=== PATIENT | male | born 1960 | race Caucasian/White ===

== ENCOUNTER 2017-12-06 05:22 | Day surgery (SDC) | payer BC, OTHER, SELFPAY ==
[2017-11-25 09:58] VITALS: BP 144/70; PULSE 82; RESP 16; TEMP 36.8; O2SAT 98; BMI 31.9
--- NOTE | 2017-11-25 10:08 | EKG12_ITS ---
Test Reason : Blood Pressure : / mmHG Vent. Rate : 080 BPM Atrial Rate : 080 BPM P-R Int : 154 ms QRS Dur : 084 ms QT Int : 370 ms P-R-T Axes : 009 000 -03 degrees QTc Int : 426 ms Poor data quality, interpretation may be adversely affected Sinus rhythm with Fusion complexes Septal infarct , age undetermined Abnormal ECG Confirmed by HAY BURTON, FRANCIS ([id number]), index editor THEA ROGERS ([id number]) on 11/28/2017 1:44:13 PM Referred By: Tigre Nelson Confirmed By:FRANCIS GUIDO MD
[2017-11-25 10:46] LABS: Absolute Lymphocyte Count 2.15 X10^3/ul (0.83-4.51); Absolute Neutrophil Count 1.9 X10^3/uL (2.0-7.7); Basophil# 0.02 X10^3/uL; Basophil% 0.4 % (0-1); Eosinophil# 0.14 X10^3/uL; Eosinophils% 3.1 % (0-5); Hematocrit 41.6 % (40-54); Hemoglobin 14.3 g/dl (13.0-16.5); Lymphocyte # 2.15 X10^3/ul (4.0); Lymphocyte % 47.6 % (19-41); Mean Corp Hgb Conc 34.4 g/gl (32-36); Mean Corpuscular Hgb 30.3 pg (27.0-32.0); Mean Corpuscular Volume 88.1 fL (80-94); Mean Platelet Vol. 9.9 fl (6.2-12.0); Monocyte# 0.35 X10^3/uL; Monocyte% 7.7 % (0-10); Neutrophil # 1.86 X10^3/uL (2.7-7.7); Neutrophil % 41.2 % (47-70); Platelet Count 208 K/mm3 (150-450); RBC Distribution Width CV 13.6 % (11.6-14.6); RBC Distribution Width SD 43.7 fl (35.1-43.9); Red Blood Count 4.72 M/mm3 (4.6-6.2); White Blood Count 4.5 K/mm3 (4.4-11.0)
[2017-11-25 10:48] LABS: POSITIVE COUNT NO; POSITIVE DIFFERENTIAL NO; POSITIVE MORPHOLOGY NO
[2017-11-25 11:16] LABS: Anion Gap 5 (5-15); BUN 15 mg/dL (7-18); BUN/Creat Ratio 16.9 RATIO (10-20); Calcium,Total 8.9 mg/dL (8.5-10.1); Chloride 106 mmol/L (98-107); Creatinine, Serum 0.89 mg/dL (0.70-1.30); EST Glomerular Filtration Rate 93 mL/min (>60); Est Glom Filt Rate - Afr Amer 113 mL/min (>60); Estimated Creatinine Clearance 84.58 ml/min; Glucose 91 mg/dL (74-106); Potassium 4.7 mmol/L (3.5-5.1); Sodium Level 141 mmol/L (136-145)
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
--- NOTE | 2017-12-05 15:36 | CASEMGMT ---
[facility] Pre-op Call. DC PLAN: Home with outpt therapy Intro role of CM to patient and his on phone and questions asked re: discharge planning. Equipment @ home: cane, walker, tub bench, grab bars, crutches. Physical Therapy: [facility], [place], [place] Prescription Coverage: Yes Transportation: is able to assist. No further concerns identified. Glenda CONROY RN ACM
[2017-12-06] VITALS (8 sets, daily range): BP systolic 122–155; BP diastolic 74–91; PULSE 75–84; RESP 16–18; TEMP 35.8–37.1; O2SAT 92–97; BMI 31.9
[2017-12-06] MEDS: Acetaminophen 500 MG Tablet 1000 MG PO ×2 (05:45→13:49)
[2017-12-06] MEDS: oxyCODONE HCl Cr 10 MG Tablet PO (05:45)
[2017-12-06] MEDS: Celecoxib 200 MG Capsule 400 MG PO (05:45)
--- NOTE | 2017-12-06 07:15 | KNEE_PTH ---
PATIENT: ASHLEY [place] [facility] [id number] AGE/SX: 57/M ROOM: RE12/06/[address]: Tigre Nelson MD : [id number] BED: DIS: 12/06/2017 SPEC #: [id number] RECD: 12/06/17 10:20 STATUS: WALDEMAR JESSICA #: [id number] COCO: 12/06/17 07:[address]: Tigre Nelson DEPT: SURGICAL PATHOLOGY RECD BY: Milton Cedillo ENTERED: 12/06/17 13:30 SP TYPE: TOTAL KNEE OTHR DR: Dr. Yang Serrano, DO Tissues: Knee, NOS Procedures: Decalcification bone/plaque Surgery Specimen Level IV HEADER OPERATION: Total knee replacement PRE-OP DIAGNOSIS: Osteoarthritis with varus deformity TISSUE SUBMITTED: Bone and soft tissue, rule out avascular necrosis MICROSCOPIC DIAGNOSIS Bone and soft tissue, right knee, total knee replacement: Pieces of bone with degenerative osteoarthritis and focal changes consistent with avascular necrosis. Fragments of fibroadipose tissue, fibroconnective tissue and reactive synovial tissue with focal granulation tissue reaction and calcification. TASHA:sergio 12/09/17 MICROSCOPIC DESCRIPTION Slides are reviewed. GROSS DESCRIPTION Received is one container designated bone and soft tissue right knee. The specimen consists of multiple fragments of rowley-yellow bone measuring in aggregate 11 x 10 x 4 cm. Also in the specimen container are multiple fragments of yellow-white soft tissue measuring in aggregate 10 x 9 x 4 cm. A number of bony fragments contain articular surfaces consistent with tibial plateau and femoral condyle and displaying prominent osteophyte formation, eburnation, and bone erosion. Manager Intelligence sections are submitted in four cassettes as follows: 1 - soft tissue, 2-4 - bone after decalcification. / TASHA:sergio 12/06/17 :5 [facility]: [id number]
[2017-12-06] MEDS: Cefazolin 2 GM in 0.9% Normal Saline 100 ML IV (07:22)
--- NOTE | 2017-12-06 10:28 | RAD_ITS ---
STUDY: X-RAY - RIGHT KNEE REASON FOR EXAM: Male, 57 years old. Total knee replacement. TECHNIQUE: AP and lateral view(s) of the knee. COMPARISON: None. FINDINGS: Normal visualized distal femur. Normal visualized proximal tibia and fibula. Normal proximal tibiofibular articulation. The patient is status post total knee replacement. There is good alignment. Postoperative soft tissue changes. RAD/Knee 1 or 2 Views IMPRESSION: Status post total knee replacement. There is good alignment. Postoperative soft tissue changes. Electronically Signed: Yony Telles MD at 12:40 EDT Tel [phone], Service support ,
[2017-12-06] MEDS: Cefazolin 1 GM/50 ML BAG IV (14:06)
== END 2017-12-06 15:11 | disposition home or self-care (01) ==
LOC: SDC 05:24 → AC 05:24 → MS3 07:34 → SDC 08:17 → AC 08:54
PROVIDERS: Family Provider Family Medicine; PCP Family Medicine; Visit Provider Orthopaedic Surgery
PROC: (CPT 27447; principal; 2017-12-06 06:50)
DX: M17.11 Unilateral primary osteoarthritis, right knee (principal); M21.161 Varus deformity, not elsewhere classified, right knee; F41.9 Anxiety disorder, unspecified; K21.9 Gastro-esophageal reflux disease without esophagitis; G89.29 Other chronic pain; F11.90 Opioid use, unspecified, uncomplicated; Z96.652 Presence of left artificial knee joint; F32.9 Major depressive disorder, single episode, unspecified; G47.30 Sleep apnea, unspecified
CPT/HCPCS: 27447; 73560; 80048; 85025; 87081; 88305; 88311; 97162; C1776; J7120

== ENCOUNTER → 2019-04-05 13:36 | Outpatient (CLI) | payer OTHER, SELFPAY ==
[2019-03-22 14:30] VITALS: BMI 31.9
--- NOTE | 2019-04-05 13:41 | ART_ITS ---
Reason For Study: Bilateral lower extremity pain Procedure A bilateral lower extremity continuous wave Doppler with analog waveform analysis and ankle brachial indexes. Left Segmental Pressures Left brachial= 173mmHg. Left posterior tibial artery = 184mmHg. Left dorsalis pedis artery = 182mmHg. The left dorsalis pedis waveforms are triphasic. The left posterior tibial artery waveforms are triphasic. Right Segmental Pressures Right brachial= 173mmHg. Right posterior tibial artery = 193mmHg. Right dorsalis pedis artery = 210mmHg. The right dorsalis pedis waveforms are triphasic. The right posterior tibial artery waveforms are triphasic. Indices The right ankle brachial index by the dorsalis pedis is 1.21. The right ankle brachial index by the posterior tibial artery is 1.12. The left ankle brachial index by the dorsalis pedis is 1.05. The left ankle brachial index by the posterior tibial artery is 1.06. Interpretation Summary Triphasic Doppler waveforms are noted at ankle level bilaterally. Resting ankle-brachial indices are normal bilaterally. There is no evidence of significant arterial occlusive disease in the lower extremities bilaterally. Ordering Physician: Gerri Leary Referring Physician: Gerri Leary Performed By: Saida Encarnacion RVT
== END ==
PROVIDERS: Family Provider Internal Medicine; PCP Internal Medicine; Referring Provider Internal Medicine; Visit Provider Internal Medicine
DX: M79.604 Pain in right leg (principal); M79.605 Pain in left leg; I73.9 Peripheral vascular disease, unspecified
CPT/HCPCS: 93922

== ENCOUNTER → 2019-06-08 15:29 | Outpatient (CLI) | payer OTHER, SELFPAY ==
[2019-03-22 14:30] VITALS: BMI 31.9
[2019-06-08 15:54] LABS: Absolute Lymphocyte Count 1.97 X10^3/uL (0.83-4.51); Absolute Neutrophil Count 3.9 X10^3/uL (2.0-7.7); Basophil# 0.03 X10^3/uL; Basophil% 0.4 % (0-1); Eosinophil# 0.17 X10^3/uL; Eosinophils% 2.5 % (0-5); Hematocrit 42.3 % (40-54); Hemoglobin 13.9 g/dL (13.0-16.5); Lymphocyte # 1.97 X10^3/ul (4.0); Lymphocyte % 29.4 % (19-41); Mean Corp Hgb Conc 32.9 g/dL (32-36); Mean Corpuscular Hgb 28.3 pg (27.0-32.0); Mean Platelet Vol. 10.2 fl (6.2-12.0); Monocyte# 0.63 X10^3/uL; Monocyte% 9.4 % (0-10); NRBC Flagged by Analyzer 0 % (0-5); Neutrophil # 3.89 X10^3/uL (2.7-7.7); Neutrophil % 58.2 % (47-70); Platelet Count 234 K/mm3 (150-450); RBC Distribution Width CV 13.5 % (11.6-14.6); RBC Distribution Width SD 42.8 fl (35.1-43.9); Red Blood Count 4.92 M/mm3 (4.6-6.2); White Blood Count 6.7 K/mm3 (4.4-11.0)
[2019-06-08 16:17] LABS: Erythrocyte Sedimentation Rate 22 mm/hr (0-20)
== END ==
LOC: LAB 15:33
PROVIDERS: Family Provider Internal Medicine; PCP Internal Medicine; Referring Provider Specialist; Visit Provider Specialist
DX: T84.032A Mechanical loosening of internal right knee prosthetic joint, initial encounter (principal)
CPT/HCPCS: 36415; 85025; 85652; 86140

== ENCOUNTER → 2019-06-15 12:53 | Outpatient (CLI) | payer OTHER, SELFPAY ==
[2019-03-22 14:30] VITALS: BMI 31.9
[2019-06-15 14:12] LABS: Synovial Fld Mononuclear WBC % 72.8 %; Synovial Fld Polynuclear WBC # 0.648 10^3/uL; Synovial Fld Polynuclear WBC % 27.2 %
[2019-06-15 14:13] LABS: RBC /Synovial Fluid 0.012 10^6/uL (0)
[2019-06-15 14:14] LABS: AUTO B FLUID DILUENT BKGD CT WBC <0.1 RBC <0.01 (W<.1,R<.01)
[2019-06-15 14:15] LABS: Appearance /Synovial Fluid Sl Cl (CLEAR); Color / Synovial Fluid Pink (Pale Yellow); Source / Synovial Fluid RIGHT KNEE
[2019-06-15 15:08] LABS: Body Fluid QC Type(s) BF1Q; Lymph 73 %; Neutrophil 27 % (0-25)
[2019-06-18 14:06] LABS: Pathologist Comment Reviewed
== END ==
LOC: LABSPEC 13:13
PROVIDERS: Family Provider Internal Medicine; PCP Internal Medicine; Referring Provider Specialist; Visit Provider Specialist
DX: T84.032A Mechanical loosening of internal right knee prosthetic joint, initial encounter (principal)
CPT/HCPCS: 87015; 87070; 87075; 87101; 87116; 87205; 87206; 89050; 89051

== ENCOUNTER → 2019-07-02 12:41 | Outpatient (CLI) | payer OTHER, SELFPAY ==
[2019-07-02 12:32] VITALS: BMI 31.9
--- NOTE | 2019-07-02 12:42 | RAD_ITS ---
STUDY: X-RAY CHEST REASON FOR EXAM: Male, 58 years old. Cough. TECHNIQUE: PA and lateral views of the chest. COMPARISON: None. FINDINGS: The lungs are clear and expanded. There is no demonstrated pleural abnormality. Normal size heart. Normal mediastinum and radha. Normal visualized pulmonary arteries. Normal visualized aortic arch and descending thoracic aorta. There are diffuse degenerative changes of the visualized thoracic spine. There is degenerative osteoarthritis of the bilateral shoulders. There is no demonstrated abnormality of the visualized soft tissue structures of the upper abdomen. RAD/Chest PA and Lateral IMPRESSION: Degenerative changes, as described above. No demonstrated acute cardiopulmonary process. Electronically Signed: Pineda Ford DO at 18:37 EST Tel [phone], Service support ,
== END ==
PROVIDERS: Family Provider Internal Medicine; PCP Internal Medicine; Referring Provider Physician Assistant Surgical; Visit Provider Physician Assistant Surgical
DX: J20.9 Acute bronchitis, unspecified (principal)
CPT/HCPCS: 71046

== ENCOUNTER → 2019-07-04 09:23 | Outpatient (CLI) | payer OTHER, SELFPAY ==
[2019-07-02 12:32] VITALS: BMI 31.9
--- NOTE | 2019-07-04 09:24 | RAD_ITS ---
STUDY: X-RAY - RIGHT KNEE REASON FOR EXAM: Male, 58 years old. Pain. History of TKA, 2018. TECHNIQUE: 4 view(s) of the knee. COMPARISON: Right knee, December 06, 2017 FINDINGS: There is a total knee replacement. The prosthetic components are intact and articulate normally with each other. There is no evidence of loosening from the underlying bone. There is no evidence of osseous fracture or destructive osseous pathology. Question of a small suprapatellar joint effusion with edema of the soft tissues of the anterior knee. RAD/Knee 4 or More Views IMPRESSION: 1. Right knee replacement unchanged from previous study. There is no evidence for acute fracture or dislocation.. 2. Question suprapatellar joint effusion. 3. Anterior soft tissue swelling. Electronically Signed: Pineda Ford DO at 18:31 EST Tel [phone], Service support ,
[2019-07-04 12:20] LABS: Pathologist Comment May follow
[2019-07-04 13:12] LABS: RBC /Synovial Fluid 0.021 10^6/uL (0); Synovial Fld Mononuclear WBC % 66.3 %; Synovial Fld Polynuclear WBC # 1.255 10^3/uL; Synovial Fld Polynuclear WBC % 33.7 %
[2019-07-04 14:55] LABS: AUTO B FLUID DILUENT BKGD CT WBC <0.1 RBC <0.01 (W<.1,R<.01); CRYSTALS, BODY FLUID See PATH REV; Source- Body Fluid SYNOVIAL
[2019-07-04 14:56] LABS: Appearance /Synovial Fluid Turbid (CLEAR); Color / Synovial Fluid Pink (Pale Yellow)
[2019-07-04 14:57] LABS: Lymph 16 %; Monocyte /Synovial Fluid 21 %; Neutrophil 61 % (0-25); Other Cell /Synovial Fluid 2 %
[2019-07-05 12:32] LABS: Pathologist Review Reviewed
== END ==
PROVIDERS: Family Provider Internal Medicine; PCP Internal Medicine; Referring Provider Orthopaedic Surgery; Visit Provider Orthopaedic Surgery
DX: M25.561 Pain in right knee (principal); T84.012A Broken internal right knee prosthesis, initial encounter
CPT/HCPCS: 73564; 87070; 87075; 87205; 89050; 89051; 89060

== ENCOUNTER → 2019-07-10 09:31 | Outpatient (CLI) | payer OTHER, SELFPAY ==
[2019-07-10 08:42] VITALS: BMI 31.9
--- NOTE | 2019-07-10 09:46 | EKG12_ITS ---
Test Reason : PREOP Blood Pressure : / mmHG Vent. Rate : 083 BPM Atrial Rate : 083 BPM P-R Int : 160 ms QRS Dur : 086 ms QT Int : 362 ms P-R-T Axes : 035 -01 027 degrees QTc Int : 425 ms Normal sinus rhythm Normal ECG Confirmed by BJ BURTON, VESNA ([id number]), online content editor SABRINA GUEVARA ([id number]) on 07/11/2019 12:57:02 PM Referred By: Kofi Alcantara Confirmed By:VESNA LORENZO MD
[2019-07-10 10:42] LABS: Absolute Neutrophil Count 4.7 X10^3/uL (2.0-7.7); Basophil# 0.03 X10^3/uL; Basophil% 0.4 % (0-1); Eosinophil# 0.19 X10^3/uL; Eosinophils% 2.6 % (0-5); Hematocrit 46.8 % (40-54); Lymphocyte % 24.4 % (19-41); Mean Corp Hgb Conc 32.1 g/dL (32-36); Mean Corpuscular Hgb 28.1 pg (27.0-32.0); Mean Corpuscular Volume 87.6 fL (80-94); Mean Platelet Vol. 10.2 fl (6.2-12.0); Monocyte# 0.66 X10^3/uL; Monocyte% 8.9 % (0-10); NRBC Flagged by Analyzer 0 % (0-5); Neutrophil # 4.67 X10^3/uL (2.7-7.7); Neutrophil % 63.3 % (47-70); Platelet Count 272 K/mm3 (150-450); RBC Distribution Width CV 13.8 % (11.6-14.6); RBC Distribution Width SD 44.3 fl (35.1-43.9); Red Blood Count 5.34 M/mm3 (4.6-6.2); White Blood Count 7.4 K/mm3 (4.4-11.0)
[2019-07-10 11:25] LABS: ALB/GLOB Ratio 1.1 RATIO (0.9-2.4); AST(SGOT) 17 U/L (15-37); Alanine Aminotransfer ALT/SGPT 22 U/L (16-61); Albumin, Serum 3.9 g/dL (3.2-5.0); Alkaline Phosphatase 140 U/L (45-117); Anion Gap 4 (5-15); BUN 19 mg/dL (7-18); BUN/Creat Ratio 20.8 RATIO (10-20); Calcium,Total 8.9 mg/dL (8.5-10.1); Chloride 106 mmol/L (98-107); Creatinine, Serum 0.92 mg/dL (0.70-1.30); EST Glomerular Filtration Rate 90 mL/min (>60); Est Glom Filt Rate - Afr Amer 109 mL/min (>60); Globulin 3.5 g/dL (2.2-4.2); Glucose 79 mg/dL (74-106); Potassium 3.9 mmol/L (3.5-5.1); Protein, Total 7.4 g/dL (6.4-8.2); Sodium Level 139 mmol/L (136-145); Thyroid Stim Hormone (TSH) 0.87 uIU/mL (0.358-3.74)
== END ==
PROVIDERS: Family Provider Internal Medicine; PCP Internal Medicine; Referring Provider Nurse Practitioner Family; Visit Provider Nurse Practitioner Family
DX: Z01.818 Encounter for other preprocedural examination (principal); M25.561 Pain in right knee
CPT/HCPCS: 36415; 80053; 84443; 85025; 93005

== ENCOUNTER → 2019-07-13 07:38 | Outpatient (CLI) | payer OTHER, SELFPAY ==
[2019-07-04 09:39] VITALS: BMI 31.9
[2019-07-10 08:42] VITALS: BMI 31.9
--- NOTE | 2019-07-13 07:45 | CT_ITS ---
STUDY: CT RIGHT KNEE WITHOUT CONTRAST REASON FOR EXAM: Male, 58 years old. PAIN, RIGHT TOTAL KNEE REPLACEMENT FAILED HARDWARE, POSS PATELLAR FX. RADIATION DOSAGE (If Supplied By Facility): CTDIvol = ( 15.35 ) mGy, DLP = ( 489.31 ) mGycm TECHNIQUE: Transaxial CT imaging of the knee was performed. Coronal and sagittal images were reformatted. Individualized dose optimization techniques were used for this CT. COMPARISON: Right knee series 07/04/2019 FINDINGS: Total knee arthroplasty appears in anatomic alignment. Arthropathy of the proximal tibiofibular articulation with subchondral cyst formation. Inferior medial tibial plateau contains segments off cortical loss and thinning. This is a best seen image 68 series 3 measuring 0.8 x 1.5 cm. Widening of the interosseous space along the tibial prosthesis. Broad lucent vertical defect of the left para midline patella of 0.4 cm. Contour is indistinct. Subchondral cyst formation along the posterior patella prosthesis interface. There is a large joint effusion with mild dependent hyperattenuation, questionable septation and layering debris, minimal scattered calcification. Great patella skin thickening and some subcutaneous fat stranding. CT/Extremity Lower without Contra IMPRESSION: Patellar deformity with nonunion appears nonacute possible subacute in age and may represent pathologic fracture. Large complex effusion suprapatellar effusion. Widened intraosseous interface along the tibial prostheses. Other nonacute findings as outlined above. Electronically Signed: Bianca Boyer MD at 6:06 EST , Service support ,
== END ==
PROVIDERS: Family Provider Internal Medicine; PCP Internal Medicine; Referring Provider Orthopaedic Surgery; Visit Provider Orthopaedic Surgery
DX: T84.012A Broken internal right knee prosthesis, initial encounter (principal)
CPT/HCPCS: 73700

== ENCOUNTER 2019-07-24 05:22 | Inpatient (IN) | payer OTHER, SELFPAY ==
[2019-07-04 09:39] VITALS: BMI 31.9
[2019-07-13 08:42] VITALS: BP 138/84; PULSE 84; RESP 16; TEMP 36.3; O2SAT 98; BMI 28.8
[2019-07-19 08:16] VITALS: BMI 28.8
--- NOTE | 2019-07-23 16:37 | PCM.HP.BLA ---
History and Physical Date of Admission: 07/24/19 Intake Intake Visit Reasons: KNEE Chief Complaint: surgical clearance Allergies adhesive tape Allergy (Verified 07/13/19 08:34) Rash gabapentin [From Neurontin] Allergy (Verified 07/13/19 08:34) Hives surgical glue Allergy (Uncoded 07/13/19 08:35) Rash [facility] Social History (Updated 07/19/19 @ 09:21 by Kevin Wright DO) Smoking Status: Former smoker alcohol intake: former substance use type: marijuana what type of physical activity do you participate in: none HPI KNEE: Details: Parts of this documentation were recorded by a scribe, this documentation accurately reflects the service provided and the decisions made by me, Kevin Wright DO 07/19/19 0750. ASHLEY HILL is a 58 year old M here today for a followup on his right knee. Patient states that he has increased knee pain. He ambulates with a very slow and antalgic gait. He wears a knee brace. He states his swelling isnt as bas as normal. Patient denies any fevers or chills malaise. ROS Musc Reports joint pain, Reports muscle weakness, Reports stiffness Skin/Breast Reports system reviewed and no additional complaints, except as docu Neuro Yes system reviewed and no additional complaints, except as docu Ortho Exam Right Knee Knee ROM: No ROM-Extension -20 to 0, No ROM-Flexion 0-140 KNEE: stiff knee joint effusion 30 cc ant very slightly cloudy fluid Office Procedures Ortho Aspiration Procedure Detail Procedure performed by: Kevin Wright Ortho Injections/Aspirations Yes Knee Right Supplemental Info CT does reveal verticle fracture of patella Assessment & Plan Problems 1. 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 Cain and I have spoken over the phone and we did review his CT scan again today that demonstrates there is a vertical fracture that is chronic we discussed how this affects our decision making during his total knee revision and again reviewed that if patellar component is well fixed will leave in place if not will remove component without replacing and possibly removing part of the patella versus just debriding some of its edges but leaving it without resurfacing as too little and fragmented bone. Again reviewed his prior aspirations which were negative for culture x2 however due to an elevated synovial white blood cell count and elevated CRP on blood work I would like to obtain an alpha defensen synovial fluid analysis to be more certain there is no underlying infection here. Knee was aspirated and sent off for analysis. Spoke with the patient about the surgery procedure and recovery. Recommended the patient never kneel on his knee after this surgery. Spoke with him about the possible procedure based off the results of his knee aspiration. Patient agreed to Follow up for his 2 week post op or sooner if pain, swelling, numbness or associated symptoms, or concerns develop. 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 There are no clinical changes since date of exam
[2019-07-24] VITALS (11 sets, daily range): BP systolic 95–141; BP diastolic 62–98; PULSE 82–100; RESP 16–18; TEMP 36.3–37; O2SAT 93–100; BMI 28.8
[2019-07-24] MEDS: Scopolamine 1mg/72hr Patch 1 PATCH TRANSDERM. (06:00)
[2019-07-24] MEDS: Celecoxib 200 MG Capsule 400 MG PO (06:00)
[2019-07-24] MEDS: Acetaminophen 500 MG Tablet 1000 MG PO ×3 (06:00→21:09)
[2019-07-24] MEDS: Lactated Ringers 1,000 ML 100 ML IV ×3 (06:01→13:31)
[2019-07-24] MEDS: Magnesium Sulfate 4gm/100mL 4 GM/100 ML IV.SOLN. IV (06:01)
[2019-07-24 07:01] LABS: Bedside Glucose 128 mg/dL (70-110)
[2019-07-24] MEDS: Cefazolin 2 GM in 0.9% Normal Saline 100 ML IV ×3 (07:37→23:07)
[2019-07-24] MEDS: dexAMETHasone 10 MG/ML Vial IV (07:51)
[2019-07-24] MEDS: Epinephrine (1 mg/ml) 1 MG/ML VIAL (08:36)
[2019-07-24] MEDS: Bupivacaine Mpf 0.5% 30 ML VIAL (08:37)
[2019-07-24] MEDS: Lactated Ringers 1,000 ML 125 ML IV ×2 (09:30→14:12)
--- NOTE | 2019-07-24 12:13 | PCM.OPRPT ---
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 Postoperative diagnosis: Same Procedure: Revision right total knee arthroplasty Implants: [place] revision TS size 4 femur with out offset 18 mm x 100 stem press-fit, size 13 TS poly-size 5 tibial plate baseplate with offset and 16mm press-fit stem, 5 mm augment distal femur medial and lateral, 10 mm posterior augment medial femur 5 mm posterior augment lateral femur, 10 mm medial tibial augment 5 mm lateral tibial augment Anesthesia: Spinal with postoperative adductor canal block EBL: 250 Tourniquet: None used Complications: None Condition: Stable to PACU Indication for procedure: This is a 58-year-old male gentleman who had a CR retaining Juan total knee by another physician 2 years prior did well postoperatively until last few months with onset of increased pain there was no constitutional symptoms for infections no fever chills malaise or other bodily infections he did have his knee cultured 3 times negative for infection also a synovial sure test was performed with negative alpha defense and and negative neutrophil elastase. He did have CT scan and x-ray which demonstrated loosening of the tibial component as well as a chronic nondisplaced vertical fracture of the patellar .we had thorough discussion about revision of the knee and thorough discussion about the treatment of his patella we discussed that if the patellar implant was loose that it would be removed and partial patellectomy me versus patelloplasty would be performed but if the implant was well fixed would leave. Risk benefits and alternatives were reviewed including risk of bleeding infection nerve, artery, bone, tissue damage, blood clot need for further surgery and continued pain. Procedure: Patient was met in the preoperative holding area once again operative extremity was identified by both patient and physician and was marked. Patient was brought back to the operating room on a wheeled cart and transfer the operative table supine position anesthesia was started a spinal was placed a well-padded tourniquet was placed on the operative extremity and a bump under the right hip patient was prepped and draped in the usual sterile fashion and a timeout was called to ensure the proper patient procedure and extremity were being contemplated. The tourniquet was not inflated the previous incision was marked and was only extended slightly proximal and distal. Full-thickness flaps were elevated to the joint capsule and a medial parapatellar arthrotomy with quadriceps snip was performed. The thickened capsular tissue and synovium was debrided both tibial and femoral components were indeed loose however the patellar component remained well fixed to the medial fragment and was left. With flexible osteotomes the implants were removed previous cement was removed. We then began with tibial all and reamed until good cortical chatter was reached final reamer 16 mm was left in place and the tibial plateau was sized as a 5 it was determined at this point that an offset would be needed in the appropriate depth of the IM reamer was placed , offset was determined to be 6 mm in the 2 o'clock position we determined also at this point that we would need to cut and augment medially and a 5 mm augment was cut using dorsal baseplate and link arm to tibial cutting block the lateral plateau was freshened up with a 2 mm cut and the medial side was cut for the augment with sagittal saw and regular saw. The [employer] reamer was used and fin punch was performed we then turned our attention to the distal femur and sequentially reamed until a size 18. We then placed the distal femoral cutting block and aligned the medial epicondyle with the ME addition of the block we then determined 5 mm augments would be needed medial and lateral distally and the appropriate cuts were made. We then proceeded with sizing the femur. We then placed the appropriate augments on her spacer block and determined at this point to add 5 additional millimeter augments on the tibia leaving a 5 augment lateral and a 10 augment medial on tibia this provided good balancing in extension with a 13 mm poly thickness we then inserted the spacer block and flexion against the all-in-one cutting block and determined appropriate rotation and no offset would be needed for the femur. However a 5 mm augment posterior lateral and an 10 mm augment posterior medial would be appropriate we then made the appropriate cuts and attached the box cutting jig attachment this was pinned in place. A reciprocating saw was used to score the quintana of the box then the cutting blocks were removed and the box was completed with an osteotome. We then trialed and there was excellent balancing in both flexion and extension. Once again the patella was checked and was stable. The aqua Brent was used posterior capsular injection was performed. Cementing of the tibial baseplate with press fitting of the stem is performed we staged the cement process for the tibia and the femur prior to cementing thorough irrigation and Betadine rinse were performed procedure was performed repeated for the femur and trial poly-was inserted allowed cement to harden and inserted TS poly-excellent tracking balancing and range of motion were achieved a second rinse and Aricept rinse were allowed to sit quadriceps snip and arthrotomy were repaired with #2 FiberWire and #1 Ethibond distally subcutaneous closure with 2-0 Vicryl and celeste in the skin dressing form of Mepilex roll and Esequiel wrap.
--- NOTE | 2019-07-24 12:45 | RAD_ITS ---
STUDY: X-RAY - RIGHT KNEE REASON FOR EXAM: Male, 58 years old. POST OP FOR KNEE. TECHNIQUE: 2 view(s) of the knee. COMPARISON: 07/04/2019. FINDINGS: Status post total revision semiconstrained knee arthroplasty. Surgical hardware intact/well aligned. No acute complications. Postoperative soft tissues with staple line. RAD/Knee 1 or 2 Views IMPRESSION: Uncomplicated revision semiconstrained right knee arthroplasty Electronically Signed: Matheus Parkinson DO at 13:47 EST Tel , Service support ,
[2019-07-24] MEDS: Ketorolac 30 MG/ML Syringe IV (17:13)
[2019-07-24] MEDS: 0.9% Saline Lock 10 ML Syringe IV ×2 (17:14→19:15)
--- NOTE | 2019-07-24 17:28 | CHAPLAIN ---
Type of Pastoral Visit _x__ Initial Visit ___ Follow-up Visit ___ On-call Visit ___ General Patient Visit ___ Spiritual Assessment ___ Family Conference ___ Bereavement ___ Rapid Response ___ Code Blue ___ Other (describe below) Pastoral Care Referral From _x__ Patient ___ Family _x__ Nurse ___ Physician ___ Liquor Blender ___ Chairlift Operator ___ Other (describe below) Sacrament/Intervention _x__ Active listening ___ Anointing ___ Synagogue ___ Bereavement ___ Communion _x__ Anni exploration ___ _x__ Life review _x__ Prayer ___ Reconciliation ___ Sacrament of Sick _x__ Supportive presence ___ Wedding ___ Other (describe below) Pastoral Comments
[2019-07-24] MEDS: oxyCODONE 5 MG Tablet PO (17:49)
[2019-07-24] MEDS: cycloBENZAPRine HCl 10 MG Tablet PO (18:21)
[2019-07-24] MEDS: oxyCODONE HCl Cr 10 MG Tablet PO (18:46)
[2019-07-24] MEDS: HYDROmorphone 1 MG/ML Syringe 0.5 MG IV (19:15)
[2019-07-24] MEDS: Senna/Docusate Sodium 1 Tablet 2 TABLET PO (21:10)
--- NOTE | 2019-07-24 22:21 | NURSING ---
Noted pt has sleep apnea. confirmed with pt. pt states he does not use CPAP at home. states hasn't for many years as he would pull his mask off in his sleep constantly. went into pt's room with continuous pulse ox as per policy. pt refused to wear. explained to pt why we monitor for 24hrs post op and pt still refused.
[2019-07-25 03:10] VITALS: BP 115/63; PULSE 78; RESP 16; TEMP 36.9; O2SAT 92
[2019-07-25] MEDS: Acetaminophen 500 MG Tablet 1000 MG PO ×3 (05:29→22:16)
[2019-07-25 06:03] LABS: Hematocrit 30.5 % (40-54); Hemoglobin 10.1 g/dL (13.0-16.5); Mean Corp Hgb Conc 33.1 g/dL (32-36); Mean Corpuscular Hgb 28.1 pg (27.0-32.0); Mean Corpuscular Volume 84.7 fL (80-94); Mean Platelet Vol. 10.3 fl (6.2-12.0); Platelet Count 217 K/mm3 (150-450); RBC Distribution Width CV 13.5 % (11.6-14.6); RBC Distribution Width SD 42.2 fl (35.1-43.9)
[2019-07-25 06:21] LABS: Anion Gap 7 (5-15); BUN 20 mg/dL (7-18); BUN/Creat Ratio 18.3 RATIO (10-20); Chloride 105 mmol/L (98-107); Creatinine, Serum 1.09 mg/dL (0.70-1.30); EST Glomerular Filtration Rate 73 mL/min (>60); Est Glom Filt Rate - Afr Amer 89 mL/min (>60); Estimated Creatinine Clearance 65.85 ml/min; Glucose 142 mg/dL (74-106); Potassium 4.2 mmol/L (3.5-5.1); Sodium Level 139 mmol/L (136-145)
[2019-07-25] MEDS: APIXABAN 2.5 MG TABLET PO ×2 (06:30→22:16)
[2019-07-25 08:46] VITALS: BP 110/60; PULSE 84; RESP 14; TEMP 36.6; O2SAT 94
[2019-07-25] MEDS: oxyCODONE HCl Cr 10 MG Tablet PO (09:52)
[2019-07-25] MEDS: Senna/Docusate Sodium 1 Tablet 2 TABLET PO ×2 (09:52→22:16)
--- NOTE | 2019-07-25 09:59 | PN.ORTHO_ITS ---
Subjective: Patient doing okay his pain is better controlled today has been up with physical therapy. Although he does not feel ready for discharge today and is requesting further physical therapy before being discharged tomorrow. - Physical Exam Vitals/I&O's: Vital Signs Temp Pulse Resp BP Pulse Ox 97.9 F 84 14 110/60 94 07/25/19 08:46 07/25/19 08:46 07/25/19 08:46 07/25/19 08:46 07/25/19 08:46 Oxygen Flow Rate (L/min) 6 Oxygen Delivery Method Room Air Weight: 183 lb 10.321 oz Body Mass Index (BMI) 28.8 Intake and Output for Last 24 Hours 07/23/19 07/24/19 07/25/19 23:59 23:59 23:59 Intake Total 5438.25 / 5438.25 387.5 / 387.5 Output Total 275 / 275 350 / 350 Balance 5163.25 / 5163.25 37.5 / 37.5 General: Alert, Oriented x3, Cooperative, No apparent distress Extremities: - - Dressing clean dry and intact neurovascular intact compartments soft Laboratory Results 07/25/19 05:30: WBC 11.0, RBC 3.60 L, Hgb 10.1 L, Hct 30.5 L, MCV 84.7, MCH 28.1, MCHC 33.1, RDW Std Deviation 42.2, RDW Coeff of Clemente 13.5, Plt Count 217, MPV 10.3 07/25/19 05:30: Sodium 139, Potassium 4.2, Chloride 105, Carbon Dioxide 27.0, Anion Gap 7, BUN 20 H, Creatinine 1.09, Estim Creat Clear Calc 65.85, Est GFR (MDRD) Af Amer 89, Est GFR (MDRD) Non-Af 73, BUN/Creatinine Ratio 18.3, Glucose 142 H, Calcium 8.0 L Current Medications Acetaminophen (Tylenol) 1,000 mg PO Q8 [facility] Last Admin: 07/25/19 05:29 Dose: 1,000 mg Documented by: Apixaban (Eliquis) 2.5 mg PO BID [facility] Last Admin: 07/25/19 06:30 Dose: 2.5 mg Documented by: Cyclobenzaprine HCl (Flexeril) 10 mg PO TID PRN PRN PRN Reason: SPASMS Last Admin: 07/24/19 18:21 Dose: 10 mg Documented by: Hydromorphone HCl (Dilaudid Inj) 0.5 mg IV Q2H PRN PRN PRN Reason: BREAKTHROUGH PAIN (>4/10) Last Admin: 07/24/19 19:15 Dose: 0.5 mg Documented by: Sodium Chloride () 250 mls @ 15 mls/hr IV .[id number] PRN PRN Reason: Saline Flush Sodium Chloride () 250 mls @ 15 mls/hr IV .[id number] PRN PRN Reason: Additional IVPB Infusion Insulin Human Lispro (Humalog Kwikpen (Bkc)) 1 - 6 unit SC Q4H PRN PRN; Protocol PRN Reason: BG>/= 180, SEE PROTOCOL Ketorolac Tromethamine (Toradol) 30 mg IV Q6H PRN PRN PRN Reason: Pain Score 1-10/10 Stop: 07/26/19 12:09 Last Admin: 07/24/19 17:13 Dose: 30 mg Documented by: Ondansetron HCl (Zofran) 4 mg IV Q6H PRN PRN PRN Reason: NAUSEA Oxycodone HCl (Oxyir) 5 - 10 mg PO Q4H PRN PRN PRN Reason: Pain Score 1-10/10 Last Admin: 07/24/19 17:49 Dose: 10 mg Documented by: Oxycodone HCl (Oxycontin) 10 mg PO 1000,1800 [facility] Stop: 07/25/19 10:01 Last Admin: 07/25/19 09:52 Dose: 10 mg Documented by: Senna/Docusate Sodium (Senokot-S, Veena-Colace) 2 tablet PO BID [facility] Last Admin: 07/25/19 09:52 Dose: 2 tablet Documented by: Sodium Chloride () 10 - 40 ml IV UD PRN PRN Reason: SALINE FLUSH Last Admin: 07/24/19 19:15 Dose: 10 ml Documented by: Medical Necessity - Tobacco Use Smoking Status: Former smoker Tobacco Use: Non-smoker Assessment/Plan All Active Problems (Last Reviewed 07/10/19 @ 08:41 by Mandy Moody) Right knee pain (Acute) Acute bronchitis (Acute) Stop day #1 revision right total knee arthroplasty Doing okay with current pain medic Acacian regimen DVT prophylaxis SCDs RONALD Aldrich PT OT weightbearing as tolerated encourage range of motion Patient will likely be discharged tomorrow. with out patient physical therapy.
[2019-07-25 10:20] VITALS: O2SAT 95
[2019-07-25] MEDS: cycloBENZAPRine HCl 10 MG Tablet PO (14:08)
[2019-07-25 14:11] VITALS: BP 128/71; PULSE 81; RESP 16; TEMP 36.6; O2SAT 94
[2019-07-25] MEDS: oxyCODONE 5 MG Tablet PO (16:21)
[2019-07-25] MEDS: Ketorolac 30 MG/ML Syringe IV (18:20)
[2019-07-25] MEDS: 0.9% Saline Lock 10 ML Syringe IV (18:21)
[2019-07-25 20:11] VITALS: BP 132/65; PULSE 87; RESP 16; TEMP 37.6; O2SAT 94
[2019-07-26] MEDS: Ketorolac 30 MG/ML Syringe IV (01:00)
[2019-07-26] MEDS: 0.9% Saline Lock 10 ML Syringe IV ×2 (01:01→09:08)
[2019-07-26 02:30] VITALS: BP 128/66; PULSE 80; RESP 16; TEMP 36.6; O2SAT 93
[2019-07-26 06:01] LABS: Hematocrit 27.6 % (40-54); Hemoglobin 9.1 g/dL (13.0-16.5); Mean Corpuscular Hgb 28.8 pg (27.0-32.0); Mean Corpuscular Volume 87.3 fL (80-94); Mean Platelet Vol. 10.4 fl (6.2-12.0); Platelet Count 165 K/mm3 (150-450); RBC Distribution Width CV 13.8 % (11.6-14.6); RBC Distribution Width SD 43.4 fl (35.1-43.9); Red Blood Count 3.16 M/mm3 (4.6-6.2); White Blood Count 6.6 K/mm3 (4.4-11.0)
[2019-07-26] MEDS: Acetaminophen 500 MG Tablet 1000 MG PO ×2 (06:28→12:55)
[2019-07-26] MEDS: oxyCODONE 5 MG Tablet PO ×3 (06:31→17:46)
[2019-07-26 07:52] VITALS: O2SAT 94
[2019-07-26 08:30] VITALS: BP 127/74; PULSE 86; RESP 18; TEMP 36.7; O2SAT 96
[2019-07-26] MEDS: cycloBENZAPRine HCl 10 MG Tablet PO (09:07)
[2019-07-26] MEDS: HYDROmorphone 1 MG/ML Syringe 0.5 MG IV (09:08)
[2019-07-26] MEDS: Senna/Docusate Sodium 1 Tablet 2 TABLET PO (09:09)
[2019-07-26] MEDS: APIXABAN 2.5 MG TABLET PO (09:09)
--- NOTE | 2019-07-26 09:40 | CASEMGMT ---
DENISSE SERVIN Face to Face with patient for initial transition planning/care coordination assessment. DENISSE CM introduced self and role at [facility]. Patient sitting in chair, alert and oriented. Patient willing to participate in assessment and is able to answer all questions appropriately. Care providers, pharmacy, and demographics verified. Patient wishes to discharge home with outpatient therapy at [facility]. No appointment scheduled RN CM to assist with setup. Patient states he has no further needs or concerns at this time. CM to follow for discharge planning needs that may arise. PCP: [facility] Specialists: Kiet Wright Pharmacy: [facility] Insurance: MMO stopped 07/24/19. Patient has filed for Medicaid. Patient laid off work prior to surgery. Patient to fill out [employer] form when available. Prescription Benefit: None Living Will/HPOA: None LNOK: , mother in law Living Arrangements: Patient lives with in 2 story home with bed and bath on first floor. Patient's has MS and recently broke her wrist. Transportation: is able to provide transportation DME/HHC: Patient has cane and walker at home. Patient will need outpatient therapy scheduled but has appointments for infusions next week. Patient gave permission to speak with regarding outpatient therapy appointment setup. RN CM called , who is anxious regarding patient coming home and helping him with her broke wrist. has appointment for infusion Tuesday at 1330. RN CM called [facility] prior to speaking with and they have appointment available Tuesday at 1300. RN CM updated to appointment available for Tuesday 1300. is able to provide transportation. concerned about frequency of appointments. RN CM updated and patient regarding access to hospital van to assist with transportation and that [facility] will help coordinate. RN CM explained to that patient is able to ambulate stairs and get in and out of car per therapy. Patient to work again with therapy this afternoon. Disposition Plan: Patient to discharge home with outpatient therapy, family support, and follow-up plans in place. Saida CONROY, RN, CM
--- NOTE | 2019-07-26 09:50 | PCM.DC.ORTHO ---
Discharge Diet: No Restrictions Call your doctor if you observe: Shortness of breath, Chest pain Additional Instructions: Ice and elevate next week while not ambulating. Encourage ambulation weightbearing as tolerated. Encourage FULL knee extension and flexion 1 time EVERY time you get up and down and MULTIPLE times per day. Begin showering postop day #3. Remove the dressing prior to shower gently wash with warm water and antibacterial soap then pat dry place ABD pad and RONALD hose over top. This is to be done daily. do not submerge for 3 weeks. If not showering daily must clean incision and change dressing daily. Do not allow animals near incision keep clean. Follow anticoagulation recommendations. Start physical therapy as directed in the hospital. call Dr. Wright with any concerns. Allergies/Adverse Reactions: Allergies adhesive tape Allergy (Verified 07/24/19 05:48) Rash gabapentin [From Neurontin] Allergy (Verified 07/24/19 05:48) Hives surgical glue Allergy (Uncoded 07/24/19 05:48) Rash Medications to take at Discharge Acetaminophen [Tylenol] 1,000 mg PO Q6H PRN #100 tab 07/26/19 Apixaban [Eliquis] 2.5 mg PO BID #28 tab 07/26/19 Oxycodone [Oxyir] 5 - 10 mg PO Q4H PRN PRN #60 tablet 07/26/19 cycloBENZAPRine HCl [Flexeril] 10 mg PO TID PRN PRN #50 tab 07/26/19 The following prescriptions were given: Apixaban [Eliquis] 2.5 mg PO BID #28 tab Transmission Status: Pending to [id number] cycloBENZAPRine HCl [Flexeril] 10 mg PO TID PRN PRN #50 tab PRN Reason: Spasms Transmission Status: Pending to [facility] Oxycodone [Oxyir] 5 - 10 mg PO Q4H PRN PRN #60 tablet PRN Reason: Pain Score 1-10/10 [facility] Acetaminophen [Tylenol] 1,000 mg PO Q6H PRN #100 tab Transmission [facility]: [id number] Primary Care Physician: Gerri Leary MD [Primary Care Provider] - Test Results: Test results from this visit will be discussed in further detail at your follow-up appointment, if applicable. Please Follow Up With: Kevin Wright DO - 2 weeks
--- NOTE | 2019-07-26 09:51 | PCM.DC.SUM ---
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 Patient underwent the aformentioned procedure on the admission date without any intraoperative complications. Patient did receive pre-and postoperative antibiotics which were discontinued within 23 hours postoperatively. Patient did receive [spinal anesthesia as well as an adductor canal block postoperatively]. pain was controlled with IV and transition to p.o. pain medication Patient will be discharged home with oxycodone and will continue Tylenol as well. Patient had minimal intraoperative blood loss and 2gm tranexamic acid was administered there was no need for postoperative blood transfusion Patients vital signs remained stable. Patient was started on both mechanical and chemical DVT per prophylaxis postoperatively in the form of SCDs RONALD hose and [Eliquis 2.5 mg twice daily for which she will continue for 2 additional weeks post hospital discharge]. Esequiel removed post op day number one and thigh high ronald hose placed over top of the meplix silver dressing. This should be removed 72 hrs post operatively and showering begun daily at that time with warm water and antibacterial soap. not to submerge for 3 weeks. To change dressing daily after first dressing change. Patient will follow-up in the office in 2 weeks. No intrahospital complications. - Physical Exam Vitals/I&O's: Vital Signs Temp Pulse Resp BP Pulse Ox 98.0 F 86 18 127/74 H 96 07/26/19 08:30 07/26/19 08:30 07/26/19 08:30 07/26/19 08:30 07/26/19 08:30 Oxygen Flow Rate (L/min) 6 Oxygen Delivery Method Room Air Weight: 183 lb 10.321 oz Body Mass Index (BMI) 28.8 Intake and Output for Last 24 Hours 07/24/19 07/25/19 07/26/19 23:59 23:59 23:59 Intake Total 5438.25 / 5438.25 1747.5 / 2097.5 650 / 650 Output Total 275 / 275 350 / 350 Balance 5163.25 / 5163.25 1397.5 / 1747.5 650 / 650 General: Alert, Oriented x3, Cooperative, No apparent distress Extremities: - - Dressing clean dry and intact compartment soft neurovascular intact. Laboratory Results 07/26/19 05:30: WBC 6.6, RBC 3.16 L, Hgb 9.1 L, Hct 27.6 L, MCV 87.3, MCH 28.8, MCHC 33.0, RDW Std Deviation 43.4, RDW Coeff of Clemente 13.8, Plt Count 165, MPV 10.4 Current Medications Acetaminophen (Tylenol) 1,000 mg PO Q8 [facility] Last Admin: 07/26/19 06:28 Dose: 1,000 mg Documented by: Apixaban (Eliquis) 2.5 mg PO BID [facility] Last Admin: 07/26/19 09:09 Dose: 2.5 mg Documented by: Cyclobenzaprine HCl (Flexeril) 10 mg PO TID PRN PRN PRN Reason: SPASMS Last Admin: 07/25/19 14:08 Dose: 10 mg Documented by: Hydromorphone HCl (Dilaudid Inj) 0.5 mg IV Q2H PRN PRN PRN Reason: BREAKTHROUGH PAIN (>4/10) Last Admin: 07/26/19 09:08 Dose: 0.5 mg Documented by: Sodium Chloride () 250 mls @ 15 mls/hr IV .[id number] PRN PRN Reason: Saline Flush Sodium Chloride () 250 mls @ 15 mls/hr IV .[id number] PRN PRN Reason: Additional IVPB Infusion Insulin Human Lispro (Humalog Kwikpen (Bkc)) 1 - 6 unit SC Q4H PRN PRN; Protocol PRN Reason: BG>/= 180, SEE PROTOCOL Ondansetron HCl (Zofran) 4 mg IV Q6H PRN PRN PRN Reason: NAUSEA Oxycodone HCl (Oxyir) 5 - 10 mg PO Q4H PRN PRN PRN Reason: Pain Score 1-10/10 Last Admin: 07/26/19 06:31 Dose: 10 mg Documented by: Senna/Docusate Sodium (Senokot-S, Veena-Colace) 2 tablet PO BID [facility] Last Admin: 07/26/19 09:09 Dose: 2 tablet Documented by: Sodium Chloride () 10 - 40 ml IV UD PRN PRN Reason: SALINE FLUSH Last Admin: 07/26/19 09:08 Dose: 10 ml Documented by: Discharge Diet: No Restrictions Call your doctor if you observe: Shortness of breath, Chest pain Home Medications: Medications to take at Discharge Acetaminophen [Tylenol] 1,000 mg PO Q6H PRN #100 tab 07/26/19 Apixaban [Eliquis] 2.5 mg PO BID #28 tab 07/26/19 Oxycodone [Oxyir] 5 - 10 mg PO Q4H PRN PRN #60 tablet 07/26/19 cycloBENZAPRine HCl [Flexeril] 10 mg PO TID PRN PRN #50 tab 07/26/19 Following Prescrptions Were Given to Patient: Apixaban [Eliquis] 2.5 mg PO BID #28 tab Transmission Status[id number] cycloBENZAPRine HCl [Flexeril] 10 mg PO TID PRN PRN #50 tab PRN Reason: Spasms Transmission Status: [facility] to [id number] Oxycodone [Oxyir] 5 - 10 mg PO Q4H PRN PRN #60 tablet PRN Reason: Pain Score 1-10/10 Transmission Status: [facility] by [id number] Acetaminophen [Tylenol] 1,000 mg PO Q6H PRN #100 tab Transmission Status: [facility] to [id number] Primary Care Physician: Gerri Leary MD [Primary Care Provider] - Please Follow Up With: Kevin Wright, - 2 weeks Additional Instructions: Ice and elevate next week while not ambulating. Encourage ambulation weightbearing as tolerated. Encourage FULL knee extension and flexion 1 time EVERY time you get up and down and MULTIPLE times per day. Begin showering postop day #3. Remove the dressing prior to shower gently wash with warm water and antibacterial soap then pat dry place ABD pad and RONALD hose over top. This is to be done daily. do not submerge for 3 weeks. If not showering daily must clean incision and change dressing daily. Do not allow animals near incision keep clean. Follow anticoagulation recommendations. Start physical therapy as directed in the hospital. call Dr. Borruso with any concerns. Medical Necessity - Tobacco Use Smoking Status: Former smoker Tobacco Use: Non-smoker Meaningful Use Info Meaningful Use Diagnoses (Choose all that apply): None applicable
--- NOTE | 2019-07-26 13:40 | CASEMGMT ---
DENISSE SERVIN received message from patient's mother in law Karma Meyer. DENISSE SERVIN in to updated patient regarding message left and he gave permission for this RN CM to called Karma and update her on discharge plans. DENISSE SERVIN updated Karma that patient is being discharged today and that outpatient therapy at [facility] has been scheduled for Tuesday07/30/18 at 1pm prior to daughters appointment at 130pm. DENISSE SERVIN updated Karma that patient will be able to utilize [facility] transport van after appointments can be coordinated with [facility]. Karma voiced understanding and had no further questions at this time.
[2019-07-26 16:19] VITALS: BP 107/64; PULSE 83; RESP 18; TEMP 36.9; O2SAT 92
== END 2019-07-26 19:11 | disposition home or self-care (01) | DRG 467 ==
LOC: ACINP 06:29 → MS3 07-26 06:51 → ACINP 07-26 07:24 → MS3 07-26 07:24
PROVIDERS: Admitting Provider Orthopaedic Surgery; Family Provider Internal Medicine; PCP Internal Medicine; Referring Provider Orthopaedic Surgery; Visit Provider Orthopaedic Surgery
PROC: 0SPC0JZ Removal of Synthetic Substitute from Right Knee Joint, Open Approach (ICD-10-PCS; CPT 27447; principal; 2019-07-24 07:05)
DX: T84.032A Mechanical loosening of internal right knee prosthetic joint, initial encounter (principal); S82.024A Nondisplaced longitudinal fracture of right patella, initial encounter for closed fracture; Z87.891 Personal history of nicotine dependence; M97.11XA Periprosthetic fracture around internal prosthetic right knee joint, initial encounter; I10 Essential (primary) hypertension
CPT/HCPCS: 36415; 73560; 80048; 82962; 85027; 87081; 97110; 97116; 97162; 97166; 97530; 97535; C1776; J7120; A4216; J0702

== ENCOUNTER → 2019-09-06 13:38 | Outpatient (CLI) | payer MEDICAID, SELFPAY ==
[2019-09-06 13:21] VITALS: BMI 28.8
--- NOTE | 2019-09-06 13:39 | RAD_ITS ---
STUDY: X-RAY - RIGHT SHOULDER REASON FOR EXAM: Severe joint pain. TECHNIQUE: 4 view(s) of the shoulder. COMPARISON: None. FINDINGS: There is severe joint space narrowing of the glenohumeral articulation, subchondral eburnation and a small osteophyte of the humeral head. Status post resection of the distal clavicle. The soft tissue structures are unremarkable. Normal visualized pulmonary apex. RAD/Shoulder min 2 Views IMPRESSION: Glenohumeral arthrosis. Electronically Signed: Elliott Lee MD at 14:23 EST Tel , Service support ,
--- NOTE | 2019-09-06 13:39 | RAD_ITS ---
STUDY: X-RAY - RIGHT ELBOW REASON FOR EXAM: Male, 58 years old. Severe joint pain, getting worse. TECHNIQUE: 3 view(s) of the elbow. COMPARISON: None. FINDINGS: Olecranon spur. Moderate to severe arthrosis of the elbow joint. The soft tissue structures are unremarkable. 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 Electronically Signed: Derek Gutierrez MD at 19:16 EST , Service support ,
== END ==
PROVIDERS: PCP Internal Medicine; Referring Provider Orthopaedic Surgery; Visit Provider Orthopaedic Surgery
DX: M25.511 Pain in right shoulder (principal); R20.0 Anesthesia of skin; R20.2 Paresthesia of skin
CPT/HCPCS: 73030; 73080

== ENCOUNTER 2019-12-07 07:37 | Emergency (ER) | payer MEDICAID, OTHER, SELFPAY ==
[2019-11-30 09:34] VITALS: BMI 28.8
[2019-12-07 07:38] VITALS: BP 165/92; PULSE 90; RESP 18; TEMP 36.7; O2SAT 97; BMI 29.8
[2019-12-07] MEDS: Ondansetron 4 MG/2 ML Vial IV (08:11)
[2019-12-07] MEDS: Morphine 4 MG/ML Syringe IV ×2 (08:11→11:02)
[2019-12-07 08:12] LABS: Erythrocyte Sedimentation Rate 6 mm/hr (0-20)
[2019-12-07 08:14] LABS: Absolute Lymphocyte Count 0.83 X10^3/uL (0.83-4.51); Absolute Neutrophil Count 14.2 X10^3/uL (2.0-7.7); Basophil# 0.03 X10^3/uL; Basophil% 0.2 % (0-1); Differential Indicated SCAN CRITERIA MET; Eosinophil# 0.03 X10^3/uL; Eosinophils% 0.2 % (0-5); Hematocrit 43.6 % (40-54); Hemoglobin 14.2 g/dL (13.0-16.5); Lymphocyte # 0.83 X10^3/ul (4.0); Lymphocyte % 4.9 % (19-41); Mean Corp Hgb Conc 32.6 g/dL (32-36); Mean Corpuscular Hgb 25.9 pg (27.0-32.0); Mean Corpuscular Volume 79.6 fL (80-94); Mean Platelet Vol. 9.7 fl (6.2-12.0); Monocyte# 1.66 X10^3/uL; Monocyte% 9.9 % (0-10); NRBC Flagged by Analyzer 0 % (0-5); Neutrophil # 14.21 X10^3/uL (2.7-7.7); Neutrophil % 84.3 % (47-70); POSITIVE DIFFERENTIAL YES; Platelet Count 211 K/mm3 (150-450); RBC Distribution Width CV 19.2 % (11.6-14.6); RBC Distribution Width SD 53.7 fl (35.1-43.9); Red Blood Count 5.48 M/mm3 (4.6-6.2); White Blood Count 16.8 K/mm3 (4.4-11.0)
[2019-12-07 08:35] LABS: Anion Gap 9 (5-15); BUN 20 mg/dL (7-18); BUN/Creat Ratio 20.1 RATIO (10-20); Calcium,Total 8.7 mg/dL (8.5-10.1); Chloride 100 mmol/L (98-107); EST Glomerular Filtration Rate 82 mL/min (>60); Est Glom Filt Rate - Afr Amer 99 mL/min (>60); Estimated Creatinine Clearance 73.44 ml/min; Glucose 169 mg/dL (74-106); Platelet Estimate ADEQUATE (ADEQ); Potassium 3.9 mmol/L (3.5-5.1); Red Cell Morphology NORM C+C NORMAL (NORM C&C); Sodium Level 134 mmol/L (136-145)
--- NOTE | 2019-12-07 08:35 | RAD_ITS ---
STUDY: X-RAY - RIGHT FEMUR REASON FOR STUDY: Male, 59 years old. Right knee pain swelling and redness. Dog hit knee last night. Knee replacement TECHNIQUE: 3 view(s) of the femur. COMPARISON: Comparison is made with prior examination of July 24, 2019. FINDINGS: The patient is status post total knee replacement of the restraining type.. There is good alignment. Is evidence of a transverse fracture of the distal femoral metaphysis just proximal to the femoral component of the prosthetic knee. Joint effusion. Anterior soft tissue swelling. RAD/Femur Min 2 Views IMPRESSION: Status post right total knee replacement of the constrained type. Nondisplaced transverse fracture of the distal femur just proximal to the femoral component of the prosthesis. Joint effusion and soft tissue swelling. Electronically Signed: Yony Telles, at 9:04 EDT , Service support ,
--- NOTE | 2019-12-07 08:35 | RAD_ITS ---
STUDY: X-RAY - RIGHT KNEE REASON FOR EXAM: Male, 59 years old. Right knee pain swelling and redness. Dog hit knee last night. Knee replacement jul 24 TECHNIQUE: 4 view(s) of the knee. COMPARISON: Comparison is made with prior study dated July 24, 2019. FINDINGS: Nondisplaced transverse fracture of the distal femur just proximal to the femoral component of the prosthetic knee joint. Soft tissue swelling. Joint effusion. The total knee replacement is in good alignment. RAD/Knee 3 Views IMPRESSION: Nondisplaced transverse fracture of the distal femur just proximal to the femoral component of the prosthesis. Joint effusion and soft tissue swelling. Electronically Signed: Yony Telles, at 9:05 EDT , Service support ,
[2019-12-07 09:13] LABS: Pathologist Comment May follow
--- NOTE | 2019-12-07 09:38 | CT_ITS ---
STUDY: CT RIGHT FEMUR WITHOUT CONTRAST REASON FOR EXAM: Male, 59 years old. FEMUR FRACTURE RADIATION DOSAGE (If Supplied By Facility): CTDIvol = ( 15.54 ) mGy, DLP = ( 708.79 ) mGycm TECHNIQUE: Transaxial CT imaging of the femur was performed. Sagittal and coronal images were reconstructed. Individualized dose optimization techniques were used for this CT. COMPARISON: Comparison is made with prior examination dated July 13, 2019. FINDINGS: The patient is status post total knee replacement of the constrained type. The alignment is well maintained. There is evidence of a nondisplaced transverse fracture of the distal femoral metaphysis just proximal to the condylar component of the prosthesis. Stable 4 mm well-corticated bony fragment along the superior aspect of patella suggestive of an old injury. Large joint effusion. Diffuse soft tissue swelling. CT/Extremity Lower without Contra IMPRESSION: Nondisplaced transverse fracture of the distal femoral metaphysis just proximal to the condylar component of the prosthesis with overlying soft tissue swelling and joint effusion. Electronically Signed: Yony Telles, at 10:16 EDT , Service support ,
[2019-12-07 09:52] LABS: RBC /Synovial Fluid 0.041 10^6/uL (0); Synovial Fld Mononuclear WBC % 4.3 %; Synovial Fld Polynuclear WBC % 95.7 %
[2019-12-07 10:19] LABS: AUTO B FLUID DILUENT BKGD CT WBC <0.1 RBC <0.01 (W<.1,R<.01)
[2019-12-07 10:20] LABS: Appearance /Synovial Fluid Cloudy (CLEAR); Color / Synovial Fluid Pink (Pale Yellow); Source- Body Fluid SYNOVIAL
[2019-12-07 10:28] LABS: Body Fluid QC Type(s) BF1Q,BF2Q; Monocyte /Synovial Fluid 16 %; Neutrophil 84 % (0-25)
[2019-12-07 10:31] VITALS: PULSE 93; RESP 17; O2SAT 94
[2019-12-07 11:03] VITALS: BP 153/76; PULSE 91; RESP 18; O2SAT 97
--- NOTE | 2019-12-07 11:12 | ED.VISSUMM ---
- ER Visit Summary Date of Service: 12/07/19 Chief Complaint: Right knee pain History of Present Illness: The patient is a [address] Leary and Dr. Wright. Patient had a revision of a right knee replacement in June 2019. He was doing well until yesterday. He reports that his 45 pound dog ran into the back of his leg. He did not fall. He did not have any pain following this. However, patient reports that this morning he has a sharp, stabbing pain to his right knee that is 10 out of 10 in severity. He is unable to move it. Has not taken anything for pain. Patient denies any fever or chills. He does report that he is had redness to his right leg that comes and goes. Physical Examination: Vitals: Stable. Afebrile. General: Well-nourished and well-developed. Head: Normocephalic atraumatic. Neck: Supple, no lymphadenopathy. No JVD. Nontender. Cardiovascular: Regular rate and rhythm. No murmurs. Respiratory: No respiratory distress. Clear to auscultation bilaterally. Abdominal: Soft, nontender, nondistended, normal bowel sounds. No guarding, rebound, or peritoneal signs. Back: Nontender. Extremities: Right knee has erythema, warmth, and a moderate joint effusion. He has pain at any attempt of range of motion. He has a 2+ dorsalis pedis pulse. Skin: Normal color, no rash. Neurologic: Alert and oriented ?3. Cranial nerves II through XII are intact. Normal strength and sensation. Psych: Normal affect. Test Results: CBC shows a white count of 16.8 with 84 segmented neutrophils and 5 lymphocytes. Chem-7 shows a sodium 134, BUN 20, glucose 169. ESR is 6. CRP is 59.8. Synovial fluid shows a white count of 197,320 white blood cells that are 84% segmented neutrophils. Clinical Impression(s) from Imaging Studies Femur X-Ray 12/07/19 08:35 IMPRESSION: Status post right total knee replacement of the constrained type. Nondisplaced transverse fracture of the distal femur just proximal to the femoral component of the prosthesis. Joint effusion and soft tissue swelling. Electronically Signed: Yony Telles, at 9:04 EDT , Service support , Knee X-Ray 12/07/19 08:35 IMPRESSION: Nondisplaced transverse fracture of the distal femur just proximal to the femoral component of the prosthesis. Joint effusion and soft tissue swelling. Electronically Signed: Yony Telles, at 9:05 EDT , Service support , Lower Extremity CT 12/07/19 09:38 IMPRESSION: Nondisplaced transverse fracture of the distal femoral metaphysis just proximal to the condylar component of the prosthesis with overlying soft tissue swelling and joint effusion. Electronically Signed: Yony Telles, at 10:16 EDT , Service support , Emergency Department Course and Treatment: Patient was given morphine, Zofran, and vancomycin IV. He is resting comfortably. Treatment Plan: The patient was discussed with Dr. Domingo. Who asked that with a septic joint with a fracture that the patient be transferred down to [facility]. He was discussed with them and has been accepted. Disposition: Transferred in improved condition. Impression: 1. Septic right knee replacement. 2. Right femur fracture. 3. Arthrocentesis right knee by ED physician. Procedure note: Patient had his right knee prepped with chlorhexidine soap. It was then draped. Using sterile gloves and aseptic technique 60 cc of cloudy brown fluid was removed. He tolerated this well. This note was generated with [employer] dictation software. It may contain incorrect words, spelling, and punctuation that were not noted in review of the chart prior to signing ED Disposition - Plan for ED Patient: Referrals: Gerri Leary MD [Primary Care Provider] -
--- NOTE | 2019-12-07 11:20 | NURSING ---
ACCEPTED AT [facility].
--- NOTE | 2019-12-07 11:41 | NURSING ---
CALLED [facility], ETA IS 20 MIN
[2019-12-07 12:30] VITALS: BP 156/80; PULSE 95; RESP 17; O2SAT 96
--- NOTE | 2019-12-08 19:18 | ED.RN ---
positive wound culture report from lab, results called to [facility] where patient was transferred.
[2019-12-10 11:41] LABS: Pathologist Review Reviewed
[2019-12-10 11:45] LABS: Pathologist Review Reviewed
[2020-01-04 09:59] LABS: CRYSTALS, BODY FLUID Other, see comment
== END 2019-12-07 12:31 | disposition home or self-care (01) ==
LOC: ED 08:54
PROVIDERS: Emergency Provider Emergency Medicine; PCP Internal Medicine
DX: S72.401A Unspecified fracture of lower end of right femur, initial encounter for closed fracture (principal); W54.1XXA Struck by dog, initial encounter; Y92.89 Other specified places as the place of occurrence of the external cause; Y99.9 Unspecified external cause status; M00.9 Pyogenic arthritis, unspecified; Z96.651 Presence of right artificial knee joint; M25.40 Effusion, unspecified joint
CPT/HCPCS: 20610; 73552; 73562; 73700; 80048; 85025; 85652; 86140; 87070; 87075; 87186; 87205; 89050; 89051; 89060; 96365; 96375; 96376; 99285; J7030; J7040; J7050; A4216; J2405

== ENCOUNTER → 2020-08-12 13:39 | Outpatient (CLI) | payer MEDICAID, SELFPAY ==
[2020-04-23 10:29] VITALS: BMI 29.8
== END ==
PROVIDERS: PCP Internal Medicine; Referring Provider Internal Medicine; Visit Provider Internal Medicine
DX: R06.02 Shortness of breath (principal); Z20.822 Contact with and (suspected) exposure to COVID-19
CPT/HCPCS: 87635; U0003

== ENCOUNTER → 2020-09-04 10:59 | Outpatient (CLI) | payer MEDICAID, SELFPAY ==
[2020-09-04 10:08] VITALS: BMI 29.4
[2020-09-04 12:52] LABS: Absolute Lymphocyte Count 1.82 X10^3/uL (0.83-4.51); Basophil# 0.02 X10^3/uL; Basophil% 0.3 % (0-1); Eosinophil# 0.11 X10^3/uL; Eosinophils% 1.7 % (0-5); Hemoglobin 14.9 g/dL (13.0-16.5); Lymphocyte # 1.82 X10^3/ul (4.0); Lymphocyte % 27.7 % (19-41); Mean Corp Hgb Conc 32.4 g/dL (32-36); Mean Corpuscular Hgb 27.5 pg (27.0-32.0); Mean Corpuscular Volume 84.9 fL (80-94); Mean Platelet Vol. 10.6 fl (6.2-12.0); Monocyte# 0.64 X10^3/uL; Monocyte% 9.8 % (0-10); NRBC Flagged by Analyzer 0 % (0-5); Neutrophil # 3.95 X10^3/uL (2.7-7.7); Neutrophil % 60.2 % (47-70); Platelet Count 265 K/mm3 (150-450); RBC Distribution Width CV 14.7 % (11.6-14.6); RBC Distribution Width SD 45.9 fl (35.1-43.9); Red Blood Count 5.42 M/mm3 (4.6-6.2); White Blood Count 6.6 K/mm3 (4.4-11.0)
[2020-09-04 12:58] LABS: Hemoglobin A1c 6.2 % (3.8-5.6)
[2020-09-04 13:09] LABS: ALB/GLOB Ratio 1.2 RATIO (0.9-2.4); AST(SGOT) 26 U/L (15-37); Alanine Aminotransfer ALT/SGPT 32 U/L (16-61); Albumin, Serum 4.1 g/dL (3.2-5.0); Alkaline Phosphatase 147 U/L (45-117); Anion Gap 7 (5-15); BUN 21 mg/dL (7-18); BUN/Creat Ratio 18.9 RATIO (10-20); Calcium,Total 9.2 mg/dL (8.5-10.1); Chloride 105 mmol/L (98-107); Cholesterol 165 mg/dL (200); Creatinine, Serum 1.11 mg/dL (0.70-1.30); EST Glomerular Filtration Rate 72 mL/min (>60); Est Glom Filt Rate - Afr Amer 87 mL/min (>60); Globulin 3.4 g/dL (2.2-4.2); Glucose 113 mg/dL (74-106); High Density Lipoprotein 45 mg/dL; Magnesium 2.2 mg/dL (1.6-2.6); Potassium 3.9 mmol/L (3.5-5.1); Protein, Total 7.5 g/dL (6.4-8.2); Sodium Level 138 mmol/L (136-145); Triglycerides 149 mg/dL; Very Low Density Lipoprotein 30 mg/dL (5-40)
== END ==
PROVIDERS: PCP Internal Medicine; Referring Provider Nurse Practitioner Family; Visit Provider Nurse Practitioner Family
DX: I10 Essential (primary) hypertension (principal); R73.09 Other abnormal glucose
CPT/HCPCS: 36415; 80053; 80061; 83036; 83735; 84443; 85025

== ENCOUNTER 2020-12-07 05:14 | Emergency (ER) | payer MEDICAID, SELFPAY ==
[2020-11-06 09:02] VITALS: BMI 29.2
[2020-12-07 05:15] VITALS: BP 139/83; PULSE 72; RESP 18; TEMP 36.6; O2SAT 97; BMI 29.8
--- NOTE | 2020-12-07 05:32 | ED.VIS.BACK ---
HPI History of Present Illness Chief Complaint: Back Narrative Narrative: Patient stated the last couple days he has had radiculopathy in his right lower extremity. He said pain in his right back radiating sharp and in his right lateral thigh into the knee. No injury. He woke up with it. He has had this in the past remotely. History of remote laminectomy L4-L5 per patient. He has not taken pain medication for several years. He was on methadone and morphine but has not taken that in the last 3 years per patient. This was for chronic pain. Denies any fevers or chills. No loss of bowel or bladder function. [facility] Medical History (Updated 12/07/20 @ 05:[address] Maverick Darnell MD) Arthritis Chronic neck and back pain Depression Fatigue GERD (gastroesophageal reflux disease) History of drug abuse History of pneumonia Knee pain Limb weakness Neuropathy Osteoarthritis Shoulder pain Home Medications acetaminophen 650 mg tablet,extended release 650 mg PO Q12H 09/04/20 [History Last Taken Unknown] lisinopril 10 mg-hydrochlorothiazide 12.5 mg tablet 1 tablet PO DAILY #90 tablet 11/06/20 [Rx Last Taken Unknown] bupropion HCl 150 mg tablet,12 hr sustained-release 150 mg PO BID #120 ea 12/05/20 [Rx Last Taken Unknown] celecoxib 50 mg capsule 50 mg PO BID PRN #60 cap 12/05/20 [Rx Last Taken Unknown] ropinirole 0.25 mg tablet 0.25 mg PO QHS #60 tab 12/05/20 [Rx Last Taken Unknown] Allergy/AdvReac Type Severity Reaction Status Date / Time adhesive tape Allergy Rash Verified 12/07/20 05:17 gabapentin [From Neurontin] Allergy Hives Verified 12/07/20 05:17 surgical glue Allergy Rash Uncoded 09/04/20 10:07 Family History Other Alcoholism Anxiety and depression Arthritis Diabetes Myocardial infarction Surgical History History of back surgery History of bilateral knee replacement Social History Smoking Status: Never smoker alcohol intake: former substance use type: marijuana what type of physical activity do you participate in: none ROS ROS ED ROS Narrative ROS General: Denies fever, chills, sweats Eyes: Denies visual changes, blurred vision, double vision ENT: Denies ear pain, rhinorrhea, sore throat Cardiovascular: Denies chest pain, palpitations, heart racing Respiratory: Denies dyspnea, cough, sputum, dyspnea on exertion, orthopnea,PND GI: Denies abdominal pain, nausea, vomiting, diarrhea, constipation, melena : Denies dysuria, hematuria, frequency Musculoskeletal: See HPI Skin: Denies rash, abscess, abrasions Neuro: Denies headache, weakness, paresthesia Psych: Denies depression, anxiety Endo: Denies polyuria, polydipsia, polyphagia Heme: Denies easy bruising, easy bleeding, lymphadenopathy Allergy: Denies hives, swelling EXAM Physical Exam Narrative Exam Narrative: Vital signs reviewed General: Well-nourished well-developed Head: Normocephalic atraumatic Eyes: Pupils equal round and reactive to light extraocular movements intact ENT: TMs clear no hemotympanum no trauma Neck: Nontender full range of motion Cardiovascular: Regular rate rhythm no murmurs normal S1-S2 Respiratory: No distress clear to auscultation bilaterally chest nontender Abdomen: Soft nontender nondistended normal bowel sounds no masses Back: Nontender no CVA tenderness Extremities: Decreased range of motion right extremity secondary to pain in the back radiating down the right lateral thigh. Skin: Normal color no trauma Neuro alert oriented cranial nerves II through XII intact normal strength sensation reflexes Const Vital Signs: 12/07/20 05:15 Temperature 97.9 F Temperature Source Oral Pulse Rate 72 Respiratory Rate 18 Blood Pressure 139/83 H Blood Pressure Mean 101 Pulse Ox 97 Oxygen Delivery Method Room Air MDM MDM MDM Narrative Medical decision making narrative: I feel the patient has an acute lumbar radiculopathy. I do not feel he needs imaging. Given injection of morphine Toradol and Norflex. Will be given a prescription for Percocet for short-term pain control as well as muscle relaxant. Will rest and ice and follow-up as an outpatient. There has been no injury. Discharge Plan Triage Chief Complaint: Back ED Provider: Maverick Darnell Dx/Rx/DC Orders Clinical Impression: Acute lumbar radiculopathy Instructions: Causes of Lumbar (Low Back) Pain Prescriptions: No Action acetaminophen [Tylenol Arthritis Pain] 650 mg tablet extended release 650 mg PO Q12H RF: 0 lisinopril-hydrochlorothiazide 10-12.5 mg tablet 1 tablet PO DAILY Qty: 90 RF: 1 bupropion HCl [Wellbutrin SR] 150 mg tablet sustained-release 12 hr 150 mg PO BID Qty: 120 RF: 1 celecoxib [Celebrex] 50 mg capsule 50 mg PO BID PRN (Reason: pain) Qty: 60 RF: 1 ropinirole [Requip] 0.25 mg tablet 0.25 mg PO QHS Qty: 60 RF: 1 Primary Care Provider: Gerri Leary Referrals: Gerri Leary MD [Primary Care Provider] - Disposition Disposition: Home, self care
[2020-12-07] MEDS: Ketorolac 15 MG/ML Vial IM (05:38)
[2020-12-07] MEDS: Orphenadrine 60 MG/2 ML Ampul IM (05:38)
[2020-12-07] MEDS: morphine 8 MG/ML Syringe IV (05:39)
== END 2020-12-07 06:20 | disposition home or self-care (01) ==
PROVIDERS: Emergency Provider Emergency Medicine; PCP Internal Medicine
DX: M54.16 Radiculopathy, lumbar region (principal); Z96.653 Presence of artificial knee joint, bilateral; G89.29 Other chronic pain; F32.9 Major depressive disorder, single episode, unspecified; K21.9 Gastro-esophageal reflux disease without esophagitis; G62.9 Polyneuropathy, unspecified; M19.90 Unspecified osteoarthritis, unspecified site; Z79.899 Other long term (current) drug therapy
CPT/HCPCS: 96372; 96374; 99282

== ENCOUNTER 2021-01-28 17:36 | Emergency (ER) | payer MEDICAID, SELFPAY ==
[2020-12-15 14:07] VITALS: BMI 29.8
[2021-01-28 17:37] VITALS: BP 135/72; PULSE 78; RESP 18; TEMP 35.9; O2SAT 98; BMI 29.8
== END 2021-01-28 18:17 | disposition left against medical advice (07) ==
LOC: ED 18:21
PROVIDERS: PCP Internal Medicine
DX: Z53.21 Procedure and treatment not carried out due to patient leaving prior to being seen by health care provider (principal)

== ENCOUNTER → 2022-08-26 | Outpatient (CLI) | payer MEDICARE, MEDICAID, SELFPAY ==
[2022-08-26 11:58] LABS: Erythrocyte Sedimentation Rate 3 mm/hr (0-20)
[2022-08-26 12:03] LABS: Absolute Lymphocyte Count 1.93 X10^3/uL (0.83-4.51); Absolute Neutrophil Count 2.6 X10^3/uL (2.0-7.7); Basophil# 0.02 X10^3/uL; Basophil% 0.4 % (0-1); Eosinophil# 0.12 X10^3/uL; Eosinophils% 2.3 % (0-5); Hematocrit 48.1 % (40-54); Hemoglobin 15.7 g/dL (13.0-16.5); Lymphocyte # 1.93 X10^3/ul (0.83-4.51); Lymphocyte % 37.5 % (19-41); Mean Corp Hgb Conc 32.6 g/dL (32-36); Mean Corpuscular Hgb 28.1 pg (27.0-32.0); Mean Platelet Vol. 10.1 fl (6.2-12.0); Monocyte# 0.47 X10^3/uL; Monocyte% 9.1 % (0-10); NRBC Flagged by Analyzer 0 % (0-5); Neutrophil # 2.58 X10^3/uL (2.7-7.7); Neutrophil % 50.3 % (47-70); Platelet Count 252 K/mm3 (150-450); RBC Distribution Width CV 13.5 % (11.6-14.6); RBC Distribution Width SD 42.6 fl (35.1-43.9); Red Blood Count 5.59 M/mm3 (4.6-6.2); White Blood Count 5.1 K/mm3 (4.4-11.0)
[2022-08-26 12:16] LABS: CRP 3.15 mg/L (0.0-3.0)
== END | disposition home or self-care (01) ==
PROVIDERS: PCP Internal Medicine; Referring Provider Specialist; Visit Provider Specialist
DX: T84.032A Mechanical loosening of internal right knee prosthetic joint, initial encounter (principal)
CPT/HCPCS: 36415; 85025; 85652; 86140

== ENCOUNTER → 2022-09-09 | Outpatient (CLI) | payer MEDICARE, MEDICAID, SELFPAY ==
[2022-09-09 10:23] LABS: AUTO B FLUID DILUENT BKGD CT WBC <0.1 RBC <0.01 (W<.1,R<.01); Appearance /Synovial Fluid Hazy (CLEAR); Color / Synovial Fluid Yellow (Pale Yellow); Source / Synovial Fluid RIGHT KNEE; Synovial Fld Mononuclear WBC % 85.7 %; Synovial Fld Polynuclear WBC # 0.288 10^3/uL; Synovial Fld Polynuclear WBC % 14.3 %
[2022-09-09 10:24] LABS: RBC /Synovial Fluid 0.005 10^6/uL (0)
[2022-09-09 11:18] LABS: Lymph 80 %; Monocyte /Synovial Fluid 12 %; Neutrophil 8 % (0-25)
[2022-09-09 11:48] LABS: Body Fluid QC Type(s) BF1Q
[2022-09-10 09:46] LABS: Pathologist Comment Reviewed
== END | disposition home or self-care (01) ==
LOC: LAB 09:13 → LABSPEC 09:20
PROVIDERS: PCP Internal Medicine; Visit Provider Specialist
DX: T84.032A Mechanical loosening of internal right knee prosthetic joint, initial encounter (principal); Z96.651 Presence of right artificial knee joint
CPT/HCPCS: 87015; 87070; 87075; 87101; 87116; 87205; 87206; 89050; 89051

== ENCOUNTER → 2022-09-15 | Outpatient (CLI) | payer MEDICARE, MEDICAID, SELFPAY ==
[2022-09-15 12:43] LABS: Absolute Lymphocyte Count 1.74 X10^3/uL (0.83-4.51); Absolute Neutrophil Count 2.9 X10^3/uL (2.0-7.7); Basophil# 0.03 X10^3/uL; Basophil% 0.5 % (0-1); Eosinophil# 0.24 X10^3/uL; Eosinophils% 4.4 % (0-5); Hematocrit 47.3 % (40-54); Hemoglobin 15.7 g/dL (13.0-16.5); Lymphocyte # 1.74 X10^3/ul (0.83-4.51); Lymphocyte % 31.6 % (19-41); Mean Corp Hgb Conc 33.2 g/dL (32-36); Mean Corpuscular Hgb 28.6 pg (27.0-32.0); Mean Corpuscular Volume 86.3 fL (80-94); Mean Platelet Vol. 10.1 fl (6.2-12.0); Monocyte# 0.58 X10^3/uL; Monocyte% 10.5 % (0-10); NRBC Flagged by Analyzer 0 % (0-5); Neutrophil # 2.89 X10^3/uL (2.7-7.7); Neutrophil % 52.6 % (47-70); Platelet Count 250 K/mm3 (150-450); RBC Distribution Width CV 13.6 % (11.6-14.6); RBC Distribution Width SD 43.3 fl (35.1-43.9); Red Blood Count 5.48 M/mm3 (4.6-6.2); White Blood Count 5.5 K/mm3 (4.4-11.0)
[2022-09-15 13:52] LABS: ALB/GLOB Ratio 1.1 RATIO (0.9-2.4); AST(SGOT) 19 U/L (15-37); Alanine Aminotransfer ALT/SGPT 23 U/L (16-61); Albumin, Serum 3.8 g/dL (3.2-5.0); Alkaline Phosphatase 136 U/L (45-117); Anion Gap 8 (5-15); BUN 18 mg/dL (7-18); Calcium,Total 9.3 mg/dL (8.5-10.1); Chloride 108 mmol/L (98-107); Cholesterol 179 mg/dL (200); EST Glomerular Filtration Rate 91 mL/min (>60); Est Glom Filt Rate - Afr Amer 110 mL/min (>60); Globulin 3.5 g/dL (2.2-4.2); Glucose 114 mg/dL (74-106); High Density Lipoprotein 38 mg/dL; Potassium 4.3 mmol/L (3.5-5.1); Protein, Total 7.3 g/dL (6.4-8.2); Sodium Level 141 mmol/L (136-145); Triglycerides 226 mg/dL; Very Low Density Lipoprotein 45 mg/dL (5-40)
[2022-09-15 14:27] LABS: Hemoglobin A1c 6.1 % (3.8-5.6)
== END | disposition home or self-care (01) ==
PROVIDERS: PCP Internal Medicine; Referring Provider Internal Medicine; Visit Provider Internal Medicine
DX: K21.9 Gastro-esophageal reflux disease without esophagitis (principal); I10 Essential (primary) hypertension; R73.03 Prediabetes
CPT/HCPCS: 36415; 80053; 80061; 83036; 85025

== ENCOUNTER → 2023-01-10 | Outpatient (CLI) | payer MEDICARE, MEDICAID, SELFPAY ==
--- NOTE | 2023-01-10 10:43 | VDLE_ITS ---
Reason For Study: RLE pain RIGHT LEFT GSV is normal. CFV is compressible, spontaneous, phasic, CFV is compressible, spontaneous, phasic, competent, and demonstrates normal competent and demonstrates normal augmentation. augmentation. FV is compressible, spontaneous, phasic, competent and demonstrates normal augmentation. POP V is compressible, spontaneous, phasic, competent and demonstrates normal augmentation. T/P Trunk is compressible. PTV is compressible. RT PerV is compressible. Heterogeneous area in the calf measuring 1.13 x 4.46 cm. Area is nonvascular. Procedure This is a venous duplex using B-mode, color flow and spectral Doppler. Exam performed in department. The exam was diagnostic. A preliminary report was called and/or faxed to Shiv Ponce's office. VL/Venous Duplex US, Unilateral Interpretation Summary Deep veins of the right lower extremity are patent and compressible segmentally . There is no evidence of right lower extremity deep vein thrombosis. Valvular competence kenia ears intact within the proximal deep venous system on the right . The right great saphenous vein a ppears patent and compressible segmentally. The left common femoral vein is patent and compressib le . A non-vascular, heterogeneous area is noted in the right calf, measuring 1.13 cm x 4.46 cm. Thi s may represent a hematoma. Clinical correlation is advised. Ordering Physician: Shiv Ponce Performed By: Suresh Miller RVT
== END | disposition home or self-care (01) ==
LOC: CVS 10:36
PROVIDERS: PCP Internal Medicine; Referring Provider Physician Assistant Surgical; Visit Provider Physician Assistant Surgical
DX: M79.661 Pain in right lower leg (principal)
CPT/HCPCS: 93971

== ENCOUNTER 2023-01-26 10:26 | Inpatient (IN) | payer MEDICARE, MEDICAID, SELFPAY ==
[2023-01-14 09:20] LABS: Absolute Lymphocyte Count 1.52 X10^3/uL (0.83-4.51); Absolute Neutrophil Count 3.2 X10^3/uL (2.0-7.7); Basophil# 0.02 X10^3/uL; Basophil% 0.4 % (0-1); Eosinophil# 0.09 X10^3/uL; Eosinophils% 1.7 % (0-5); Hemoglobin 14.7 g/dL (13.0-16.5); Lymphocyte # 1.52 X10^3/ul (0.83-4.51); Lymphocyte % 28.6 % (19-41); Mean Corp Hgb Conc 32.7 g/dL (32-36); Mean Corpuscular Hgb 28.4 pg (27.0-32.0); Mean Platelet Vol. 9.9 fl (6.2-12.0); Monocyte# 0.45 X10^3/uL; Monocyte% 8.5 % (0-10); NRBC Flagged by Analyzer 0 % (0-5); Neutrophil # 3.21 X10^3/uL (2.7-7.7); Neutrophil % 60.4 % (47-70); Platelet Count 245 K/mm3 (150-450); RBC Distribution Width CV 13.9 % (11.6-14.6); RBC Distribution Width SD 44.8 fl (35.1-43.9); Red Blood Count 5.17 M/mm3 (4.6-6.2); White Blood Count 5.3 K/mm3 (4.4-11.0)
[2023-01-14 09:49] LABS: Albumin, Serum 3.6 g/dL (3.2-5.0); Anion Gap 10 (5-15); BUN 13 mg/dL (7-18); BUN/Creat Ratio 12.4 RATIO (10-20); Calcium,Total 8.7 mg/dL (8.5-10.1); Chloride 109 mmol/L (98-107); Creatinine, Serum 1.05 mg/dL (0.70-1.30); EST Glomerular Filtration Rate 76 mL/min (>60); Est Glom Filt Rate - Afr Amer 92 mL/min (>60); Glucose 142 mg/dL (74-106); Potassium 3.6 mmol/L (3.5-5.1); Sodium Level 143 mmol/L (136-145)
[2023-01-14 09:59] LABS: Magnesium 2.2 mg/dL (1.6-2.6)
[2023-01-14 10:30] LABS: Hemoglobin A1c 6.2 % (3.8-5.6)
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
[2023-01-26] VITALS (10 sets, daily range): BP systolic 114–165; BP diastolic 67–94; PULSE 69–84; RESP 16–18; TEMP 36.3–36.9; O2SAT 95–100; BMI 26.6; BMI 30.4
[2023-01-26] MEDS: Magnesium 1 GM over 15 mins IV (11:20)
[2023-01-26] MEDS: Lactated Ringers 1,000 ML 999 ML IV ×2 (11:34→18:40)
[2023-01-26] MEDS: Acetaminophen 500 MG Tablet 1000 MG PO ×2 (11:36→22:34)
[2023-01-26] MEDS: Celecoxib 200 MG Capsule 400 MG PO (11:36)
[2023-01-26 12:00] LABS: Bedside Glucose 113 mg/dL (74-106)
[2023-01-26] MEDS: Cefazolin 2 GM in 0.9% Normal Saline 100 ML IV (13:35)
[2023-01-26] MEDS: TXA 1000mg in NS100 100ml (IVPB at Incision) 660 MG IV (13:50)
[2023-01-26] MEDS: TXA 1000mg in NS100 100ml (IVPB at Closure) 660 MG IV (16:39)
[2023-01-26] MEDS: JPS (Morphine 10mg/ml) OPERA.SITE (16:46)
--- NOTE | 2023-01-26 17:18 | OP.PCM_ITS ---
Report of Operation Date of Procedure: 01/26/23 Pre-Operative Diagnosis: Right failed total knee replacement, aseptic loosening Post-Operative Diagnosis: Right failed total knee replacement, aseptic loosening Surgery/Procedure Performed:: Right revision total knee replacement entire femoral and tibial implants Description of Surgical Findings:: Patient had previous revision with extensive surgery. No gross evidence of current infection. Gross loosening of implants. Surgeon: Cash Reilly service provider: Shiv Ponce Type of Anesthesia: Spinal Anesthesiologist: En Lee Special Medications: 2 g Ancef, 1 g TXA at incision, 1 g TXA closure, 10 mg Decadron, joint cocktail (5 mg Duramorph, 30 mL of 0.5% Ropivicaine, 1000 units of epinephrine, 30 mg of Toradol) Specimen's removed: 3 separate specimens were sent to microbiology Estimated Blood Loss (mL): 250 Fluids Replaced: 1000 L crystalloid Description of Procedure: Implants used: Femur: [employer]omet NexGen size E right complete knee solution R HK component with 20 mm augments distally. 14 x 155 mm cemented stem. [place] size 1 2 femoral bilobed cone Tibia: [employer]omet NexGen R HK size 4 tibial component with 20 mm augments medially and laterally and 10 x 100 mm cemented stem. [place] size C tibial cone Poly: Juan [employer]omet 17 mm R HK polyethylene Brief history operative indications: 62-year-old male with total knee replacement in 2018 with subsequent revision. His revision became infected in 2019 and patient underwent two-stage revision. He was treated for MSSA.. Patient demonstrated evidence of aseptic loosening of his revision total knee replacement. After ruling out infection we agreed to proceed with revision total knee replacement which had risks which include but not limited to blood loss, DVTs, PEs, nervous damage, infection, the risk of anesthesia. Patient demonstrate understanding was able to sign informed consent. Medical clearance was obtained. Procedure: On the date of procedure patient's right lower extremity was marked in the preoperative area. The patient was then taken back to the operating room where the patient was placed on the table in the supine position. All bony prominences were identified a well-padded. Anesthesia assumed control of the C-spine and airway and remained controlled throughout the remainder of the procedure. A tourniquet was placed on the right upper thigh and the leg was prepped in a sterile fashion. The surgeon then scrubbed at this time. Upon reentering the room right lower extremity was draped in a standard orthopedic fashion. A timeout was then called and everyone agreed upon the side, the site, the procedure to be performed, patient's identity and antibiotics given. An Esmarch bandage was used to exsanguinate the extremity and the tourniquet was placed up to 250 mmHg with the knee in flexion. A midline skin incision was made using the previous incision and extending it proximally and distally to identify normal tissue planes. Medial and lateral flaps were developed appropriate releases. The standard medial parapatellar arthrotomy was made and the patella was subluxed laterally. At this time an aggressive synovectomy was performed re-creating the medial gutter first, then the suprapatellar pouch than the lateral gutter. Once this was completed the knee was flexed up an osteotome was used to remove the tibial polyethylene. The remainder of the synovium was debrided. The standard deep MCL release was done and the patella scar pad was resected and lateral releases were performed. Next our attention was directed to the femur. Where flexible osteotomes and TPS saw were used to break up the implant cement interface. This was done both medially and laterally. After this a bone tamp was used to remove the femur co mponent from the end of the bone. This was done with minimal bone loss. At this time attention was now directed towards the proximal tibia. Possible osteotome and TPS saw were then used to break up the proximal tibia implant interface and stacked osteotomes were used to remove the tibial implant. This was done with minimal bone loss. Our attention was then turned to the tibia where the intramedullary canal was reamed to 12 mm and a size C tibial cone was reamed. There was a large pedestal and we initially attempted to drill into the canal. Due to the thin bone laterally we did sustain a lateral perforation. However, we were able to finally get a good intramedullary reaming as mentioned above. We then made a cleanup cut on the tibia, A drop angelo was then used to verify the cut. A size 4 tibial base plate was selected. the knee was flexed and the tibial component was pinned into place and the Snapts reamer was used to ream the proximal medullary canal. The trial implant was impacted in its prepared position. Our attention was then turned back to the femur or the femur intramedullary canal was reamed to 16 mm using the previous implants a size E femoral [employer]omet R HK cutting guide with a 16 mm stem was put into place. The medial epicondyle was used to set the joint line. With this TCG cutting guide we used a 17 mm polyethylene trial in order to help balance the gaps. Once the gaps were appropriately balanced the guide was firmly pinned into place. Distal cuts were made with 20 mm augments medially and 202 mm augment laterally. Posterior cuts were made with 5 mm augments medially and 10 mm augment laterally. Using the guide the box cut was made using a reciprocating saw. We then reamed for the Nubia size 1 2 bilobed femoral cone. Cone trial was put into place. The appropriate trials were then placed on the femur and tibia. A trial polyethylene was trialed to ensure proper balancing and stability of the knee. Patella tracking, was then verified and corrected appropriately as needed. Our attention was then directed to the patella. Patella remained intact and appropriate. Based on x-rays it was firmly fixed. Patellar tracking was again checked and deemed appropriate. Final components were verified and opened, 6 liters of normal saline were irrigated throughout the joint under low-pressure lavage. Then the cement was mixed in a vacuum. [place] Simplex cement with tobramycin was used. The wound was copiously irrigated with normal saline. When the cement was ready cement plugs were placed in the tibial cone was placed the components were cemented into place starting with the tibia, femur. The trial poly component was placed and the knee was placed in full extension. All excess cement was removed in the process. Once the cement had cured the tracking, alignment and balance were verified and a size 17 mm articulating hinge Juan [employer]omet polyethylene component was placed. Once the final components were placed 3-minute dilute Betadine lavage followed by aa chlorhexidine lavage was used and the wound was copiously irrigated with normal saline solution and the remainder of the periarticular injection was given. The wound was closed in a layer browne fashion using #1 vicryl interrupted sutures for the arthrotomy, 2-0 interrupted Vicryl for the subcuticular layer and celeste for final skin closure. A sterile compressive dressing was then placed. The patient was then awakened from anesthesia, transferred to the rcardwell and transferred to the PACU for recovery. Post op plan DVT ppx: ASA 81mg BID, thigh high compression stockings Follow up: in office in 2 weeks for wound check PT: to start POD #0 at hospital, outpatient PT should be arranged. Patient's previous MSSA was susceptible to doxycycline. Patient replaced on dox ycycline 100 mg p.o. twice daily for at least 2 weeks as we follow cultures. My physician career services assistant was a vital part of this case. He was important in appropriate retraction during the case, and protection of soft tissues during bony cuts. His intimate knowledge of the case and my steps aided in safe and expedient completion of the procedure as well as appropriate position of the leg during the case. He was also vital in assisting with closure under my direct supervision. Complications Perforation lateral cortex of the tibia Admit VTE Documentation VTE Present on Admission: No VTE Mechan Device Prophylaxis: SCD's and Thigh High RONALD Hose VTE Pharm Prophylaxis ordered?: Yes
--- NOTE | 2023-01-26 18:24 | RAD_ITS ---
STUDY: XR Knee 1 or 2 Views 01/26/2023 6:38 PM REASON FOR EXAM: Male, 62 years old. post op -- AP and Lateral xray of operative knee in PACU TECHNIQUE: XR Knee 1 or 2 Views RIGHT COMPARISON: None FINDINGS: There is no fracture or dislocation. There is anatomic alignment. Total knee arthroplasty. Soft tissue edema. There is an air-fluid level seen in the suprapatellar region. Joint space is preserved. Subcutaneous air is noted. RAD/Knee 1 or 2 Views IMPRESSION: Successful total knee arthroplasty. Electronically Signed: Trell Gunter MD at 18:40 EDT ,
[2023-01-26 19:56] LABS: HIV - WCH Non-Reactive (Nonreactive); Hepatitis B Surface Antibody Non-Reactive; Hepatitis B Surface Antigen Non-Reactive (Nonreactive); Hepatitis C Antibody Non-Reactive (Nonreactive)
[2023-01-26] MEDS: oxyCODONE 5 MG Tablet PO (21:04)
[2023-01-26] MEDS: Cefazolin 1 GM/50 ML BAG IV (22:32)
[2023-01-26] MEDS: Senna/Docusate Sodium 1 Tablet 2 TABLET PO (22:33)
[2023-01-26] MEDS: Doxycycline 100 MG CAPSULE 200 MG PO (22:33)
[2023-01-26] MEDS: buPROPion (SR) 150 MG Tablet.SA PO (22:34)
[2023-01-26] MEDS: Aspirin 81 MG TAB.CHEW PO (22:34)
[2023-01-26] MEDS: Morphine 2 MG/ML Syringe IV ×2 (22:45→23:49)
[2023-01-26] MEDS: Lisinopril 10 MG Tablet PO (22:47)
--- NOTE | 2023-01-26 23:01 | PCM.PN.HOSP ---
Reason for Visit Reason for Visit: Diagnoses Prediabetes (01/26/23) Encounter for other preprocedural examination (01/26/23) Subjective Subjective Patient is a 62-year-old male with a significant history of borderline type 2 diabetes, chronic depression, who is postop day 0 for Right revision total knee replacement entire femoral and tibial implants. He reported that this is his fifth knee surgery. He complains of pain in his knee. His blood pressure has been high but he has not taken his a.m. dose of blood pressure medicine so nurse gives them to him. He is having difficulty with urinary retention with 900 mL found on bladder scan. After the scan he has been able to urinate some. Internal medicine service has been consulted for medical management. Objective Data Objective Data Vital Signs: Vital Signs Temp Pulse Resp BP Pulse Ox O2 Del Method O2 Flow Rate 98 F 84 18 165/94 H 97 Room Air 4 01/26/23 22:36 01/26/23 22:36 01/26/23 22:36 01/26/23 22:36 01/26/23 22:36 01/26/23 22:36 01/26/23 18:59 Oxygen Flow Rate (L/min) 4 Oxygen Delivery Method Room Air Weight: 83 kg Body Mass Index (BMI) 30.4 Intake & Output: Intake and Output for Last 24 Hours 01/24/23 01/25/23 01/26/23 23:59 23:59 23:59 Intake Total 1707 / 1707 Balance 1707 / 1707 Lab / Micro Data 01/14/23 08:40 01/14/23 08:40 Labs: Laboratory Results - last 24 hr 01/26/23 11:39: POC Glucose 113 H 01/26/23 18:30: Hep Bs Antigen Non-Reactive, Hep Bs Antibody Non-Reactive, Hepatitis C Antibody Non-Reactive, HIV 1&2 Antibody Non-Reactive Micro: Microbiology 01/14/23 08:40 Swab (Method) Nasal Screen MRSA/MSSA - Final Radiography Diagnostic Testing: Radiology Impression Knee X-Ray 01/26/23 18:24 IMPRESSION: Successful total knee arthroplasty. Electronically Signed: Trell Gunter MD at 18:40 EDT , Physical Exam Narrative Physical exam: General: Well-nourished, well-developed. Head: Normocephalic, atraumatic, no tenderness Eyes: Vision is grossly intact. EOMI ENT, no trauma, moist mucous membranes, no rhinorrhea Neck: Nontender, No thyromegaly. CVS: Regular rate and rhythm. S1-S2 present. No murmur, gallop or rub. Respiratory : clear to auscultation bilaterally, chest wall nontender Abdomen: Soft, nontender, nondistended, normal bowel sounds, no masses : Deferred Back: Nontender, no CVA tenderness, no midline spinal tenderness, deformities, step-offs Extremities: Right knee with ice pack complex rubbed around. Left knee unremarkable. Skin: Normal color, no trauma, abrasions Neuro: Alert, oriented, cranial nerves II through XII grossly intact. Psychiatry: Normal mood. Normal affect. Not depressed. Not anxious. Assessment & Plan Assessment/Plan (1) Hypertension: QUALIFIERS: Hypertension type: essential hypertension Qualified Code(s): I10 - Essential (primary) hypertension (2) S/P total knee replacement: QUALIFIERS: Laterality: right Qualified Code(s): Z96.651 - Presence of right artificial knee joint (3) Prediabetes: PLAN: Plan Status post total knee replacement Managed by primary. Hypertension Blood pressure is not within goal [Home blood pressure medication] continued. . Trend blood pressure and adjust blood pressure medications. Prediabetes A1c on 01/14/2023 was 6.2 A1c on 09/15/2022 was 6.1 DVT prophylaxis: Agrees to SCDs. Charges/Coding Visit Charges Inpatient E&M: 22797 Subs Hosp L2
[2023-01-26] MEDS: 0.9% Saline Lock 10 ML Syringe IV (23:49)
[2023-01-27] MEDS: Ketorolac 15 MG/ML Vial IV ×2 (00:42→21:15)
[2023-01-27] MEDS: oxyCODONE 5 MG Tablet PO ×3 (01:40→10:45)
--- NOTE | 2023-01-27 03:12 | PCM.PN.BLA ---
Progress Note Attempted to notify Karma Meyer,( person to notify) without any success.
[2023-01-27 05:57] VITALS: BP 149/81; PULSE 83; RESP 18; TEMP 36.6; O2SAT 97
[2023-01-27] MEDS: Acetaminophen 500 MG Tablet 1000 MG PO ×3 (06:00→21:16)
[2023-01-27] MEDS: Cefazolin 1 GM/50 ML BAG IV (06:00)
[2023-01-27 07:21] LABS: Hematocrit 37.4 % (40-54); Hemoglobin 12.3 g/dL (13.0-16.5); Mean Corp Hgb Conc 32.9 g/dL (32-36); Mean Corpuscular Hgb 28.6 pg (27.0-32.0); Mean Platelet Vol. 9.9 fl (6.2-12.0); Platelet Count 225 K/mm3 (150-450); RBC Distribution Width CV 13.7 % (11.6-14.6); RBC Distribution Width SD 43.2 fl (35.1-43.9); White Blood Count 11.2 K/mm3 (4.4-11.0)
[2023-01-27 07:58] LABS: Anion Gap 7 (5-15); BUN 16 mg/dL (7-18); BUN/Creat Ratio 17.1 RATIO (10-20); Calcium,Total 8.2 mg/dL (8.5-10.1); Chloride 108 mmol/L (98-107); Creatinine, Serum 0.93 mg/dL (0.70-1.30); EST Glomerular Filtration Rate 87 mL/min (>60); Est Glom Filt Rate - Afr Amer 105 mL/min (>60); Estimated Creatinine Clearance 70.72 ml/min; Glucose 129 mg/dL (74-106); Potassium 4.2 mmol/L (3.5-5.1); Sodium Level 140 mmol/L (136-145)
[2023-01-27 10:40] VITALS: BP 127/79; PULSE 77; RESP 16; TEMP 36.4; O2SAT 100
[2023-01-27] MEDS: Doxycycline 100 MG CAPSULE 200 MG PO ×2 (10:46→21:16)
[2023-01-27] MEDS: Pantoprazole Sodium 40 MG Tablet PO (10:46)
[2023-01-27] MEDS: Senna/Docusate Sodium 1 Tablet 2 TABLET PO (10:46)
[2023-01-27] MEDS: Aspirin 81 MG TAB.CHEW PO ×2 (10:46→21:16)
[2023-01-27] MEDS: Famotidine 20 MG Tablet PO (10:46)
[2023-01-27] MEDS: buPROPion (SR) 150 MG Tablet.SA PO ×2 (10:46→21:15)
[2023-01-27] MEDS: Lisinopril 10 MG Tablet PO (10:49)
[2023-01-27] MEDS: Ensure Surgery 237 ML LIQUID PO ×2 (10:50→14:41)
--- NOTE | 2023-01-27 11:25 | PN.ORTHO_ITS ---
Subjective Subjective The patient was sitting in bedside chair upon examination. Patient denies any chest pain, shortness of breath, dizziness, lightheadedness, nausea or vomiting, or calf pain. Overnight patient did have some urinary retention but was able to urinate on his own eventually. Patient also states he has had continued pain with the knee. Patient's plan is to go home when ready. We are waiting on microbiology and cultures. They are currently pending. Objective Data Objective Data Vital Signs: Vital Signs Temp Pulse Resp BP Pulse Ox O2 Del Method O2 Flow Rate 97.8 F 83 18 149/81 H 97 Room Air 4 01/27/23 05:57 01/27/23 05:57 01/27/23 05:57 01/27/23 05:57 01/27/23 05:57 01/27/23 05:57 01/26/23 18:59 Oxygen Flow Rate (L/min) 4 Oxygen Delivery Method Room Air Weight: 83 kg Body Mass Index (BMI) 30.4 Intake & Output: Intake and Output for Last 24 Hours 01/25/23 01/26/23 01/27/23 23:59 23:59 23:59 Intake Total 2757 / 2757 50 / 50 Output Total 750 / 750 300 / 300 Balance 2006 -250 / -250 Lab / Micro Data 01/27/23 07:12 01/27/23 07:12 Labs: Laboratory Results - last 24 hr 01/26/23 11:39: POC Glucose 113 H 01/26/23 18:30: Hep Bs Antigen Non-Reactive, Hep Bs Antibody Non-Reactive, Hepatitis C Antibody Non-Reactive, HIV 1&2 Antibody Non-Reactive 01/27/23 07:12: WBC 11.2 H, RBC 4.30 L, Hgb 12.3 L, Hct 37.4 L, MCV 87.0, MCH 2 8.6, MCHC 32.9, RDW Std Deviation 43.2, RDW Coeff of Clemente 13.7, Plt Count 225, MPV 9.9, Sodium 140, Potassium 4.2, Chloride 108 H, Carbon Dioxide 25.0, Anion Gap 7, BUN 16, Creatinine 0.93, Estim Creat Clear Calc 70.72, Est GFR (MDRD) Af Amer 105, Est GFR (MDRD) Non-Af 87, BUN/Creatinine Ratio 17.1, Glucose 129 H, Calcium 8.2 L Micro: Microbiology 01/14/23 08:40 Swab (Method) Nasal Screen MRSA/MSSA - Final Radiography Diagnostic Testing: Radiology Impression Knee X-Ray 01/26/23 18:24 IMPRESSION: Successful total knee arthroplasty. Electronically Signed: Trell Gunter MD at 18:40 EDT Reading Location ID and State: [facility] / [place] , Service support , Physical Exam Narrative Vital signs stable and afebrile. Slight elevated blood pressure but denies chest pain or shortness of breath SCDs and RONALD hose are in place bilaterally Patient is able to plantarflex and dorsiflex actively. Sensation is intact to light touch to saphenous, sural, superficial and deep peroneal, and tibial distribution. Prevena incisional wound VAC in place with no output in tubing or canister Negative Homans bilaterally, negative signs and symptoms of DVT. Const alert, oriented x3 and no apparent distress Assessment & Plan Assessment/Plan (1) Status post revision of total replacement of right knee: PLAN: 1. S/P right revision total knee replacement entire femoral and tibial implants POD #1 2. Continue Pain Medications: Tylenol, meloxicam, and oxycodone. Do not take any other nonsteroidal anti-inflammatories while using meloxicam/Mobic. 3. DVT Prophylaxis: Take 81 mg aspirin twice daily for 4 weeks postoperatively for DVT prophylaxis. Patient denies past history of DVT or pulmonary embolism 4. PT/OT: Weightbearing as tolerated with walker 5. H & H: 12.3/37.4, asymptomatic. Postoperative anemia secondary to acute blood loss from surgery without any intra operative complications. 6. Reactive leukocytosis: Currently 11.2, afebrile. Patient did receive Decadron intraoperatively 7. Continue with Prevena incisional wound VAC for 1 week postoperatively. Stop date will be February 02, 2023 8. Currently on doxycycline for 2 weeks postoperatively. Microbiology wound and tissue specimens are currently pending. Patient does have past history of MSSA. I discussed with the patient potential side effects of doxycycline including sensitivity to the sunlight and increased risk of skin burn. Recommend patient take appropriate precautions. Also recommend patient to take probiotic while on the antibiotic. Patient voiced understanding agreement. 9. Continue postoperative medical management per medicine: Patient had resolved urinary retention last night 10. Encouraged Incentive Spirometry 11. Disposition: Patient will require additional stay secondary to the revision right total knee arthroplasty as we do want to follow the cultures to make sure he is going home on appropriate antibiotics. Cultures are currently pending. Also want to make sure pain is appropriately managed upon discharge. He will continue with physical therapy while in the hospital. Repeat lab work tomorrow. He will follow-up per postop instructions. He will contact her office upon discharge with any concerns or questions. I have reviewed the [place] Automated Rx Reporting System (OARRS) report for this patient for refill pattern and other prescriber involvement as part of the appropriate surveillance for the provision of acute and chronic controlled medications. The report was requested and reviewed on the date of this entry and was considered in the prescribing process. This dictation was created using voice recognition software. Phonetic and/or grammatical errors may exist.
--- NOTE | 2023-01-27 13:42 | PCM.PN.HOSP ---
Reason for Visit Reason for Visit: Right knee osteoarthritis Subjective Subjective Patient was admitted for a revision of a right total knee replacement with entire femoral and tibial implants. Patient reported that this was his fifth knee surgery. He reports that his pain is improved this morning. He is frustrated that this has overall been complicated for the last year or 2. Objective Data Objective Data Vital Signs: Vital Signs Temp Pulse Resp BP Pulse Ox O2 Del Method O2 Flow Rate 97.6 F L 77 16 127/79 H 100 Room Air 4 01/27/23 10:40 01/27/23 10:40 01/27/23 10:40 01/27/23 10:40 01/27/23 10:40 01/27/23 10:40 01/26/23 18:59 Oxygen Flow Rate (L/min) 4 Oxygen Delivery Method Room Air Weight: 83 kg Body Mass Index (BMI) 30.4 Intake & Output: Intake and Output for Last 24 Hours 01/25/23 01/26/23 01/27/23 23:59 23:59 23:59 Intake Total 2757 / 2757 550 / 550 Output Total 750 / 750 700 / 700 Balance 2006 -150 / -150 Lab / Micro Data 01/27/23 07:12 01/27/23 07:12 Labs: Laboratory Results - last 24 hr 01/26/23 18:30: Hep Bs Antigen Non-Reactive, Hep Bs Antibody Non-Reactive, Hepatitis C Antibody Non-Reactive, HIV 1&2 Antibody Non-Reactive 01/27/23 07:12: WBC 11.2 H, RBC 4.30 L, Hgb 12.3 L, Hct 37.4 L, MCV 87.0, MCH 28.6, MCHC 32.9, RDW Std Deviation 43.2, RDW Coeff of Clemente 13.7, Plt Count 225, MPV 9.9, Sodium 140, Potassium 4.2, Chloride 108 H, Carbon Dioxide 25.0, Anion Gap 7, BUN 16, Creatinine 0.93, Estim Creat Clear Calc 70.72, Est GFR (MDRD) Af Amer 105, Est GFR (MDRD) Non-Af 87, BUN/Creatinine Ratio 17.1, Glucose 129 H, Calcium 8.2 L Micro: Microbiology 01/26/23 Unknown Tissue - Knee Gram Stain - Final 01/26/23 Unknown Tissue - Knee Gram Stain - Final 01/26/23 Unknown Tissue - Knee Gram Stain - Final 01/14/23 08:40 Swab (Method) Nasal Screen MRSA/MSSA - Final Radiography Diagnostic Testing: Radiology Impression Knee X-Ray 01/26/23 18:24 IMPRESSION: Successful total knee arthroplasty. Electronically Signed: Trell Gunter MD at 18:40 EDT Reading Location ID and State: [facility] / [place] , Service support , Physical Exam Const alert, oriented x3 and no apparent distress Constitutional Narrative: Upper middle-aged, white male, sitting up in chair at the bedside, appears comfortable at this time, nontoxic HEENT head/scalp atraumatic Head and Scalp: normocephalic Resp normal respiratory effort, no retractions, no use of accessory muscles and clear to auscultation bilaterally Cardio regular rate, regular rhythm, S1 normal heart sound, S2 normal heart sound, no murmurs, no rub, no gallops and no clicks GI normal to inspection, nondistended, normoactive bowel sounds, soft to palpation and non-tender Extremity no clubbing, cyanosis or edema Extremity Narrative: Postoperative dressing in place, bilateral RONALD hose, polar ice on right knee, pedal pulses are 2+ Neuro oriented x3 and moves all extremities Speech: speech normal Psych affect normal Psych Narrative: Very talkative, pleasant, eye contact is good Assessment & Plan Assessment/Plan (1) Status post revision of total replacement of right knee: (2) Osteoarthritis of right knee: (3) Urinary retention: PLAN: Plan Right knee osteoarthritis -Postop day 1 revision of total knee arthroplasty -Management per primary service -Weightbearing as tolerated -PT/OT -DVT prophylaxis 81 mg aspirin twice daily for 4 weeks -To continue doxycycline for 2 weeks postoperatively with previous infection -Intraoperative cultures are pending -Disposition per primary service Urinary retention -Resolved Hypertension -Continue lisinopril GERD -Continue Protonix Insulin resistance -Most recent hemoglobin A1c was 6.2 -Recommend ongoing diet control DVT prophylaxis -Aspirin 81 mg twice daily per orthopedic surgery Disposition: -Ongoing stay per orthopedic surgery. No ongoing medical needs at this time and therefore we will sign off. Please call if any issues or questions. Thank you for the consultation Charges/Coding Visit Charges Inpatient E&M: 22748 Subs Hosp L2
--- NOTE | 2023-01-27 15:23 | CASEMGMT ---
DENISSE SERVIN Assessment: Face to Face with pt for initial transition planning/care coordination assessment. DENISSE SERVIN introduced self and role at [facility], pt voices understanding and consents to assessment. Pt is A/O x4 and answers all questions appropriately at this time. Pt sitting up in chair in no distress. Care providers, pharmacy, and demographics verified/updated. Admitting Dx: Revision R total knee PCP:[facility] Specialists:zina Reilly Pharmacy: [facility] Insurance: [employer] Prescription Benefit: yes LNOK: Rachel Lockwood, ; Karma Meyer, mother in law Living Arrangements: Pt lives with in a two story home. Pt lives in the basement where he can enter from the garage with no steps but pt has 17 steps to go up to the bathroom. Pt states he is I in ADL's prior to surgery. Pt reports he has had multiple surgeries and he has had to use the stairs in the past and he scoots on his buttocks to get up and down. Pt has a urinal in the basement. Pt denies concerns at home. Transportation: Pt drives self and denies concerns with transportation. Pt has family who can transport until he can drive again. DME/HHC/SNF: Pt has a walk in shower, grab bars in the bathroom, cane, FWW and rollator. Pt has had HHC in the past but is unsure of the name of the agency. Pt denies hx of SNF stays. Pt states no concerns with going home at time of dc. Pt has outpt therapy set up at [facility] to start on Tuesday. Pt states no further concerns/needs. CM to follow. Advised pt to ask CM if any further question/concerns/needs arise, voices understanding. Pt Goal: Home with outpt therapy already set up Plan: Home with outpt therapy already set up
[2023-01-27 15:40] VITALS: BP 134/67; PULSE 80; RESP 18; TEMP 36.6; O2SAT 97
--- NOTE | 2023-01-27 16:41 | CHAPLAIN ---
Type of Pastoral Visit _x__ Initial Visit ___ Follow-up Visit ___ On-call Visit ___ General Patient Visit ___ Spiritual Assessment ___ Family Conference ___ Bereavement ___ Rapid Response ___ Code Blue ___ Other (describe below) Pastoral Care Referral From _x__ Patient ___ Family ___ Nurse ___ Physician ___ Pre Sales Systems Engineer ___ Irrigation Service Technician ___ Other (describe below) Sacrament/Intervention _x__ Active listening ___ Anointing ___ Zoroastrianism ___ Bereavement ___ Communion ___ Anni exploration ___ _x__ Life review ___ Prayer ___ Reconciliation ___ Sacrament of Sick ___ Supportive presence ___ Wedding ___ Other (describe below) Pastoral Comments patient is resting but easily awakens to his name; pt describes his several surgeries on his knees; pt talks about life and wanting to be more active again; pt has no other concerns or worries at this time; PT came to room to do therapy session
[2023-01-27 16:55] VITALS: O2SAT 97
[2023-01-27 21:07] VITALS: BP 124/71; PULSE 84; RESP 18; TEMP 37; O2SAT 96
[2023-01-27] MEDS: 0.9% Saline Lock 10 ML Syringe IV (21:15)
[2023-01-28 04:00] VITALS: BP 141/71; PULSE 69; RESP 18; TEMP 36.8; O2SAT 96
[2023-01-28] MEDS: Acetaminophen 500 MG Tablet 1000 MG PO ×3 (04:22→20:41)
[2023-01-28] MEDS: oxyCODONE 5 MG Tablet PO ×4 (04:22→20:41)
[2023-01-28 05:07] LABS: Hepatitis B Core Ab Total Negative (Negative)
--- NOTE | 2023-01-28 06:37 | PCM.PN.ORT ---
Subjective Subjective Patient is doing well overall. No acute events overnight. He does report pain with ambulation which is to be expected. His pain has been controlled with current pain regimen. Vital signs remained stable. Cultures remain negative. He reports the majority of his pain is over the medial joint line of his knee. Objective Data Objective Data Vital Signs: Vital Signs Temp Pulse Resp BP Pulse Ox O2 Del Method O2 Flow Rate 98.3 F 69 18 141/71 H 96 Room Air 4 01/28/23 04:00 01/28/23 04:00 01/28/23 04:00 01/28/23 04:00 01/28/23 04:00 01/28/23 04:00 01/26/23 18:59 Oxygen Flow Rate (L/min) 4 Oxygen Delivery Method Room Air Weight: 182 lb 15.739 oz Body Mass Index (BMI) 30.4 Intake & Output: Intake and Output for Last 24 Hours 01/26/23 01/27/23 01/28/23 23:59 23:59 23:59 Intake Total 2757 / 2757 970 / 970 Output Total 750 / 750 700 / 700 Balance 2006 270 / 270 Lab / Micro Data Attestation: I reviewed the patient's lab results. 01/27/23 07:12 01/27/23 07:12 Labs: Laboratory Results - last 24 hr 01/26/23 18:30: Hep B Core Total Ab Negative 01/27/23 07:12: WBC 11.2 H, RBC 4.30 L, Hgb 12.3 L, Hct 37.4 L, MCV 87.0, MCH 28.6, MCHC 32.9, RDW Std Deviation 43.2, RDW Coeff of Clemente 13.7, Plt Count 225, MPV 9.9, Sodium 140, Potassium 4.2, Chloride 108 H, Carbon Dioxide 25.0, Anion Gap 7, BUN 16, Creatinine 0.93, Estim Creat Clear Calc 70.72, Est GFR (MDRD) Af Amer 105, Est GFR (MDRD) Non-Af 87, BUN/Creatinine Ratio 17.1, Glucose 129 H, Calcium 8.2 L Micro: Microbiology 01/26/23 Unknown Tissue - Knee Gram Stain - Final 01/26/23 Unknown Tissue - Knee Gram Stain - Final 01/26/23 Unknown Tissue - Knee Gram Stain - Final 01/14/23 08:40 Swab (Method) Nasal Screen MRSA/MSSA - Final Radiography Diagnostic Testing: Postoperative x-rays were reviewed. Patient does have some lateral cement extrusion is leg from the tibia otherwise satisfactory alignment and implant placement with good cement mantle. Physical Exam Const alert, oriented x3 and no apparent distress Extremity Extremity Narrative: Right lower extremity: Prevena wound VAC dressing is clean dry and intact. No excessive swelling of the knee. Mild reactive erythema surrounding the knee. Sensations intact to light touch saphenous, sural, superficial peroneal, deep peroneal, and tibial distributions Motors intact EHL, DF, PF calves are soft and supple Assessment & Plan Assessment/Plan (1) Status post revision of total replacement of right knee: PLAN: 1. S/P right revision total knee replacement entire femoral and tibial implants POD #2 2. Continue Pain Medications: Tylenol, meloxicam, and oxycodone. 3. DVT Prophylaxis: Take 81 mg aspirin twice daily for 4 weeks postoperatively for DVT prophylaxis. Patient denies past history of DVT or pulmonary embolism 4. PT/OT: Weightbearing as tolerated with walker. May progress from walker as strength and comfort allow 5. H & H: No new labs this morning asymptomatic. Postoperative lab changes secondary to acute blood loss from surgery without any intra operative complications. 6. Reactive leukocytosis: Currently afebrile. Patient did receive Decadron intraoperatively 7. Continue with Prevena incisional wound VAC for 1 week postoperatively. Stop date will be February 02, 2023 8. Currently on doxycycline for 2 weeks postoperatively. Microbiology wound and tissue specimens are currently pending. Cultures from yesterday were negative without growth. Patient does have past history of MSSA. I discussed with the patient potential side effects of doxycycline including sensitivity to the sunlight and increased risk of skin burn. Recommend patient take appropriate precautions. Also recommend patient to take probiotic while on the antibiotic. Patient voiced understanding agreement. 9. Continue postoperative medical management per medicine: Currently medically stable 10. Encouraged Incentive Spirometry 11. Disposition: Patient has been stable postoperatively. Cultures have been negative. We will plan on discharge today and continue to follow the cultures. If there is any positive cultures that arise today we will consult infectious disease prior to discharge. If patient has latent positive cultures we have discussed outpatient follow-up with infectious disease. Pain appears to be well controlled under current regimen. He will continue with physical therapy while in the hospital. He will follow-up per postop instructions. He will contact her office upon discharge with any concerns or questions. This dictation was created using voice recognition software. Phonetic and/or grammatical errors may exist.
--- NOTE | 2023-01-28 06:42 | DCINST_ITS ---
Discharge Instructions Diet Discharge Diet: No restrictions Activity Discharge Activity: May Not Drive (No driving for 6 weeks postoperatively and must be off narcotic pain medication) and May Not Shower (May not shower until incisional wound VAC is removed) Ice area for (Minutes): 20 (Every 1-2 hours while [address] place barrier between the skin and ice pack.) Weight Bearing Status: Weight bearing as tolerated (With walker) Keep extremity elevated above heart level: Operative Extremity Dressing / Incision Call your doctor if your incision/area has: Continuous Slow Oozing, Sudden Increased Bleeding, Increased Pain/ Swelling, Increased Redness and Foul Smelling Discharge Call your doctor if you observe: Fever of 101 or Higher, Coldness, Increased Pain, Numbness or Tingling, Change in Color, Shortness of breath, Chest pain, Calf discomfort and Uncontrolled pain Remove Dressing in: 5 days (Remove incisional wound VAC on February 02, 2023. If battery dies do not leave dressing on and must remove dressing. With any concerns contact our office at [facility]) Additional Dressing/Incision Instructions:: Follow [facility] Post-op Instructions. Once postoperative dressing has been removed only use gentle soap and water over the incision. Do not use any ointments, Neosporin, salves, alcohol pads over the incision for 6 weeks postoperatively. Do not submerge underwater for 6 weeks postoperatively. Continue with RONALD hose/elastic stockings for 2 weeks postoperatively. May remove at nighttime but needs to be placed back on the leg during the day. Do NOT use alcohol with narcotic pain medication. Do NOT make important decisions while taking narcotic medication. If you have problems with taking your medication (rash, itching, nausea, etc.) call the office at once. Follow Up Care Test Results: Test results from this visit will be discussed in further detail at your follow- up appointment, if applicable. Discharge Plan Admission Admit Date/Time: 01/26/23 10:26 Attending Provider: Cash Reilly Primary Care Provider: Gerri Leary Consulting Providers: Sang Gibson; Bijal Hunter; Bijal Guerrero; Maverick Russo; Nadine Koehler Discharge Orders/Prescriptions Prescriptions: New acetaminophen 500 mg Tablet 1,000 mg PO TID Qty: 100 0RF Rx Instructions: Do not take more than 3000 mg Tylenol in a 24-hour period. aspirin [Adult Low Dose Aspirin] 81 mg tablet,delayed release (DR/EC) 81 mg PO BID 28 Days Qty: 56 0RF Rx Instructions: Take 81 mg aspirin twice daily for 4 weeks postoperatively for DVT prophylaxis. meloxicam 7.5 mg Tablet 7.5 mg PO BID 30 Days Qty: 60 0RF Rx Instructions: Do not take any other nonsteroidal anti-inflammatories while using meloxicam/Mobic. oxycodone 5 mg Tablet 5 - 10 mg PO Q4H PRN PRN (Reason: Pain Score 4-10) 7 Days Qty: 60 0RF doxycycline monohydrate 100 mg Capsule 100 mg PO BID 12 Days Qty: 24 0RF Rx Instructions: Take for 2 weeks postoperatively Continued bupropion HCl [Wellbutrin SR] 150 mg tablet sustained-release 12 hr 150 mg PO BID Rx Instructions: Take once daily for the first 3 days then increase to twice daily pantoprazole 40 mg tablet,delayed release (DR/EC) 40 mg PO DAILY lisinopril 10 mg tablet 10 mg PO DAILY Discontinued doxycycline hyclate 100 mg tablet PO Patient Comments: TAKE 1 TABLET BY MOUTH TWICE DAILY Referrals / Follow Up: Physical,Therapy [Other] - 01/31/23 8:00 am Gerri Leary MD [Primary Care Provider] - Shiv Ponce PA-C [Med Staff - [facility]] - 02/10/23 4:00 pm Disposition Disposition (needs filled in before D/C Order can be placed): Home, Self Care
[2023-01-28 06:57] LABS: Hematocrit 33.7 % (40-54); Hemoglobin 11.5 g/dL (13.0-16.5); Mean Corp Hgb Conc 34.1 g/dL (32-36); Mean Corpuscular Hgb 29.7 pg (27.0-32.0); Mean Corpuscular Volume 87.1 fL (80-94); Platelet Count 179 K/mm3 (150-450); RBC Distribution Width CV 14.2 % (11.6-14.6); RBC Distribution Width SD 45.6 fl (35.1-43.9); Red Blood Count 3.87 M/mm3 (4.6-6.2); White Blood Count 6.6 K/mm3 (4.4-11.0)
[2023-01-28 09:51] VITALS: BP 140/67; PULSE 79; RESP 18; TEMP 36.9; O2SAT 98
[2023-01-28] MEDS: Aspirin 81 MG TAB.CHEW PO ×2 (09:55→20:41)
[2023-01-28] MEDS: buPROPion (SR) 150 MG Tablet.SA PO ×2 (09:55→20:41)
[2023-01-28] MEDS: Doxycycline 100 MG CAPSULE 200 MG PO (09:55)
[2023-01-28] MEDS: Famotidine 20 MG Tablet PO (09:55)
[2023-01-28] MEDS: Lisinopril 10 MG Tablet PO (09:56)
[2023-01-28] MEDS: Senna/Docusate Sodium 1 Tablet 2 TABLET PO (09:56)
[2023-01-28] MEDS: Pantoprazole Sodium 40 MG Tablet PO (09:56)
[2023-01-28] MEDS: Meloxicam 7.5 MG Tablet PO ×2 (09:56→20:41)
--- NOTE | 2023-01-28 10:37 | CON.PCM.ID_ITS ---
Assessment & Plan Assessment/Plan (1) Status post revision of total replacement of right knee: PLAN: Concern of a right periprosthetic knee infection especially with the gram- negative angelo isolated from the intraoperative culture. At this time we will empirically treat with meropenem 1 g IV every 8 hours and closely follow the intraoperative culture data regards to identification/sensitivities of the gram- negative pathogen. HPI Consult Data Date of Consult: 01/28/23 HPI Narrative Reason for Consultation: Right periprosthetic knee infection HPI Narrative: ASHLEY HILL, is a 62 M who presents with chronic pain of his right knee and underwent right total knee revision 48 hours ago. Patient does have a longstanding history of osteoarthritis and has undergone bilateral total knee arthroplasties. Patient has had previous infection of his right prosthetic knee and managed at that time in [place]. In talking patient he denies any fevers prior to come to the hospital. Patient was briefly on antibiotics roughly a week to 2 weeks ago for a cellulitic process in his right calf. Patient was taken to the operating room 48 hours ago for revision of the right total knee arthroplasty with concern aseptic loosening. Interestingly the intraoperative culture is growing a gram-negative angelo with identification and sensitivities pending. Denies any cardiopulmonary distress. No gastrointestinal symptoms. He is currently on doxycycline. He does have a history of depression/anxiety. [facility] Medical History (Updated 01/27/23 @ 13:[address] Nadine Koehler, ) Alcohol use Ambulates with cane Anxiety Arthritis Back pain Borderline type 2 diabetes mellitus Cellulitis Chronic depression Chronic neck and back pain CPAP (continuous positive airway pressure) dependence Depression Former smoker GERD (gastroesophageal reflux disease) History of drug abuse History of edema Hypertension Knee pain Leg cramps Marijuana use Neuropathy Osteoarthritis Preoperative evaluation to rule out surgical contraindication Restless legs Walker as ambulation aid Wears dentures Wears glasses Home Medications bupropion HCl 150 mg tablet,12 hr sustained-release (Wellbutrin SR) 150 mg PO BID DEPRESSION 01/13/23 [History Last Taken Unknown] lisinopril 10 mg tablet 10 mg PO DAILY BP 01/13/23 [History Last Taken Unknown] pantoprazole 40 mg tablet,delayed release 40 mg PO DAILY GERD 01/13/23 [History Last Taken Unknown] acetaminophen 500 mg tablet 1,000 mg (2 x 500 mg) PO TID #100 tabs 01/28/23 [Rx Last Taken Unknown] aspirin 81 mg tablet,delayed release (Adult Low Dose Aspirin) 81 mg PO BID 28 days #56 tabs 01/28/23 [Rx Last Taken Unknown] doxycycline monohydrate 100 mg capsule 100 mg PO BID 12 days #24 caps 01/28/23 [Rx Last Taken Unknown] meloxicam 7.5 mg tablet 7.5 mg PO BID 30 days #60 tabs 01/28/23 [Rx Last Taken Unknown] oxycodone 5 mg tablet 5 - 10 mg (1 - 2 x 5 mg) PO Q4H PRN PRN Pain Score 4-10 7 days #60 tabs 01/28/23 [Rx Last Taken Unknown] Allergy/AdvReac Type Severity Reaction Status Date / Time adhesive Allergy Rash Verified 01/26/23 20:15 adhesive tape Allergy Rash Verified 01/26/23 20:15 gabapentin [From Neurontin] Allergy Hives Verified 01/26/23 20:15 Family History Other Alcoholism Anxiety and depression Arthritis Diabetes Myocardial infarction Surgical History (Updated 01/27/23 @ 11:26 by JOSESITO FlemingC) History of back surgery History of total knee arthroplasty Hx of elbow surgery Hx of knee surgery Hx of knee surgery Hx of oral surgery Hx of total knee arthroplasty Hx of total knee arthroplasty Social History Smoking Status: Former smoker alcohol intake: former substance use type: marijuana what type of physical activity do you participate in: none ROS ROS Narrative As stated in history of present illness others negative Physical Exam Narrative Alert does not appear toxic lungs are clear heart exam S1-S2 abdomen soft nontender right knee postop dressings are in place. Lab / Micro Data 01/28/23 06:43 01/27/23 07:12 Labs: Laboratory Results - last 24 hr 01/26/23 18:30: Hep B Core Total Ab Negative 01/28/23 06:43: WBC 6.6, RBC 3.87 L, Hgb 11.5 L, Hct 33.7 L, MCV 87.1, MCH 29.7, MCHC 34.1, RDW Std Deviation 45.6 H, RDW Coeff of Clemente 14.2, Plt Count 179, MPV 10.0 Micro: Microbiology 07/05/23 Unknown Tissue - Knee Gram Stain - Final 01/26/23 Unknown Tissue - Knee Wound Culture - Preliminary Gram negative angelo 01/26/23 Unknown Tissue - Knee Gram Stain - Final 01/26/23 Unknown Tissue - Knee Wound Culture - Preliminary No growth-Final to follow 01/26/23 Unknown Tissue - Knee Gram Stain - Final
--- NOTE | 2023-01-28 11:04 | PHA.DC.MC.R ---
Pharmacy [facility] Pharmacy Service has performed discharge medication reconciliation and counseling for this patient. The patient was counseled on the following discharge medications and changes in medications for homegoing were reviewed. 1. TYLENOL 2. ASPIRIN 3. DOXYCYCLINE 4. MOBIC 5. OXYCODONE The Reason for Use, instructions for use, and potential side effects were reviewed for all new medications. NOTE: PharmD Candidate Hunter Redd attempted counselling on patient. Patient was not interested at this time. Paper educational handouts left at bedside, and pt informed to have nursing contact pharmacy if he does have any questions. Patient verbalized understanding at this time. The patient's discharge medication list was reviewed for discrepancies and discrepancies were resolved. Medications at Discharge Home Medications bupropion HCl 150 mg tablet,12 hr sustained-release (Wellbutrin SR) 150 mg PO BID DEPRESSION 01/13/23 lisinopril 10 mg tablet 10 mg PO DAILY BP 01/13/23 pantoprazole 40 mg tablet,delayed release 40 mg PO DAILY GERD 01/13/23 acetaminophen 500 mg tablet 1,000 mg (2 x 500 mg) PO TID #100 tabs 01/28/23 aspirin 81 mg tablet,delayed release (Adult Low Dose Aspirin) 81 mg PO BID 28 days #56 tabs 01/28/23 doxycycline monohydrate 100 mg capsule 100 mg PO BID 12 days #24 caps 01/28/23 meloxicam 7.5 mg tablet 7.5 mg PO BID 30 days #60 tabs 01/28/23 oxycodone 5 mg tablet 5 - 10 mg (1 - 2 x 5 mg) PO Q4H PRN PRN Pain Score 4-10 7 days #60 tabs 01/28/23
--- NOTE | 2023-01-28 12:10 | CASEMGMT ---
Pt dc'd cancelled. DENISSE SERVIN into pt room, pt lying in bed. He states he will have his reschedule his therapy at [facility]. Pt states should he need IV therapy, he would like to do this at home. Pt aware DENISSE SERVIN will follow along with him and be available for his needs at [facility].
[2023-01-28] MEDS: Ensure Surgery 237 ML LIQUID PO (14:43)
[2023-01-28 14:51] VITALS: BP 137/73; PULSE 72; RESP 16; TEMP 36.6; O2SAT 97
[2023-01-28 20:35] VITALS: BP 148/62; PULSE 77; RESP 18; TEMP 37.2; O2SAT 99
[2023-01-29] MEDS: oxyCODONE 5 MG Tablet PO ×5 (01:22→19:58)
[2023-01-29 03:30] VITALS: BP 152/74; PULSE 64; RESP 18; TEMP 36.9; O2SAT 97
[2023-01-29] MEDS: Acetaminophen 500 MG Tablet 1000 MG PO ×3 (06:32→22:23)
[2023-01-29] MEDS: buPROPion (SR) 150 MG Tablet.SA PO ×2 (09:12→22:22)
[2023-01-29] MEDS: Lisinopril 10 MG Tablet PO (09:12)
[2023-01-29] MEDS: Famotidine 20 MG Tablet PO (09:12)
[2023-01-29] MEDS: Pantoprazole Sodium 40 MG Tablet PO (09:12)
[2023-01-29] MEDS: Meloxicam 7.5 MG Tablet PO ×2 (09:12→22:22)
[2023-01-29] MEDS: Aspirin 81 MG TAB.CHEW PO ×2 (09:12→22:23)
[2023-01-29 09:20] VITALS: BP 129/68; PULSE 79; RESP 18; TEMP 37.2; O2SAT 96
[2023-01-29] MEDS: Ensure Surgery 237 ML LIQUID PO (11:32)
[2023-01-29 14:14] VITALS: BP 139/76; PULSE 79; RESP 18; TEMP 36.8; O2SAT 96
--- NOTE | 2023-01-29 17:08 | PN.ORTHO_ITS ---
Subjective Subjective Patient is doing well. He did well with physical therapy today. No significant plaints or events overnight. Objective Data Objective Data Vital Signs: Vital Signs Temp Pulse Resp BP Pulse Ox O2 Del Method O2 Flow Rate 98.3 F 79 18 139/76 H 96 Room Air 4 01/29/23 14:14 01/29/23 14:14 01/29/23 14:14 01/29/23 14:14 01/29/23 14:14 01/29/23 14:14 01/26/23 18:59 Oxygen Flow Rate (L/min) 4 Oxygen Delivery Method Room Air Weight: 182 lb 15.739 oz Body Mass Index (BMI) 30.4 Intake & Output: Intake and Output for Last 24 Hours 01/27/23 01/28/23 01/29/23 23:59 23:59 23:59 Intake Total 970 / 970 921.5 / 921.5 336.5 / 336.5 Output Total 700 / 700 Balance 270 / 270 921.5 / 921.5 336.5 / 336.5 Lab / Micro Data Attestation: I reviewed the patient's lab results. 01/28/23 06:43 01/27/23 07:12 Micro: Microbiology 01/26/23 Unknown Tissue - Knee Gram Stain - Final 01/26/23 Unknown Tissue - Knee Wound Culture - Final Enterobacter cloacae complex 01/26/23 Unknown Tissue - Knee Anaerobic Culture - Preliminary No growth in 48 hours. 01/26/23 Unknown Tissue - Knee Gram Stain - Final 01/26/23 Unknown Tissue - Knee Wound Culture - Preliminary No growth-Final to follow 01/26/23 Unknown Tissue - Knee Anaerobic Culture - Preliminary Checking for anaerobes, further studies to follow. 01/26/23 Unknown Tissue - Knee Gram Stain - Final 01/26/23 Unknown Tissue - Knee Wound Culture - Preliminary No growth-Final to follow 01/26/23 Unknown Tissue - Knee Anaerobic Culture - Preliminary No growth in 48 hours. 01/14/23 08:40 Swab (Method) Nasal Screen MRSA/MSSA - Final Physical Exam Const alert and oriented x3 Extremity Extremity Narrative: Right lower extremity: Prevena wound VAC is clean dry and intact Sensations intact to light touch saphenous, sural, superficial peroneal, deep peroneal, and tibial distributions Motors intact EHL, DF, PF calves are soft and supple Assessment & Plan Assessment/Plan (1) Status post revision of total replacement of right knee: PLAN: 1. S/P right revision total knee replacement entire femoral and tibial implants POD #3 2. Continue Pain Medications: Tylenol, meloxicam, and oxycodone. 3. DVT Prophylaxis: Take 81 mg aspirin twice daily for 4 weeks postoperatively for DVT prophylaxis. Patient denies past history of DVT or pulmonary embolism. SCDs while in hospital. 4. PT/OT: Weightbearing as tolerated with walker. May progress from walker as strength and comfort allow 5. H & H: We will recheck labs tomorrow. 6. Reactive leukocytosis: We will recheck labs tomorrow 7. Continue with Prevena incisional wound VAC for 1 week postoperatively. Stop date will be February 02, 2023 8. P JI: Patient has 1 out of 3 positive cultures for Enterobacter. Patient has been placed on meropenem prior to finalizing the culture results. We will await infectious disease input for definitive antibiotic regimen. Patient will likely have final regimen and insurance approval early next week. 9. Continue postoperative medical management per medicine: Currently medically stable 10. Encouraged Incentive Spirometry 11. Disposition: Patient has been stable postoperatively. Cultures positive for Enterobacter cloacae. We will plan on discharge when final antibiotic regimen approved and arranged. Pain appears to be well controlled under current regimen. He will continue with physical therapy while in the hospital. He will follow-up per postop instructions. He will contact her office upon discharge with any concerns or questions. This dictation was created using voice recognition software. Phonetic and/or grammatical errors may exist. [facility] Office:
[2023-01-29 20:14] VITALS: BP 135/71; PULSE 81; RESP 18; TEMP 36.8; O2SAT 95
[2023-01-29] MEDS: Senna/Docusate Sodium 1 Tablet 2 TABLET PO (22:22)
[2023-01-30] MEDS: oxyCODONE 5 MG Tablet PO ×4 (00:41→22:24)
[2023-01-30 02:15] VITALS: BP 155/76; PULSE 75; RESP 18; TEMP 36.8; O2SAT 96
[2023-01-30] MEDS: Acetaminophen 500 MG Tablet 1000 MG PO ×3 (06:21→21:12)
[2023-01-30] MEDS: buPROPion (SR) 150 MG Tablet.SA PO ×2 (10:00→21:12)
[2023-01-30] MEDS: Senna/Docusate Sodium 1 Tablet 2 TABLET PO (10:00)
[2023-01-30] MEDS: Aspirin 81 MG TAB.CHEW PO ×2 (10:00→21:13)
[2023-01-30] MEDS: Meloxicam 7.5 MG Tablet PO ×2 (10:01→21:13)
[2023-01-30] MEDS: Pantoprazole Sodium 40 MG Tablet PO (10:01)
[2023-01-30] MEDS: Famotidine 20 MG Tablet PO (10:01)
[2023-01-30] MEDS: Lisinopril 10 MG Tablet PO (10:02)
--- NOTE | 2023-01-30 10:23 | PN.ORTHO_ITS ---
Subjective Subjective The patient was sitting in bed sleeping upon examination. Patient denies any chest pain, shortness of breath, dizziness, lightheadedness, nausea or vomiting, or calf pain. Pain is controlled on medications. No adverse overnight events. Patient appears to be in no acute distress. Cultures have grown out Enterob acter on 1 of 3 cultures. Infectious disease currently has patient on meropenem. They would like to continue follow this through the weekend and we are waiting on definitive antibiotic regimen prior to discharge. Patient does not have PICC line. Case was discussed with Cash Reilly and PICC line will be ordered for tomorrow. Objective Data Objective Data Vital Signs: Vital Signs Temp Pulse Resp BP Pulse Ox O2 Del Method O2 Flow Rate 98.2 F 75 18 155/76 H 96 Room Air 4 01/30/23 02:15 01/30/23 02:15 01/30/23 02:15 01/30/23 02:15 01/30/23 02:15 01/30/23 03:30 01/26/23 18:59 Oxygen Flow Rate (L/min) 4 Oxygen Delivery Method Room Air Weight: 83 kg Body Mass Index (BMI) 30.4 Intake & Output: Intake and Output for Last 24 Hours 01/28/23 01/29/23 01/30/23 23:59 23:59 23:59 Intake Total 921.5 / 921.5 456.5 / 456.5 120 / 120 Balance 921.5 / 921.5 456.5 / 456.5 120 / 120 Lab / Micro Data 01/28/23 06:43 01/27/23 07:12 Micro: Microbiology 01/26/23 Unknown Tissue - Knee Gram Stain - Final 01/26/23 Unknown Tissue - Knee Wound Culture - Final No growth aerobically. 01/26/23 Unknown Tissue - Knee Anaerobic Culture - Preliminary No growth in 48 hours. 01/26/23 Unknown Tissue - Knee Gram Stain - Final 01/26/23 Unknown Tissue - Knee Wound Culture - Final No growth aerobically. 01/26/23 Unknown Tissue - Knee Anaerobic Culture - Preliminary Checking for anaerobes, further studies to follow. 01/26/23 Unknown Tissue - Knee Gram Stain - Final 01/26/23 Unknown Tissue - Knee Wound Culture - Final Enterobacter cloacae complex 01/26/23 Unknown Tissue - Knee Anaerobic Culture - Preliminary No growth in 48 hours. 01/14/23 08:40 Swab (Method) Nasal Screen MRSA/MSSA - Final Physical Exam Narrative Vital signs stable and afebrile.\ SCDs and RONALD hose are in place bilaterally Patient is able to plantarflex and dorsiflex actively. Sensation is intact to light touch to saphenous, sural, superficial and deep peroneal, and tibial distribution. Prevena wound VAC currently in place with no drainage Negative Homans bilaterally, negative signs and symptoms of DVT. Const alert, oriented x3 and no apparent distress Extremity Extremity Narrative: Right lower extremity: Prevena wound VAC is clean dry and intact Sensations intact to light touch saphenous, sural, superficial peroneal, deep p eroneal, and tibial distributions Motors intact EHL, DF, PF calves are soft and supple Assessment & Plan Assessment/Plan (1) Status post revision of total replacement of right knee: PLAN: 1. S/P right revision total knee replacement entire femoral and tibial implants POD #4 2. Continue Pain Medications: Tylenol, meloxicam, and oxycodone. 3. DVT Prophylaxis: Take 81 mg aspirin twice daily for 4 weeks postoperatively for DVT prophylaxis. Patient denies past history of DVT or pulmonary embolism. SCDs while in hospital. 4. PT/OT: Weightbearing as tolerated with walker. May progress from walker as strength and comfort allow 5. H & H: We will recheck labs tomorrow. 6. Reactive leukocytosis: We will recheck labs tomorrow 7. Continue with Prevena incisional wound VAC for 1 week postoperatively. Stop date will be February 02, 2023 8. P JI: Patient has 1 out of 3 positive cultures for Enterobacter. Patient blackmon s been placed on meropenem prior to finalizing the culture results. We will await infectious disease input for definitive antibiotic regimen. Patient will likely have final regimen and insurance approval early next week. Case was discussed with Cash Reilly and a PICC line will be ordered for tomorrow. 9. Continue postoperative medical management per medicine: Currently medically stable 10. Encouraged Incentive Spirometry 11. Disposition: Patient has been stable postoperatively. Cultures positive for Enterobacter cloacae. We will plan on discharge when final antibiotic regimen approved and arranged. Pain appears to be well controlled under current regimen. He will continue with physical therapy while in the hospital. He will follow-up per postop instructions. He will contact her office upon discharge with any concerns or questions. This dictation was created using voice recognition software. Phonetic and/or grammatical errors may exist. [facility] Office:
[2023-01-30 11:31] VITALS: BP 118/83; PULSE 78; RESP 18; TEMP 36.8; O2SAT 98
--- NOTE | 2023-01-30 12:22 | NURSING ---
talked with dynamic access regarding picc line, clarified the order is for picc to be placed tomorrow am 01/31/23. aware per answering service pharmacy scheduler till be around 10-11am
[2023-01-30 17:00] VITALS: BP 121/81; PULSE 80; RESP 18; TEMP 36.8; O2SAT 95
[2023-01-30 21:25] VITALS: BP 130/83; PULSE 86; RESP 19; TEMP 37.1; O2SAT 95
[2023-01-31 03:30] VITALS: BP 128/80; PULSE 76; RESP 16; TEMP 36.6; O2SAT 96
[2023-01-31 05:00] LABS: Hematocrit 35.7 % (40-54); Hemoglobin 11.8 g/dL (13.0-16.5); Mean Corp Hgb Conc 33.1 g/dL (32-36); Mean Corpuscular Hgb 28.9 pg (27.0-32.0); Mean Corpuscular Volume 87.5 fL (80-94); Platelet Count 237 K/mm3 (150-450); RBC Distribution Width CV 14.2 % (11.6-14.6); RBC Distribution Width SD 45.9 fl (35.1-43.9); Red Blood Count 4.08 M/mm3 (4.6-6.2); White Blood Count 6.4 K/mm3 (4.4-11.0)
[2023-01-31 05:28] LABS: Anion Gap 4 (5-15); BUN 21 mg/dL (7-18); BUN/Creat Ratio 21.9 RATIO (10-20); Calcium,Total 8.6 mg/dL (8.5-10.1); Chloride 107 mmol/L (98-107); Creatinine, Serum 0.96 mg/dL (0.70-1.30); EST Glomerular Filtration Rate 84 mL/min (>60); Est Glom Filt Rate - Afr Amer 102 mL/min (>60); Estimated Creatinine Clearance 68.51 ml/min; Glucose 156 mg/dL (74-106); Potassium 4.3 mmol/L (3.5-5.1); Sodium Level 137 mmol/L (136-145)
[2023-01-31] MEDS: Acetaminophen 500 MG Tablet 1000 MG PO ×3 (06:01→21:44)
--- NOTE | 2023-01-31 06:41 | PCM.PN.ORT ---
Subjective Subjective The patient was sitting in bed sleeping upon examination. Patient denies any chest pain, shortness of breath, dizziness, lightheadedness, nausea or vomiting, or calf pain. Pain is controlled on medications. No adverse overnight events. Patient overall is doing well and has no complaints today. He did recently just take off his ice and RONALD hose for the right lower extremity. There has been no drainage in the Prevena incisional wound VAC. We are waiting on recommendations from infectious disease with regards to appropriate discharge planning. PICC line will need to be established today. Case management currently involved and will need to establish possible home health for IV antibiotics. Objective Data Objective Data Vital Signs: Vital Signs Temp Pulse Resp BP Pulse Ox O2 Del Method O2 Flow Rate 97.8 F 76 16 128/80 H 96 Room Air 4 01/31/23 03:30 01/31/23 03:30 01/31/23 03:30 01/31/23 03:30 01/31/23 03:30 01/31/23 03:30 01/26/23 18:59 Oxygen Flow Rate (L/min) 4 Oxygen Delivery Method Room Air Weight: 83 kg Body Mass Index (BMI) 30.4 Intake & Output: Intake and Output for Last 24 Hours 01/29/23 01/30/23 01/31/23 23:59 23:59 23:59 Intake Total 456.5 / 456.5 2114 120 / 120 Balance 456.5 / 456.5 2114 120 / 120 Lab / Micro Data 01/31/23 04:45 01/31/23 04:45 Labs: Laboratory Results - last 24 hr 01/31/23 04:45: WBC 6.4, RBC 4.08 L, Hgb 11.8 L, Hct 35.7 L, MCV 87.5, MCH 28.9, MCHC 33.1, RDW Std Deviation 45.9 H, RDW Coeff of Clemente 14.2, Plt Count 237, MPV 10.0, Sodium 137, Potassium 4.3, Chloride 107, Carbon Dioxide 26.0, Anion Gap 4 L, BUN 21 H, Creatinine 0.96, Estim Creat Clear Calc 68.51, Est GFR (MDRD) Af Amer 102, Est GFR (MDRD) Non-Af 84, BUN/Creatinine Ratio 21.9 H, Glucose 156 H, Calcium 8.6 Micro: Microbiology 07/05/23 Unknown Tissue - Knee Gram Stain - Final 01/26/23 Unknown Tissue - Knee Wound Culture - Final No growth aerobically. 01/26/23 Unknown Tissue - Knee Anaerobic Culture - Preliminary No growth in 48 hours. 01/26/23 Unknown Tissue - Knee Gram Stain - Final 01/26/23 Unknown Tissue - Knee Wound Culture - Final No growth aerobically. 01/26/23 Unknown Tissue - Knee Anaerobic Culture - Preliminary Checking for anaerobes, further studies to follow. 01/26/23 Unknown Tissue - Knee Gram Stain - Final 01/26/23 Unknown Tissue - Knee Wound Culture - Final Enterobacter cloacae complex 01/26/23 Unknown Tissue - Knee Anaerobic Culture - Preliminary No growth in 48 hours. 01/14/23 08:40 Swab (Method) Nasal Screen MRSA/MSSA - Final Physical Exam Narrative Vital signs stable and afebrile. SCDs and RONALD hose are on the left leg but patient currently taken a break on the right Patient is able to plantarflex and dorsiflex actively. Sensation is intact to light touch to saphenous, sural, superficial and deep peroneal, and tibial distribution. Prevena incisional wound VAC currently in place without any drainage in canister or tubing Negative Homans bilaterally, negative signs and symptoms of DVT. Const alert, oriented x3 and no apparent distress Extremity Extremity Narrative: Right lower extremity: Prevena wound VAC is clean dry and intact Sensations intact to light touch saphenous, sural, superficial peroneal, deep peroneal, and tibial distributions Motors intact EHL, DF, PF calves are soft and supple Assessment & Plan Assessment/Plan (1) Status post revision of total replacement of right knee: PLAN: 1. S/P right revision total knee replacement entire femoral and tibial implants POD #5 2. Continue Pain Medications: Tylenol, meloxicam, and oxycodone. 3. DVT Prophylaxis: Take 81 mg aspirin twice daily for 4 weeks postoperatively for DVT prophylaxis. Patient denies past history of DVT or pulmonary embolism. SCDs while in hospital. 4. PT/OT: Weightbearing as tolerated with walker. May progress from walker as strength and comfort allow 5. H & H: 11.8/35.7, asymptomatic. Postoperative anemia secondary to acute blood loss from surgery without any intra operative complications. 6. Reactive leukocytosis: Resolved currently 6.4, afebrile. 7. Continue with Prevena incisional wound VAC for 1 week postoperatively. Stop date will be February 02, 2023 8. P JI: Patient has 1 out of 3 positive cultures for Enterobacter. Patient has been placed on meropenem prior to finalizing the culture results. We will await infectious disease input for definitive antibiotic regimen. Patient will likely have final regimen and insurance approval early next week. Case was discussed with Cash Reilly and a PICC line will be ordered for tomorrow. 9. Continue postoperative medical management per medicine: Currently medically stable 10. Encouraged Incentive Spirometry 11. Continue with incisional wound VAC: There has been no drainage in canister or tubing. We will discontinue incisional wound VAC on February 02, 2023. 12. Disposition: Patient has continued to be stable postoperatively. We are waiting on final recommendations from infectious disease for discharge planning for IV antibiotics. PICC line needs to be established. Case management currently involved and will need to assist in possible home health for administration of the IV antibiotics. Patient has had his medications already sent to [facility]. Once we have official and final plans for infectious disease we can consider discharge. This dictation was created using voice recognition software. Phonetic and/or grammatical errors may exist. [facility] Office:
[2023-01-31 07:47] VITALS: BP 163/91; PULSE 72; RESP 18; TEMP 37.2; O2SAT 97
[2023-01-31] MEDS: Ensure Surgery 237 ML LIQUID PO (08:07)
[2023-01-31] MEDS: oxyCODONE 5 MG Tablet PO ×4 (08:07→23:25)
[2023-01-31] MEDS: Meloxicam 7.5 MG Tablet PO ×2 (09:34→21:44)
[2023-01-31] MEDS: Senna/Docusate Sodium 1 Tablet 2 TABLET PO ×2 (09:34→21:44)
[2023-01-31] MEDS: buPROPion (SR) 150 MG Tablet.SA PO ×2 (09:34→21:44)
[2023-01-31] MEDS: Aspirin 81 MG TAB.CHEW PO ×2 (09:35→21:44)
[2023-01-31] MEDS: Lisinopril 10 MG Tablet PO (09:35)
[2023-01-31] MEDS: Pantoprazole Sodium 40 MG Tablet PO (09:35)
[2023-01-31] MEDS: Famotidine 20 MG Tablet PO (09:35)
[2023-01-31] MEDS: 0.9% Saline Lock 10 ML Syringe IV (12:15)
--- NOTE | 2023-01-31 12:34 | CASEMGMT ---
Addendum entered by Go Odell 01/31/23 17:57: E-mail received from Jessika @ [facility]. She did receive IV atb script. Email response sent back to her that pt will receive 1st dose IV Invanz this PM and then it will be scheduled for daily @ 10 AM, starting tomorrow/ AM. Addendum entered by Go Odell 01/31/23 17:49: DENISSE SERVIN spoke w/Khang, pharmacist. He was made aware anticipate pt d/c home tomorrow after IV Invanz given for HHC SOC on Tue. Currently 1st dose IV Invanz scheduled for 2199. Khang states will reschedule to have 1st dose given @ 6 PM tonight and then will schedule it for 10 AM dose daily. Khang asks for IV Invanz bag for this PM be sent to pharmacy so it can be relabeled w/correct admin time. DENISSE Foy, made aware. Addendum entered by Go Odell 01/31/23 15:22: Addendum to 1300 entry. It was explained to both pt and his that he will need to receive PT/OT services through [facility] while receiving [facility] SN services, as insurance will not allow both HHC and OP therapy services at the same time. They voice understanding. Addendum entered by Go Odell 01/31/23 14:57: Script for ertapenem 1 gm IV Q [address] Middleton. This was faxed to [facility] at this time and also faxed to [facility] at this time, as [facility] is not currently working. Addendum entered by Go Odell 01/31/23 13:09: PICC has been inserted. PICC documentation sent to [facility] via [facility] and also was included w/referral packet that was faxed to [facility]. Addendum entered by Go Odell 01/31/23 13:08: Addendum to prior entry: Pt had declined wanting a list of [facility] agencies previously. 1300: DENISSE SERVIN to room. Pt made aware [facility] unable to accept him and that his does not remember the name of the [facility] agency he has had in the past. A list of [facility] providers including quality and resource use data and consistent with the patient?s preferred geographic region, medical needs, and insurance network were provided from the [employer]. Pt chooses [facility]. [facility] [place]. No answer. VM left re: referral and referral packet faxed to [facility] at this time. Awaiting response. Pt denies having other d/c planning needs at this time. Awaiting ID recommendations for IV atb's. Original Note: DENISSE SERVIN NOTE: Pt getting PICC line inserted today and will be discharging on IV atb's. DENISSE SERVIN to room. Introduced self and role. Pt verifies he wishes to go home w/[facility] and comfortable administering IV atb's @ home. He does not remember what [facility] agency he had in the past, but states they were from out of [place]. He states 1st pref is [facility] and if they are not able to accept him, he asked DENISSE SERVIN to check w/his to see if she remembers what C agency he had in the past. Pt provided w/list of Infusion companies. He states he had [facility] in the past and would like to use them again. DENISSE SERVIN messaged w/Julia via backline re: HHC referral. She states [facility] unable to accept, as pt's location is out of their service area. Call to pt's to inquire what HHC agency pt had in the past. She states she is not sure. Referral sent to [facility] via [facility] for financial benefits to be determined. Per msg in [facility], they are able to accept pt and will begin determining financial benefits. Chantelle CONROY RN, CM
--- NOTE | 2023-01-31 12:55 | CASEMGMT ---
Discharge Planning HH list created and given to RN GARETH. Kelin Aly, Discharge Planning Asst.
--- NOTE | 2023-01-31 15:00 | PN.ID_ITS ---
Physical Exam Narrative Feeling ok, pain controlled, no fever, no n/v/d. Picc placed. Const alert and no apparent distress General Appearance: cooperative Resp normal air movement and clear to auscultation bilaterally Cardio regular rate and regular rhythm GI soft to palpation, non-tender and non-distended Skin Skin Narrative: Knee bandaged, no redness ID ID: Route of nutrition/ use of supplements: [] Nutritional Intake: [] IV Site: [] Ramirez Catheter: [] Assessment & Plan Assessment/Plan (1) Infection of prosthetic right knee joint: PLAN: Taken to OR 01/26/[address] Reilly for revision of R knee. H/o MRSA PJI several years ago. Now surg cx with enterobacter. On meropenem, picc placed. Will change to once daily ertapenem, wrote for 6 week course with stop date 03/11/23 and weekly labs. ID followup in 2 weeks. 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
[2023-01-31 15:37] VITALS: BP 135/82; PULSE 83; RESP 18; TEMP 36.8; O2SAT 100
[2023-01-31 21:50] VITALS: BP 139/80; PULSE 80; RESP 16; TEMP 36.7; O2SAT 95
[2023-02-01 04:00] VITALS: BP 140/83; PULSE 77; RESP 18; TEMP 36.6; O2SAT 96
[2023-02-01] MEDS: Acetaminophen 500 MG Tablet 1000 MG PO ×2 (06:28→14:55)
[2023-02-01 10:05] VITALS: BP 141/87; PULSE 75; RESP 16; TEMP 36.8; O2SAT 95
[2023-02-01] MEDS: 0.9% Saline Lock 10 ML Syringe IV ×2 (10:10→11:38)
[2023-02-01] MEDS: oxyCODONE 5 MG Tablet PO ×2 (10:10→17:00)
[2023-02-01] MEDS: buPROPion (SR) 150 MG Tablet.SA PO (10:25)
[2023-02-01] MEDS: Aspirin 81 MG TAB.CHEW PO (10:25)
[2023-02-01] MEDS: Lisinopril 10 MG Tablet PO (10:26)
[2023-02-01] MEDS: Senna/Docusate Sodium 1 Tablet 2 TABLET PO (10:26)
[2023-02-01] MEDS: Famotidine 20 MG Tablet PO (10:26)
[2023-02-01] MEDS: Pantoprazole Sodium 40 MG Tablet PO (10:26)
[2023-02-01] MEDS: Meloxicam 7.5 MG Tablet PO (10:26)
--- NOTE | 2023-02-01 12:26 | CASEMGMT ---
Addendum entered by Go Odell 02/02/23 19:32: Addendum for 02/01/23 @ 3 PM: Arabella from [facility] states they are able to accept pt w/SOC tomorrow. DENISSE SERVIN spoke w/ and she states she has spoken w/Arabella and aware SOC scheduled for tomorrow 02/02. She states they plan to come to the home b/w 9-10 AM. She has also spoken w/[facility] who will be delivering atb/supplies to pt's home today. states she will call [facility] and cx the OP therapy for now, as pt will be receiving therapy in the home. She is aware, if pt needs additional/on-going therapy once HHC is completed, to discuss possible OP therapy w/Dr Reilly at that time. Pt and both deny having any further discharge planning needs or concerns. BIANCA Bailey, made aware HHC and IV atb infusion has been set up and pt ready for discharge. Original Note: DENISSE SERVIN NOTE: Call to Shalonda @ [facility]. She states pt is covered @ 100 % and they can deliver atb's/supplies to pt's home today. She will reach out to pt to schedule delivery time. Call to Arabella @ [facility] to inform her of above. No answer. E-mail sent to her notifying her pt has received his AM dose of IV ertapenem this AM and next dose is due tomorrow 02/02 in the AM. Awaiting response re: acceptance and SOC date/time. Chantelle CONROY RN, CM
--- NOTE | 2023-02-01 12:58 | PN.ORTHO_ITS ---
Subjective Subjective patient is s/p right sided revision total knee arthroplasty with Dr. Reilly. Patient resting comfortably in bed. Rates pain 4/ 10 at rest. With movement 6/10. States taking Tylenol and oxycodone and ice help to relieve pain. Patient has been up with therapy. Walking with the assit of a walker. Afebrile, no chest pain, shortness of breath, negative calf pain/ erythema, and no other signs of DVT. There has been no drainage in the Prevena incisional wound VAC. PICC line placed. Final recommendations per infectious disease are established. Case management currently involved and will need to establish possible home health for IV antibiotics. Patient is stable and ready for discharge home pending home health. Objective Data Objective Data Vital Signs: Vital Signs Temp Pulse Resp BP Pulse Ox O2 Del Method O2 Flow Rate 98.2 F 75 16 141/87 H 95 Room Air 4 02/01/23 10:02/01/23 10:02/01/23 10:02/01/23 10:02/01/23 10:02/01/23 10:05 01/26/23 18:59 Oxygen Flow Rate (L/min) 4 Oxygen Delivery Method Room Air Weight: 83 kg Body Mass Index (BMI) 30.4 Intake & Output: Intake and Output for Last 24 Hours 01/30/23 01/31/23 02/01/23 23:59 23:59 23:59 Intake Total 2365 / 2365 1246.5 / 1246.5 601.25 / 601.25 Balance 2365 / 2365 1246.5 / 1246.5 601.25 / 601.25 Lab / Micro Data 01/31/23 04:45 01/31/23 04:45 Micro: Microbiology 01/26/23 Unknown Tissue - Knee Gram Stain - Final 01/26/23 Unknown Tissue - Knee Wound Culture - Final Enterobacter cloacae complex 01/26/23 Unknown Tissue - Knee Anaerobic Culture - Final No growth in 5 days. 01/26/23 Unknown Tissue - Knee Gram Stain - Final 01/26/23 Unknown Tissue - Knee Wound Culture - Final No growth aerobically. 01/26/23 Unknown Tissue - Knee Anaerobic Culture - Final No growth in 5 days. 01/26/23 Unknown Tissue - Knee Gram Stain - Final 01/26/23 Unknown Tissue - Knee Wound Culture - Final No growth aerobically. 01/26/23 Unknown Tissue - Knee Anaerobic Culture - Final No anaerobic bacteria isolated. 01/14/23 08:40 Swab (Method) Nasal Screen MRSA/MSSA - Final Physical Exam Narrative Patient resting comfortably in bed No signs of acute distress Satting well on room air Limb is warm to touch, Sensation intact throughout entire lower extremity, including saphenous, sural, superficial and deep peroneal, and tibial distrib ution. DP/PT pulses bounding. Dorsi and plantarflexion strength 5/5 Dressing covered with wound VAC. No drainage from VAC. Calf nontender to palpation, no erythema, no edema. Negative Homans Assessment & Plan Assessment/Plan (1) Infection of prosthetic right knee joint: PLAN: Plan revision right total knee arthroplasty 1. S/P right revision total knee replacement entire femoral and tibial implants POD #6 2. Continue Pain Medications: Tylenol, meloxicam, and oxycodone. 3. DVT Prophylaxis: Take 81 mg aspirin twice daily for 4 weeks postoperatively for DVT prophylaxis. Patient denies past history of DVT or pulmonary embolism. SCDs while in hospital. 4. PT/OT: Weightbearing as tolerated with walker. May progress from walker as strength and comfort allow 5. H & H: stable. no new values. 6. Reactive leukocytosis: Resolved currently. no new values. afebrile 7. Continue with Prevena incisional wound VAC for 1 week postoperatively. Stop date will be February 02, 2023 8. P JI: Patient has 1 out of 3 positive cultures for Enterobacter. Patient currently on meropenem prior to finalizing the culture results. Infectious disease recommending ertapenem IV once daily x 6 weeks outpatient. and infectious disease follow up in 2 weeks. PICC line placed today 9. Continue postoperative medical management per medicine: Currently medically stable 10. Encouraged Incentive Spirometry 11. Continue with incisional wound VAC: There has been no drainage in canister or tubing. We will discontinue incisional wound VAC on February 02, 2023. 12. Disposition: Patient has continued to be stable postoperatively. finalized antibiotics recs per ID as above. PICC line placed. Case management currently involved and will need to assist in possible home health for administration of the IV antibiotics. Patient has had his medications already sent to [facility] initially. Patient ready for discharge home today, pending confirmation from home health.
--- NOTE | 2023-02-01 13:08 | PCM.DC.SUM ---
Providers Date of Admission: 01/26/23 Primary Care Physician: Dr. Gerri Leary MD Consultations 01/26/23 16:45 Consult: Hospitalist Routine Consulting Provider: [facility] Reason for Consult: post op med management EMERGENT Consult: No Notified: Yes Date Notified: 01/26/23 Time Notified: 19:52 Method of Notification: Text 01/28/23 10:26 Consult: Infectious Disease Routine Consulting Provider: Albaro Knight Reason for Consult: gram - angelo on cx from OR EMERGENT Consult: No Notified: Yes Date Notified: 01/28/23 Time Notified: 10:26 Method of Notification: Verbal Reason For Visit: REVISION RT TOTAL KNEE Diagnosis Discharge Diagnosis (1) Infection of prosthetic right knee joint: Status: Acute Code(s): T84.53XA - Infection and inflammatory reaction due to internal right knee prosthesis, initial encounter Plan revision right total knee arthroplasty 1. S/P right revision total knee replacement entire femoral and tibial implants POD #6 2. Continue Pain Medications: Tylenol, meloxicam, and oxycodone. 3. DVT Prophylaxis: Take 81 mg aspirin twice daily for 4 weeks postoperatively for DVT prophylaxis. Patient denies past history of DVT or pulmonary embolism. SCDs while in hospital. 4. PT/OT: Weightbearing as tolerated with walker. May progress from walker as strength and comfort allow 5. H & H: stable. no new values. 6. Reactive leukocytosis: Resolved currently. no new values. afebrile 7. Continue with Prevena incisional wound VAC for 1 week postoperatively. Stop date will be February 02, 2023 8. P JI: Patient has 1 out of 3 positive cultures for Enterobacter. Patient currently on meropenem prior to finalizing the culture results. Infectious disease recommending ertapenem IV once daily x 6 weeks outpatient. and infectious disease follow up in 2 weeks. PICC line placed today 9. Continue postoperative medical management per medicine: Currently medically stable 10. Encouraged Incentive Spirometry 11. Continue with incisional wound VAC: There has been no drainage in canister or tubing. We will discontinue incisional wound VAC on February 02, 2023. 12. Disposition: Patient has continued to be stable postoperatively. finalized antibiotics recs per ID as above. PICC line placed. Case management currently involved and will need to assist in possible home health for administration of the IV antibiotics. Patient has had his medications already sent to [facility] initially. Patient ready for discharge home today, pending confirmation from home health. Medications at Discharge Home Medications bupropion HCl 150 mg tablet,12 hr sustained-release (Wellbutrin SR) 150 mg PO BID DEPRESSION 01/13/23 lisinopril 10 mg tablet 10 mg PO DAILY BP 01/13/23 pantoprazole 40 mg tablet,delayed release 40 mg PO DAILY GERD 01/13/23 acetaminophen 500 mg tablet 1,000 mg (2 x 500 mg) PO TID #100 tabs 01/28/23 aspirin 81 mg tablet,delayed release (Adult Low Dose Aspirin) 81 mg PO BID 28 days #56 tabs 01/28/23 meloxicam 7.5 mg tablet 7.5 mg PO BID 30 days #60 tabs 01/28/23 oxycodone 5 mg tablet 5 - 10 mg (1 - 2 x 5 mg) PO Q4H PRN PRN Pain Score 4-10 7 days #60 tabs 01/28/23 ertapenem 1 gram solution for injection 1 g IV Q24 39 days #39 ea 01/31/23 Hospital Course Operations total knee replacement Procedures PICC line placement and Wound vac placement Summary of Care Provided Minutes Spent on Discharge: 40 Hospital Course: Patient is a 62-year-old male who was admitted for elective revision of right total knee arthroplasty with poly exchange with Dr. Reilly 01/26/2023. He had an acute kidney injury postoperatively which has since resolved. He was pending discharge when his intraoperative cultures were positive with Enterobacter. Infectious disease was consulted and recommended vancomycin as well as meropenem meropenem. He will be placed with a PICC line and switch to ertapenem IV once daily at home x6 weeks. He will follow-up with infectious disease 2 weeks after discharge. He will follow with us 2 weeks as previously scheduled. He will begin physical therapy as scheduled as well. Overall he is stable for discharge home with home health. Weight / BMI Weight Weight: 83 kg Body Mass Index (BMI) 30.4 ABG / Lab / Microbiology Data 01/31/23 04:45 01/31/23 04:45 Microbiology: Microbiology 01/26/23 Unknown Tissue - Knee Gram Stain - Final 01/26/23 Unknown Tissue - Knee Wound Culture - Final Enterobacter cloacae complex 01/26/23 Unknown Tissue - Knee Anaerobic Culture - Final No growth in 5 days. 01/26/23 Unknown Tissue - Knee Gram Stain - Final 01/26/23 Unknown Tissue - Knee Wound Culture - Final No growth aerobically. 01/26/23 Unknown Tissue - Knee Anaerobic Culture - Final No growth in 5 days. 01/26/23 Unknown Tissue - Knee Gram Stain - Final 01/26/23 Unknown Tissue - Knee Wound Culture - Final No growth aerobically. 01/26/23 Unknown Tissue - Knee Anaerobic Culture - Final No anaerobic bacteria isolated. 01/14/23 08:40 Swab (Method) Nasal Screen MRSA/MSSA - Final D/C Instructions Discharge Diet: No restrictions Discharge Activity: May Not Drive and May Shower Ice area for (Minutes): 20 (Every 1-2 hours while awake[address] place barrier between the skin and ice pack.) Weight Bearing Status: Weight bearing as tolerated (With walker) Keep extremity elevated above heart level: Operative Extremity Call your doctor if your incision/area has: Continuous Slow Oozing, Sudden Increased Bleeding, Increased Pain/ Swelling, Increased Redness and Foul Smelling Discharge Call your doctor if you observe: Fever of 101 or Higher, Coldness, Increased Pain, Numbness or Tingling, Change in Color, Shortness of breath, Chest pain, Calf discomfort and Uncontrolled pain Cleanse incision/area with: Soap & Water and Keep Dressing Clean & Dry Additional Dressing/Incision Instructions: Follow [facility] Post-op Instructions. Once postoperative dressing has been removed only use gentle soap and water over the incision. Do not use any ointments, Neosporin, salves, alcohol pads over the incision for 6 weeks postoperatively. Do not submerge underwater for 6 weeks postoperatively. Continue with RONALD hose/elastic stockings for 2 weeks postoperatively. May remove at nighttime but needs to be placed back on the leg during the day. Do NOT use alcohol with narcotic pain medication. Do NOT make important decisions while taking narcotic medication. If you have problems with taking your medication (rash, itching, nausea, etc.) call the office at once. When: [facility] as previously scheduled. Meaningful Use Info Meaningful Use Diagnoses (Choose all that apply): None applicable Discharge Plan Admission Admit Date/Time: 01/26/23 10:26 Attending Provider: Cash Reilly Primary Care Provider: Gerri Leary Consulting Providers: Sang Gibson; Bijal Hunter; Bijal Guerrero; Maverick Russo; Nadine Koehler; Albaro Knight Discharge Orders/Prescriptions Prescriptions: New acetaminophen 500 mg Tablet 1,000 mg PO TID Qty: 100 0RF Rx Instructions: Do not take more than 3000 mg Tylenol in a 24-hour period. aspirin [Adult Low Dose Aspirin] 81 mg tablet,delayed release (DR/EC) 81 mg PO BID 28 Days Qty: 56 0RF Rx Instructions: Take 81 mg aspirin twice daily for 4 weeks postoperatively for DVT prophylaxis. meloxicam 7.5 mg Tablet 7.5 mg PO BID 30 Days Qty: 60 0RF Rx Instructions: Do not take any other nonsteroidal anti-inflammatories while using meloxicam/Mobic. oxycodone 5 mg Tablet 5 - 10 mg PO Q4H PRN PRN (Reason: Pain Score 4-10) 7 Days Qty: 60 0RF ertapenem 1 gram Recon Soln 1 g IV Q24 39 Days Qty: 39 0RF Rx Instructions: stop date 03/11/23. Dx GNR prosthetic joint infection. weekly bmp, cbc, LFT, and esr. Fax to [phone] routine picc care per protocol Continued bupropion HCl [Wellbutrin SR] 150 mg tablet sustained-release 12 hr 150 mg PO BID Rx Instructions: Take once daily for the first 3 days then increase to twice daily pantoprazole 40 mg tablet,delayed release (DR/EC) 40 mg PO DAILY lisinopril 10 mg tablet 10 mg PO DAILY Discontinued doxycycline hyclate 100 mg tablet PO Patient Comments: TAKE 1 TABLET BY MOUTH TWICE DAILY Referrals / Follow Up: Physical,Therapy [Other] - 01/31/23 8:00 am Gerri Leary MD [Primary Care Provider] - Shiv Ponce PA-C [Med Staff - [facility]] - 02/10/23 4:00 pm Disposition Disposition (needs filled in before D/C Order can be placed): Home, Self Care
[2023-02-01 14:57] VITALS: BP 148/86; PULSE 82; RESP 16; TEMP 36.7; O2SAT 97
--- NOTE | 2023-02-08 09:30 | CASEMGMT ---
Addendum entered by Go Odell 02/08/23 11:48: DENISSE SERVIN spoke w/pt's . She states she has spoken w/HHC/therapy, and they are now scheduled to come out to see pt this Tuesday. Original Note: DENISSE SERVIN NOTE: Received message that had called [facility] re: HH, stating that therapy had not started working w/pt yet. This DENISSE SERVIN placed call to [facility] re: this. Per Arabella, [facility] is set up to do pt's therapy in the home. She states she was not aware but the PT for [facility] was [place] the [place] and therefore unable to start therapy w/pt right away. Per Arabella, the therapist is available now and was to contact pt/ yesterday. She states PT intake visit is scheduled w/pt for this AM @ 10 AM. Chantelle CONROY RN, CM
== END 2023-02-01 18:20 | disposition home health service (06) | DRG 467 ==
LOC: ACINP 10:30 → MS3 01-27 06:50
PROVIDERS: Anesthesiology; Physician Assistant Surgical; Admitting Provider Specialist; PCP Internal Medicine; Referring Provider Specialist; Visit Provider Specialist
PROC: 0SPC0JZ Removal of Synthetic Substitute from Right Knee Joint, Open Approach (ICD-10-PCS; principal; 2023-01-26 13:35)
DX: T84.53XA Infection and inflammatory reaction due to internal right knee prosthesis, initial encounter (principal); D62 Acute posthemorrhagic anemia; T84.032A Mechanical loosening of internal right knee prosthetic joint, initial encounter; I10 Essential (primary) hypertension; M19.90 Unspecified osteoarthritis, unspecified site; F12.90 Cannabis use, unspecified, uncomplicated; M17.11 Unilateral primary osteoarthritis, right knee; K21.9 Gastro-esophageal reflux disease without esophagitis; R73.03 Prediabetes; R60.0 Localized edema; R33.9 Retention of urine, unspecified; Z87.891 Personal history of nicotine dependence; Z96.651 Presence of right artificial knee joint
CPT/HCPCS: 36415; 36569; 73560; 80048; 82040; 82962; 83036; 83735; 85025; 85027; 86703; 86704; 86706; 86803; 87015; 87070; 87075; 87077; 87081; 87102; 87116; 87186; 87205; 87206; 87340; 93005; 94668; 97110; 97116; 97162; 97166; 97530; 97535; 97802; 99252; C1776; J2185; J7050; J7120; A4216; G0463; J2405; J3475

== ENCOUNTER 2023-03-04 05:22 | Inpatient (IN) | payer MEDICARE, MEDICAID, SELFPAY ==
[2023-03-04] VITALS (11 sets, daily range): BP systolic 135–170; BP diastolic 74–97; PULSE 75–99; RESP 16–22; TEMP 36.5–37.6; O2SAT 91–98; BMI 28.2; BMI 31.0
--- NOTE | 2023-03-04 | KNEE_PTH ---
PATIENT: ASHLEY HILL LOC: MS3 U#:[id number] AGE/SX: 62/M ROOM: [facility] RE03/04/[address]: Dr. Tigre Parra MD : 1960 BED: 1 DIS: 03/08/2023 SPEC #: [id number] RECD: 03/04/23 16:22 STATUS: [facility] REQ #: [id number] COCO: 03/04/23 00:[address]: Tigre Parra DEPT: SURGICAL PATHOLOGY RECD BY: Pedro Ibarra ENTERED: 03/07/23 08:58 SP TYPE: TOTAL KNEE OTHR DR: MD Dr. Gerri Alvarez MD Dr. Mark Tereletsky, DO Dr. Nana Yaa Koram, MD Dr. Robert Leininger, MD Dr. 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 Suture granuloma and fat necrosis. AM:sergio 03/08/2023 MICROSCOPIC DESCRIPTION Slides are reviewed. GROSS DESCRIPTION Received in fixative is one container labeled with the patient's name and designated right knee sinus tract. The specimen consists of an ellipse of light rowley skin with attached soft tissue measuring 3.5 x 0.5 cm and depth of excision measuring 0.4 cm. The specimen is inked, serially sectioned and totally submitted in one cassette. / AM:sergio 03/07/2023 TC:2 CPT: 56693
[2023-03-04] MEDS: Lactated Ringers 1,000 ML 15 ML IV ×4 (06:06→15:31)
--- NOTE | 2023-03-04 06:55 | NURSING ---
Dr. Alfredo states pt is complaining of itching, instructed to give 25mg of benadryl iv.
--- NOTE | 2023-03-04 06:55 | PN.ORTHO_ITS ---
Subjective Subjective Patient presents today for surgery dual case with plastics and orthopedics. Orthopedics to debride and revise interchangeable parts with obtainment of implants placed on 01/31/2023. Plastics to perform coverage. Patient had wound dehiscence of susceptible distal incision. Objective Data Objective Data Vital Signs: Vital Signs Temp Pulse Resp BP Pulse Ox O2 Del Method 97.7 F L 75 16 135/78 H 98 Room Air 03/04/23 06:08 03/04/23 06:08 03/04/23 06:08 03/04/23 06:08 03/04/23 06:08 03/04/23 06:08 Oxygen Delivery Method Room Air Weight: 169 lb 12.095 oz Body Mass Index (BMI) 28.2 Assessment & Plan Assessment/Plan (1) Infection of prosthetic right knee joint: PLAN: At this time and case has been discussed with plastics and plastics has been able to see and evaluate the patient. Plan today is for orthopedics to do irrigation debridement with retain of well-fixed implants and revision of i nterchangeable implants. Plastics will proceed with closure as patient needs soft tissue coverage. Will need to consult infectious disease postoperatively. Patient will likely need to consider a longer course of IV antibiotics after today's procedure additionally we were able to discuss motion restrictions that may affect his orthopedic outcome. Finally I did discuss the patient the potential for requiring long-term suppression antibiotics. At this point patient has had numerous surgeries on his extremity. He has significant overall bone loss in relation to previous surgeries and infectious etiology making further reconstructions and potential recoveries significantly difficult. I have explained to the patient that we are in a mode of limb salvage and recommended we continue to retain his current implants. Patient demonstrates an understanding. He is agreeable to the current treatment plan. Will proceed with surgery today. (2) Open wound of right knee with complication:
[2023-03-04] MEDS: Cefazolin 2 GM in 0.9% Normal Saline 100 ML IV (07:51)
--- NOTE | 2023-03-04 10:40 | PCM.OPRPT ---
Report of Operation Date of Procedure: 03/04/23 Pre-Operative Diagnosis: Right periprosthetic knee joint infection, draining sinus 10 mm x 3 mm Post-Operative Diagnosis: Right periprosthetic knee infection, draining sinus 10 mm x 3 mm distal wound Failed extensor mechanism right knee Surgery/Procedure Performed:: Right knee irrigation debridement polyethylene exchange once component revision Sinus tract excision 10 mm x 3 mm right knee Direct repair extensor mechanism right knee Description of Surgical Findings:: Due to multiple surgeries patient's anterior medial structures were significantly necrotic upon reentry with failed medial retinacular and distal arthrotomy repair to the proximal pole the patella. The remaining patellar attachment at the time of surgery had avulsed from the minimal remaining bony proximal tibia. Surgeon: Cash Reilly commissions specialist: Carlos Manuel Lakhani Type of Anesthesia: General Anesthesiologist: Matheus Ferrer Special Medications: Vancomycin, Ancef (Ancef was redosed after 2 hours). Specimen's removed: 3 separate specimens were sent to microbiology Drains: Superior medial drain was placed. Estimated Blood Loss (mL): 100 mL Fluids Replaced: 1500 mL for this portion of the case Description of Procedure: 62 yo M history of R TKA revision after multiple previous surgeries with significant bone loss on January 28, 2023 presents with draining sinus which started 2 weeks ago patient has history of previous MRSA infection. Last surgery positive cultures for Enterobacter. Patient has been on ertapenem. Reviewed options were discussed the patient. Patient was also seen and evaluated by plastic surgery and ultimately recommended soft tissue coverage from plastic surgery associated with today surgical intervention to debride the joint. Based on acuity of the symptoms and organism irrigation debridement with polyethylene exchange is recommended. Risks and benefits of the procedure were discussed with the patient including but not limited to blood loss, DVTs, PEs, neurovascular damage, infection, general risk of anesthesia including loss of life. Demonstrated understanding and was able to sign informed consent. Dr. Parra the plastic surgeon performed a portion of the skin after my portion was completed. His procedure will be dictated separately. On the date of procedure patient'sR lower extremity was marked in the preoperative area. The patient was then taken back to the operating room where the patient was placed on the table in the supine position. All bony prominences were identified a well-padded. Anesthesia assumed control of the C-spine and airway and remained controlled throughout the remainder of the procedure. A tourniquet was placed on the operative thigh and the leg was prepped in a sterile fashion. The surgeon then scrubbed at this time .Upon reentering the room left lower extremity was draped in a standard orthopedic fashion. A timeout was then called and everyone agreed upon the side, the site, the procedure to be performed, patient's identity and antibiotics given. A midline skin incision was made and sharp dissection was taken down through skin subcutaneous tissue and fat. An ellipse was made around the sinus tract. Sinus tract was excised and sent to pathology. Appropriate flaps were elevated medially and laterally. His arthrotomy was identified and it was noted that distal to the proximal pole the patella the retinacular and arthrotomy repair had failed with significant unhealthy tissue. Additionally patient's remaining patellar tendon attachment to the proximal tibia which was tenuous during the previous surgery had fully ruptured from the proximal tibia. Based on this I did discuss the soft tissue coverage with the plastic surgeon. Ultimately in the face of infection no allograft reconstruction or mesh reconstruction was recommended. We elected for direct repair today with soft tissue coverage. At this point an aggressive synovectomy commenced. Our attention was first turned towards the subpatellar pouch and all suspicious synovium and tissues were debrided. We then directed our attention towards medial lateral gutters were these tissues were aggressively debrided. Knee was then flexed up the polyethylene was removed. Once polyethylene was removed we did the remainder of the synovium in the medial and lateral gutters and along the lateral structures and MCL. We then debrided the posterior knee. Knee was flexed up and culture was taken from the femoral notch. And also there was a membrane beneath the tibial baseplate that was removed and sent for culture. He had completed our synovectomy and were happy with the joint. We then used a chlorahexadine scrub sponge and physically scrub the metal implants using a scrub sponge but nothing abrasive. We also scrubbed the remainder of the wound with chlorhexidine. 6 L of normal saline were then irrigated throughout the wound with low-pressure lavage and the wound was once again explored. All remaining tissue that was suspicious was seen in the wound was once again irrigated with normal saline. At this time all parties changed gown and gloves and the knee was redraped with sterile drapes. Knee was again reexamined. 17 mm polyethylene was then opened and put back into place after appropriate trialing. Tourniquet was let down and hemostasis was obtained as well as possible. Medial drain was placed. At this point knee was placed in extension and two #2 FiberWire sutures were used to place Krak?w stitches in the distal patella tendon. 4 limbs were then pulled through 3 bony tunnels and tied over bone bridges for repair with good tension in full extension. Prior to this we also did roughen up the bone in order for dealing. Once the final components were placed the wound was copiously irrigated with normal saline solution. The wound was closed in a layer browne fashion using #1 vicryl interrupted sutures for the arthrotomy until the tissue was under too much tension. At which point there was a small 1 cm x 1 cm area of exposed proximal tibial implant. We then closed the deep layer proximally with #1 Vicryl. Skin proximal was closed with 2-0 Vicryl. At this point plastics then assumed the remainder of the coverage of the case for closure. Post op plan Patient will be made toe-touch weightbearing postoperatively for 6 weeks. He will also be made no range of motion for 6 weeks. After 6 weeks we will begin range of motion at 30 degrees advance 15 degrees/week with goal range of motion of 90 degrees at 6 months postoperatively. Infectious ease will be consulted for continued IV antibiotic treatment. Plastics will manage the wound. Grafts/Implants Used: Juan 17 mm rotating-hinge polyethylene Complications No intraoperative complications for this portion of the case Admit VTE Documentation VTE Present on Admission: No VTE Mechan Device Prophylaxis: SCD's and Thigh High RONALD Hose VTE Pharm Prophylaxis ordered?: Yes
--- NOTE | 2023-03-04 12:33 | PCM.RX.CS ---
Consult Antibiotic Management Pharmacy has been consulted to manage selected antiobiotic: Vancomycin Type of Intervention Type of Consult: New start Suspected Infection Suspected Infection: Skin/Soft tissue Prior Doses of Antibiotics Prior Doses of Antibiotics Received/Current Regimen: Received 1250mg iv x 1 preop today. Dosing Weight Weight used for dosin kg Estimated Creatinine Clearance Estimated Creatinine Clearance: 69ml/min Pharmacy Plan for Drug Dosing Pharmacy Plan for Drug Dosing: Will initiate 1000mg iv q12h. Trough level ordered for before 4th total dose. Pharmacy Service will continue to monitor and adjust dosing as required. Follow-Up Labs Follow-Up Labs: Trough: Vancomycin (8.12.23 @1730 before 1800 dose)
[2023-03-04] MEDS: Lidocaine 1% /Epi 1:100 (20ml) 20 ML Vial ×2 (13:41→13:47)
[2023-03-04] MEDS: Mupirocin Ointment 22gm Tube 1 APPLIC (16:46)
--- NOTE | 2023-03-04 17:22 | OP.PCM_ITS ---
Problems Associated Problem List Diagnoses (1) Infection of prosthetic right knee joint: (2) Status post revision of total replacement of right knee: (3) Open wound of right knee with complication: (4) Osteoarthritis of right knee: (5) Infection caused by Enterobacter cloacae: (6) History of methicillin resistant Staphylococcus aureus infection: (7) Prediabetes: (8) Former smoker: Report of Operation Date of Procedure: 03/04/23 Pre-Operative Diagnosis: 1. Infection prosthetic right knee joint. 2. Status post right total knee replacement. 3. Osteoarthritis. 4. Enterobacter cloacae infection. 5. History of MRSA infection. 6. Prediabetes with HgbA1c 6.2 on 01/14/23. 7. Former smoker. Post-Operative Diagnosis: 1. Infection prosthetic right knee joint. 2. Status post right total knee replacement. 3. Open wound right inferior knee/proximal leg. 4. Osteoarthritis. 5. Enterobacter cloacae infection. 6. History of MRSA infection. 7. Prediabetes with HgbA1c 6.2 on 01/14/23. 8. Former smoker. Surgery/Procedure Performed:: Reconstruction right inferior knee/proximal leg wound with right medial gastrocnemius muscle flap and STSG from lower anterior abdominal wall (120 cm2). Description of Surgical Findings:: 62 year old man presents with drainage from the inferior aspect right knee incision after revision of a right total knee replacement. He has a complicated history that started in Nov, 2017 with a right total knee replacement. A year later in June,, patient underwent a revision right total knee replacement. Issues persisted with loosening of the hardware and infection and he underwent a 2 stage revision in [place]. In Nov, 2019 he underwent I&D of the right total knee replacement and placement of an antibiotic spacer. In February, he underwent the second stage with the antibiotic spacer removed with revision right total knee replacement. He states he was told he had MRSA at that time. He had no problems until earlier this year when he developed increasing pain. He returned to the OR on January 26, 2023 where he underwent his 3rd revision right total knee replacement. He had operative cultures that were positive for Enterobacter cloacae. He is currently getting IV Ertapenem for 6 weeks. The plan is for Dr. Reilly to proceed with I&D and poly swap. I was asked to evaluate this patient for soft tissue coverage of the inferior knee/proximal wound after the poly swap. Patient was informed of the risks and complications of the procedure including alternatives to surgery. These were discussed with the patient personally. Patient voices understanding and wishes to proceed. Some of the risks and complications were included in a form from the [employer]. Potential risks and complications included but not inclusive of bleeding, infection, seroma, hematoma, bruising, swelling, prolonged need for drains, loss of sensation to skin, partial or complete loss of muscle flap and/or skin graft, wound breakdown, need for wound care, poor scarring, poor aesthetic outcome, intra operative cardiac or neurologic events, DVT, PE, and reaction to anesthesia. IV Fluids - 2800 ml. Urine Output - 675 ml. Size of the skin graft covering the gastrocnemius muscle flap - 20 x 6 cm. I used Kinjal absorbable hemostat, (I used 3 vials, one in the lower anterior abdominal wall and 2 in the right posterior leg). Reference Number - [id number]. Lot Number - [id number]. Expiration - October 20, 2027. Surgeon: Tigre Parra MD glass blowing lathe operator: Carlos Manuel Lakhani RNFA glass blowing lathe operator: Sandy Rincon RNFA Type of Anesthesia: General Anesthesiologist: Matheus Ferrer MD and Bert Javier CRNA Specimen's removed: None. Drains: Davonte drain x2 (one in right leg and one in lower anterior abdominal wall) Estimated Blood Loss (mL): 150. Fluids Replaced: 3475 ml (IV Fluids 2800 ml, Urine Output 675 ml) Description of Procedure: Patient was taken to OR in supine position and was placed under general anesthesia. The right leg and lower anterior abdominal wall areas were prepped and draped in the usual fashion. SCD was placed on the left leg for DVT prophylaxis. Perioperative antibiotics were given intravenously. A ortez catheter was placed. A tourniquet was placed on the proximal thigh. Dr. Reilly then proceeded with his orthopedic procedure. He will dictate his portion separately. He called me into the OR and showed me the extensor mechanism was disrupted. He stated he would approximate it, but it would be tenuous. He would need to not flex his knee for several weeks. In approximately 6 months further revision would be done with a tendon allograft. When he completed his part, he left the inferior knee/proximal leg wound open in preparation for the muscle flap. The tourniquet was released prior to finishing his portion of the surgery. At the time of the I&D and poly swap, cultures were taken. I then came in to proceed with my portion of the procedure (muscle flap and skin grafting). I made a longitudinal incision 2 cm medial to the edge of the tibia right leg down through the subcutaneous tissue until the gastrocnemius muscle was seen. I dissected the medial head of the gastrocnemius muscle down to the tendinous portion with the soleus. I incised a small tendinous cuff and elevated the medial gastrocnemius muscle from distal to proximal utilizing the right plane between the gastrocnemius and the soleus because of the plantaris tendon. Also, the sural nerve was seen and preserved laterally. When I got to the proximal portion of the medial gastrocnemius muscle I identified the vascular pedicle and it was preserved. I then went proximal to the vascular pedicle to free up some of the proximal muscle fibers to aid in advancement of the muscle flap. I tried to create a subcutaneous tunnel to the right knee wound.. The surrounding tissue was dense and hard, and I felt a subcutaneous tunnel would be too tight and increase the risk of vascular compromise to the muscle flap. I extended the incision from the posteromedial leg up to the in ferior knee/proximal leg wound. I then rotated the medial gastrocnemius muscle flap directly into the wound with minimal tension to minimize compression and compromise to the muscle flap. Both wounds (right inferior knee/proximal leg and right posteromedial leg) were irrigated with saline. I sprayed Kinjal absorbable hemostat into the right knee wound as well as the right posteromedial leg donor area where the gastrocnemius muscle was harvested. I used 2 vials. I placed a size 15 Davonte drain through a separate stab incision inferiorly on the posterior leg to drain the posteromedial leg area and the right inferior knee/proximal leg wound. It was secured to the skin using 3-0 nylon purse string suture. I then closed the posteromedial leg wound in multiple layers using 2-0 Vicryl figure of eight interrupted sutures for the underlying fascia. The deep dermis and subcutaneous tissue was approximated using 3-0 Monocryl interrupted suture. The skin was approximated using 3-0 V lock unidirectional barbed running subcuticular suture. To get exposure, I extended the posteromedial leg incision in a zig zag fashion both proximally and distally. The zig zag incisions were closed with 3-0 Monocryl interrupted sutures for the deep dermis and subcutaneous tissue. The skin was approximated with 3-0 Prolene simple interrupted sutures. This was then followed with Histoacryl skin tissue adhesive. I then marked out a horizontal ellipse of skin in the lower anterior abdominal wall area that will be used for the skin graft over the muscle flap. These markings were infiltrated with xylocaine with epinephrine. Using a scalpel, incisions were made into the subcutaneous tissue. The subcutaneous tissue and the deeper dermis were excised thus fashioning a thick split thickness skin graft. The skin graft was placed on stretch and using a 15 blade, I meshed the skin graft. The skin graft was then placed in saline. I removed some of the deeper subcutaneous tissue in the lower anterior abdominal wall to aid in wound closure. Hemostasis obtained using electrocautery. This was followed with saline irrigation. I then placed a size 15 Davonte drain through a separate stab incision laterally and secured to the skin with 3-0 Nylon purse string suture. I then sprayed Kinjal absorbable hemostat into the base of the wound to minimize seroma formation. I used one vial. The donor wound was closed in multiple layers with 2-0 Vicryl running suture for Damaris's fascia. The deep dermis and subcutaneous tissue was approximated using 3-0 Monocryl interrupted sutures. The skin was approximated using 3-0 V lock unidirectional barbed running subcuticular suture. This was then followed by Histoacryl skin tissue adhesive. I placed the thick split-thickness skin graft over the gastrocnemius muscle. I first inset the muscle into the right inferior knee/proximal leg wound with 3-0 Nylon horizontal mattress sutures and secured to the skin over a dental roll and Xeroform gauze. Some of the inferior knee wound was closed to allow better coverage with the muscle flap. This was done with 2-0 Vicryl interrupted sutures for the deep dermis and subcutaneous tissue. The skin was approximated with 3-0 Nylon vertical mattress sutures. The sides of the muscle were secured to the skin edges with 3-0 Vicryl interrupted sutures. Once the muscle was secured in the wound, I then placed the thick split-thickness skin graft on top of the muscle and secured the skin graft to the skin edge using 4-0 chromic simple interrupted sutures. 4-0 chromic suturing was also used for central quilting stabilization. The muscle flap was pink and viable with good bleeding edges. Bactroban ointment was applied to the skin graft followed by Mepitel nonadherent dressing. I placed moistened Kerlix gauze over the skin graft to act as a compression dressing over the skin graft. Bactroban ointment and Xeroform gauze were placed on the midline knee incision down to the skin graft and muscle flap. I placed dry Kerlix gauze from the foot up to the leg, knee, and distal femur. This was followed by a compression Esequiel wrap. For the lower anterior abdominal wall donor site, I placed a Kerlix gauze followed by a compression dressing. The size of the skin graft was 20 x 6 cm or 120 square cm. The muscle flap appeared pink and viable. No clinical evidence of hematoma. The patient tolerated the procedure well and will be sent to the recovery room in satisfactory condition. Also at the end of the procedure, a knee immobilizer was placed. He will be admitted for continued postoperative wound care. He will keep his left leg elevated when sitting. He is to minimize standing. Because of the repair of the extension mechanism, he will keep his knee extended for several weeks. He will maintain the knee immobilizer during that time. The drains will be removed in 10-14 days. Based on the culture results, we will determine his antibiotic therapy. Lydia Osorio has been consulted for antibiotic management. Grafts/Implants Used: Kinjal Procedure Start Time: 10:32 Procedure Stop Time: 17:21 Complications None. Admit VTE Documentation VTE Present on Admission: No VTE Mechan Device Prophylaxis: SCD's VTE Pharm Prophylaxis ordered?: Yes Addendum Addendum: Surgery Charges CPT - 68975 ICD-10 - T84.53xA, Z96.651, S81.001A, M17.11, A49.8, Z86.14, R73.03, Z87.891 [id number] T84.53xA, Z96.651, S81.001A, M17.11, A49.8, Z86.14, R73.03, Z87.891 [id number] T84.53xA, Z96.651, S81.001A, M17.11, A49.8, Z86.14, R73.03, Z87.890
--- NOTE | 2023-03-04 19:47 | NURSING ---
Dr. Parra called and updated on concern regarding pt's confusion, behavior. per documentation a&ox3 as well as BP as reported by Kimberly Childers RN. order given for hospitalist consult for evaluation.
--- NOTE | 2023-03-04 20:06 | PCM.PN.HOSP ---
Reason for Visit Reason for Visit: Diagnoses Unspecified open wound, right knee, initial encounter (03/04/23) Infection and inflammatory reaction due to internal right knee prosthesis, initial encounter (03/04/23) Subjective Subjective The patient is a 62 y/o M w/ PMHx: Prediabetes mellitus type II, Anxiety and Depressoin, TIMO on CPAP, Former tobacco use now using chew tobacco, GERD, Hx Polysubstance abuse, HTN, HLD, Cannabis usage, RLS, GERD who presents to the [facility] on 03/04/23 with history of his 3rd right TK revision/replacement infection following surgery 01/26/23 with draining wound w/ Cx + enterobacter cloacea with wound to the inferior aspect of the R knee w/ 6 week course ertapenem IV w/ 03/04/23 R knee I+D w/ revision interchangeable parts per Dr. Reilly and reconstruction right inferior knee/proximal leg wound with right medial gastrocnemius muscle flap and STSG from lower anterior abdominal wall per Dr. Parra with noted post-operative increased confusion. Patient was in the OR for near the entirety of the day and following coming back to TX room s/p extensive OR he was noted to be confused reporting that the people are on the TV are his friends and noted to have emotional lability, crying in the room. Upon transition to TX with evaluation per hospitalist patient is interactive but mildly agitated and despite answering several questions appropriately consistently reported someone being in the room that was there. He could be redirected. He denies any pain at this time, denies fever, chills, nausea, emesis. Is abdominal bandages without any drainage with BHARATHI drain with serosanguineous drainage. Objective Data Objective Data Vital Signs: Vital Signs Temp Pulse Resp BP Pulse Ox O2 Del Method O2 Flow Rate 99.0 F 99 22 H 170/97 H 96 Nasal Cannula 2 03/04/23 19:37 03/04/23 19:37 03/04/23 19:37 03/04/23 19:37 03/04/23 19:37 03/04/23 19:37 03/04/23 19:37 Oxygen Flow Rate (L/min) 2 Oxygen Delivery Method Nasal Cannula Weight: 169 lb 12.095 oz Body Mass Index (BMI) 28.2 Intake & Output: Intake and Output for Last 24 Hours 03/02/23 03/03/2323 23:59 23:59 23:59 Intake Total 3385.0 / 3385.0 Output Total 805 / 805 Balance 2580.0 / 2580.0 Lab / Micro Data 03/04/23 21:05 03/04/23 21:05 Micro: Microbiology 03/04/23 Unknown Tissue - Knee Gram Stain - Final 03/04/23 Unknown Tissue - Knee Gram Stain - Final 03/04/23 Unknown Tissue - Knee Gram Stain - Final Physical Exam Narrative Physical Examination: General: Awake, alert, oriented to self, place and many recent events and is aware of several things including staff members he recommends as inpatient but he insists that there is someone in the room despite being told there is not but can be reoriented and distracted, agitated. Skin: Normal color, normal turgor, no icterus, no cyanosis except for recent OR with right knee dressing in place with BHARATHI as well as abdominal bandaging in place with BHARATHI with serosanguineous drainage. HEENT: AT/NC, EOMI, PERRLA, mildly dry MM, no carotid bruits or JVD noted. Lungs: Mildly diminished, good bases, proper effort, no rales, ronchi or wheezing. Heart: Currently regular rate and rhythm; no gallop, rub audible. Abdomen: Soft, expected discomfort given recent OR with abdominal bandaging in place, no drainage, difficult to assess distention given recent OR and discomfort as well as bandaging, given thickness of bandage also difficult to discern bowel sounds. Extremities: No cyanosis, no clubbing, mild peripheral edema, see skin. Neurological: Patient awake, alert, oriented as noted, cognitive function not baseline intact; pupils equally reactive to light and accommodation, cranial nerves grossly normal, moving all 4 extremities except expected limitation right lower extremity given recent OR, strength accordingly moderately to severely globally decreased. Psychiatric: Affect appears irritable, agitated. Assessment & Plan Assessment/Plan (1) Encephalopathy acute: PLAN: Plan The patient is a 62 y/o M w/ PMHx: Prediabetes mellitus type II, Anxiety and Depressoin, TIMO on CPAP, Former tobacco use now using chew tobacco, GERD, Hx Polysubstance abuse, HTN, HLD, Cannabis usage, RLS, GERD who presents to the [facility] on 03/04/23 for revision R knee secondary to post-operative infection requiring prolonged IV abx therapy for I+D and reconstruction. #1. Acute Encephalopathy following extensive prolonged Operative intervention, possibly multifactorial but suspect related with notable anesthetic exposure: Requested staff to assess patient for scopolamine patch and remove if presentation otherwise will judiciously hydrate, maintain on fall and aspiration precautions, avoid aggressive narcotics/sedative regimen as able and allow more time to pass since his prolonged anesthetic exposure of nearly 10 hours, if not may need to review medications as possible etiology. Patient history also of note with substance abuse, unclear if heavy EtOH intake thus may need to consider these items if persists. #2. Recent R TK revision infection/enterobacter cloacea: 03/04/23 R knee I+D w/ revision interchangeable parts per Dr. Reilly and reconstruction right inferior knee/proximal leg wound with right medial gastrocnemius muscle flap and STSG from lower anterior abdominal wall per Dr. Parra, post-operative pain management, bowel regimen, DVT Prophylaxis, PT/OT/CM per surgery discretion. Infectious disease consulted and following with regimen currently noted perioperatively IV vancomycin and IV Ancef and continued meropenem per infectious disease as well as IV vancomycin. #3. Hypertension: Continue home regimen including lisinopril, PRN hydralazine. #4. Anxiety and depression: We will continue patient home Wellbutrin regimen. #5. Prediabetes mellitus type II: Would encourage patient to be maintained on ADA diet, accu checks w/ ISS. #6. GERD: We will continue patient on PPI. #7. History of polysubstance abuse: Encouraged clean status. Noted in history, unclear specific agents, given recent significant anesthetic and sedate of agents used as well as narcotics in the OR would defer UDS at this time but if if patient normalizes and this recurs low threshold to obtain. #8. Former cigarette tobacco use now transition to chew tobacco: Encourage tobacco cessation, NR gum if requested. #9. TIMO: CPAP nightly. #10. DVT prophylaxis: SCDs, chemoprophylaxis per surgery discretion. Charges/Coding Visit Charges Inpatient E&M: 08462 Subs Hosp L3
--- NOTE | 2023-03-04 20:32 | NURSING ---
Pt brought to the floor in confused state, yelling, and experiencing hallucinations. PACU nurse unsure of preoperative status. Patients belongings left in PACU; department contacted and patients belongings left outside of door for staff to collect. Surgeon notified of patients status and order for hospitalist consult was given.
--- NOTE | 2023-03-04 20:42 | NURSING ---
Pt continues to experience hallucinations; nursing staff continues measures to distract and reorient patient. pt refusing nursing care. threatened to remove picc line from arm if nurse administered ordered fluids. additionally, pt became upset with their cell phone and threw it against the wall. no staff nor the pt were harmed. nursing staff continues to monitor the patient closely.
[2023-03-04 21:12] LABS: Hematocrit 32.8 % (40-54); Hemoglobin 10.3 g/dL (13.0-16.5); Mean Corp Hgb Conc 31.4 g/dL (32-36); Mean Corpuscular Volume 86.1 fL (80-94); Mean Platelet Vol. 8.9 fl (6.2-12.0); Platelet Count 385 K/mm3 (150-450); RBC Distribution Width CV 14.5 % (11.6-14.6); RBC Distribution Width SD 45.8 fl (35.1-43.9); Red Blood Count 3.81 M/mm3 (4.6-6.2); White Blood Count 9.1 K/mm3 (4.4-11.0)
--- NOTE | 2023-03-04 21:24 | NURSING ---
late entry -attempted to call pt's contacts. called Morena, pt's , went right to voicemail. Called Karma, pt's [id number], rang several times before there was a message saying that the voicemail hasn't been set up.
[2023-03-04 21:27] LABS: Anion Gap 4 (5-15); BUN 15 mg/dL (7-18); BUN/Creat Ratio 17.2 RATIO (10-20); Calcium,Total 8.2 mg/dL (8.5-10.1); Chloride 109 mmol/L (98-107); Creatinine, Serum 0.87 mg/dL (0.70-1.30); EST Glomerular Filtration Rate 94 mL/min (>60); Est Glom Filt Rate - Afr Amer 114 mL/min (>60); Glucose 143 mg/dL (74-106); Potassium 3.7 mmol/L (3.5-5.1); Sodium Level 139 mmol/L (136-145)
[2023-03-04] MEDS: 0.9% Normal Saline 1,000 ML 125 ML IV (21:38)
[2023-03-04] MEDS: Vancomycin IV 1,000 MG/200 ML BAG 200 MG IV (21:47)
[2023-03-04] MEDS: Acetaminophen 500 MG Tablet 1000 MG PO (21:47)
--- NOTE | 2023-03-04 21:58 | NURSING ---
pt orientation status has returned to A & O x 3 and pt is now accepting nursing care. Pt provided with a snack and warm blankets; pt states I am ready to rest for awhile. It feels like I have been running a marathon
[2023-03-04] MEDS: buPROPion (SR) 150 MG Tablet.SA PO (23:10)
[2023-03-04] MEDS: Meloxicam 7.5 MG Tablet PO (23:10)
[2023-03-04 23:45] LABS: Bedside Glucose 159 mg/dL (74-106)
--- NOTE | 2023-03-05 01:28 | CPS ---
Pt refused PAP therapy for the night. On 2L 90%.
[2023-03-05 05:00] VITALS: BP 143/70; PULSE 80; RESP 18; TEMP 36.8; O2SAT 98
[2023-03-05] MEDS: Acetaminophen 500 MG Tablet 1000 MG PO ×3 (05:42→20:49)
[2023-03-05 08:16] LABS: Bedside Glucose 100 mg/dL (74-106)
--- NOTE | 2023-03-05 08:18 | PCM.PN.ORT ---
Subjective Subjective Patient did have difficulty waking from anesthesia is doing well. No acute events overnight. At this point he reports the knee is comfortable but does have pain. He is hoping to move around today. We did discuss yesterday's events and intraoperative findings including avulsion of the patellar tendon. Objective Data Objective Data Vital Signs: Vital Signs Temp Pulse Resp BP Pulse Ox O2 Del Method O2 Flow Rate 98.3 F 80 18 143/70 H 98 Nasal Cannula 2 03/05/23 05:00 03/05/23 05:00 03/05/23 05:00 03/05/23 05:00 03/05/23 05:00 03/05/23 05:00 03/05/23 05:00 Oxygen Flow Rate (L/min) 2 Oxygen Delivery Method Nasal Cannula Weight: 186 lb 11.704 oz Body Mass Index (BMI) 31.0 Intake & Output: Intake and Output for Last 24 Hours 03/03/23 03/04/23 03/05/23 23:59 23:59 23:59 Intake Total 3741.42 / 3741.42 120 / 120 Output Total 805 / 805 600 / 600 Balance 2936.42 / 2936.42 -480 / -480 Lab / Micro Data Attestation: I reviewed the patient's lab results. 03/04/23 21:05 03/04/23 21:05 Labs: Laboratory Results - last 24 hr 03/04/23 21:05: WBC 9.1, RBC 3.81 L, Hgb 10.3 L, Hct 32.8 L, MCV 86.1, MCH 27.0, MCHC 31.4 L, RDW Std Deviation 45.8 H, RDW Coeff of Clemente 14.5, Plt Count 385, MPV 8.9, Sodium 139, Potassium 3.7, Chloride 109 H, Carbon Dioxide 26.0, Anion Gap 4 L, BUN 15, Creatinine 0.87, Estim Creat Clear Calc 75.60, Est GFR (MDRD) Af Amer 114, Est GFR (MDRD) Non-Af 94, BUN/Creatinine Ratio 17.2, Glucose 143 H, Calcium 8.2 L 03/04/23 23:20: POC Glucose 159 H 03/05/23 07:54: POC Glucose 100 Micro: Microbiology 03/04/23 Unknown Tissue - Knee Gram Stain - Final 03/04/23 Unknown Tissue - Knee Gram Stain - Final 03/04/23 Unknown Tissue - Knee Gram Stain - Final Physical Exam Const alert and oriented x3 Extremity Extremity Narrative: Right lower extremity: Thigh is soft and supple. Positive motor dorsiflexion EHL plantarflexion. Toes are warm and pink with brisk cap refill. Serosanguineous fluid in the Hemovac drain. Esequiel bandages clean and dry. Dressing was left in place as plastics will manage the wound. Assessment & Plan Assessment/Plan (1) Infection of prosthetic right knee joint: (2) Status post revision of total replacement of right knee: PLAN: 1. S/P irrigation debridement and polyethylene exchange of right knee after patient developed draining sinus and wound breakdown in the distal portion of the incision. 2. Continue Pain Medications: Tylenol, meloxicam. Patient did have some encephalopathy after waking from prolonged anesthesia. Okay from orthopedic standpoint to use narcotics if medically stable. 3. DVT Prophylaxis: Take 81 mg aspirin twice daily for 4 weeks postoperatively for DVT prophylaxis. Patient denies past history of DVT or pulmonary embolism. SCDs while in hospital. Will discuss with team and make sure this is not contraindicated for plastics procedure. 4. PT/OT: Toe-touch weightbearing. Knee immobilizer at all times no flexion of the knee. 5. H & H: 10.3/32.8. asymptomatic. Postoperative anemia secondary to acute blood loss from surgery without any intra operative complications. 6. Hemovac drain: Plan to leave in over the weekend and for Tuesday if no excessive drainage. 7. Wound management: Per plastic service. No dressing change performed with orthopedic exam today. 8. P JI: Patient has 1 out of 3 positive cultures for Enterobacter at previous surgery. Patient placed back on meropenem and vancomycin postoperatively by infectious disease. 9. Continue postoperative medical management per medicine: Currently medically stable 10. Encouraged Incentive Spirometry 11. Disposition: We will need to continue monitoring medically through the weekend. When infectious disease returns on Tuesday we will get definitive discharge plan for IV medications. Patient will likely need extended IV antibiotic treatment as he is nearing his 6-week marita from original surgery. We will need to determine how patient tolerates toe-touch weightbearing and motion restrictions for determining final discharge plan/destination. This dictation was created using voice recognition software. Phonetic and/or grammatical errors may exist. [facility]: (3) History of methicillin resistant Staphylococcus aureus infection: (4) Infection caused by Enterobacter cloacae: (5) Open wound of right knee with complication: (6) Former smoker:
[2023-03-05] MEDS: Lisinopril 10 MG Tablet PO (09:32)
[2023-03-05] MEDS: Pantoprazole Sodium 40 MG Tablet PO (09:32)
[2023-03-05] MEDS: Meloxicam 7.5 MG Tablet PO ×2 (09:32→20:49)
[2023-03-05] MEDS: Glucerna Shake 120 ML LIQUID PO ×3 (09:32→17:21)
[2023-03-05] MEDS: buPROPion (SR) 150 MG Tablet.SA PO ×2 (09:33→20:49)
[2023-03-05] MEDS: Vancomycin IV 1,000 MG/200 ML BAG 200 MG IV ×2 (09:36→22:13)
[2023-03-05 09:43] VITALS: BP 137/77; PULSE 77; RESP 16; TEMP 36.9; O2SAT 92
[2023-03-05 09:48] VITALS: BP 137/77; PULSE 77; RESP 16; TEMP 36.9; O2SAT 92
--- NOTE | 2023-03-05 11:27 | PN_ITS ---
Subjective Subjective Patient seen and examined. He had no active complaints. He was a bit lethargic but was able to respond to questions. He denied any fever or chills but admitted to pain in his right leg at the surgical site. Review of systems otherwise negative. He has remained hemodynamically stable. Objective Data Objective Data Vital Signs: Vital Signs Temp Pulse Resp BP Pulse Ox O2 Del Method O2 Flow Rate 98.4 F 77 16 137/77 H 92 Room Air 2 03/05/23 09:48 03/05/23 09:48 03/05/23 09:48 03/05/23 09:48 03/05/23 09:48 03/05/23 09:48 03/05/23 05:00 Oxygen Flow Rate (L/min) 2 Oxygen Delivery Method Room Air Weight: 186 lb 11.704 oz Body Mass Index (BMI) 31.0 Intake & Output: Intake and Output for Last 24 Hours 03/03/23 03/04/23 03/05/23 23:59 23:59 23:59 Intake Total 3741.42 / 3741.42 798.33 / 798.33 Output Total 805 / 805 650 / 650 Balance 2936.42 / 2936.42 148.33 / 148.33 Lab / Micro Data 03/04/23 21:05 03/04/23 21:05 Labs: Laboratory Results - last 24 hr 03/04/23 21:05: WBC 9.1, RBC 3.81 L, Hgb 10.3 L, Hct 32.8 L, MCV 86.1, MCH 27.0, MCHC 31.4 L, RDW Std Deviation 45.8 H, RDW Coeff of Clemente 14.5, Plt Count 385, MPV 8.9, Sodium 139, Potassium 3.7, Chloride 109 H, Carbon Dioxide 26.0, Anion Gap 4 L, BUN 15, Creatinine 0.87, Estim Creat Clear Calc 75.60, Est GFR (MDRD) Af Amer 114, Est GFR (MDRD) Non-Af 94, BUN/Creatinine Ratio 17.2, Glucose 143 H, Calcium 8.2 L 03/04/23 23:20: POC Glucose 159 H 03/05/23 07:54: POC Glucose 100 Micro: Microbiology 03/04/23 Unknown Tissue - Knee Gram Stain - Final 03/04/23 Unknown Tissue - Knee Gram Stain - Final 03/04/23 Unknown Tissue - Knee Gram Stain - Final Physical Exam Const alert, oriented x3 and no apparent distress Orientation / Consciousness: lethargic HEENT normocephalic, head/scalp atraumatic, moist oral mucous membranes, oropharynx normal and gingiva normal Eyes PERRL and EOMs intact bilaterally Neck no lymphadenopathy, supple and no JVD Lymph Lymphatic: no lymphadenopathy noted and no lymphedema noted Resp Resp Narrative: diminished breath sounds bibasally, no wheezes or crackles. on room air. Cardio regular rate, regular rhythm, S1 normal heart sound, S2 normal heart sound and no murmurs GI normal to inspection, nondistended, normoactive bowel sounds, soft to palpation and non-tender Extremity Extremity Narrative: RLE wrapped in bandage, with drains in place. Skin Skin Narrative: as under extremities Neuro CN's II-XII intact bilaterally, no focal motor deficits and no sensory deficits noted Psych thought process normal Appearance: appropriate Assessment & Plan Assessment/Plan (1) Encephalopathy acute: (2) Infection of prosthetic right knee joint: (3) Status post revision of total replacement of right knee: PLAN: Plan #Acute encephalopathy * Occurred postsurgery. It was thought to be due to notable anesthetic exposure as he had a prolonged operation. * Patient more alert today though he still a bit lethargic. On narcotics and sedative meds on hold. * He does have a history of substance use disorder. We will continue monitoring. #Right knee I&D with revision of interchangeable parts and reconstruction of right inferior knee and proximal leg wound with right medial gastrocnemius flap * Management as per the orthopedic surgeon plastic surgery * ID consulted. Currently on IV vancomycin and meropenem * PT OT on board. For precautions. #Hypertension: On lisinopril. IV hydralazine as needed #Anxiety and depression: On Wellbutrin #Impaired glucose tolerance: On insulin sliding scale. Accu-Cheks ACHS. #GERD: On PPI #TIMO: On CPAP nightly DVT prophylaxis: as per primary service orthopedics. * Charges/Coding Visit Charges Inpatient E&M: 97882 Subs Hosp L2
--- NOTE | 2023-03-05 12:12 | NURSING ---
returned phone call from . upset that a nursing did not return call with update. explained to that i have been busy this am and am calling her now with update. explained that pt doing good. vitals are wnl and pt a/o in alittle pain. explained that she can call him on phone, or come and visit if she has concerns. had no other questions other than why we have not been able to call her back, explained that pt care cames first, and i would call her when able. then stated she did not like my attitude, and she would be talking to someone on tuesday morning. she then call me the nurse a Bitch and hung up the phone.
[2023-03-05 12:25] VITALS: BP 146/69; PULSE 73; RESP 16; TEMP 36.9; O2SAT 95
[2023-03-05 12:25] LABS: Bedside Glucose 122 mg/dL (74-106)
[2023-03-05] MEDS: Enoxaparin 40 MG/0.4 ML Syringe SC (14:19)
[2023-03-05] MEDS: oxyCODONE 5 MG Tablet PO ×2 (14:19→20:12)
--- NOTE | 2023-03-05 15:59 | PCM.PN.SRG ---
Subjective Subjective Postop #1 Patient is resting comfortably. Objective Data Objective Data Vital Signs: Vital Signs Temp Pulse Resp BP Pulse Ox O2 Del Method O2 Flow Rate 98.4 F 73 16 146/69 H 95 Room Air 2 03/05/23 12:25 03/05/23 12:25 03/05/23 12:25 03/05/23 12:25 03/05/23 12:25 03/05/23 14:41 03/05/23 05:00 Oxygen Flow Rate (L/min) 2 Oxygen Delivery Method Room Air Weight: 186 lb 11.704 oz Body Mass Index (BMI) 31.0 Intake & Output: Intake and Output for Last 24 Hours 03/03/23 03/04/23 03/05/23 23:59 23:59 23:59 Intake Total 3741.42 / 3741.42 1049.33 / 1049.33 Output Total 805 / 805 1305 / 1305 Balance 2936.42 / 2936.42 -255.67 / -255.67 Drainage 40 ml yesterday. Prealbumin was 10.4 on 03/05/23. Encourage nutritional supplementation with protein to help the healing process. Lab / Micro Data Attestation: I reviewed the patient's lab results. 03/07/23 06:45 03/06/23 06:20 Labs: Laboratory Results - last 24 hr 03/04/23 21:05: WBC 9.1, RBC 3.81 L, Hgb 10.3 L, Hct 32.8 L, MCV 86.1, MCH 27.0, MCHC 31.4 L, RDW Std Deviation 45.8 H, RDW Coeff of Clemente 14.5, Plt Count 385, MPV 8.9, Sodium 139, Potassium 3.7, Chloride 109 H, Carbon Dioxide 26.0, Anion Gap 4 L, BUN 15, Creatinine 0.87, Estim Creat Clear Calc 75.60, Est GFR (MDRD) Af Amer 114, Est GFR (MDRD) Non-Af 94, BUN/Creatinine Ratio 17.2, Glucose 143 H, Calcium 8.2 L 03/04/23 23:20: POC Glucose 159 H 03/05/23 07:54: POC Glucose 100 03/05/23 11:40: POC Glucose 122 H Micro: Microbiology 03/04/23 Unknown Tissue - Knee Gram Stain - Final 03/04/23 Unknown Tissue - Knee Wound Culture - Preliminary No growth-Final to follow 03/04/23 Unknown Tissue - Knee Gram Stain - Final 03/04/23 Unknown Tissue - Knee Wound Culture - Preliminary No growth-Final to follow 03/04/23 Unknown Tissue - Knee Gram Stain - Final 03/04/23 Unknown Tissue - Knee Wound Culture - Preliminary No growth-Final to follow Physical Exam Narrative General - Alert and Oriented HEENT - PERRL. EOMI. Neck - Supple and nontender. Abdomen - Soft and nondistended. Extremities - Operative dressing dry right lower extremity. Knee immobilizer in place to keep his knee extended for now. Will look at skin graft and muscle flap on Tuesday. Neuro - CN II-XII grossly intact. Psych - Normal mood and affect. Assessment & Plan Assessment/Plan (1) Infection of prosthetic right knee joint: (2) Status post revision of total replacement of right knee: (3) Open wound of right knee with complication: (4) Osteoarthritis of right knee: (5) Infection caused by Enterobacter cloacae: (6) History of methicillin resistant Staphylococcus aureus infection: (7) Prediabetes: (8) Former smoker: PLAN: Plan Patient is resting comfortably. The pain is tolerable with Oxycodone. Right leg dressing is dry without odor. Will look at skin graft and muscle flap on Tuesday. Operative cultures negative thus far. He is on Vancomycin and Meropenem. Prealbumin today was 10.4. Encourage nutritional supplementation with protein to help the healing process. Hgb yesterday was 10.3 (Preop was 11.8). Will recheck the Hgb. There was 150 ml operative blood loss. Drainage was 40 ml yesterday. There is also IV fluid dilution with I's/O's a positive 2.9 liters. Anticipate discharge early next week as long as there are no healing issues along the way. He will wear the knee immobilizer for several weeks. They are looking into TCU for a destination during the healing process. The evaluation is in process. The [place] drains will be in for 10-14 days.
--- NOTE | 2023-03-05 16:00 | CASEMGMT ---
DENISSE SERVIN Discharge Planning Assessment: Face to Face with patient for initial transition planning/care coordination assessment. DENISSE SERVIN introduced self and role at [facility], Pt voices understanding and is agreeable to participating in assessemnt. Care providers, pharmacy, and demographics verified. Admitting dx: rt knee reconstruction PCP: [facility] Specialists: Fidel (plastic surgeon), Tommie (orthopedic) Preferred Pharmacy: [facility] Insurance: [employer] [facility] Prescription Benefit: yes LNOK: Morena Living Arrangements: Pt lives with his spouse in single story home with three steps to enter. Pt states he has been independent with all ADLs including self care and household tasks. Transportation: Pt drives DME: high rise toilet, cane, wheeled walker, rollator, w/c, grab bars, CPAP (no longer wear) SNF: denies previous provider HHC: states he was active with HHC prior to this admission for IV ATB. and for PT tx. Pt unable to recall the name of the provider. Pt's goal: Discussed PT/OT recommendations for SNF at discharge. Pt states he would like to go to a SNF for a week or so as it would be easier on his who has MS. A list of SNF providers consistent with pt's insurance network, medical needs, and geographic area and including quality and resource use data was printed from [employer] guide and provided to pt. Pt states his first preference with [facility] TCU and second is [facility]. Will send referral and follow-up on acceptance on Tuesday. Plan: SNF pending acceptance and precert Eda Estrada RN CM
[2023-03-05 16:33] VITALS: BP 111/67; PULSE 84; RESP 16; TEMP 36.9; O2SAT 94
[2023-03-05 16:42] LABS: Bedside Glucose 88 mg/dL (74-106)
[2023-03-05] MEDS: Juven (unflavored) Packet 1 PACKET PO (17:21)
[2023-03-05 21:09] VITALS: BP 128/68; PULSE 78; RESP 18; TEMP 36.6; O2SAT 95
[2023-03-05 21:42] LABS: Bedside Glucose 115 mg/dL (74-106)
--- NOTE | 2023-03-05 22:12 | CASEMGMT ---
Social Work PT is recommending SNF for additional therapy. Pt notified resident services manager that he would like to go to TCU and if unable, then he would choose the [facility]. VM left with TCU referral. 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
[2023-03-05 22:21] LABS: Vancomycin, Trough Level 10.4 ug/mL (5.0-15.0)
[2023-03-05 22:34] LABS: Prealbumin 10.4 mg/dL (20.0-40.0)
--- NOTE | 2023-03-06 02:19 | PCM.RX.CS ---
Consult Labs Labs: Sodium 139 mmol/L (136-145) 03/04/23 21:05 Potassium 3.7 mmol/L (3.5-5.1) 03/04/23 21:05 Chloride 109 mmol/L (98-107) H 03/04/23 21:05 Carbon Dioxide 26.0 mmol/L (21.0-32.0) 03/04/23 21:05 Anion Gap 4 (5-15) L 03/04/23 21:05 BUN 15 mg/dL (7-18) 03/04/23 21:05 Creatinine 0.87 mg/dL (0.70-1.30) 03/04/23 21:05 Est GFR (MDRD) Af Amer 114 mL/min (>60) 03/04/23 21:05 Est GFR (MDRD) Non-Af 94 mL/min (>60) 03/04/23 21:05 BUN/Creatinine Ratio 17.2 RATIO (10-20) 03/04/23 21:05 Glucose 143 mg/dL (74-106) H 03/04/23 21:05 Vancomycin Trough 10.4 ug/mL (5.0-15.0) 03/05/23 21:38 Microbiology Microbiology: Microbiology 03/04/23 Unknown Tissue - Knee Gram Stain - Final 03/04/23 Unknown Tissue - Knee Wound Culture - Preliminary No growth-Final to follow 03/04/23 Unknown Tissue - Knee Gram Stain - Final 03/04/23 Unknown Tissue - Knee Wound Culture - Preliminary No growth-Final to follow 03/04/23 Unknown Tissue - Knee Gram Stain - Final 03/04/23 Unknown Tissue - Knee Wound Culture - Preliminary No growth-Final to follow Pharmacy Plan for Drug Dosing Pharmacy Plan for Drug Dosing: Pharmacy Service will continue to monitor and adjust dosing as required. TROUGH 10.4 @ 12 HRS. INCREASE TO 1250 MG Q12H AND FOLLOW UP TROUGH PRIOR TO 4TH DOSE Date/Time Labs Ordered Labs to be done on [date and time ordered]: 03/17 @ 2400
[2023-03-06] MEDS: oxyCODONE 5 MG Tablet PO ×3 (04:31→19:38)
[2023-03-06] MEDS: Acetaminophen 500 MG Tablet 1000 MG PO ×3 (04:32→21:29)
[2023-03-06 04:36] VITALS: BP 123/72; PULSE 80; RESP 16; TEMP 36.1; O2SAT 98
[2023-03-06 06:40] LABS: Hematocrit 28.6 % (40-54); Hemoglobin 8.9 g/dL (13.0-16.5); Mean Corp Hgb Conc 31.1 g/dL (32-36); Mean Corpuscular Hgb 27.1 pg (27.0-32.0); Mean Corpuscular Volume 86.9 fL (80-94); Mean Platelet Vol. 9.2 fl (6.2-12.0); Platelet Count 313 K/mm3 (150-450); RBC Distribution Width CV 14.5 % (11.6-14.6); RBC Distribution Width SD 46.3 fl (35.1-43.9); Red Blood Count 3.29 M/mm3 (4.6-6.2); White Blood Count 6.8 K/mm3 (4.4-11.0)
[2023-03-06 06:52] LABS: Bedside Glucose 108 mg/dL (74-106)
[2023-03-06 07:08] LABS: Anion Gap 6 (5-15); BUN 14 mg/dL (7-18); BUN/Creat Ratio 18.1 RATIO (10-20); Calcium,Total 7.9 mg/dL (8.5-10.1); Chloride 107 mmol/L (98-107); Creatinine, Serum 0.78 mg/dL (0.70-1.30); EST Glomerular Filtration Rate 108 mL/min (>60); Est Glom Filt Rate - Afr Amer 130 mL/min (>60); Estimated Creatinine Clearance 84.32 ml/min; Glucose 109 mg/dL (74-106); Potassium 4.1 mmol/L (3.5-5.1); Sodium Level 139 mmol/L (136-145)
[2023-03-06] MEDS: Lisinopril 10 MG Tablet PO (07:36)
[2023-03-06] MEDS: Juven (unflavored) Packet 1 PACKET PO ×2 (07:36→16:55)
[2023-03-06] MEDS: Meloxicam 7.5 MG Tablet PO ×2 (07:36→21:29)
[2023-03-06] MEDS: Pantoprazole Sodium 40 MG Tablet PO (07:36)
[2023-03-06] MEDS: buPROPion (SR) 150 MG Tablet.SA PO ×2 (07:36→21:30)
[2023-03-06 08:32] VITALS: BP 153/80; PULSE 74; RESP 16; TEMP 37; O2SAT 98
[2023-03-06] MEDS: Glucerna Shake 120 ML LIQUID PO ×3 (08:48→16:55)
[2023-03-06] MEDS: Insulin Lispro 100 UNIT/ML INSULN.PEN SC (11:03)
--- NOTE | 2023-03-06 11:45 | PN_ITS ---
Subjective Subjective Patient seen and examined. He feels well today and had no complaints. He had an uneventful night. Review of systems is otherwise negative. He has remained hemodynamically stable. Objective Data Objective Data Vital Signs: Vital Signs Temp Pulse Resp BP Pulse Ox O2 Del Method O2 Flow Rate 98.6 F 74 16 153/80 H 98 Room Air 2 03/06/23 08:32 03/06/23 08:32 03/06/23 08:32 03/06/23 08:32 03/06/23 08:32 03/06/23 08:32 03/06/23 04:36 Oxygen Flow Rate (L/min) 2 Oxygen Delivery Method Room Air Weight: 186 lb 11.704 oz Body Mass Index (BMI) 31.0 Intake & Output: Intake and Output for Last 24 Hours 03/04/23 03/05/23 03/06/23 23:59 23:59 23:59 Intake Total 3741.42 / 3741.42 1785.08 / 1785.08 840 / 840 Output Total 805 / 805 1750 / 1750 825 / 825 Balance 2936.42 / 2936.42 35.08 / 35.08 Lab / Micro Data 03/06/23 06:20 03/06/23 06:20 Labs: Laboratory Results - last 24 hr 03/05/23 11:40: POC Glucose 122 H 03/05/23 16:24: POC Glucose 88 03/05/23 20:57: POC Glucose 115 H 03/05/23 21:38: Prealbumin 10.4 L, Vancomycin Trough 10.4 03/06/23 06:06: POC Glucose 108 H 03/06/23 06:20: WBC 6.8, RBC 3.29 L, Hgb 8.9 L, Hct 28.6 L, MCV 86.9, MCH 27.1, MCHC 31.1 L, RDW Std Deviation 46.3 H, RDW Coeff of Clemente 14.5, Plt Count 313, MPV 9.2, Sodium 139, Potassium 4.1, Chloride 107, Carbon Dioxide 26.0, Anion Gap 6, BUN 14, Creatinine 0.78, Estim Creat Clear Calc 84.32, Est GFR (MDRD) Af Amer 13 0, Est GFR (MDRD) Non-Af 108, BUN/Creatinine Ratio 18.1, Glucose 109 H, Calcium 7.9 L Micro: Microbiology 03/04/23 Unknown Tissue - Knee Gram Stain - Final 03/04/23 Unknown Tissue - Knee Wound Culture - Preliminary No growth-Final to follow 03/04/23 Unknown Tissue - Knee Gram Stain - Final 03/04/23 Unknown Tissue - Knee Wound Culture - Preliminary No growth-Final to follow 03/04/23 Unknown Tissue - Knee Gram Stain - Final 03/04/23 Unknown Tissue - Knee Wound Culture - Preliminary No growth-Final to follow Physical Exam Const alert, oriented x3 and no apparent distress Orientation / Consciousness: lethargic HEENT normocephalic, head/scalp atraumatic, moist oral mucous membranes, oropharynx normal and gingiva normal Eyes PERRL and EOMs intact bilaterally Neck no lymphadenopathy, supple and no JVD Lymph Lymphatic: no lymphadenopathy noted and no lymphedema noted Resp Resp Narrative: diminished breath sounds bibasally, no wheezes or crackles. on room air. Cardio regular rate, regular rhythm, S1 normal heart sound, S2 normal heart sound and no murmurs GI normal to inspection, nondistended, normoactive bowel sounds, soft to palpation and non-tender Extremity Extremity Narrative: RLE wrapped in bandage, with drains in place. Skin Skin Narrative: as under extremities Neuro CN's II-XII intact bilaterally, no focal motor deficits and no sensory deficits noted Psych thought process normal Appearance: appropriate Assessment & Plan Assessment/Plan (1) Encephalopathy acute: (2) Infection of prosthetic right knee joint: (3) Status post revision of total replacement of right knee: PLAN: Plan #Acute encephalopathy * Occurred postsurgery. It was thought to be due to notable anesthetic exposure as he had a prolonged operation. * Has largely resolved. On narcotics and sedative meds on hold. * He does have a history of substance use disorder. We will continue monitoring. #Right knee I&D with revision of interchangeable parts and reconstruction of right inferior knee and proximal leg wound with right medial gastrocnemius flap * Management as per the orthopedic surgeon plastic surgery * ID consulted. Currently on IV vancomycin and meropenem * PT OT on board. For precautions. #Hypertension: On lisinopril. IV hydralazine as needed #Anxiety and depression: On Wellbutrin #Impaired glucose tolerance: On insulin sliding scale. Accu-Cheks ACHS. #GERD: On PPI #TIMO: On CPAP nightly DVT prophylaxis: as per primary service orthopedics. * Charges/Coding Visit Charges Inpatient E&M: 30020 Subs Hosp L2
[2023-03-06 11:49] VITALS: BP 131/71; PULSE 82; RESP 16; TEMP 37.2; O2SAT 94
[2023-03-06 12:12] LABS: Bedside Glucose 155 mg/dL (74-106)
[2023-03-06 13:00] VITALS: O2SAT 98
--- NOTE | 2023-03-06 13:59 | PCM.PN.SRG ---
Subjective Subjective Postop #2 Patient complains of muscle spasms today. Objective Data Objective Data Vital Signs: Vital Signs Temp Pulse Resp BP Pulse Ox O2 Del Method O2 Flow Rate 98.9 F 82 16 131/71 H 98 Room Air 2 03/06/23 11:49 03/06/23 11:49 03/06/23 11:49 03/06/23 11:49 03/06/23 13:00 03/06/23 11:49 03/06/23 04:36 Oxygen Flow Rate (L/min) 2 Oxygen Delivery Method Room Air Weight: 186 lb 11.704 oz Body Mass Index (BMI) 31.0 Intake & Output: Intake and Output for Last 24 Hours 03/04/23 03/05/23 03/06/23 23:59 23:59 23:59 Intake Total 3741.42 / 3741.42 1785.08 / 1785.08 1515 / 1515 Output Total 805 / 805 1750 / 1750 1580 / 1580 Balance 2936.42 / 2936.42 35.08 / 35.08 -65 / -65 Drainage 150 ml yesterday. Prealbumin was 10.4 on 03/05/23. Encourage nutritional supplementation with protein to help the healing process. Lab / Micro Data Attestation: I reviewed the patient's lab results. 03/07/23 06:45 03/06/23 06:20 Labs: Laboratory Results - last 24 hr 03/05/23 16:24: POC Glucose 88 03/05/23 20:57: POC Glucose 115 H 03/05/23 21:38: Prealbumin 10.4 L, Vancomycin Trough 10.4 03/06/23 06:06: POC Glucose 108 H 03/06/23 06:20: WBC 6.8, RBC 3.29 L, Hgb 8.9 L, Hct 28.6 L, MCV 86.9, MCH 27.1, MCHC 31.1 L, RDW Std Deviation 46.3 H, RDW Coeff of Clemente 14.5, Plt Count 313, MPV 9.2, Sodium 139, Potassium 4.1, Chloride 107, Carbon Dioxide 26.0, Anion Gap 6, BUN 14, Creatinine 0.78, Estim Creat Clear Calc 84.32, Est GFR (MDRD) Af Amer 130, Est GFR (MDRD) Non-Af 108, BUN/Creatinine Ratio 18.1, Glucose 109 H, Calcium 7.9 L 03/06/23 10:57: POC Glucose 155 H Micro: Microbiology 03/04/23 Unknown Tissue - Knee Gram Stain - Final 03/04/23 Unknown Tissue - Knee Wound Culture - Preliminary No growth-Final to follow 03/04/23 Unknown Tissue - Knee Anaerobic Culture - Preliminary No growth in 48 hours. 03/04/23 Unknown Tissue - Knee Gram Stain - Final 03/04/23 Unknown Tissue - Knee Wound Culture - Preliminary No growth-Final to follow 03/04/23 Unknown Tissue - Knee Anaerobic Culture - Preliminary No growth in 48 hours. 03/04/23 Unknown Tissue - Knee Gram Stain - Final 03/04/23 Unknown Tissue - Knee Wound Culture - Preliminary No growth-Final to follow 03/04/23 Unknown Tissue - Knee Anaerobic Culture - Preliminary No growth in 48 hours. Physical Exam Narrative General - Alert and Oriented HEENT - PERRL. EOMI. Neck - Supple and nontender. Abdomen - Soft and nondistended. Extremities - Operative dressing dry right lower extremity. Knee immobilizer in place to keep his knee extended for now. Will look at skin graft and muscle flap tomorrow. Neuro - CN II-XII grossly intact. Psych - Normal mood and affect. Assessment & Plan Assessment/Plan (1) Infection of prosthetic right knee joint: (2) Status post revision of total replacement of right knee: (3) Open wound of right knee with complication: (4) Osteoarthritis of right knee: (5) Infection caused by Enterobacter cloacae: (6) History of methicillin resistant Staphylococcus aureus infection: (7) Prediabetes: (8) Former smoker: PLAN: Plan Patient is resting comfortably. He gets intermittent muscle spasms from manipulation and rotation of the right medial gastrocnemius flap. The pain is tolerable with Oxycodone. Will add Valium for these spasms. Right leg dressing is dry without odor. Will look at skin graft and muscle flap tomorrow. Operative cultures negative thus far. He is on Vancomycin and Meropenem. At discharge, his antibiotics will be changed to Ertapenem IV and Doxycycline PO. Prealbumin was 10.4. Encourage nutritional supplementation with protein to help the healing process. Hgb is 8.9 which is down from 10.3 (Preop was 11.8). Will recheck the Hgb. There was 150 ml operative blood loss. Drainage was 40 ml on 03/04/23 and 150 ml on 03/05/23. There is also IV fluid dilution with I's/O's a positive 2.9 liters. Iron supplementation was started. Anticipate discharge early next week as long as there are no healing issues along the way. He will wear the knee immobilizer for several weeks. They are looking into TCU for a destination during the healing process. The evaluation is in process. The Davonte drains will be in for 10-14 days.
[2023-03-06] MEDS: Enoxaparin 40 MG/0.4 ML Syringe SC (14:38)
[2023-03-06] MEDS: diazePAM 5 MG Tablet PO (15:55)
[2023-03-06 16:21] VITALS: BP 127/68; PULSE 81; RESP 16; TEMP 36.8; O2SAT 94
[2023-03-06 17:10] LABS: Bedside Glucose 108 mg/dL (74-106)
[2023-03-06 20:29] VITALS: BP 135/71; PULSE 76; RESP 18; TEMP 36.6; O2SAT 94
[2023-03-06 22:46] LABS: Bedside Glucose 120 mg/dL (74-106)
[2023-03-07] MEDS: diazePAM 5 MG Tablet PO ×4 (00:50→22:32)
[2023-03-07 02:30] VITALS: BP 134/84; PULSE 72; RESP 18; TEMP 36.8; O2SAT 93
[2023-03-07] MEDS: Acetaminophen 500 MG Tablet 1000 MG PO ×3 (05:44→21:36)
[2023-03-07 06:51] LABS: Bedside Glucose 88 mg/dL (74-106)
--- NOTE | 2023-03-07 07:04 | PN.ORTHO_ITS ---
Subjective Subjective The patient was sitting in bed upon examination. Patient denies any chest pain, shortness of breath, dizziness, lightheadedness, nausea or vomiting, or calf pain. Pain is controlled on medications. No adverse overnight events. Patient appears to be doing well this morning. Pain has been controlled. He has been up with physical therapy through the weekend. Patient has been tolerating the knee immobilizer. He is toe-touch weightbearing with no range of motion. Patient is currently on antibiotics and waiting recommendations from infectious disease. Case management also involved with appropriate discharge planning. Objective Data Objective Data Vital Signs: Vital Signs Temp Pulse Resp BP Pulse Ox O2 Del Method O2 Flow Rate 98.3 F 72 18 134/84 H 93 Room Air 2 03/07/23 02:30 03/07/23 02:30 03/07/23 02:30 03/07/23 02:30 03/07/23 02:30 03/07/23 02:30 03/06/23 04:36 Oxygen Flow Rate (L/min) 2 Oxygen Delivery Method Room Air Weight: 84.7 kg Body Mass Index (BMI) 31.0 Intake & Output: Intake and Output for Last 24 Hours 03/05/23 03/06/23 03/07/23 23:59 23:59 23:59 Intake Total 1785.08 / 1785.08 2996.50 / 2996.50 470 / 470 Output Total 1750 / 1750 3448 / 3448 700 / 700 Balance 35.08 / 35.08 -451.50 / -451.50 -230 / -230 Lab / Micro Data 03/06/23 06:20 03/06/23 06:20 Labs: Laboratory Results - last 24 hr 03/06/23 06:20: Sodium 139, Potassium 4.1, Chloride 107, Carbon Dioxide 26.0, Anion Gap 6, BUN 14, Creatinine 0.78, Estim Creat Clear Calc 84.32, Est GFR (MDRD) Af Amer 130, Est GFR (MDRD) Non-Af 108, BUN/Creatinine Ratio 18.1, Glucose 109 H, Calcium 7.9 L 03/06/23 10:57: POC Glucose 155 H 03/06/23 15:55: POC Glucose 108 H 03/06/23 21:33: POC Glucose 120 H 03/07/23 05:50: POC Glucose 88 Micro: Microbiology 03/04/23 Unknown Tissue - Knee Gram Stain - Final 03/04/23 Unknown Tissue - Knee Wound Culture - Preliminary No growth-Final to follow 03/04/23 Unknown Tissue - Knee Anaerobic Culture - Preliminary No growth in 48 hours. 03/04/23 Unknown Tissue - Knee Gram Stain - Final 03/04/23 Unknown Tissue - Knee Wound Culture - Preliminary No growth-Final to follow 03/04/23 Unknown Tissue - Knee Anaerobic Culture - Preliminary No growth in 48 hours. 03/04/23 Unknown Tissue - Knee Gram Stain - Final 03/04/23 Unknown Tissue - Knee Wound Culture - Preliminary No growth-Final to follow 03/04/23 Unknown Tissue - Knee Anaerobic Culture - Preliminary No growth in 48 hours. Physical Exam Narrative Vital signs stable and afebrile. TROM brace in place locked in full extension. Our Hemovac drain is currently in place with minimal output. Hemovac drain was removed today and Steri-Strips placed over incision. ABD and compression wrap was then placed. Patient does have some saturation to remaining Webril and soft dressing. I did not change this as plastics is going to be coming in and managing the remainder of the wound. Proximal incision appeared very well. Patient is able to plantarflex and dorsiflex actively. Sensation is intact to light touch to saphenous, sural, superficial and deep p eroneal, and tibial distribution. Negative Homans bilaterally, negative signs and symptoms of DVT. Const alert, oriented x3 and no apparent distress Extremity Extremity Narrative: Right lower extremity: Thigh is soft and supple. Positive motor dorsiflexion EHL plantarflexion. Toes are warm and pink with brisk cap refill. Serosanguineous fluid in the Hemovac drain. Esequiel bandages clean and dry. D ressing was left in place as plastics will manage the wound. Assessment & Plan Assessment/Plan (1) Infection of prosthetic right knee joint: (2) Status post revision of total replacement of right knee: PLAN: 1. S/P irrigation debridement and polyethylene exchange of right knee after patient developed draining sinus and wound breakdown in the distal portion of the incision Postoperative day #3 2. Continue Pain Medications: Tylenol, meloxicam primarily but did use oxycodone over the weekend. 3. DVT Prophylaxis: Currently on Lovenox but upon discharge take 81 mg aspirin twice daily for 4 weeks postoperatively for DVT prophylaxis. Patient denies past history of DVT or pulmonary embolism. SCDs while in hospital. 4. PT/OT: Toe-touch weightbearing. Knee immobilizer at all times no flexion of the knee. 5. H & H: Hemoglobin/hematocrit: Yesterday was 8.9/28.6. Patient just had his blood drawn this morning while in the room. We will continue to monitor. Recommendations from primary medicine. Monitoring patient's hemoglobin and hematocrit with postoperative anemia without any intra operative complications. Patient has already on iron complex daily. 6. Hemovac drain: Minimal output in the Hemovac drain this morning. Output was trending down. The Hemovac drain was removed this morning. Steri-Strips were placed over the incision and ABD and soft dressing with Esequeil wrap was placed. 7. Wound management: Per plastic service. No dressing change performed with orthopedic exam today. There was some saturation to the distal portion of the soft dressing however I will leave this to plastics with regards to changing today. Patient reports that Dr. Parra is going to be in today to change this dressing. 8. P JI: Patient has 1 out of 3 positive cultures for Enterobacter at previous surgery. Patient placed back on meropenem and vancomycin postoperatively by infectious disease. Currently on meropenem and vancomycin per infectious disease. Appreciate further recommendations from infectious disease for discharge planning. Microbiology wound and tissue specimens were reviewed in chart and there is currently no growth or organisms seen today. 9. Continue postoperative medical management per medicine: Currently medically stable 10. Encouraged Incentive Spirometry 11. Disposition: At this time patient appears to be orthopedically stable. Patient was walking 8 feet with contact-guard assistance x2. Patient is toe- touch weightbearing for 6 weeks with no range of motion. Continue with the brace for 6 weeks. His pain appears to be well controlled. Continue above plan. For DVT prophylaxis recommend aspirin 81 mg twice daily for 4 weeks postoperatively from an orthopedic standpoint. Patient has no past history of DVT or pulmonary embolism. With regards to the wound we will continue to follow directions and let plastics manage this. I did remove the Hemovac drain today. Remaining drains will be managed per plastics. Also appreciate recommendations from infectious disease for discharge planning. Case management will be on board for discharge planning at this time. If there are any further questions or concerns please contact orthopedics. Patient will require 2-week follow-up with orthopedics. This dictation was created using voice recognition software. Phonetic and/or grammatical errors may exist. (3) History of methicillin resistant Staphylococcus aureus infection: (4) Infection caused by Enterobacter cloacae: (5) Open wound of right knee with complication: (6) Former smoker:
[2023-03-07 07:10] LABS: Hematocrit 29.7 % (40-54); Hemoglobin 9.2 g/dL (13.0-16.5); Mean Corpuscular Hgb 26.7 pg (27.0-32.0); Mean Corpuscular Volume 86.3 fL (80-94); Platelet Count 330 K/mm3 (150-450); RBC Distribution Width CV 14.1 % (11.6-14.6); RBC Distribution Width SD 44.8 fl (35.1-43.9); Red Blood Count 3.44 M/mm3 (4.6-6.2); White Blood Count 5.6 K/mm3 (4.4-11.0)
--- NOTE | 2023-03-07 07:17 | DCINST_ITS ---
Discharge Instructions Diet Discharge Diet: No restrictions Activity Discharge Activity: May Not Drive Ice area for (Minutes): 20 (Every 1-2 hours [address] barrier between the skin and ice pack.) Weight Bearing Status: Toe touch weight bearing (with TROM brace locked in extension for 6 weeks) Keep extremity elevated above heart level: Operative Extremity Dressing / Incision Call your doctor if your incision/area has: Continuous Slow Oozing, Sudden Increased Bleeding, Increased Pain/ Swelling, Increased Redness and Foul Smelling Discharge Call your doctor if you observe: Fever of 101 or Higher, Coldness, Increased Pain, Numbness or Tingling, Change in Color, Shortness of breath, Chest pain, Calf discomfort and Uncontrolled pain Remove Dressing in: leave in place till F/U (Dressing and wound will be managed per plastics Dr. Parra) Additional Dressing/Incision Instructions:: Follow [facility] Post-op Instructions. Continue with RONALD hose/elastic stockings for 2 weeks postoperatively. May remove at nighttime but needs to be placed back on the leg during the day. Do NOT use alcohol with narcotic pain medication. Do NOT make important decisions while taking narcotic medication. If you have problems with taking your medication (rash, itching, nausea, etc.) call the office at once. Continue antibiotics per infectious disease. Follow Up Care Test Results: Test results from this visit will be discussed in further detail at your follow- up appointment, if applicable. Discharge Plan Admission Admit Date/Time: 03/04/23 05:22 Attending Provider: Tigre Parra Primary Care Provider: Gerri Leary Consulting Providers: Cash Reilly; Chris Middleton; Swapna Walsh; Jolynn Chester Discharge Orders/Prescriptions Prescriptions: No Action bupropion HCl [Wellbutrin SR] 150 mg tablet sustained-release 12 hr 150 mg PO BID Rx Instructions: Take once daily for the first 3 days then increase to twice daily pantoprazole 40 mg tablet,delayed release (DR/EC) 40 mg PO DAILY lisinopril 10 mg tablet 10 mg PO DAILY acetaminophen 500 mg Tablet 1,000 mg PO TID Qty: 100 0RF Rx Instructions: Do not take more than 3000 mg Tylenol in a 24-hour period. meloxicam 7.5 mg Tablet 7.5 mg PO BID 30 Days Qty: 60 0RF Rx Instructions: Do not take any other nonsteroidal anti-inflammatories while using meloxicam/Mobic. ertapenem 1 gram Recon Soln 1 g IV Q24 39 Days Qty: 39 0RF Rx Instructions: stop date 03/11/23. Dx GNR prosthetic joint infection. weekly bmp, cbc, LFT, and esr. Fax to [phone] routine picc care per protocol Referrals / Follow Up: Gerri Leary MD [Primary Care Provider] - Shiv Ponce PA-C [Med Staff - Adv Practice Prof] - (Will require 2-week postoperative follow-up with x-rays on arrival)
[2023-03-07 07:45] VITALS: O2SAT 98
[2023-03-07] MEDS: oxyCODONE 5 MG Tablet PO ×4 (08:15→22:34)
[2023-03-07] MEDS: Pantoprazole Sodium 40 MG Tablet PO (08:15)
[2023-03-07] MEDS: buPROPion (SR) 150 MG Tablet.SA PO ×2 (08:15→21:36)
[2023-03-07] MEDS: Lisinopril 10 MG Tablet PO (08:16)
[2023-03-07] MEDS: Meloxicam 7.5 MG Tablet PO ×2 (08:16→21:36)
[2023-03-07] MEDS: Juven (unflavored) Packet 1 PACKET PO ×2 (08:16→16:34)
[2023-03-07] MEDS: Enoxaparin 40 MG/0.4 ML Syringe SC (08:18)
[2023-03-07 08:25] VITALS: BP 151/92; PULSE 78; RESP 18; TEMP 37.1; O2SAT 98
[2023-03-07] MEDS: Iron Polysaccharide Complex 150 MG CAPSULE PO (09:48)
[2023-03-07 10:01] VITALS: O2SAT 98
--- NOTE | 2023-03-07 12:32 | CASEMGMT ---
DENISSE SERVIN: Call received from Arabella with [facility] stating pt was active with their agency for SN for PICC line dressing changes and physical therapy. Arabella can be reached at [phone], . This DENISSE SERVIN returned call and informed Arabella of dc plan for SNF at this time. Eda Estrada RN CM
--- NOTE | 2023-03-07 13:14 | CON.PCM.ID_ITS ---
Assessment & Plan Assessment/Plan (1) Infection of prosthetic right knee joint: PLAN: Taken to OR 01/26/[address] Reilly for revision of R knee. H/o MSSA PJI several years ago. Surg cx with enterobacter. Discharged on ertapenem for 6 we ek course with stop date 03/11/23 and weekly labs. Now re-admitted with sinus tract, taken to OR 03/04/[address] Reilly and Dr. Parra for I&D, poly exchange, and skin coverage. Surg cx neg so far. On vanc/winston here. Will order 6 weeks iv erta and po doxy with stop date 04/15/23 and weekly labs. ID followup in 2 weeks. Thank you, will follow, d/w mental health case manager HPI Consult Data Date of Consult: 03/07/23 HPI Narrative Reason for Consultation: PJI HPI Narrative: ASHLEY HILL, is a 62 M who presented with ongoing wound and drainage from R knee s/p revision by Dr. Reilly 01/26/23. Surg cx with enterobacter, given iv ert apenem with planned stop date 03/11/23. Re-admitted for ortho and plastics dual case for I&D and coverage. On vanc/winston here s/p OR 03/04, feeling ok. No fever, no n/v/d. Had not had any fever/chills, redness, or increased pain prior to this surgery. Full ROS performed and neg except as noted above. [facility] Medical History Alcohol use Ambulates with cane Anxiety Arthritis Back pain Borderline type 2 diabetes mellitus Cellulitis Chronic depression Chronic neck and back pain CPAP (continuous positive airway pressure) dependence Depression Former smoker GERD (gastroesophageal reflux disease) History of drug abuse History of edema Hypertension Infection caused by Enterobacter cloacae Infection of prosthetic right knee joint Knee pain Leg cramps Marijuana use Neuropathy Open wound of right knee with complication Osteoarthritis Prediabetes Preoperative evaluation to rule out surgical contraindication Restless legs Walker as ambulation aid Wears dentures Wears glasses Home Medications bupropion HCl 150 mg tablet,12 hr sustained-release (Wellbutrin SR) 150 mg PO BID DEPRESSION 01/13/23 [History Last Taken Unknown] lisinopril 10 mg tablet 10 mg PO DAILY BP 01/13/23 [History Last Taken Unknown] pantoprazole 40 mg tablet,delayed release 40 mg PO DAILY GERD 01/13/23 [History Last Taken Unknown] acetaminophen 500 mg tablet 1,000 mg (2 x 500 mg) PO TID PAIN #100 tabs 01/28/23 [Rx Last Taken Unknown] meloxicam 7.5 mg tablet 7.5 mg PO BID PAIN 30 days #60 tabs 01/28/23 [Rx Last Taken Unknown] doxycycline hyclate 100 mg capsule 100 mg PO BID #80 caps 03/07/23 [Rx Last Taken Unknown] ertapenem 1 gram solution for injection 1 g IM Q24H #40 ea 03/07/23 [Rx Last Taken Unknown] Allergy/AdvReac Type Severity Reaction Status Date / Time adhesive Allergy Rash Verified 03/04/23 06:05 adhesive tape Allergy Rash Verified 03/04/23 06:05 gabapentin [From Neurontin] Allergy Hives Verified 03/04/23 06:05 Family History Other Alcoholism Anxiety and depression Arthritis Diabetes Myocardial infarction Surgical History History of back surgery History of total knee arthroplasty History of total knee arthroplasty Hx of elbow surgery Hx of knee surgery Hx of knee surgery Hx of oral surgery Hx of total knee arthroplasty Hx of total knee arthroplasty Status post revision of total replacement of right knee Social History Smoking Status: Former smoker Smokeless tobacco user: chewing tobacco alcohol intake: current alcohol intake frequency: a few times a week Alcohol type: beer substance use type: marijuana what type of physical activity do you participate in: none Physical Exam Const alert, oriented x3 and no apparent distress General Appearance: cooperative HEENT normocephalic and head/scalp atraumatic Eyes PERRL and EOMs intact bilaterally Neck supple and No nodes Resp normal air movement and clear to auscultation bilaterally Cardio regular rate and regular rhythm GI soft to palpation, non-tender and non-distended Extremity General Extremity: Negative for edema Skin Skin Narrative: Knee wrapped Neuro CN's II-XII intact bilaterally Lab / Micro Data Attestation: I reviewed the patient's lab results. 03/07/23 06:45 03/06/23 06:20 Labs: Laboratory Results - last 24 hr 03/06/23 15:55: POC Glucose 108 H 03/06/23 21:33: POC Glucose 120 H 03/07/23 05:50: POC Glucose 88 03/07/23 06:45: WBC 5.6, RBC 3.44 L, Hgb 9.2 L, Hct 29.7 L, MCV 86.3, MCH 26.7 L , MCHC 31.0 L, RDW Std Deviation 44.8 H, RDW Coeff of Clemente 14.1, Plt Count 330, MPV 9.0 Micro: Microbiology 03/04/23 Unknown Tissue - Knee Gram Stain - Final 03/04/23 Unknown Tissue - Knee Wound Culture - Final No growth aerobically. 03/04/23 Unknown Tissue - Knee Anaerobic Culture - Preliminary No growth in 48 hours. 03/04/23 Unknown Tissue - Knee Gram Stain - Final 03/04/23 Unknown Tissue - Knee Wound Culture - Final No growth aerobically. 03/04/23 Unknown Tissue - Knee Anaerobic Culture - Preliminary No growth in 48 hours. 03/04/23 Unknown Tissue - Knee Gram Stain - Final 03/04/23 Unknown Tissue - Knee Wound Culture - Final No growth aerobically. 03/04/23 Unknown Tissue - Knee Anaerobic Culture - Preliminary No growth in 48 hours.
[2023-03-07 14:10] VITALS: BP 139/64; PULSE 78; RESP 18; TEMP 36.7; O2SAT 97
--- NOTE | 2023-03-07 14:38 | CASEMGMT ---
Addendum entered by Zeina Tavarez 03/07/23 15:11: SW left VM for Dr. Parra regarding pt acceptance to TCU and requested discharge orders if agreeable. Zeina CONNOR, MYA Original Note: Social Work SW notified that bed available for patient in TCU now and insurance approved precert. SW confirmed with patient that TCU is acceptable still and to cancel [facility] referral. Plan: Patient to be discharged to TCU pending physician discharge. Zeina CONNOR, MYA
--- NOTE | 2023-03-07 17:06 | PN.SURG_ITS ---
Subjective Subjective Postop #3 Patient states that his pain is well controlled. Objective Data Objective Data Vital Signs: Vital Signs Temp Pulse Resp BP Pulse Ox O2 Del Method O2 Flow Rate 98.1 F 78 18 139/64 H 97 Room Air 2 03/07/23 14:10 03/07/23 14:10 03/07/23 14:10 03/07/23 14:10 03/07/23 14:10 03/07/23 14:10 03/06/23 04:36 Oxygen Flow Rate (L/min) 2 Oxygen Delivery Method Room Air Weight: 186 lb 11.704 oz Body Mass Index (BMI) 31.0 Intake & Output: Intake and Output for Last 24 Hours 03/05/23 03/06/23 03/07/23 23:59 23:59 23:59 Intake Total 1785.08 / 1785.08 2996.50 / 2996.50 895.25 / 895.25 Output Total 1750 / 1750 3448 / 3448 1740 / 1740 Balance 35.08 / 35.08 -451.50 / -451.50 -844.75 / -844.75 Lab / Micro Data 03/08/23 08:30 03/08/23 08:30 Labs: Laboratory Results - last 24 hr 03/06/23 15:55: POC Glucose 108 H 03/06/23 21:33: POC Glucose 120 H 03/07/23 05:50: POC Glucose 88 03/07/23 06:45: WBC 5.6, RBC 3.44 L, Hgb 9.2 L, Hct 29.7 L, MCV 86.3, MCH 26.7 L , MCHC 31.0 L, RDW Std Deviation 44.8 H, RDW Coeff of Clemente 14.1, Plt Count 330, MPV 9.0 Micro: Microbiology 03/04/23 Unknown Tissue - Knee Gram Stain - Final 03/04/23 Unknown Tissue - Knee Wound Culture - Final No growth aerobically. 03/04/23 Unknown Tissue - Knee Anaerobic Culture - Preliminary No growth in 48 hours. 03/04/23 Unknown Tissue - Knee Gram Stain - Final 03/04/23 Unknown Tissue - Knee Wound Culture - Final No growth aerobically. 03/04/23 Unknown Tissue - Knee Anaerobic Culture - Preliminary No growth in 48 hours. 03/04/23 Unknown Tissue - Knee Gram Stain - Final 03/04/23 Unknown Tissue - Knee Wound Culture - Final No growth aerobically. 03/04/23 Unknown Tissue - Knee Anaerobic Culture - Preliminary No growth in 48 hours. Physical Exam Const alert and oriented x3 General Appearance: cooperative HEENT normocephalic Head and Scalp: atraumatic Eyes General Eye: normal appearance of both eyes Resp normal respiratory effort Effort and Inspection: able to speak in complete sentences Cardio regular rate Extremity Extremity Narrative: Right knee operative dressing changed. Anterior incision dry and intact. Posterior incision dry and intact with no clinical evidence of hematoma. Skin graft shows good adherence with 100% take and good vascular ingrowth. The muscle flap is soft, pink and viable. No clinical evidence of hematoma. Davonte drain with serosanguineous drainage. Neuro oriented x3 Assessment & Plan Assessment/Plan (1) Infection of prosthetic right knee joint: (2) Status post revision of total replacement of right knee: (3) History of methicillin resistant Staphylococcus aureus infection: (4) Osteoarthritis of right knee: (5) Infection caused by Enterobacter cloacae: (6) Prediabetes: (7) Former smoker: (8) Open wound of right knee with complication: PLAN: Plan Patient states pain control managed. Right knee operative dressing changed. Anterior incision dry and intact. Posterior incision dry and intact. No clinical evidence of hematoma. Skin graft shows good adherence with 100% take and good vascular ingrowth. The muscle flap is soft, pink and viable. No clinical evidence of hematoma. Davonte drain with 30 ml serosanguineous drainage over past 24 hours. Lower abdominal incision dry and intact. Davonte drain with 10 ml serosanguineous drainage over the past 24 hours. Operative cultures negative thus far. He is on Vancomycin and Meropenem. At discharge, his antibiotics will be changed to Ertapenem IV and Doxycycline PO. Prealbumin was 10.4 on 03/05/23. Encourage nutritional supplementation with p rotein to help the healing process. Hgb is 9.2 which is up from 8.9 (Preop was 11.8). Will recheck the Hgb. There was 150 ml operative blood loss. Drainage was 40 ml on 03/04/23 and 150 ml on 03/05/23. There is also IV fluid dilution with I's/O's a positive 2.9 liters. Iron supplementation was started. Anticipate discharge tomorrow to TCU. He will wear the knee immobilizer for several weeks. They are looking into TCU for a destination during the healing process. The evaluation is in process. The Davonte drains will be in for 10-14 days.
--- NOTE | 2023-03-07 17:31 | PN.HOSP_ITS ---
Reason for Visit Reason for Visit: Diagnoses Other bacterial infections of unspecified site (03/04/23) Encephalopathy, unspecified (03/04/23) Unilateral primary osteoarthritis, right knee (03/04/23) Prediabetes (03/04/23) Unspecified open wound, right knee, initial encounter (03/04/23) Infection and inflammatory reaction due to internal right knee prosthesis, initial encounter (03/04/23) Personal history of Methicillin resistant Staphylococcus aureus infection (03/04/23) Personal history of nicotine dependence (03/04/23) Presence of right artificial knee joint (03/04/23) Subjective Subjective Patient was seen and examined today, we are currently awaiting for approval for the patient to go to a longterm facility for further care. Patient's white blood cell count today was 5.6. Objective Data Objective Data Vital Signs: Vital Signs Temp Pulse Resp BP Pulse Ox O2 Del Method O2 Flow Rate 98.1 F 78 18 139/64 H 97 Room Air 2 03/07/23 14:10 03/07/23 14:10 03/07/23 14:10 03/07/23 14:10 03/07/23 14:10 03/07/23 14:10 03/06/23 04:36 Oxygen Flow Rate (L/min) 2 Oxygen Delivery Method Room Air Weight: 84.7 kg Body Mass Index (BMI) 31.0 Intake & Output: Intake and Output for Last 24 Hours 03/05/23 03/06/23 03/07/23 23:59 23:59 23:59 Intake Total 1785.08 / 1785.08 2996.50 / 2996.50 895.25 / 895.25 Output Total 1750 / 1750 3448 / 3448 1740 / 1740 Balance 35.08 / 35.08 -451.50 / -451.50 -844.75 / -844.75 Lab / Micro Data 03/07/23 06:45 03/06/23 06:20 Labs: Laboratory Results - last 24 hr 03/06/23 21:33: POC Glucose 120 H 03/07/23 05:50: POC Glucose 88 03/07/23 06:45: WBC 5.6, RBC 3.44 L, Hgb 9.2 L, Hct 29.7 L, MCV 86.3, MCH 26.7 L , MCHC 31.0 L, RDW Std Deviation 44.8 H, RDW Coeff of Clemente 14.1, Plt Count 330, MPV 9.0 Micro: Microbiology 03/04/23 Unknown Tissue - Knee Gram Stain - Final 03/04/23 Unknown Tissue - Knee Wound Culture - Final No growth aerobically. 03/04/23 Unknown Tissue - Knee Anaerobic Culture - Preliminary No growth in 48 hours. 03/04/23 Unknown Tissue - Knee Gram Stain - Final 03/04/23 Unknown Tissue - Knee Wound Culture - Final No growth aerobically. 03/04/23 Unknown Tissue - Knee Anaerobic Culture - Preliminary No growth in 48 hours. 03/04/23 Unknown Tissue - Knee Gram Stain - Final 03/04/23 Unknown Tissue - Knee Wound Culture - Final No growth aerobically. 03/04/23 Unknown Tissue - Knee Anaerobic Culture - Preliminary No growth in 48 hours. Physical Exam Const alert, oriented x3, no apparent distress and average body habitus General Appearance: cooperative, well kempt and well developed Orientation / Consciousness: awake, oriented to person, oriented to place and o riented to time HEENT normocephalic, head/scalp atraumatic and moist oral mucous membranes Eyes PERRL, EOMs intact bilaterally and conjunctivae normal Neck supple, no JVD, thyroid normal and no carotid bruits General: trachea midline Resp normal respiratory effort, no retractions, no use of accessory muscles and clear to auscultation bilaterally Auscultation: Negative for rales, rhonchi or wheezes Cardio regular rate, regular rhythm, S1 normal heart sound, S2 normal heart sound, no murmurs, no rub and no gallops GI normal to inspection, nondistended, normoactive bowel sounds, soft to palpation, non-tender and non-distended Extremity Extremity Narrative: Patient has a right knee immobilizer in place Skin General Skin Exam: no breakdown Neuro oriented x3, CN's II-XII intact bilaterally, moves all extremities, no focal motor deficits and no sensory deficits noted Sensorium / Orientation: awake, alert, oriented to person, oriented to place and oriented to time Speech: speech normal Psych affect normal Assessment & Plan Assessment/Plan (1) Infection of prosthetic right knee joint: PLAN: Plan 1. Acute encephalopathy-resolved at this time, patient is alert and oriented and appropriate. #2 infection of prosthetic right knee joint-patient is being seen by orthopedic surgery, plastic surgery, and infectious diseases at this time, he is currently on vancomycin and meropenem. #3 essential hypertension-patient will remain on his present medication #4 chronic anxiety/depression-patient is on Wellbutrin #5 obstructive sleep apnea-patient uses CPAP at night Total clinical time spent by myself addressing the patient's medical issues, reviewing all of his data, and collaborating with patient's care team: 35 minutes Charges/Coding Visit Charges Inpatient E&M: 77843 Subs Hosp L2
[2023-03-07] MEDS: Mupirocin Ointment 22gm Tube 1 APPLIC TOPICAL (17:55)
[2023-03-07 21:20] VITALS: BP 130/80; PULSE 76; RESP 16; TEMP 36.6; O2SAT 96
[2023-03-07 22:03] LABS: Vancomycin, Trough Level 17.8 ug/mL (5.0-15.0)
--- NOTE | 2023-03-07 23:04 | PCM.RX.CS ---
Consult Labs Labs: Sodium 139 mmol/L (136-145) 03/06/23 06:20 Potassium 4.1 mmol/L (3.5-5.1) 03/06/23 06:20 Chloride 107 mmol/L (98-107) 03/06/23 06:20 Carbon Dioxide 26.0 mmol/L (21.0-32.0) 03/06/23 06:20 Anion Gap 6 (5-15) 03/06/23 06:20 BUN 14 mg/dL (7-18) 03/06/23 06:20 Creatinine 0.78 mg/dL (0.70-1.30) 03/06/23 06:20 Est GFR (MDRD) Af Amer 130 mL/min (>60) 03/06/23 06:20 Est GFR (MDRD) Non-Af 108 mL/min (>60) 03/06/23 06:20 BUN/Creatinine Ratio 18.1 RATIO (10-20) 03/06/23 06:20 Glucose 109 mg/dL (74-106) H 03/06/23 06:20 Vancomycin Trough 17.8 ug/mL (5.0-15.0) H 03/07/23 21:34 Microbiology Microbiology: Microbiology 03/04/23 Unknown Tissue - Knee Gram Stain - Final 03/04/23 Unknown Tissue - Knee Wound Culture - Final No growth aerobically. 03/04/23 Unknown Tissue - Knee Anaerobic Culture - Preliminary No growth in 48 hours. 03/04/23 Unknown Tissue - Knee Gram Stain - Final 03/04/23 Unknown Tissue - Knee Wound Culture - Final No growth aerobically. 03/04/23 Unknown Tissue - Knee Anaerobic Culture - Preliminary No growth in 48 hours. 03/04/23 Unknown Tissue - Knee Gram Stain - Final 03/04/23 Unknown Tissue - Knee Wound Culture - Final No growth aerobically. 03/04/23 Unknown Tissue - Knee Anaerobic Culture - Preliminary No growth in 48 hours. Pharmacy Plan for Drug Dosing Pharmacy Plan for Drug Dosing: Pharmacy Service will continue to monitor and adjust dosing as required. TROUGH 17.8 @ 11.5 HRS. NO CHANGES, FOLLOW UP TROUGH IN 2 DAYS Date/Time Labs Ordered Labs to be done on [date and time ordered]: 03/09 @ 6293
[2023-03-08 03:00] VITALS: BP 129/77; PULSE 67; RESP 16; TEMP 36.7; O2SAT 96
[2023-03-08] MEDS: Acetaminophen 500 MG Tablet 1000 MG PO ×2 (06:48→14:06)
[2023-03-08] MEDS: oxyCODONE 5 MG Tablet PO ×2 (07:46→14:06)
[2023-03-08] MEDS: Pantoprazole Sodium 40 MG Tablet PO (07:47)
[2023-03-08] MEDS: buPROPion (SR) 150 MG Tablet.SA PO (07:47)
[2023-03-08] MEDS: Juven (unflavored) Packet 1 PACKET PO (07:47)
[2023-03-08] MEDS: diazePAM 5 MG Tablet PO ×2 (07:47→14:06)
[2023-03-08] MEDS: Meloxicam 7.5 MG Tablet PO (07:48)
[2023-03-08] MEDS: Enoxaparin 40 MG/0.4 ML Syringe SC (07:48)
[2023-03-08 08:37] LABS: Hematocrit 34.2 % (40-54); Hemoglobin 10.6 g/dL (13.0-16.5); Mean Corpuscular Hgb 26.6 pg (27.0-32.0); Mean Corpuscular Volume 85.9 fL (80-94); Mean Platelet Vol. 8.8 fl (6.2-12.0); Platelet Count 393 K/mm3 (150-450); RBC Distribution Width CV 14.2 % (11.6-14.6); RBC Distribution Width SD 44.5 fl (35.1-43.9); Red Blood Count 3.98 M/mm3 (4.6-6.2); White Blood Count 5.4 K/mm3 (4.4-11.0)
[2023-03-08 09:15] LABS: ALB/GLOB Ratio 0.6 RATIO (0.9-2.4); AST(SGOT) 36 U/L (15-37); Alanine Aminotransfer ALT/SGPT 36 U/L (16-61); Albumin, Serum 2.3 g/dL (3.2-5.0); Alkaline Phosphatase 117 U/L (45-117); Anion Gap 5 (5-15); BUN 21 mg/dL (7-18); BUN/Creat Ratio 24.1 RATIO (10-20); Calcium,Total 8.8 mg/dL (8.5-10.1); Chloride 107 mmol/L (98-107); Creatinine, Serum 0.87 mg/dL (0.70-1.30); EST Glomerular Filtration Rate 94 mL/min (>60); Est Glom Filt Rate - Afr Amer 113 mL/min (>60); Globulin 3.7 g/dL (2.2-4.2); Glucose 113 mg/dL (74-106); Potassium 4.5 mmol/L (3.5-5.1); Sodium Level 139 mmol/L (136-145)
[2023-03-08 09:29] VITALS: O2SAT 97
[2023-03-08 10:19] VITALS: BP 113/66; PULSE 74; RESP 16; TEMP 36.4; O2SAT 93
[2023-03-08] MEDS: Lisinopril 10 MG Tablet PO ×2 (10:20)
[2023-03-08] MEDS: Iron Polysaccharide Complex 150 MG CAPSULE PO (10:20)
--- NOTE | 2023-03-08 11:11 | CASEMGMT ---
Social Work SW introduced self and role to patient. SW informed patient the plan is to discharge to TCU today. SW also informed patient that was called yesterday per pt's request but mailbox was full and SW could not leave VM; patient understood. Plan: Pt to d/c today to TCU pending physician discharge. Zeina Tavarez EXHIBIT DISPLAY REPRESENTATIVE, STITCHER AROUND
--- NOTE | 2023-03-08 11:51 | PCM.TXEXTCAR ---
Diet Diet Order/Speech Therapy: 03/04/23 20:04 ADA [Diet: Cardiac: Calorie-Controlled] Type of Dietary Supplement:: Glucerna Shake Is pt able to select menu?: Yes Diet Comments: 120 cc glucerna with meals How many daily calories?: 2000 calorie Routine Orders/Code Status Routine Lab Work: - (Fingerstick blood sugars fasting and 4 PM daily, notify attending of blood sugar under 80 or above 160) Wound(s) ABDOMEN (GRAFT SITE): Wound Type: GRAFT SITE RIGHT KNEE: Wound Type: Surgical Incision Therapies Weight Bearing: Toe-touch weight bearing (Toe-touch weightbearing (with TROM brace locked in extension for 6 weeks)) Physical Therapy: Eval and Treat Occupational Therapy: Eval and Treat Problem/Diagnosis (1) Infection of prosthetic right knee joint: Status: Acute Code(s): T84.53XA - Infection and inflammatory reaction due to internal right knee prosthesis, initial encounter (2) Status post revision of total replacement of right knee: Status: Chronic Code(s): Z96.651 - Presence of right artificial knee joint (3) History of methicillin resistant Staphylococcus aureus infection: Status: Acute Code(s): Z86.14 - Personal history of Methicillin resistant Staphylococcus aureus infection (4) Osteoarthritis of right knee: Status: Acute Code(s): M17.11 - Unilateral primary osteoarthritis, right knee (5) Infection caused by Enterobacter cloacae: Status: Acute Code(s): A49.8 - Other bacterial infections of unspecified site (6) Prediabetes: Status: Chronic Code(s): R73.03 - Prediabetes Comment: HgbA1c was 6.2 on 01/14/23 (7) Former smoker: Status: Chronic Code(s): Z87.891 - Personal history of nicotine dependence (8) Open wound of right knee with complication: Status: Acute Code(s): S81.001A - Unspecified open wound, right knee, initial encounter Plan 1. Acute encephalopathy-resolved at this time, patient is alert and oriented and appropriate. #2 infection of prosthetic right knee joint-patient is being seen by orthopedic surgery, plastic surgery, and infectious diseases at this time, he is currently on vancomycin and meropenem. #3 essential hypertension-patient will remain on his present medication #4 chronic anxiety/depression-patient is on Wellbutrin #5 obstructive sleep apnea-patient uses CPAP at night Total clinical time spent by myself addressing the patient's medical issues, reviewing all of his data, and collaborating with patient's care team: 35 minutes Allergies/Procedures Done in Hospital Allergies adhesive Allergy (Verified 03/04/23 06:05) Rash SURGICAL GLUE adhesive tape Allergy (Verified 03/04/23 06:05) Rash gabapentin [From Neurontin] Allergy (Verified 03/04/23 06:05) Hives Type of Care/Length of Stay Estimated LOS: Convalescent Care Less Than 30 days Type of Care Needed: Skilled Rehab Potential: Good Prognosis: Good Additional Orders/Day of Discharge H&P will serve as current which was dated: 03/04/23 Day of Discharge: 03/08/23 Dietary and Speech Recommendations Dietitian Recommendations/Changes: Continue with Cardiac: Calorie-Controlled diet yet will increase kcal goal to 2000kcal/day to better meet estimated nutrient needs. Continue with Glucerna 120mL TID and Alvarez BID w/ medpass to promote wound healing by increasing protein intakes. Will continue to follow and modify interventions as needed. Discharge Plan Admission Admit Date/Time: 03/04/23 05:22 Primary Reason for Your Visit: Infection of prosthetic right knee joint Attending Provider: Tigre Parra Primary Care Provider: Gerri Leary Consulting Providers: Cash Reilly; Chris Middleton; Swapna Walsh; Jolynn Chester; Kofi Lorenzana Instructions Additional Instructions / Restrictions: Patient to use his own CPAP when sleeping Discharge Orders/Prescriptions Prescriptions: New ertapenem 1 gram recon soln 1 g IM Q24H Qty: 40 0RF Rx Instructions: dx: knee PJI. stop date 04/15/23. weekly bmp, cbc, LFT, and ESR. Fax to [phone] doxycycline hyclate 100 mg capsule 100 mg PO BID Qty: 80 0RF Rx Instructions: cancel order for bactrim. oxycodone 5 mg Tablet 5 - 10 mg PO Q6H PRN PRN (Reason: Pain Score1-10) 2 Days Qty: 10 0RF enoxaparin 40 mg/0.4 mL Syringe 40 mg subcut DAILY Qty: 0 0RF Alvarez (with collagen) 7-7-1.5 gram Powder In Packet 1 packet PO BIDCM Qty: 0 0RF Continued bupropion HCl [Wellbutrin SR] 150 mg tablet sustained-release 12 hr 150 mg PO BID Rx Instructions: Take once daily for the first 3 days then increase to twice daily pantoprazole 40 mg tablet,delayed release (DR/EC) 40 mg PO DAILY lisinopril 10 mg tablet 10 mg PO DAILY acetaminophen 500 mg Tablet 1,000 mg PO TID Qty: 100 0RF Rx Instructions: Do not take more than 3000 mg Tylenol in a 24-hour period. meloxicam 7.5 mg Tablet 7.5 mg PO BID 30 Days Qty: 60 0RF Rx Instructions: Do not take any other nonsteroidal anti-inflammatories while using meloxicam/Mobic. Discontinued ertapenem 1 gram Recon Soln 1 g IV Q24 39 Days Qty: 39 0RF Rx Instructions: stop date 03/11/23. Dx GNR prosthetic joint infection. weekly bmp, cbc, LFT, and esr. Fax to [phone] routine picc care per protocol Referrals / Follow Up: Gerri Leary MD [Primary Care Provider] - Chris Middleton MD [Med Staff - Active Staff] - See Referral Note (Dr. Middleton states he can see the patient in TCU, he will need to be seen in 2 weeks) Shiv Ponce PA-C [Med Staff - Adv Practice Prof] - (Will require 2-week postoperative follow-up with x-rays on arrival) Disposition Disposition (needs filled in before D/C Order can be placed): [facility]
--- NOTE | 2023-03-08 12:12 | DS.PCM_ITS ---
Providers Date of Admission: 03/04/23 Date of Discharge: 03/08/23 Primary Care Physician: Dr. Gerri Leary MD Consultations 03/04/23 12:45 Consult: Infectious Disease Routine Consulting Provider: Chris Middleton Reason for Consult: R PJI PKTY return to OR extend IV abx? EMERGENT Consult: No MD Notified: Yes Date Notified: 03/04/23 Time Notified: 12:46 Method of Notification: Text 03/04/23 19:49 Consult: Hospitalist Routine Consulting Provider: Jolynn Chester Reason for Consult: confusion postop requesting evaluation EMERGENT Consult: Yes MD Notified: Yes Date Notified: 03/04/23 Time Notified: 19:49 Method of Notification: Text Reason For Visit: EXC WOUND W RECONST RT KNEE WOUND WITH GASTROCNEMI Diagnosis Discharge Diagnosis (1) Infection of prosthetic right knee joint: Status: Acute Code(s): T84.53XA - Infection and inflammatory reaction due to internal right knee prosthesis, initial encounter (2) Status post revision of total replacement of right knee: Status: Chronic Code(s): Z96.651 - Presence of right artificial knee joint (3) History of methicillin resistant Staphylococcus aureus infection: Status: Acute Code(s): Z86.14 - Personal history of Methicillin resistant Staphylococcus aureus infection (4) Osteoarthritis of right knee: Status: Acute Code(s): M17.11 - Unilateral primary osteoarthritis, right knee (5) Infection caused by Enterobacter cloacae: Status: Acute Code(s): A49.8 - Other bacterial infections of unspecified site (6) Prediabetes: Status: Chronic Code(s): R73.03 - Prediabetes (7) Former smoker: Status: Chronic Code(s): Z87.891 - Personal history of nicotine dependence (8) Open wound of right knee with complication: Status: Acute Code(s): S81.001A - Unspecified open wound, right knee, initial encounter Plan 1. Acute encephalopathy-resolved at this time, patient is alert and oriented and appropriate. #2 infection of prosthetic right knee joint-patient is being seen by orthopedic surgery, plastic surgery, and infectious diseases at this time, he is currently on vancomycin and meropenem. #3 essential hypertension-patient will remain on his present medication #4 chronic anxiety/depression-patient is on Wellbutrin #5 obstructive sleep apnea-patient uses CPAP at night Total clinical time spent by myself addressing the patient's medical issues, reviewing all of his data, and collaborating with patient's care team: 35 minutes Medications at Discharge Home Medications bupropion HCl 150 mg tablet,12 hr sustained-release (Wellbutrin SR) 150 mg PO BID DEPRESSION 01/13/23 lisinopril 10 mg tablet 10 mg PO DAILY BP 01/13/23 pantoprazole 40 mg tablet,delayed release 40 mg PO DAILY GERD 01/13/23 acetaminophen 500 mg tablet 1,000 mg (2 x 500 mg) PO TID PAIN #100 tabs 01/28/23 meloxicam 7.5 mg tablet 7.5 mg PO BID PAIN 30 days #60 tabs 01/28/23 doxycycline hyclate 100 mg capsule 100 mg PO BID #80 caps 03/07/23 ertapenem 1 gram solution for injection 1 g IM Q24H #40 ea 03/07/23 arginine 7 gram-glutam 7 gram-CaHMB 1.5 swag-rgwrb-ec-min oral pwd pkt (Alvarez (with collagen)) 1 packet PO BIDCM #0 ea 03/08/23 enoxaparin 40 mg/0.4 mL subcutaneous syringe 40 mg (0.4 mL) subcut DAILY #0 mL 03/08/23 oxycodone 5 mg tablet 5 - 10 mg (1 - 2 x 5 mg) PO Q6H PRN PRN Pain Score1-10 2 days #10 tabs 03/08/23 Weight / BMI Weight Weight: 84.7 kg Body Mass Index (BMI) 31.0 ABG / Lab / Microbiology Data 03/08/23 08:30 03/08/23 08:30 Laboratory: Laboratory Results - last 24 hr 03/07/23 21:34: Vancomycin Trough 17.8 H 03/08/23 08:30: WBC 5.4, RBC 3.98 L, Hgb 10.6 L, Hct 34.2 L, MCV 85.9, MCH 26.6 L, MCHC 31.0 L, RDW Std Deviation 44.5 H, RDW Coeff of Clemente 14.2, Plt Count 393, MPV 8.8, Sodium 139, Potassium 4.5, Chloride 107, Carbon Dioxide 27.0, Anion Gap 5, BUN 21 H, Creatinine 0.87, Estim Creat Clear Calc 75.60, Est GFR (MDRD) Af Amer 113, Est GFR (MDRD) Non-Af 94, BUN/Creatinine Ratio 24.1 H, Glucose 113 H, Calcium 8.8, Total Bilirubin 0.20, AST 36, ALT 36, Alkaline Phosphatase 117, Total Protein 6.0 L, Albumin 2.3 L, Globulin 3.7, Albumin/Globulin Ratio 0.6 L Microbiology: Microbiology 03/04/23 Unknown Tissue - Knee Gram Stain - Final 03/04/23 Unknown Tissue - Knee Wound Culture - Final No growth aerobically. 03/04/23 Unknown Tissue - Knee Anaerobic Culture - Preliminary No growth in 48 hours. 03/04/23 Unknown Tissue - Knee Gram Stain - Final 03/04/23 Unknown Tissue - Knee Wound Culture - Final No growth aerobically. 03/04/23 Unknown Tissue - Knee Anaerobic Culture - Preliminary No growth in 48 hours. 03/04/23 Unknown Tissue - Knee Gram Stain - Final 03/04/23 Unknown Tissue - Knee Wound Culture - Final No growth aerobically. 03/04/23 Unknown Tissue - Knee Anaerobic Culture - Preliminary No growth in 48 hours. D/C Instructions Discharge Diet: No restrictions Ice area for (Minutes): 20 (Every 1-2 hours [address] barrier between the skin and ice pack.) Weight Bearing Status: Toe touch weight bearing (with TROM brace locked in extension for 6 weeks) Keep extremity elevated above heart level: Operative Extremity Call your doctor if your incision/area has: Continuous Slow Oozing, Sudden Increased Bleeding, Increased Pain/ Swelling, Increased Redness and Foul Smelling Discharge Call your doctor if you observe: Fever of 101 or Higher, Coldness, Increased Pain, Numbness or Tingling, Change in Color, Shortness of breath, Chest pain, Calf discomfort and Uncontrolled pain Additional Dressing/Incision Instructions: Follow [facility] Post-op Instructions. Continue with RONALD hose/elastic stockings for 2 weeks postoperatively. May remove at nighttime but needs to be placed back on the leg during the day. Do NOT use alcohol with narcotic pain medication. Do NOT make important decisions while taking narcotic medication. If you have problems with taking your medication (rash, itching, nausea, etc.) call the office at once. Continue antibiotics per infectious disease. Discharge Plan Admission Admit Date/Time: 03/04/23 05:22 Primary Reason for Your Visit: Infection of prosthetic right knee joint Attending Provider: Tigre Parra Primary Care Provider: Gerri Leary Consulting Providers: Cash Reilly; Chris Middleton; Swapna Walsh; Jolynn Chester; Kofi Lorenzana Instructions Additional Instructions / Restrictions: Patient to use his own CPAP when sleeping Discharge Orders/Prescriptions Prescriptions: New ertapenem 1 gram recon soln 1 g IM Q24H Qty: 40 0RF Rx Instructions: dx: knee PJI. stop date 04/15/23. weekly bmp, cbc, LFT, and ESR. Fax to [phone] doxycycline hyclate 100 mg capsule 100 mg PO BID Qty: 80 0RF Rx Instructions: cancel order for bactrim. oxycodone 5 mg Tablet 5 - 10 mg PO Q6H PRN PRN (Reason: Pain Score1-10) 2 Days Qty: 10 0RF enoxaparin 40 mg/0.4 mL Syringe 40 mg subcut DAILY Qty: 0 0RF Alvarez (with collagen) 7-7-1.5 gram Powder In Packet 1 packet PO BIDCM Qty: 0 0RF Continued bupropion HCl [Wellbutrin SR] 150 mg tablet sustained-release 12 hr 150 mg PO BID Rx Instructions: Take once daily for the first 3 days then increase to twice daily pantoprazole 40 mg tablet,delayed release (DR/EC) 40 mg PO DAILY lisinopril 10 mg tablet 10 mg PO DAILY acetaminophen 500 mg Tablet 1,000 mg PO TID Qty: 100 0RF Rx Instructions: Do not take more than 3000 mg Tylenol in a 24-hour period. meloxicam 7.5 mg Tablet 7.5 mg PO BID 30 Days Qty: 60 0RF Rx Instructions: Do not take any other nonsteroidal anti-inflammatories while using meloxicam/Mobic. Discontinued ertapenem 1 gram Recon Soln 1 g IV Q24 39 Days Qty: 39 0RF Rx Instructions: stop date 03/11/23. Dx GNR prosthetic joint infection. weekly bmp, cbc, LFT, and esr. Fax to [phone] routine picc care per protocol Referrals / Follow Up: Gerri Leary MD [Primary Care Provider] - Chris Middleton MD [Med Staff - Active Staff] - See Referral Note (Dr. Middleton states he can see the patient in TCU, he will need to be seen in 2 weeks) Shiv Ponce PA-C [Med Staff - Adv Practice Prof] - (Will require 2-week postoperative follow-up with x-rays on arrival) Disposition Disposition (needs filled in before D/C Order can be placed[facility]
--- NOTE | 2023-03-08 13:19 | PN.HOSP_ITS ---
Reason for Visit Reason for Visit: Diagnoses Other bacterial infections of unspecified site (03/04/23) Encephalopathy, unspecified (03/04/23) Unilateral primary osteoarthritis, right knee (03/04/23) Prediabetes (03/04/23) Unspecified open wound, right knee, initial encounter (03/04/23) Infection and inflammatory reaction due to internal right knee prosthesis, initial encounter (03/04/23) Personal history of Methicillin resistant Staphylococcus aureus infection (03/04/23) Personal history of nicotine dependence (03/04/23) Presence of right artificial knee joint (03/04/23) Subjective Subjective Patient was seen and examined today, we received approval for him to go to TCU for inpatient skilled services, I talked briefly with plastic surgery about his care. I filled out his necessary transfer paperwork to go to TCU today. I also talked with infectious diseases about his antibiotic coverage at TCU. Objective Data Objective Data Vital Signs: Vital Signs Temp Pulse Resp BP Pulse Ox O2 Del Method O2 Flow Rate 97.5 F L 74 16 113/66 93 Room Air 2 03/08/23 10:19 03/08/23 10:19 03/08/23 10:19 03/08/23 10:19 03/08/23 10:19 03/08/23 10:19 03/06/23 04:36 Oxygen Flow Rate (L/min) 2 Oxygen Delivery Method Room Air Weight: 84.7 kg Body Mass Index (BMI) 31.0 Intake & Output: Intake and Output for Last 24 Hours 03/06/23 03/07/23 03/08/23 23:59 23:59 23:59 Intake Total 2996.50 / 2996.50 1290.25 / 1290.25 459.5 / 459.5 Output Total 3448 / 3448 3240 / 3240 1440 / 1440 Balance -451.50 / -451.50 -1949.75 / -1949.75 -980.5 / -980.5 Lab / Micro Data 03/08/23 08:30 03/08/23 08:30 Labs: Laboratory Results - last 24 hr 03/07/23 21:34: Vancomycin Trough 17.8 H 03/08/23 08:30: WBC 5.4, RBC 3.98 L, Hgb 10.6 L, Hct 34.2 L, MCV 85.9, MCH 26.6 L, MCHC 31.0 L, RDW Std Deviation 44.5 H, RDW Coeff of Clemente 14.2, Plt Count 393, MPV 8.8, Sodium 139, Potassium 4.5, Chloride 107, Carbon Dioxide 27.0, Anion Gap 5, BUN 21 H, Creatinine 0.87, Estim Creat Clear Calc 75.60, Est GFR (MDRD) Af Amer 113, Est GFR (MDRD) Non-Af 94, BUN/Creatinine Ratio 24.1 H, Glucose 113 H, Calcium 8.8, Total Bilirubin 0.20, AST 36, ALT 36, Alkaline Phosphatase 117, Total Protein 6.0 L, Albumin 2.3 L, Globulin 3.7, Albumin/Globulin Ratio 0.6 L Micro: Microbiology 03/04/23 Unknown Tissue - Knee Gram Stain - Final 03/04/23 Unknown Tissue - Knee Wound Culture - Final No growth aerobically. 03/04/23 Unknown Tissue - Knee Anaerobic Culture - Preliminary No growth in 48 hours. 03/04/23 Unknown Tissue - Knee Gram Stain - Final 03/04/23 Unknown Tissue - Knee Wound Culture - Final No growth aerobically. 03/04/23 Unknown Tissue - Knee Anaerobic Culture - Preliminary No growth in 48 hours. 03/04/23 Unknown Tissue - Knee Gram Stain - Final 03/04/23 Unknown Tissue - Knee Wound Culture - Final No growth aerobically. 03/04/23 Unknown Tissue - Knee Anaerobic Culture - Preliminary No growth in 48 hours. Physical Exam Narrative alert, oriented x3, no apparent distress and average body habitus General Appearance: cooperative, well kempt and well developed Orientation / Consciousness: awake, oriented to person, oriented to place and oriented to time HEENT normocephalic, head/scalp atraumatic and moist oral mucous membranes Eyes PERRL, EOMs intact bilaterally and conjunctivae normal Neck supple, no JVD, thyroid normal and no carotid bruits General: trachea midline Resp normal respiratory effort, no retractions, no use of accessory muscles and clear to auscultation bilaterally Auscultation: Negative for rales, rhonchi or wheezes Cardio regular rate, regular rhythm, S1 normal heart sound, S2 normal heart sound, no murmurs, no rub and no gallops GI normal to inspection, nondistended, normoactive bowel sounds, soft to palpation, non-tender and non-distended Extremity Extremity Narrative: Patient has a right knee immobilizer in place Skin General Skin Exam: no breakdown Neuro oriented x3, CN's II-XII intact bilaterally, moves all extremities, no focal motor deficits and no sensory deficits noted Sensorium / Orientation: awake, alert, oriented to person, oriented to place and oriented to time Speech: speech normal Psych affect normal Assessment & Plan Assessment/Plan (1) Infection of prosthetic right knee joint: PLAN: Plan 1. Acute encephalopathy-resolved at this time, patient is alert and oriented a nd appropriate. #2 infection of prosthetic right knee joint-patient is being seen by orthopedic surgery, plastic surgery, and infectious diseases at this time, he will receive ertapenem and doxycycline at TCU #3 essential hypertension-patient will remain on his present medication #4 chronic anxiety/depression-patient is on Wellbutrin #5 obstructive sleep apnea-patient uses CPAP at night Total clinical time spent by myself addressing the patient's medical issues, reviewing all of his data, and collaborating with patient's care team: 50 minutes Charges/Coding Visit Charges Inpatient E&M: 83771 Subs Hosp L3
--- NOTE | 2023-03-08 13:51 | PHA.DC.MR.R ---
Pharmacy [facility] Reconciliation Pharmacy Service has performed discharge medication reconciliation for this patient. The patient's discharge medication list was reviewed for discrepancies and discrepancies were resolved. Medications at Discharge Home Medications bupropion HCl 150 mg tablet,12 hr sustained-release (Wellbutrin SR) 150 mg PO BID DEPRESSION 01/13/23 lisinopril 10 mg tablet 10 mg PO DAILY BP 01/13/23 pantoprazole 40 mg tablet,delayed release 40 mg PO DAILY GERD 01/13/23 acetaminophen 500 mg tablet 1,000 mg (2 x 500 mg) PO TID PAIN #100 tabs 01/28/23 meloxicam 7.5 mg tablet 7.5 mg PO BID PAIN 30 days #60 tabs 01/28/23 doxycycline hyclate 100 mg capsule 100 mg PO BID #80 caps 03/07/23 ertapenem 1 gram solution for injection 1 g IM Q24H #40 ea 03/07/23 arginine 7 gram-glutam 7 gram-CaHMB 1.5 wirg-derup-iw-min oral pwd pkt (Alvarez (with collagen)) 1 packet PO BIDCM #0 ea 03/08/23 enoxaparin 40 mg/0.4 mL subcutaneous syringe 40 mg (0.4 mL) subcut DAILY #0 mL 03/08/23 oxycodone 5 mg tablet 5 - 10 mg (1 - 2 x 5 mg) PO Q6H PRN PRN Pain Score1-10 2 days #10 tabs 03/08/23
[2023-03-08 14:04] VITALS: BP 133/85; PULSE 75; RESP 16; TEMP 36.5; O2SAT 94
== END 2023-03-08 16:14 | disposition skilled nursing facility (03) | DRG 500 ==
LOC: ACINP 05:26 → MS3 08:38
PROVIDERS: Family Medicine; Internal Medicine Infectious Disease; Specialist; Admitting Provider Surgery; PCP Internal Medicine; Referring Provider Surgery; Visit Provider Surgery
PROC: (CPT 27487; principal; 2023-03-04 07:10)
PROC: 0KX Muscles, Transfer (ICD-10-PCS; 2023-03-04 07:10)
DX: T84.53XA Infection and inflammatory reaction due to internal right knee prosthesis, initial encounter (principal); G92.8 Other toxic encephalopathy; D62 Acute posthemorrhagic anemia; T81.30XA Disruption of wound, unspecified, initial encounter; S81.001A Unspecified open wound, right knee, initial encounter; I10 Essential (primary) hypertension; F32.A Depression, unspecified; M19.90 Unspecified osteoarthritis, unspecified site; F41.9 Anxiety disorder, unspecified; E78.5 Hyperlipidemia, unspecified; G47.33 Obstructive sleep apnea (adult) (pediatric); K21.9 Gastro-esophageal reflux disease without esophagitis; M17.11 Unilateral primary osteoarthritis, right knee; Z87.891 Personal history of nicotine dependence; Z79.1 Long term (current) use of non-steroidal anti-inflammatories (NSAID); R73.03 Prediabetes; Z96.651 Presence of right artificial knee joint; Z86.14 Personal history of Methicillin resistant Staphylococcus aureus infection; Y82.9 Unspecified medical devices associated with adverse incidents; A49.8 Other bacterial infections of unspecified site
CPT/HCPCS: 36415; 80048; 80053; 80202; 82962; 84134; 85027; 87015; 87070; 87075; 87102; 87116; 87176; 87205; 87206; 88305; 97110; 97116; 97162; 97166; 97530; 97535; 97802; C1776; J2185; J7030; J7050; J7120; J2405

== ENCOUNTER 2023-03-08 16:10 | Inpatient (IN) | payer MEDICARE, MEDICAID, SELFPAY ==
[2023-03-08 16:27] VITALS: BP 137/77; PULSE 71; RESP 16; TEMP 36.1; O2SAT 95; BMI 30.6
--- NOTE | 2023-03-08 18:17 | HP.PCM_ITS ---
HPI - General General Date of Admission: 03/08/23 Date of Service: 03/08/23 Chief Complaint: Here for rehabilitation, intravenous antibiotics. HPI Narrative ASHLEY HILL, is a 62 Male who presents with followin02/25/2023 Dr. Reilly, 4 weeks status post revision right total knee arthroplasty. Has had multiple surgeries of his knees. Worsening pain, drainage from right knee infection. 03/04/2023 Dr. Reilly performed right knee irrigation debridement polyethylene exchange one component revision. 03/04/2023 Dr. Parra performed reconstruction right inferior knee proximal leg wound with right medial gastrocnemius muscle flap, and split thickness skin graft from lower anterior abdominal wall (120cm2). 03/04/2023 Confused postop. Vancomycin, Ancef perioperatively, Vancomycin, Meropenem postoperatively. 03/05/2023 Lethargic, but responds to questions, more alert today. Encephalopathy secondary to anesthetic exposure, prolonged case. Infectious Disease consulted. 03/06/2023 Feels well today, Encephalopathy mostly resolved. Continue Vancomycin, Meropenem. 03/07/2023 Dr. Middleton 01/26/2023 Dr. Reilly revision right total knee arthroplasty. History of MSSA PJI years ago. Surgical culture grew Enterobacter. Discharged on IV Ertapenem x 6 weeks, stopo date 03/11/2023. 03/04/2023 Readmit with sinus tract. Dr. Reilly polyethylene exchange. Dr. Parra skin coverage. Surgical cultures negative so far.. IV Ertapenem, PO Doxycycline x 6 weeks, stop date 04/15/2023. 03/07/2023 WBC 5.6. Encephalopathy resolved. 03/08/2023 Admit to TCU with debility, here for rehabilitation, strengthening, intravenous antibiotics, prior to discharge home with . [facility] Medical History (Updated 03/08/23 @ 18:[address] Benson Burden MD) Alcohol use Ambulates with cane Anxiety Arthritis Back pain Borderline type 2 diabetes mellitus Cellulitis Chronic depression Chronic neck and back pain CPAP (continuous positive airway pressure) dependence Depression Former smoker GERD (gastroesophageal reflux disease) History of drug abuse History of edema History of methicillin resistant Staphylococcus aureus infection Hypertension Infection caused by Enterobacter cloacae Infection of prosthetic right knee joint Knee pain Leg cramps Marijuana use Neuropathy Open wound of right knee with complication Osteoarthritis Prediabetes Preoperative evaluation to rule out surgical contraindication Restless legs Walker as ambulation aid Wears dentures Wears glasses Home Medications bupropion HCl 150 mg tablet,12 hr sustained-release (Wellbutrin SR) 150 mg PO BID DEPRESSION 01/13/23 [History Last Taken 03/08/23] lisinopril 10 mg tablet 10 mg PO DAILY BP 01/13/23 [History Last Taken 03/08/23] pantoprazole 40 mg tablet,delayed release 40 mg PO DAILY GERD 01/13/23 [History Last Taken 03/08/23] acetaminophen 500 mg tablet 1,000 mg (2 x 500 mg) PO TID PAIN #100 tabs 01/28/23 [Rx Last Taken 03/08/23] meloxicam 7.5 mg tablet 7.5 mg PO BID PAIN 30 days #60 tabs 01/28/23 [Rx Last Taken Unknown] doxycycline hyclate 100 mg capsule 100 mg PO BID infection #80 caps 03/07/23 [Rx Last Taken Unknown] ertapenem 1 gram solution for injection 1 g IM Q24H infection #40 ea 03/07/23 [Rx Last Taken Unknown] arginine 7 gram-glutam 7 gram-CaHMB 1.5 ihip-wbeys-em-min oral pwd pkt (Alvarez (with collagen)) 1 packet PO BIDCM supplement #0 ea 03/08/23 [Rx Last Taken 03/08/23] enoxaparin 40 mg/0.4 mL subcutaneous syringe 40 mg (0.4 mL) subcut DAILY blood thinner #0 mL 03/08/23 [Rx Last Taken 03/08/23] oxycodone 5 mg tablet 5 - 10 mg (1 - 2 x 5 mg) PO Q6H PRN PRN Pain Score1-10 2 days #10 tabs 03/08/23 [Rx Last Taken 03/08/23] Allergy/AdvReac Type Severity Reaction Status Date / Time adhesive Allergy Rash Verified 03/04/23 06:05 adhesive tape Allergy Rash Verified 03/04/23 06:05 gabapentin [From Neurontin] Allergy Hives Verified 03/04/23 06:05 Family History Other Alcoholism Anxiety and depression Arthritis Diabetes Myocardial infarction Surgical History History of back surgery History of total knee arthroplasty History of total knee arthroplasty Hx of elbow surgery Hx of knee surgery Hx of knee surgery Hx of oral surgery Hx of total knee arthroplasty Hx of total knee arthroplasty Status post revision of total replacement of right knee Social History (Updated 03/08/23 @ 18:[address] Benson Burden MD) household members: spouse Smoking Status: Former smoker Smokeless tobacco user: chewing tobacco alcohol intake: current alcohol intake frequency: a few times a week Alcohol type: beer substance use type: marijuana what type of physical activity do you participate in: none ROS Constitutional Constitutional: Denies chills, fever(s) or weight gain ENT HEENT: Denies headache(s), nasal congestion or nasal discharge Cardiovascular Cardiovascular: Denies chest pain or palpitations Respiratory/Chest Respiratory/Chest: Denies cough, excessive phlegm production or shortness of breath with exertion Gastrointestinal Gastrointestinal: Denies abdominal pain, nausea or vomiting Genitourinary Genitourinary: Denies dysuria Musculoskeletal Musculoskeletal: Denies joint pain or joint swelling Integumentary Integumentary: Denies rash or wounds Neurologic Neurologic: Denies focal weakness, numbness or tingling Psychiatric Psychiatric: Denies anxiety, auditory hallucinations, depression, homicidal ideation or suicidal ideation Vital Signs Vital Signs Vital Signs: 03/08/23 16:27 Temperature 96.9 F L Temperature Source Temporal Pulse Rate 71 Respiratory Rate 16 Blood Pressure 137/77 H Blood Pressure Mean 97 Blood Pressure Source Monitor Pulse Ox 95 Oxygen Delivery Method Room Air Weight Weight: 80.966 kg Body Mass Index (BMI) 30.6 Physical Exam Const alert General Appearance: cooperative HEENT normocephalic Eyes PERRL and EOMs intact bilaterally Neck supple, no JVD and no carotid bruits Resp normal respiratory effort, normal air movement and clear to auscultation bilaterally Cardio regular rate and regular rhythm GI normal to inspection, nondistended, normoactive bowel sounds, non-tender and non-distended GI Narrative: Anterior lower abdominal wound dressed, BHARATHI drain left. Extremity normal capillary refill Extremity Narrative: Right lower extremity dressed, immobilizer, BHARATHI drain in place. PICC line right upper extremity. General Extremity: Negative for edema Skin no rashes or lesions noted General Skin Exam: no breakdown Psych affect normal Appearance: appropriate Assessment & Plan Assessment/Plan (1) Debility: (2) Infection of prosthetic right knee joint: (3) Open wound of right knee with complication: (4) Encephalopathy acute: (5) Osteoarthritis of right knee: (6) Essential (primary) hypertension: (7) Diabetes mellitus: (8) Polysubstance abuse: (9) Anxiety: (10) Obstructive sleep apnea: (11) Depression: (12) GERD (gastroesophageal reflux disease): (13) Hyperlipidemia: (14) Cannabis abuse: PLAN: Plan 62 year old male with below past medical history hospitalized for right knee prosthetic joint infection, underwent polyethylene exchange 03/04/[address] Reilly, Skin coverage surgery 03/04/[address] Parra, admitted to TCU with debility, here for rehabilitation, strengthening, intravenous antibiotics, prior to discharge home with . * Debility - PT/OT. * Pain - Tylenol 1000mg tid, Oxycodone 5-10mg q6h prn. * Bowel - senna/colace 2 tablets bid, Magnesium citrate 300ml po daily prn. * Adult immunization - Administer pneumonia vaccine, covid19 vaccine, flu vaccine as appropriate. * DVT prophylaxis - Lovenox 40mg sc daily. * Depression - Bupropion 150mg bid, stable chronic mcfp use, GDR not recommended. * Right knee prosthetic joint infection s/p polyethylene exchange - Doxycycline 100mg bid thru 04/17/2023, Ertapenem 1gm iv q24 thru 04/16/2023, Consult Dr. Middleton to follow. * Right knee s/p muscle flap, skin graft - consult Dr. Parra to follow. * Nutrition - Glucerna shake 120ml po tidcm, Alvarez 1 packet po bidcm. * Hypertension - Lisinopril 10mg daily. * Osteoarthritis - Meloxicam 7.5mg bid. * GERD - Pantoprazole 40mg daily.
[2023-03-08] MEDS: Juven (unflavored) Packet 1 PACKET PO (18:38)
[2023-03-08] MEDS: Meloxicam 7.5 MG Tablet PO (18:38)
[2023-03-08] MEDS: buPROPion (SR) 150 MG Tablet.SA PO (18:38)
[2023-03-08] MEDS: Doxycycline 100 MG CAPSULE PO (18:38)
--- NOTE | 2023-03-08 19:08 | NURSING ---
Went into room to do admission questions with patient. When started asking about his home life: safety and environment, he became upset and tearful. He said his has just been in the room after he arrived on TCU. Said he'd had a conversation with her about her having a ring from another man, and he'd told her to get her stuff and get out. Said he would now be homeless as his mother in law owns the house they live in. He then asked RN how can I get out of here? Discussed that the goals for discharge would be for him to get stronger, complete IV antibiotics, and wound healing. He reports that he'd had 7 surgeries on this knee and had previously been at home with a PICC line and did his own IV antibiotics. Discussed that in the future that could be a possibility to complete antibiotics at home but it depended on his progress here and insurance. He said just throw me in the ground and put dirt on me. Provided emotional support and allowed him to express frustration. He expressed thanks for nurse listening and apologized multiple times. Assured him he had no need to apologize, before leaving asked him if there was anything he needed or anything nurse could do for him. He denied any needs at that time. Left him resting in bed, call brown in reach. Notified Samantha SEBASTIAN of above. Notified her that during conversation patient did deny any thoughts of hurting himself of anyone else.
[2023-03-08] MEDS: Acetaminophen 500 MG Tablet 1000 MG PO (19:58)
[2023-03-08] MEDS: Senna/Docusate Sodium 1 Tablet 2 TABLET PO (19:59)
[2023-03-08] MEDS: 0.9 % NaCl (Sterile) Posiflush 10 mL IV (20:06)
[2023-03-08] MEDS: oxyCODONE 5 MG Tablet PO (21:36)
[2023-03-09] MEDS: Doxycycline 100 MG CAPSULE PO ×2 (05:13→17:12)
[2023-03-09] MEDS: Meloxicam 7.5 MG Tablet PO ×2 (05:13→17:12)
[2023-03-09] MEDS: Acetaminophen 500 MG Tablet 1000 MG PO ×3 (05:13→21:44)
[2023-03-09] MEDS: Pantoprazole Sodium 40 MG Tablet PO (05:14)
[2023-03-09] MEDS: Enoxaparin 40 MG/0.4 ML Syringe SC (05:14)
[2023-03-09] MEDS: buPROPion (SR) 150 MG Tablet.SA PO ×2 (05:14→17:12)
[2023-03-09] MEDS: Lisinopril 10 MG Tablet PO (05:14)
[2023-03-09] MEDS: 0.9 % NaCl (Sterile) Posiflush 10 mL IV (05:21)
[2023-03-09 05:43] LABS: Absolute Lymphocyte Count 1.65 X10^3/uL (0.83-4.51); Absolute Neutrophil Count 2.9 X10^3/uL (2.0-7.7); Basophil# 0.03 X10^3/uL; Basophil% 0.6 % (0-1); Eosinophil# 0.32 X10^3/uL; Hematocrit 32.3 % (40-54); Hemoglobin 10.4 g/dL (13.0-16.5); Lymphocyte # 1.65 X10^3/ul (0.83-4.51); Lymphocyte % 30.7 % (19-41); Mean Corp Hgb Conc 32.2 g/dL (32-36); Mean Corpuscular Hgb 27.7 pg (27.0-32.0); Mean Corpuscular Volume 85.9 fL (80-94); Mean Platelet Vol. 8.8 fl (6.2-12.0); Monocyte# 0.49 X10^3/uL; Monocyte% 9.1 % (0-10); NRBC Flagged by Analyzer 0 % (0-5); Neutrophil # 2.85 X10^3/uL (2.7-7.7); Platelet Count 386 K/mm3 (150-450); RBC Distribution Width CV 14.5 % (11.6-14.6); RBC Distribution Width SD 45.4 fl (35.1-43.9); Red Blood Count 3.76 M/mm3 (4.6-6.2); White Blood Count 5.4 K/mm3 (4.4-11.0)
[2023-03-09 06:04] LABS: Anion Gap 4 (5-15); BUN 25 mg/dL (7-18); BUN/Creat Ratio 27.6 RATIO (10-20); Calcium,Total 8.7 mg/dL (8.5-10.1); Chloride 107 mmol/L (98-107); Creatinine, Serum 0.91 mg/dL (0.70-1.30); EST Glomerular Filtration Rate 90 mL/min (>60); Est Glom Filt Rate - Afr Amer 109 mL/min (>60); Estimated Creatinine Clearance 69.57 ml/min; Glucose 122 mg/dL (74-106); Potassium 4.4 mmol/L (3.5-5.1); Sodium Level 140 mmol/L (136-145)
[2023-03-09] MEDS: Juven (unflavored) Packet 1 PACKET PO ×2 (08:07→17:12)
[2023-03-09 09:47] LABS: AST(SGOT) 60 U/L (15-37); Alanine Aminotransfer ALT/SGPT 62 U/L (16-61); Albumin, Serum 2.5 g/dL (3.2-5.0); Alkaline Phosphatase 136 U/L (45-117); Bilirubin, Direct < 0.05 mg/dL (0.00-0.30); Globulin 3.6 g/dL (2.2-4.2); Protein, Total 6.1 g/dL (6.4-8.2)
[2023-03-09 10:05] LABS: Erythrocyte Sedimentation Rate 45 mm/hr (0-20)
--- NOTE | 2023-03-09 11:01 | PHA.CONS_ITS ---
Documented by User: Shagufta Barrientosder 03/09/23 11:34 TCU RX Drug Regimen Review Subjective/Objective Subjective/Objective: Subjective: TCU Admission. 62 YOM hospitalized for right knee prosthetic joint infection, underwent polyethylene exchange 03/04/[address] Reilly, Skin coverage surgery 03/04/[address] Parra. Admitted to TCU wit debility for strengthening, rehabilitation and IV antibiotics. Objective: Allergies adhesive Allergy (Verified 03/04/23 06:05) Rash SURGICAL GLUE adhesive tape Allergy (Verified 03/04/23 06:05) Rash gabapentin [From Neurontin] Allergy (Verified 03/04/23 06:05) Hives Current Medications Generic Name Dose Route Start Last Admin Trade Name Freq PRN Reason Stop Dose Admin Acetaminophen 1,000 mg 03/08/23 22:00 03/09/23 05:13 Acetaminophen 500 Mg Tablet PO 1,000 mg TID ROBERTA Administration Bupropion HCl 150 mg 03/08/23 18:00 03/09/23 05:14 Bupropion (Sr) 150 Mg Tablet.Sa PO 150 mg BID ROBERTA Administration Doxycycline Monohydrate 100 mg 03/08/23 18:00 03/09/23 05:13 Doxycycline 100 Mg Capsule PO 04/17/23 06:01 100 mg BID ROBERTA Administration Enoxaparin Sodium 40 mg 03/09/23 06:00 03/09/23 05:14 Enoxaparin 40 Mg/0.4 Ml Syringe SC 40 mg DAILY ROBERTA Administration Heparin Sodium (Beef Lung) 50 units 03/08/23 17:31 Heparin Pf Lock 10 Units/Ml 50 Units/5 Ml Syringe IV UD PRN PICC Line Heparin Flush Ertapenem 1 gm/ Sodium 50 mls @ 100 mls/hr 03/09/23 06:00 03/09/23 07:07 Chloride IV 04/15/23 06:01 Infused Q24H ROBERTA Infusion Sodium Chloride 250 mls @ 15 mls/hr 03/08/23 17:32 IV .[id number] PRN Saline Flush L-Arginine/L-Glutamine/Calcium HMB 1 packet 03/08/23 17:00 03/09/23 08:07 Alvarez (Unflavored) Packet PO 1 packet BIDCM ROBERTA Administration Lisinopril 10 mg 03/09/23 06:00 03/09/23 05:14 Lisinopril 10 Mg Tablet PO 10 mg DAILY ROBERTA Administration Magnesium Citrate 300 ml 03/08/23 18:40 Magnesium Citrate 300 Ml PO DAILY PRN CONSTIPATION Meloxicam 7.5 mg 03/08/23 18:00 03/09/23 05:13 Meloxicam 7.5 Mg Tablet PO 7.5 mg BID ROBERTA Administration Nutritional Formula (Lactose Free) 120 ml 03/08/23 17:45 03/09/23 08:06 Glucerna Shake 120 Ml Liquid PO Not Given TIDCM [facility] Oxycodone HCl 5 - 10 mg 03/08/23 16:44 03/08/23 21:36 Oxycodone 5 Mg Tablet PO 10 mg Q6H PRN PRN Administration Pain Score 3-10 Pantoprazole Sodium 40 mg 03/09/23 06:00 03/09/23 05:14 Pantoprazole Sodium 40 Mg Tablet PO 40 mg DAILY ROBERTA Administration Senna/Docusate Sodium 2 tablet 03/08/23 18:45 03/09/23 05:14 Senna/Docusate Sodium 1 Tablet PO Not Given BID ROBERTA Sodium Chloride 10 - 40 ml 03/08/23 17:31 03/09/23 05:21 0.9 % Nacl (Sterile) Posiflush 10 Ml IV 20 ml UD PRN Administration Port access or dressing change Sodium Chloride 10 - 40 ml 03/08/23 17:31 0.9% Saline Lock 10 Ml Syringe IV UD PRN Open End PICC Flush Tuberculin PPD 0.1 ml 03/16/23 10:00 Tuberculin,Purif.Prot.Deriv. 50 Tu/Ml Vial ID 03/16/23 10:01 X1 ONE Problem List (Updated 03/08/23 @ 18:[address] Benson Burden MD) Cannabis abuse (Acute) Hyperlipidemia (Acute) Obstructive sleep apnea (Acute) Depression (Acute) Anxiety (Acute) Polysubstance abuse (Acute) Diabetes mellitus (Acute) Essential (primary) hypertension (Acute) Debility (Acute) Encephalopathy acute (Acute) Infection of prosthetic right knee joint (Acute) Osteoarthritis of right knee (Acute) Open wound of right knee with complication (Acute) GERD (gastroesophageal reflux disease) (Chronic) Vital Signs Temp Pulse Resp BP Pulse Ox O2 Del Method 96.9 F L 71 16 137/77 H 95 Room Air 03/08/23 16:27 03/08/23 16:27 03/08/23 16:27 03/08/23 16:27 03/08/23 16:27 03/08/23 16:27 Oxygen Delivery Method Room Air Weight: 80.966 kg Body Mass Index (BMI) 30.6 Sodium 140 mmol/L (136-145) 03/09/23 05:27 Potassium 4.4 mmol/L (3.5-5.1) 03/09/23 05:27 Chloride 107 mmol/L (98-107) 03/09/23 05:27 Carbon Dioxide 29.0 mmol/L (21.0-32.0) 03/09/23 05:27 Anion Gap 4 (5-15) L 03/09/23 05:27 BUN 25 mg/dL (7-18) H 03/09/23 05:27 Creatinine 0.91 mg/dL (0.70-1.30) 03/09/23 05:27 Est GFR (MDRD) Af Amer 109 mL/min (>60) 03/09/23 05:27 Est GFR (MDRD) Non-Af 90 mL/min (>60) 03/09/23 05:27 BUN/Creatinine Ratio 27.6 RATIO (10-20) H 03/09/23 05:27 Glucose 122 mg/dL (74-106) H 03/09/23 05:27 Assessment/Plan: 1. Pain: acetaminophen 1000mg PO TID and oxycodone 5-10 mg PO Q6H PRN pain 3-10 (5 mg for pain 3-6 and 10 mg for pain 7-10). The resident has received 1 PRN dose of oxycodone so far (pain level 8/10 in his knee). Continue to monitor for s/s of pain, PRN usage, constipation and respiratory depression. 2. Bowel: senna/docusate 2 tablets PO BID and magnesium citrate 300 mL PO daily PRN constipation. The resident has not had any PRN usage of magnesium citrate; he had a BM today, 03/09. Continue to monitor for s/s of constipation and PRN usage. 3. DVT prophylaxis: enoxaparin 40 mg SC daily. Continue to monitor for s/s of bleeding, hemoglobin (last 10.4g/dL), platelets (last 386,000) and renal function.? 4. Right knee prosthetic joint infection: doxycycline 100 mg PO BID through 04/15/2023 and ertapenem 1 gm IV q24h through 04/15/2023. Monitor for s/s of c. diff, INSPECTING MACHINE ADJUSTER toxicity, diarrhea and renal function. 5. Hypertension: lisinopril 10 mg PO daily. Continue to monitor BP (last 137/77), potassium (last 4.4mmol/L), cough and renal function. 6. Osteoarthritis: meloxicam 7.5 mg PO BID. Monitor for s/s of cardiovascular thrombotic events as well as gastrointestinal bleeding, ulceration, and/or perforation (Black Box Warning). Also continue to monitor CBC, LFTs, and renal function (last SCr 0.91 and BUN 25 on 03/09).? 7. GERD: pantoprazole 40 mg PO daily. Monitor bone density, magnesium (last 2.2mg/dL), S/S of GERD and diarrhea. Assessment/Plan for indications treated with psychotropic medications: *1. Depression: bupropion SR 150 mg PO BID. Please see physician note regarding GDR. Continue to monitor for s/s of suicidal ideation (Black Box Warning), agitation and constipation.? Medical chart and medication regimen reviewed. The following medication irregularities or issues were identified: None Date Date of Note:: 03/09/23 Documented by User: Dr. Benson Burden MD 03/09/23 11:45 TCU RX Drug Regimen Review Provider Comments Provider responsibility Provider Comments to Recommendations by Pharmacy: Agree
[2023-03-09] MEDS: Tuberculin,Purif.prot.deriv. 50 TU/ML Vial 0.1 ML ID (11:02)
--- NOTE | 2023-03-09 11:54 | NURSING ---
legal coordinator Note; Activity Asset Complete: Ac is independent in his choice of daily activities. He has stated while her at this time he prefers to rest, do therapy and stay in his room or go outside. He will watch Tv and use is smartphone. He was not interested in group or word search at this time. Staff will continue to remind him of daily activities and respect his right to say no.
--- NOTE | 2023-03-09 13:18 | PCM.PN.ID ---
Physical Exam Narrative Feeling ok, mild nausea this AM, no fever Const alert and no apparent distress Resp normal air movement and clear to auscultation bilaterally Cardio regular rate and regular rhythm GI soft to palpation, non-tender and non-distended Skin Skin Narrative: R knee wrapped ID ID: Route of nutrition/ use of supplements: [] Nutritional Intake: [] IV Site: [] Ramirez Catheter: [] Assessment & Plan Assessment/Plan (1) Infection of prosthetic right knee joint: PLAN: Taken to OR 01/26/[address] Reilly for revision of R knee. H/o MSSA PJI several years ago. Surg cx with enterobacter. Discharged on ertapenem for 6 week course with stop date 03/11/23 and weekly labs. Now re-admitted with sinus tract, taken to OR 03/04/[address] Reilly and Dr. Parra for I&D, poly exchange, and skin coverage. Surg cx neg so far. On 6 weeks iv erta and po doxy with stop date 04/15/23 and weekly bmp, cbc, LFT, and esr.. will follow
[2023-03-09] MEDS: oxyCODONE 5 MG Tablet PO ×2 (13:32→22:28)
[2023-03-09 14:14] VITALS: BP 139/73; PULSE 79; RESP 16; TEMP 36.2; O2SAT 96
--- NOTE | 2023-03-09 14:37 | WOUNDNOTE ---
wound photo: right posterior lower leg
--- NOTE | 2023-03-09 14:38 | WOUNDNOTE ---
wound photo: right lower leg
--- NOTE | 2023-03-09 15:09 | PN.SURG_ITS ---
Subjective Subjective Postop #5 Patient states his pain is well controlled. Patient states that he has not been sleeping well. Objective Data Objective Data Vital Signs: Vital Signs Temp Pulse Resp BP Pulse Ox O2 Del Method 97.1 F L 79 16 139/73 H 96 Room Air 03/09/23 14:14 03/09/23 14:14 03/09/23 14:14 03/09/23 14:14 03/09/23 14:14 03/09/23 14:14 Oxygen Delivery Method Room Air Weight: 178 lb 8 oz Body Mass Index (BMI) 30.6 Intake & Output: Intake and Output for Last 24 Hours 03/07/23 03/08/23 03/09/23 23:59 23:59 23:59 Intake Total 240 / 240 770 / 770 Output Total 8 / 8 Balance 232 / 232 770 / 770 Lab / Micro Data 03/09/23 05:27 03/09/23 05:27 Labs: Laboratory Results - last 24 hr 03/09/23 05:27: WBC 5.4, RBC 3.76 L, Hgb 10.4 L, Hct 32.3 L, MCV 85.9, MCH 27.7, MCHC 32.2, RDW Std Deviation 45.4 H, RDW Coeff of Clemente 14.5, Plt Count 386, MPV 8.8, Immature Gran % (Auto) 0.600, Neut % (Auto) 53.0, Lymph % (Auto) 30.7, Woods % (Auto) 9.1, Eos % (Auto) 6.0 H, Baso % (Auto) 0.6, Absolute Neuts (auto) 2.9, Absolute Lymphs (auto) 1.65, Nucleated RBC % 0, ESR 45 H, Sodium 140, Potassium 4.4, Chloride 107, Carbon Dioxide 29.0, Anion Gap 4 L, BUN 25 H, Creatinine 0.91 , Estim Creat Clear Calc 69.57, Est GFR (MDRD) Af Amer 109, Est GFR (MDRD) Non- Af 90, BUN/Creatinine Ratio 27.6 H, Glucose 122 H, Calcium 8.7, Total Bilirubin 0.20, Direct Bilirubin < 0.05, AST 60 H, ALT 62 H, Alkaline Phosphatase 136 H, Total Protein 6.1 L, Albumin 2.5 L, Globulin 3.6 Physical Exam Const alert and oriented x3 General Appearance: cooperative HEENT normocephalic Head and Scalp: atraumatic Eyes General Eye: normal appearance of both eyes Resp normal respiratory effort Effort and Inspection: able to speak in complete sentences Cardio regular rate Extremity Extremity Narrative: Right knee dressing changed. Anterior incision dry and intact. Posterior incision intact but has a blister in the center of the incision. Will continue to monitor this area closely. No clinical evidence of hematoma. Skin graft shows good adherence with 100% take and good vascular ingrowth. The muscle flap is soft, pink and viable. No clinical evidence of hematoma. Davonte drain with serosanguineous drainage. Abdominal incision is dry and intact. The Davonte drain with serosanguineous drainage. Neuro oriented x3 Assessment & Plan Assessment/Plan (1) Infection of prosthetic right knee joint: (2) Status post revision of total replacement of right knee: (3) History of methicillin resistant Staphylococcus aureus infection: (4) Osteoarthritis of right knee: (5) Infection caused by Enterobacter cloacae: (6) Prediabetes: (7) Former smoker: (8) Open wound of right knee with complication: PLAN: Plan Patient states pain control managed. Right knee dressing changed. Anterior incision dry and intact. Posterior incision is dry and intact but has blistering with small amount of bruising in the center of the incision. Will monitor closely. No clinical evidence of hematoma. Skin graft shows good adherence with 100% take and good vascular ingrowth. The muscle flap is soft, pink and viable. No clinical evidence of hematoma. Davonte drain with serosanguineous drainage. Lower abdominal incision dry and intact. Davonte drain with serosanguineous drainage. Operative cultures negative thus far. He is on Ertapenem IV and Doxycycline PO. ID is managing antibiotics. Prealbumin was 10.4 on 03/05/23. Encourage nutritional supplementation with protein to help the healing process. Hgb is 10.4 today. He will wear the knee immobilizer for several weeks. The Davonte drains will be in for 10-14 days.
--- NOTE | 2023-03-09 15:25 | CHAPLAIN ---
Type of Pastoral Visit _x__ Initial Visit ___ Follow-up Visit ___ On-call Visit ___ General Patient Visit ___ Spiritual Assessment ___ Family Conference ___ Bereavement ___ Rapid Response ___ Code Blue ___ Other (describe below) Pastoral Care Referral From _x__ Patient ___ Family ___ Nurse ___ Physician ___ Market Analyst ___ Drier Operator ___ Other (describe below) Sacrament/Intervention ___ Active listening ___ Anointing ___ Shinto ___ Bereavement ___ Communion ___ Anni exploration ___ ___ Life review ___ Prayer ___ Reconciliation ___ Sacrament of Sick _x__ Supportive presence ___ Wedding ___ Other (describe below) Pastoral Comments patient is welcoming and remembers this portrait consultant from a previous admission; pt admits to having nausea and wishes to just be still and not talk at this time; pt welcomes future visits
--- NOTE | 2023-03-09 21:30 | NURSING ---
Pt voiced being upset and frustrating w/ being in the hospital. He spoke of his w/ MS being @ home w/ their 4 dogs. He said that he worries about them all and his having to take care of the dogs. 1:1 given. Pt seemed to be more at ease after 1:1. Staff to cont. to monitor.
[2023-03-09 21:57] VITALS: PULSE 78; RESP 16; O2SAT 94
[2023-03-10] MEDS: Doxycycline 100 MG CAPSULE PO ×2 (06:16→20:17)
[2023-03-10] MEDS: Meloxicam 7.5 MG Tablet PO ×2 (06:16→20:19)
[2023-03-10] MEDS: Acetaminophen 500 MG Tablet 1000 MG PO ×3 (06:16→20:17)
[2023-03-10] MEDS: Pantoprazole Sodium 40 MG Tablet PO (06:16)
[2023-03-10] MEDS: Lisinopril 10 MG Tablet PO (06:16)
[2023-03-10] MEDS: buPROPion (SR) 150 MG Tablet.SA PO ×2 (06:16→20:18)
[2023-03-10] MEDS: 0.9 % NaCl (Sterile) Posiflush 10 mL IV ×2 (06:19→14:23)
[2023-03-10 06:25] VITALS: BP 136/78; PULSE 73
[2023-03-10] MEDS: Enoxaparin 40 MG/0.4 ML Syringe SC (06:39)
--- NOTE | 2023-03-10 06:43 | NURSING ---
This nurse asked pt about his PICC line and why the length of the exposed catheter is 3cm. Pt stated that it has been like that since it was placed in Outpatient. Exposed catheter length documented in assessment.
[2023-03-10 09:14] VITALS: PULSE 74; O2SAT 95
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
[2023-03-10] MEDS: Alteplase 2 MG/2 ML Vial IV (14:23)
[2023-03-10 14:39] VITALS: BP 116/66; PULSE 75; RESP 20; TEMP 35.9; O2SAT 95
--- NOTE | 2023-03-10 15:11 | CHAPLAIN ---
Type of Pastoral Visit ___ Initial Visit _x__ Follow-up Visit ___ On-call Visit ___ General Patient Visit ___ Spiritual Assessment ___ Family Conference ___ Bereavement ___ Rapid Response ___ Code Blue ___ Other (describe below) Pastoral Care Referral From _x__ Patient ___ Family ___ Nurse ___ Physician ___ Senior Online Marketing Manager ___ Treatment Coordinator ___ Other (describe below) Sacrament/Intervention _x__ Active listening ___ Anointing ___ Pentecostal ___ Bereavement ___ Communion ___ Anni exploration ___ _x__ Life review ___ Prayer ___ Reconciliation ___ Sacrament of Sick _x__ Supportive presence ___ Wedding ___ Other (describe below) Pastoral Comments patient reports not feeling well but is very talkative, getting into some of his discouragements and fears; pt states that he is feeling overwhelmed with the many things upon he and his ; pt feels bad for his , who has MS and on disability, that she has many additional responsibilities now; pt has worries about finances too; exploring their support, the pt states that they have no friends, a son lives nearby but he works very long hours, and his brother is an alcoholic; lots of listening and validation of concerns is given; words of support and encouragement are given too; promise of availability is given; RN came to do wound care and thus the visit ended
--- NOTE | 2023-03-10 15:32 | NURSING ---
Wound Nurse unable to change dressing this shift. This nurse changed dressing to RLE and abdomen. Moderate amount of drainage noted. Pt tolerated dressing change.
--- NOTE | 2023-03-10 15:33 | NURSING ---
Cath Slava administered to PICC line d/t no return blood noted. Left in Picc for 30 min and withdrew 6ml of blood and discarded. PICC line Flushed with ease.
[2023-03-10] MEDS: Juven (unflavored) Packet 1 PACKET PO (17:08)
[2023-03-10] MEDS: oxyCODONE 5 MG Tablet PO (20:19)
[2023-03-10] MEDS: Ondansetron ODT 4 MG Tablet 8 MG PO (20:24)
[2023-03-11] MEDS: oxyCODONE 5 MG Tablet PO ×3 (06:20→21:42)
[2023-03-11] MEDS: 0.9 % NaCl (Sterile) Posiflush 10 mL IV ×2 (06:20→17:21)
[2023-03-11] MEDS: Acetaminophen 500 MG Tablet 1000 MG PO ×3 (06:21→21:44)
[2023-03-11] MEDS: Enoxaparin 40 MG/0.4 ML Syringe SC (06:21)
[2023-03-11] MEDS: Juven (unflavored) Packet 1 PACKET PO ×2 (08:53→17:17)
[2023-03-11] MEDS: Meloxicam 7.5 MG Tablet PO ×2 (08:57→21:43)
[2023-03-11] MEDS: buPROPion (SR) 150 MG Tablet.SA PO ×2 (08:57→21:45)
[2023-03-11] MEDS: Lisinopril 10 MG Tablet PO (08:57)
[2023-03-11] MEDS: Pantoprazole Sodium 40 MG Tablet PO (08:58)
[2023-03-11] MEDS: Doxycycline 100 MG CAPSULE PO ×2 (08:58→21:45)
--- NOTE | 2023-03-11 09:24 | NURSING ---
changed dressing to Rt leg and abdomen. small amt of serous drng noted to inner knee. immobilizer reapplied per order. BHARATHI drain emptied 5cc RT leg, abd drain looks good, not enough to drain
[2023-03-11 10:00] VITALS: PULSE 79; RESP 14; O2SAT 98
[2023-03-11 15:21] VITALS: BP 102/60; PULSE 74; RESP 14; TEMP 36.1; O2SAT 92
[2023-03-11] MEDS: Senna/Docusate Sodium 1 Tablet 2 TABLET PO (17:17)
[2023-03-11] MEDS: Zolpidem Tartrate 5 MG Tablet PO (23:34)
[2023-03-12] MEDS: 0.9 % NaCl (Sterile) Posiflush 10 mL IV ×2 (06:43→08:00)
[2023-03-12] MEDS: Enoxaparin 40 MG/0.4 ML Syringe SC (06:50)
[2023-03-12] MEDS: Acetaminophen 500 MG Tablet 1000 MG PO ×2 (06:50→22:55)
[2023-03-12] MEDS: Juven (unflavored) Packet 1 PACKET PO ×2 (08:00→17:20)
[2023-03-12 10:41] VITALS: BP 126/77; PULSE 75; RESP 15; TEMP 36.4; O2SAT 95
[2023-03-12] MEDS: Meloxicam 7.5 MG Tablet PO ×2 (10:45→22:55)
[2023-03-12] MEDS: Lisinopril 10 MG Tablet PO (10:45)
[2023-03-12] MEDS: Doxycycline 100 MG CAPSULE PO ×2 (10:45→22:54)
[2023-03-12] MEDS: Pantoprazole Sodium 40 MG Tablet PO (10:45)
[2023-03-12] MEDS: buPROPion (SR) 150 MG Tablet.SA PO ×2 (10:45→22:54)
--- NOTE | 2023-03-12 17:27 | NURSING ---
30mL removed from right leg BHARATHI drain. 10mL removed from left abdominal BHARATHI drain.
[2023-03-12] MEDS: diazePAM 5 MG Tablet PO (19:57)
[2023-03-12] MEDS: oxyCODONE 5 MG Tablet PO (22:54)
[2023-03-13] MEDS: Enoxaparin 40 MG/0.4 ML Syringe SC (06:53)
[2023-03-13] MEDS: 0.9 % NaCl (Sterile) Posiflush 10 mL IV ×2 (06:56→08:47)
[2023-03-13] MEDS: Juven (unflavored) Packet 1 PACKET PO ×2 (08:37→17:12)
[2023-03-13] MEDS: Meloxicam 7.5 MG Tablet PO ×2 (08:38→22:10)
[2023-03-13] MEDS: Pantoprazole Sodium 40 MG Tablet PO (08:38)
[2023-03-13] MEDS: Doxycycline 100 MG CAPSULE PO ×2 (08:38→22:09)
[2023-03-13] MEDS: buPROPion (SR) 150 MG Tablet.SA PO ×2 (08:39→22:10)
[2023-03-13 08:41] VITALS: BP 118/70
[2023-03-13] MEDS: Lisinopril 10 MG Tablet PO (08:42)
[2023-03-13 14:40] VITALS: BP 105/60; PULSE 88; RESP 18; TEMP 36.3; O2SAT 91
[2023-03-13] MEDS: Acetaminophen 500 MG Tablet 1000 MG PO ×2 (14:50→22:09)
--- NOTE | 2023-03-13 21:43 | NURSING ---
Spoke w/ Dr. Burden requesting Senna-S frequency be changed to PRN as pt does not wish to take on a routine basis. New order received and read back. Noted on SEP.
[2023-03-13] MEDS: oxyCODONE 5 MG Tablet PO (22:12)
[2023-03-14] MEDS: Enoxaparin 40 MG/0.4 ML Syringe SC (06:45)
[2023-03-14] MEDS: 0.9 % NaCl (Sterile) Posiflush 10 mL IV (06:46)
[2023-03-14] MEDS: Juven (unflavored) Packet 1 PACKET PO ×2 (07:47→17:32)
--- NOTE | 2023-03-14 09:46 | CASEMGMT ---
BIMS () and PHQ9 (04/20) assessments completed on this date for MDS assessment. SW spoke with pt regarding mood and encouraged verbalization of feelings. Pt is frustrated with ongoing medical issues with need and need for ECF. Pt also feels as though he is letting his down due to his medical issues when she has medical issues of her own and he feels he should be caring for her. Support provided. Pt has been provided a list of counseling services. MYA Sanchez
[2023-03-14] MEDS: Lisinopril 10 MG Tablet PO (09:56)
[2023-03-14] MEDS: Meloxicam 7.5 MG Tablet PO ×2 (09:56→21:21)
[2023-03-14] MEDS: buPROPion (SR) 150 MG Tablet.SA PO ×2 (09:56→21:23)
[2023-03-14] MEDS: Pantoprazole Sodium 40 MG Tablet PO (09:56)
[2023-03-14] MEDS: Doxycycline 100 MG CAPSULE PO ×2 (09:56→21:21)
[2023-03-14 10:09] VITALS: BP 128/64; PULSE 84; RESP 16; TEMP 36.6; O2SAT 94
--- NOTE | 2023-03-14 12:00 | CASEMGMT ---
Social Work SW spoke with pt regarding dc plan. Pt feels he may be ready for d/c, but he would like the input of orthopedic doctor. Pt has an appointment on Tuesday with ortho and will discuss with them then. SW will follow up after ortho appointment to set a discharge date. Team notified of plan. MYA Sanchez
--- NOTE | 2023-03-14 17:28 | NURSING ---
YESICA JUAREZ NP HERE CHANGED DRESSINGS TO ABDOMEN AND RT KNEE.
--- NOTE | 2023-03-14 17:29 | PCM.PN.SRG ---
Subjective Subjective Postop #10 Pain is well controlled. He would like to go home. Objective Data Objective Data Vital Signs: Vital Signs Temp Pulse Resp BP Pulse Ox O2 Del Method 98 F 84 16 128/64 H 94 Room Air 03/14/23 10:09 03/14/23 10:09 03/14/23 10:09 03/14/23 10:09 03/14/23 10:09 03/14/23 10:09 Oxygen Delivery Method Room Air Weight: 178 lb 8 oz Body Mass Index (BMI) 30.6 Intake & Output: Intake and Output for Last 24 Hours 03/12/23 03/13/23 03/14/23 23:59 23:59 23:59 Intake Total 1229.25 / 1229.25 1130 / 1130 795 / 795 Output Total 5 Balance 1209.25 / 1209.25 1113 / 1113 790 / 790 Lab / Micro Data 03/09/23 05:27 03/09/23 05:27 Physical Exam Const alert and oriented x3 General Appearance: cooperative HEENT normocephalic Head and Scalp: atraumatic Eyes General Eye: normal appearance of both eyes Resp normal respiratory effort Effort and Inspection: able to speak in complete sentences Cardio regular rate Extremity Extremity Narrative: Right knee dressing changed. Anterior incision dry and intact. Posterior incision dry and intact. The blister in the center of the incision has resolved. No clinical evidence of hematoma. Skin graft shows good adherence with 100% take and good vascular ingrowth. The muscle flap is soft, pink and viable. No clinical evidence of hematoma. Davonte drain with minimal serosanguineous drainage. Abdominal incision is dry and intact and healing well. The Davonte drain with minimal serosanguineous drainage. Neuro oriented x3 Psych mental status grossly normal Assessment & Plan Assessment/Plan (1) Infection of prosthetic right knee joint: (2) Status post revision of total replacement of right knee: (3) History of methicillin resistant Staphylococcus aureus infection: (4) Osteoarthritis of right knee: (5) Infection caused by Enterobacter cloacae: (6) Prediabetes: (7) Former smoker: (8) Open wound of right knee with complication: PLAN: Plan Patient states pain control managed. Right knee dressing changed. Anterior incision dry and intact. Posterior incision is dry and intact but has blistering with small amount of bruising in the center of the incision. Will monitor closely. No clinical evidence of hematoma. Skin graft shows good adherence with 100% take and good vascular ingrowth. The muscle flap is soft, pink and viable. No clinical evidence of hematoma. Davonte drain with serosanguineous drainage. Lower abdominal incision dry and intact. Davonte drain with serosanguineous drainage. Dressing changed. Operative cultures from 03/04/23 negative thus far. He is on Ertapenem IV and Doxycycline PO. ID is managing antibiotics. Prealbumin was 10.4 on 03/05/23. Encourage nutritional supplementation with protein to help the healing process. Hgb is 10.4 today. He will wear the knee immobilizer for several weeks. The Davonte drains will be in for 10-14 days.
[2023-03-14] MEDS: Acetaminophen 500 MG Tablet 1000 MG PO (21:20)
[2023-03-15] MEDS: diazePAM 5 MG Tablet PO ×2 (00:24→22:02)
[2023-03-15] MEDS: oxyCODONE 5 MG Tablet PO ×2 (00:26→22:02)
[2023-03-15] MEDS: Acetaminophen 500 MG Tablet 1000 MG PO ×3 (05:56→22:01)
[2023-03-15] MEDS: Enoxaparin 40 MG/0.4 ML Syringe SC (05:57)
[2023-03-15] MEDS: buPROPion (SR) 150 MG Tablet.SA PO ×2 (08:49→22:02)
[2023-03-15] MEDS: Lisinopril 10 MG Tablet PO (08:49)
[2023-03-15] MEDS: Doxycycline 100 MG CAPSULE PO ×2 (08:49→22:02)
[2023-03-15] MEDS: Juven (unflavored) Packet 1 PACKET PO ×2 (08:49→17:21)
[2023-03-15] MEDS: Meloxicam 7.5 MG Tablet PO ×2 (08:49→22:02)
[2023-03-15] MEDS: Pantoprazole Sodium 40 MG Tablet PO (08:49)
[2023-03-15 08:53] VITALS: BP 128/66; PULSE 66
[2023-03-15 10:56] VITALS: BMI 29.2
--- NOTE | 2023-03-15 14:52 | WOUNDNOTE ---
wound photo: right lower leg
--- NOTE | 2023-03-15 14:54 | WOUNDNOTE ---
wound photo: right leg
--- NOTE | 2023-03-15 14:55 | WOUNDNOTE ---
wound photo: right lower leg
--- NOTE | 2023-03-15 14:56 | WOUNDNOTE ---
wound photo: abdomen
[2023-03-15 15:34] VITALS: BP 104/62; PULSE 76; RESP 16; TEMP 36.3; O2SAT 96
[2023-03-15] MEDS: 0.9 % NaCl (Sterile) Posiflush 10 mL IV (15:34)
[2023-03-16] MEDS: Enoxaparin 40 MG/0.4 ML Syringe SC (05:28)
[2023-03-16] MEDS: Acetaminophen 500 MG Tablet 1000 MG PO ×2 (05:29→21:08)
[2023-03-16 05:40] LABS: Absolute Lymphocyte Count 2.57 X10^3/uL (0.83-4.51); Absolute Neutrophil Count 2.8 X10^3/uL (2.0-7.7); Basophil# 0.05 X10^3/uL; Basophil% 0.8 % (0-1); Eosinophil# 0.31 X10^3/uL; Eosinophils% 4.9 % (0-5); Hematocrit 35.1 % (40-54); Hemoglobin 11.1 g/dL (13.0-16.5); Lymphocyte # 2.57 X10^3/ul (0.83-4.51); Lymphocyte % 40.5 % (19-41); Mean Corp Hgb Conc 31.6 g/dL (32-36); Mean Corpuscular Hgb 26.4 pg (27.0-32.0); Mean Corpuscular Volume 83.6 fL (80-94); Mean Platelet Vol. 9.5 fl (6.2-12.0); Monocyte# 0.61 X10^3/uL; Monocyte% 9.6 % (0-10); NRBC Flagged by Analyzer 0 % (0-5); Neutrophil # 2.78 X10^3/uL (2.7-7.7); Neutrophil % 43.7 % (47-70); Platelet Count 379 K/mm3 (150-450); RBC Distribution Width CV 14.9 % (11.6-14.6); White Blood Count 6.4 K/mm3 (4.4-11.0)
[2023-03-16 06:04] LABS: Anion Gap 7 (5-15); BUN 31 mg/dL (7-18); BUN/Creat Ratio 29.8 RATIO (10-20); Chloride 106 mmol/L (98-107); Creatinine, Serum 1.04 mg/dL (0.70-1.30); EST Glomerular Filtration Rate 77 mL/min (>60); Est Glom Filt Rate - Afr Amer 93 mL/min (>60); Estimated Creatinine Clearance 60.88 ml/min; Glucose 106 mg/dL (74-106); Potassium 4.1 mmol/L (3.5-5.1); Sodium Level 138 mmol/L (136-145)
[2023-03-16 06:15] LABS: Erythrocyte Sedimentation Rate 30 mm/hr (0-20)
[2023-03-16 06:20] LABS: AST(SGOT) 15 U/L (15-37); Alanine Aminotransfer ALT/SGPT 38 U/L (16-61); Albumin, Serum 3.1 g/dL (3.2-5.0); Alkaline Phosphatase 138 U/L (45-117); Bilirubin, Direct 0.08 mg/dL (0.00-0.30); Globulin 3.3 g/dL (2.2-4.2); Protein, Total 6.4 g/dL (6.4-8.2)
[2023-03-16] MEDS: Juven (unflavored) Packet 1 PACKET PO ×2 (07:58→18:33)
[2023-03-16 08:59] VITALS: BP 122/69; PULSE 69; RESP 16; TEMP 36; O2SAT 98
[2023-03-16] MEDS: Tuberculin,Purif.prot.deriv. 50 TU/ML Vial 0.1 ML ID (09:02)
[2023-03-16] MEDS: Meloxicam 7.5 MG Tablet PO ×2 (09:02→21:08)
[2023-03-16] MEDS: Pantoprazole Sodium 40 MG Tablet PO (09:02)
[2023-03-16] MEDS: Doxycycline 100 MG CAPSULE PO ×2 (09:02→21:08)
[2023-03-16] MEDS: buPROPion (SR) 150 MG Tablet.SA PO ×2 (09:03→21:08)
[2023-03-16] MEDS: Lisinopril 10 MG Tablet PO (09:03)
--- NOTE | 2023-03-16 10:46 | NURSING ---
Offered covid vaccine, education about vaccine provided. Patient refuses at this time.
--- NOTE | 2023-03-16 11:08 | CASEMGMT ---
Social Work IDT met with patient and for care plan meeting. Discussed patient's progress in PT/OT/SN. Educated to MOLOME insurance with NRD 03/21, EDC 03/23. Pt has f/u appt with ortho this afternoon and determine dr's recommendations on DC. Pt is on IV ATB through 04/15 and wounds. Pt has self-administered IVs prior and agreeable to completing again. Pt will DC home with support. SW to assist with DC needs. Will continue to follow. NIKOLAS Dorsey ELEVATOR REPAIR MECHANIC
--- NOTE | 2023-03-16 11:48 | NURSING ---
Senior Salesforce Developer Note; MDS for 03/15/2023 Complete
--- NOTE | 2023-03-16 13:18 | CHAPLAIN ---
Type of Pastoral Visit ___ Initial Visit _x__ Follow-up Visit ___ On-call Visit ___ General Patient Visit ___ Spiritual Assessment ___ Family Conference ___ Bereavement ___ Rapid Response ___ Code Blue ___ Other (describe below) Pastoral Care Referral From _x__ Patient ___ Family ___ Nurse ___ Physician ___ Solder Cream Maker ___ Six Sigma Black Belt Engineer ___ Other (describe below) Sacrament/Intervention _x__ Active listening ___ Anointing ___ Anglican ___ Bereavement ___ Communion ___ Anni exploration ___ ___ Life review ___ Prayer ___ Reconciliation ___ Sacrament of Sick _x__ Supportive presence ___ Wedding ___ Other (describe below) Pastoral Comments patient is eating lunch; spouse is with him and he introduces same to this healthcare recruiter; pt reports on his status and an appointment he will go to soon; pt speaks of his support from and how he depends on her; offer to return another time is welcomed
--- NOTE | 2023-03-16 15:05 | PN.SURG_ITS ---
Subjective Subjective Postop #12 Patient states he is having minimal discomfort. Objective Data Objective Data Vital Signs: Vital Signs Temp Pulse Resp BP Pulse Ox O2 Del Method 96.8 F L 69 16 122/69 H 98 Room Air 03/16/23 08:59 03/16/23 08:59 03/16/23 08:59 03/16/23 08:59 03/16/23 08:59 03/16/23 08:59 Oxygen Delivery Method Room Air Weight: 170 lb Body Mass Index (BMI) 29.2 Intake & Output: Intake and Output for Last 24 Hours 03/14/23 03/15/23 03/16/23 23:59 23:59 23:59 Intake Total 1275 / 1275 1250 / 1250 630 / 630 Output Total / Balance 1270 / 1270 1230 / 1230 603 / 603 Lab / Micro Data 03/16/23 05:15 03/16/23 05:15 Labs: Laboratory Results - last 24 hr 03/16/23 05:15: WBC 6.4, RBC 4.20 L, Hgb 11.1 L, Hct 35.1 L, MCV 83.6, MCH 26.4 L, MCHC 31.6 L, RDW Std Deviation 45.0 H, RDW Coeff of Clemente 14.9 H, Plt Count 379, MPV 9.5, Immature Gran % (Auto) 0.500, Neut % (Auto) 43.7 L, Lymph % (Auto) 40.5, [place] % (Auto) 9.6, Eos % (Auto) 4.9, Baso % (Auto) 0.8, Absolute Neuts (auto) 2.8, Absolute Lymphs (auto) 2.57, Nucleated RBC % 0, ESR 30 H, Sodium 138, Potassium 4.1, Chloride 106, Carbon Dioxide 25.0, Anion Gap 7, BUN 31 H, Creatinine 1.04, Estim Creat Clear Calc 60.88, Est GFR (MDRD) Af Amer 93, Est GFR (MDRD) Non-Af 77, BUN/Creatinine Ratio 29.8 H, Glucose 106, Calcium 9.0, Total Bilirubin 0.30, Direct Bilirubin 0.08, AST 15, ALT 38, Alkaline Phosphatase 138 H, Total Protein 6.4, Albumin 3.1 L, Globulin 3.3 Physical Exam Const alert and oriented x3 General Appearance: cooperative HEENT normocephalic Head and Scalp: atraumatic Eyes General Eye: normal appearance of both eyes Resp normal respiratory effort Effort and Inspection: able to speak in complete sentences Cardio regular rate Peripheral Pulses: dorsalis pedis pulses present Extremity Extremity Narrative: Right knee dressing changed. Anterior incision dry and intact. Posterior incision dry and intact. The blister in the center of the incision has resolved. No clinical evidence of hematoma. Skin graft shows good adherence with 100% take and good vascular ingrowth. The muscle flap is soft, pink and viable. No clinical evidence of hematoma. Davonte drain with minimal serosanguineous drainage. Abdominal incision is dry and intact and healing well. The Davonte drain with minimal serosanguineous drainage. Neuro oriented x3 Psych mental status grossly normal Assessment & Plan Assessment/Plan (1) Infection of prosthetic right knee joint: (2) Status post revision of total replacement of right knee: (3) History of methicillin resistant Staphylococcus aureus infection: (4) Osteoarthritis of right knee: (5) Infection caused by Enterobacter cloacae: (6) Prediabetes: (7) Former smoker: (8) Open wound of right knee with complication: PLAN: Plan Patient states pain control managed. Right knee dressing changed. Anterior incision dry and intact. Posterior incision is dry and intact, blistered area is healing well. No clinical evidence of hematoma. Skin graft shows good adherence with 100% take and good vascular ingrowth. The muscle flap is soft, pink and viable. No clinical evidence of hematoma. Davonte drain with minimal serosanguineous drainage. Lower abdominal incision dry and intact and healing well. Davonte drain with minimal serosanguineous drainage. Dressing changed. Operative cultures from 03/04/23 negative thus far. He is on Ertapenem IV and Doxycycline PO. ID is managing antibiotics. Prealbumin was 10.4 on 03/05/23. Encourage nutritional supplementation with protein to help the healing process. He will wear the knee immobilizer for several weeks. Will consider removing the Davonte drains in 2 days. Charges/Coding Procedures Integumentary [id number]: [id number] Global Visit
[2023-03-16 20:15] VITALS: PULSE 80; RESP 16; O2SAT 98
[2023-03-16] MEDS: diazePAM 5 MG Tablet PO (21:07)
[2023-03-16] MEDS: oxyCODONE 5 MG Tablet PO (23:26)
[2023-03-17] MEDS: Acetaminophen 500 MG Tablet 1000 MG PO ×3 (06:00→21:33)
[2023-03-17] MEDS: Enoxaparin 40 MG/0.4 ML Syringe SC (06:01)
[2023-03-17] MEDS: Juven (unflavored) Packet 1 PACKET PO ×2 (09:18→17:27)
[2023-03-17] MEDS: Doxycycline 100 MG CAPSULE PO ×2 (09:18→21:34)
[2023-03-17] MEDS: Pantoprazole Sodium 40 MG Tablet PO (09:18)
[2023-03-17] MEDS: Lisinopril 10 MG Tablet PO (09:19)
[2023-03-17] MEDS: Meloxicam 7.5 MG Tablet PO ×2 (09:19→21:33)
[2023-03-17] MEDS: buPROPion (SR) 150 MG Tablet.SA PO ×2 (09:19→21:34)
[2023-03-17 09:24] VITALS: BP 117/71; PULSE 77
--- NOTE | 2023-03-17 15:08 | CASEMGMT ---
Social Work SW followed up with pt about completing advanced directives. Pt would like to name as primary and youngest son as secondary. SW educated pt to getting son's contact information to completing documents. Once pt has information, to notify this worker and SW can complete AD. Pt expressed understanding. Mini Zuniga, ENTRY TECH [employer]SPORTATION DRIVER
[2023-03-17 15:26] VITALS: BP 114/67; PULSE 69; RESP 14; TEMP 36.2; O2SAT 98
[2023-03-17] MEDS: 0.9 % NaCl (Sterile) Posiflush 10 mL IV (17:27)
[2023-03-17] MEDS: diazePAM 5 MG Tablet PO (21:32)
[2023-03-18] MEDS: oxyCODONE 5 MG Tablet PO (03:39)
[2023-03-18] MEDS: Enoxaparin 40 MG/0.4 ML Syringe SC (05:46)
[2023-03-18] MEDS: 0.9 % NaCl (Sterile) Posiflush 10 mL IV ×2 (05:46→13:39)
[2023-03-18] MEDS: Acetaminophen 500 MG Tablet 1000 MG PO ×3 (05:46→21:27)
--- NOTE | 2023-03-18 08:58 | MDS.RN ---
Information for the mds was obtained from review of the clinical record, interview of resident, staff, and direct observation of resident's care.
[2023-03-18] MEDS: Lisinopril 10 MG Tablet PO (09:07)
[2023-03-18] MEDS: buPROPion (SR) 150 MG Tablet.SA PO ×2 (09:07→21:27)
[2023-03-18] MEDS: Juven (unflavored) Packet 1 PACKET PO ×2 (09:07→17:21)
[2023-03-18] MEDS: Doxycycline 100 MG CAPSULE PO ×2 (09:07→21:27)
[2023-03-18] MEDS: Meloxicam 7.5 MG Tablet PO ×2 (09:07→21:27)
[2023-03-18] MEDS: Pantoprazole Sodium 40 MG Tablet PO (09:07)
[2023-03-18 09:15] VITALS: BP 129/76; PULSE 77
[2023-03-18 16:00] VITALS: BP 112/66; PULSE 70; RESP 16; TEMP 36; O2SAT 92
[2023-03-18] MEDS: diazePAM 5 MG Tablet PO (21:27)
--- NOTE | 2023-03-18 21:27 | PCM.PN.SRG ---
Subjective Subjective Postop #14 Patient is resting comfortably. Objective Data Objective Data Vital Signs: Vital Signs Temp Pulse Resp BP Pulse Ox O2 Del Method 96.8 F L 70 16 112/66 92 Room Air 03/18/23 16:00 03/18/23 16:00 03/18/23 16:00 03/18/23 16:00 03/18/23 16:00 03/18/23 16:00 Oxygen Delivery Method Room Air Weight: 170 lb Body Mass Index (BMI) 29.2 Intake & Output: Intake and Output for Last 24 Hours 03/16/23 03/17/23 03/18/23 23:59 23:59 23:59 Intake Total 850 / 850 890 / 890 770 / 770 Output Total Balance 823 / 823 865 / 865 770 / 770 Drainage 25 ml yesterday. Prealbumin from 03/05/23 was 10.4. Encourage nutritional supplementation with protein to help the healing process. Lab / Micro Data Attestation: I reviewed the patient's lab results. Lab results narrative: HgbA1c from 01/14/23 was 6.2. For elective surgery, the HgbA1c needs to be less than 8. 03/16/23 05:15 03/16/23 05:15 Physical Exam Narrative PHYSICAL EXAMINATION General - Alert and Oriented HEENT - PERRL. EOMI. Neck - Supple and nontender. Abdomen - Soft and nondistended. lower anterior abdominal wall incision dry and intact. Extremities - No inguinal adenopathy. Dorsalis pedis pulses are palpable. Muscle flap right knee/proximal leg is soft, pink and viable. Skin graft shows 100% take and good adherence. Good vascular ingrowth seen. Sensation intact to light touch (sural, saphenous, superficial and deep peroneal, and tibial). Dorsiflexion and plantar flexion intact. Neuro - CN II-XII grossly intact. Psych - Normal mood and affect. Assessment & Plan Assessment/Plan (1) Infection of prosthetic right knee joint: (2) Status post revision of total replacement of right knee: (3) Open wound of right knee with complication: (4) History of methicillin resistant Staphylococcus aureus infection: (5) Osteoarthritis of right knee: (6) Infection caused by Enterobacter cloacae: (7) Prediabetes: (8) Former smoker: PLAN: Plan Lower anterior abdominal wall incision dry and intact. Right knee incision dry and intact. Posterior right leg incision dry and intact. No clinical evidence of hematoma. Skin graft shows good adherence with 100% take and good vascular ingrowth. The muscle flap is soft, pink and viable. No clinical evidence of hematoma. Drainage was 25 ml yesterday. Both drains removed today without difficulty (lower anterior abdominal wall and right posterior leg and knee). Operative cultures from 03/04/23 negative thus far. He is on Ertapenem IV and Doxycycline PO. ID is managing antibiotics. Prealbumin was 10.4 on 03/05/23. Encourage nutritional supplementation with protein to help the healing process. Hgb from 03/16/23 was 11.1. He will wear the knee immobilizer for several weeks. Nursing to apply Bactroban ointment to skin graft right knee/proximal leg at the time of the dressing changes. Will remove the bolsters anchoring the muscle flap in place next week.
[2023-03-19] MEDS: oxyCODONE 5 MG Tablet PO ×2 (01:47→23:19)
[2023-03-19] MEDS: 0.9 % NaCl (Sterile) Posiflush 10 mL IV (06:56)
[2023-03-19] MEDS: Enoxaparin 40 MG/0.4 ML Syringe SC (06:56)
[2023-03-19] MEDS: Acetaminophen 500 MG Tablet 1000 MG PO ×3 (06:57→23:21)
[2023-03-19] MEDS: Lisinopril 10 MG Tablet PO (09:08)
[2023-03-19] MEDS: Juven (unflavored) Packet 1 PACKET PO ×2 (09:08→17:13)
[2023-03-19] MEDS: Pantoprazole Sodium 40 MG Tablet PO (09:08)
[2023-03-19] MEDS: buPROPion (SR) 150 MG Tablet.SA PO ×2 (09:09→23:22)
[2023-03-19] MEDS: Meloxicam 7.5 MG Tablet PO ×2 (09:09→23:22)
[2023-03-19] MEDS: Doxycycline 100 MG CAPSULE PO ×2 (09:09→23:22)
[2023-03-19 09:14] VITALS: BP 119/81; PULSE 77
[2023-03-19 11:01] VITALS: PULSE 84; RESP 16; O2SAT 95
[2023-03-19 16:00] VITALS: BP 134/67; PULSE 77; RESP 18; TEMP 36.7; O2SAT 97
[2023-03-19] MEDS: diazePAM 5 MG Tablet PO (23:19)
[2023-03-20] MEDS: 0.9 % NaCl (Sterile) Posiflush 10 mL IV (06:47)
[2023-03-20] MEDS: Enoxaparin 40 MG/0.4 ML Syringe SC (06:52)
[2023-03-20] MEDS: Acetaminophen 500 MG Tablet 1000 MG PO ×3 (06:53→21:37)
[2023-03-20] MEDS: Juven (unflavored) Packet 1 PACKET PO ×2 (09:35→17:47)
[2023-03-20] MEDS: Meloxicam 7.5 MG Tablet PO ×2 (09:37→21:38)
[2023-03-20] MEDS: Lisinopril 10 MG Tablet PO (09:37)
[2023-03-20] MEDS: buPROPion (SR) 150 MG Tablet.SA PO ×2 (09:37→21:38)
[2023-03-20] MEDS: Doxycycline 100 MG CAPSULE PO ×2 (09:37→21:37)
[2023-03-20] MEDS: Pantoprazole Sodium 40 MG Tablet PO (09:37)
[2023-03-20 09:41] VITALS: BP 141/68; PULSE 78; RESP 16; TEMP 36.6; O2SAT 94
--- NOTE | 2023-03-20 19:45 | NURSING ---
Pt noted to be by the elevator. Pt then sits in a chair down from the elevator in the hallway. This nurse sat w/ pt for approximately 15-20 minutes. Pt expresses the desire to leave the hospital. Notes he would be able to find a ride. Pt does not think he will go home and has a friend who lives in a 5th wheel camper or his brother who he can stay with. His relationship w/ his is strained with onset well before admission to TCU. Pt emotionally labile throughout the conversation. Emotional support and active listening provided throughout the conversation. Pt becomes upset that his healing process is slow and acknowledges he did not adhere to the plan of care set per the surgeon w/ his last surgery. Pt is agreeable to stay this evening and repeatedly expresses the desire to leave as soon as possible. Informed pt staff needs to ensure dc destination will be safe. Encouraged pt to discuss concerns w/ SW an may consider speaking to the catering driver for additional support. Pt expresses appreciation for time spent w/ him this evening. Left vm for SW, Mini, to update. Spoke w/ Solid Fiber Paster Operator, DENISSE Olvera, to update. Will continue to monitor.
[2023-03-20] MEDS: oxyCODONE 5 MG Tablet PO (21:36)
[2023-03-20] MEDS: diazePAM 5 MG Tablet PO (21:36)
[2023-03-20 21:43] VITALS: PULSE 77; RESP 18; O2SAT 94
[2023-03-21] MEDS: Acetaminophen 500 MG Tablet 1000 MG PO ×3 (05:06→21:07)
[2023-03-21] MEDS: Enoxaparin 40 MG/0.4 ML Syringe SC (05:06)
--- NOTE | 2023-03-21 08:53 | CASEMGMT ---
Addendum entered by Mini Zuniga 03/21/23 09:54: SW spoke with pt to update on DC plans. Pt agreeable and appreciative of efforts for timely DC. Original Note: Social Work Received several communications from staff stating pt is adamant about discharging home as soon as possible. Pt's insurance update is this date and is anticipating a LCD to be issued. In preparation, this worker sent referral for IV ATB to [facility] via [facility] to begin processing. Pt also used [facility] prior and has requested prior to utilize them at DC. SW sent referral to [facility] via [facility] as well. SW will follow up with pt and assist with DC planning. Mini Zuniga, NIKOLAS LIANGW
[2023-03-21 09:14] VITALS: BP 124/79; PULSE 77; RESP 17; TEMP 36.5; O2SAT 94
[2023-03-21] MEDS: Doxycycline 100 MG CAPSULE PO ×2 (09:18→21:07)
[2023-03-21] MEDS: buPROPion (SR) 150 MG Tablet.SA PO ×2 (09:18→21:07)
[2023-03-21] MEDS: Meloxicam 7.5 MG Tablet PO ×2 (09:18→21:07)
[2023-03-21] MEDS: Lisinopril 10 MG Tablet PO (09:18)
[2023-03-21] MEDS: Pantoprazole Sodium 40 MG Tablet PO (09:18)
[2023-03-21] MEDS: Juven (unflavored) Packet 1 PACKET PO ×2 (09:18→17:22)
--- NOTE | 2023-03-21 14:07 | PCM.PN.ID ---
Physical Exam Narrative Feeling well, getting around with walker, knee improving, no fever, no n/v/d Const alert and no apparent distress Resp normal air movement and clear to auscultation bilaterally Cardio regular rate and regular rhythm GI soft to palpation, non-tender and non-distended Skin Skin Narrative: RLE wrapped ID ID: Route of nutrition/ use of supplements: [] Nutritional Intake: [] IV Site: [] Ramirez Catheter: [] Assessment & Plan Assessment/Plan (1) Infection of prosthetic right knee joint: PLAN: Taken to OR 01/26/[address] Reilly for revision of R knee. H/o MSSA PJI several years ago. Surg cx with enterobacter. Discharged on ertapenem for 6 week course with stop date 03/11/23 and weekly labs. Now re-admitted with sinus tract, taken to OR 03/04/[address] Reilly and Dr. Parra for I&D, poly exchange, and skin coverage. Surg cx neg so far. On 6 weeks iv erta and po doxy with stop date 04/15/23 and weekly bmp, cbc, LFT, and esr. ID followup in 3 weeks, wrote rx, d/w major case detective will follow
[2023-03-21 19:53] VITALS: PULSE 76; RESP 16; O2SAT 97
--- NOTE | 2023-03-21 20:01 | DS.PCM_ITS ---
Providers Date of Admission: 03/08/23 Primary Care Physician: Dr. Gerri Leary MD Consultations 03/08/23 16:52 Consult: Infectious Disease Routine Consulting Provider: Chris Middleton Reason for Consult: Right PJI s/p polyethylene exchange, skin graft. EMERGENT Consult: No Notified: Yes Date Notified: 03/08/23 Time Notified: 16:52 Method of Notification: Answering Service 03/08/23 16:53 Consult: Plastic Surgery Routine Consulting Provider: Tigre Parra Reason for Consult: Right PJI s/p polyethylene exchange, skin graft. EMERGENT Consult: No Notified: Yes Date Notified: 03/08/23 Time Notified: 16:53 Method of Notification: Answering Service 03/09/23 12:53 Consult: Onc/Wound/manager laboratory Routine Comment: Reason For Visit: RIGHT KNEE REVISION Diagnosis Discharge Diagnosis (1) Infection of prosthetic right knee joint: Status: Acute Code(s): T84.53XA - Infection and inflammatory reaction due to internal right knee prosthesis, initial encounter Plan 62 year old male with below past medical history hospitalized for right knee prosthetic joint infection, underwent polyethylene exchange 03/04/[address] Reilly, Skin coverage surgery 03/04/[address] Parra, admitted to TCU with debility, here for rehabilitation, strengthening, intravenous antibiotics, prior to discharge home with . * Debility - PT/OT. * Pain - Tylenol 1000mg tid, Oxycodone 5-10mg q6h prn. * Bowel - senna/colace 2 tablets bid, Magnesium citrate 300ml po daily prn. * Adult immunization - Administer pneumonia vaccine, covid19 vaccine, flu vaccine as appropriate. * DVT prophylaxis - Lovenox 40mg sc daily. * Depression - Bupropion 150mg bid, stable chronic manager terminal use, GDR not recommended. * Right knee prosthetic joint infection s/p polyethylene exchange - Doxycycline 100mg bid thru 04/17/2023, Ertapenem 1gm iv q24 thru 04/16/2023, Consult Dr. Middleton to follow. * Right knee s/p muscle flap, skin graft - consult Dr. Parra to follow. * Nutrition - Glucerna shake 120ml po tidcm, Alvarez 1 packet po bidcm. * Hypertension - Lisinopril 10mg daily. * Osteoarthritis - Meloxicam 7.5mg bid. * GERD - Pantoprazole 40mg daily. Medications at Discharge Home Medications bupropion HCl 150 mg tablet,12 hr sustained-release (Wellbutrin SR) 150 mg PO BID DEPRESSION 01/13/23 lisinopril 10 mg tablet 10 mg PO DAILY BP 01/13/23 pantoprazole 40 mg tablet,delayed release 40 mg PO DAILY GERD 01/13/23 acetaminophen 500 mg tablet 1,000 mg (2 x 500 mg) PO TID PAIN #100 tabs 01/28/23 meloxicam 7.5 mg tablet 7.5 mg PO BID PAIN 30 days #60 tabs 01/28/23 ertapenem 1 gram solution for injection 1 g IM Q24H infection #40 ea 03/07/23 arginine 7 gram-glutam 7 gram-CaHMB 1.5 retd-gvvdl-ia-min oral pwd pkt (Alvarez (with collagen)) 1 packet PO BIDCM 30 days #60 ea 03/21/23 diazepam 5 mg tablet 5 mg PO 4X/DAY PRN PRN Spasms 7 days #28 tabs 03/21/23 doxycycline monohydrate 100 mg capsule 100 mg PO 1000,2200 20 days #40 caps 03/21/23 ertapenem 1 gram solution for injection 1 g IV DAILY 25 days #25 ea 03/21/23 oxycodone 5 mg tablet 5 - 10 mg (1 - 2 x 5 mg) PO Q6H PRN PRN Pain Score 3-10 7 days #28 tabs 03/21/23 zolpidem 5 mg tablet 5 mg PO QHS PRN PRN Insomnia #0 tabs 03/21/23 Hospital Course Operations - (See below.) Procedures None Summary of Care Provided Minutes Spent on Discharge: 35 Hospital Course: 62 year old male with below past medical history hospitalized for right knee prosthetic joint infection, underwent polyethylene exchange 03/04/[address] Reilly, Skin coverage surgery 03/04/[address] Parra, admitted to TCU with debility, here for rehabilitation, strengthening, intravenous antibiotics, prior to discharge home with . On 6 weeks iv ertapenem and po doxycycline with stop date 04/15/23 Discharge home 03/22/2023, [facility] IV antibiotics. Physical Exam Const alert General Appearance: cooperative HEENT normocephalic Eyes PERRL and EOMs intact bilaterally Neck supple, no JVD and no carotid bruits Resp normal respiratory effort, normal air movement and clear to auscultation bilaterally Cardio regular rate and regular rhythm GI normal to inspection, nondistended, normoactive bowel sounds, non-tender and non-distended Extremity normal capillary refill General Extremity: Negative for edema Skin no rashes or lesions noted General Skin Exam: no breakdown Psych affect normal Appearance: appropriate Weight / BMI Weight Weight: 77.111 kg Body Mass Index (BMI) 29.2 ABG / Lab / Microbiology Data 03/16/23 05:15 03/16/23 05:15 D/C Instructions Discharge Diet: No restrictions Discharge Activity: Return to Normal Activity, May Shower and Use Walker Weight Bearing Status: Weight bearing as tolerated Call your doctor if you observe: Fever of 101 or Higher, Inability to urinate, Inability to have a bowel movement, Shortness of breath, Dizziness, Fainting spells, Swelling in the ankles, Chest pain and Uncontrolled pain Additional Instructions: Discharge home 03/22/2023, [facility] IV antibiotics. Please Follow Up With: Chris Middleton MD When: 3 weeks. Meaningful Use Info Meaningful Use Diagnoses (Choose all that apply): None applicable Discharge Plan Admission Admit Date/Time: 03/08/23 16:10 Primary Reason for Your Visit: Debility. Attending Provider: Benson Burden Chi Primary Care Provider: Gerri Leary Consulting Providers: Tigre Parra; Chris Middleton Instructions Additional Instructions / Restrictions: Discharge home 03/22/2023, [facility] IV antibiotics. Discharge Orders/Prescriptions Prescriptions: New doxycycline monohydrate 100 mg Capsule 100 mg PO 1000,2200 20 Days Qty: 40 0RF ertapenem 1 gram recon soln 1 g IV DAILY 25 Days Qty: 25 0RF Rx Instructions: dx: knee PJI. stop date 04/15/23. weekly bmp, cbc, LFT, and ESR. Fax to [phone] zolpidem 5 mg Tablet 5 mg PO QHS PRN PRN (Reason: Insomnia) Qty: 0 0RF diazepam 5 mg Tablet 5 mg PO 4X/DAY PRN PRN (Reason: Spasms) 7 Days Qty: 28 0RF oxycodone 5 mg Tablet 5 - 10 mg PO Q6H PRN PRN (Reason: Pain Score 3-10) 7 Days Qty: 28 0RF Alvarez (with collagen) 7-7-1.5 gram Powder In Packet 1 packet PO BIDCM 30 Days Qty: 60 0RF Continued bupropion HCl [Wellbutrin SR] 150 mg tablet sustained-release 12 hr 150 mg PO BID Rx Instructions: Take once daily for the first 3 days then increase to twice daily pantoprazole 40 mg tablet,delayed release (DR/EC) 40 mg PO DAILY lisinopril 10 mg tablet 10 mg PO DAILY acetaminophen 500 mg Tablet 1,000 mg PO TID Qty: 100 0RF Rx Instructions: Do not take more than 3000 mg Tylenol in a 24-hour period. meloxicam 7.5 mg Tablet 7.5 mg PO BID 30 Days Qty: 60 0RF Rx Instructions: Do not take any other nonsteroidal anti-inflammatories while using me loxicam/Mobic. ertapenem 1 gram recon soln 1 g IM Q24H Qty: 40 0RF Rx Instructions: dx: knee PJI. stop date 04/15/23. weekly bmp, cbc, LFT, and ESR. Fax to [phone] Discontinued doxycycline hyclate 100 mg capsule 100 mg PO BID Qty: 80 0RF Rx Instructions: cancel order for bactrim. oxycodone 5 mg Tablet 5 - 10 mg PO Q6H PRN PRN (Reason: Pain Score1-10) 2 Days Qty: 10 0RF enoxaparin 40 mg/0.4 mL Syringe 40 mg subcut DAILY Qty: 0 0RF Alvarez (with collagen) 7-7-1.5 gram Powder In Packet 1 packet PO BIDCM Qty: 0 0RF Referrals / Follow Up: Gerri Leary MD [Primary Care Provider] - 03/25/23 9:30 am Disposition Disposition (needs filled in before D/C Order can be placed): Home Health Service
[2023-03-21] MEDS: Mupirocin Ointment 22gm Tube 1 APPLIC TOPICAL (21:06)
[2023-03-21] MEDS: oxyCODONE 5 MG Tablet PO (23:32)
[2023-03-21] MEDS: diazePAM 5 MG Tablet PO (23:32)
[2023-03-22] MEDS: Juven (unflavored) Packet 1 PACKET PO (08:37)
[2023-03-22] MEDS: Doxycycline 100 MG CAPSULE PO (08:37)
[2023-03-22] MEDS: Meloxicam 7.5 MG Tablet PO (08:38)
[2023-03-22] MEDS: Enoxaparin 40 MG/0.4 ML Syringe SC (08:38)
[2023-03-22] MEDS: Pantoprazole Sodium 40 MG Tablet PO (08:39)
[2023-03-22] MEDS: buPROPion (SR) 150 MG Tablet.SA PO (08:39)
[2023-03-22] MEDS: Lisinopril 10 MG Tablet PO (08:44)
[2023-03-22 08:56] VITALS: PULSE 75; RESP 16
--- NOTE | 2023-03-22 11:02 | CASEMGMT ---
Social Work BIMS () and PHQ-9 (10/18) completed for MDS assessment. Mini Zuniga MSW COMPLIANCE AUDITOR
[2023-03-22 12:37] VITALS: BP 130/75; PULSE 80; RESP 15; TEMP 36.8; O2SAT 95
== END 2023-03-22 11:30 | disposition home health service (06) | DRG 950 ==
PROVIDERS: Admitting Provider Family Medicine Geriatric Medicine; PCP Internal Medicine; Visit Provider Family Medicine Geriatric Medicine
DX: T84.53XD Infection and inflammatory reaction due to internal right knee prosthesis, subsequent encounter (principal); E11.40 Type 2 diabetes mellitus with diabetic neuropathy, unspecified; F12.10 Cannabis abuse, uncomplicated; I10 Essential (primary) hypertension; F32.A Depression, unspecified; E78.5 Hyperlipidemia, unspecified; K21.9 Gastro-esophageal reflux disease without esophagitis; G47.33 Obstructive sleep apnea (adult) (pediatric); F41.9 Anxiety disorder, unspecified; F17.220 Nicotine dependence, chewing tobacco, uncomplicated; Z79.01 Long term (current) use of anticoagulants; Y79.2 Prosthetic and other implants, materials and accessory orthopedic devices associated with adverse incidents; Z79.899 Other long term (current) drug therapy
CPT/HCPCS: 36415; 80048; 80076; 85025; 85652; 97110; 97116; 97162; 97166; 97530; 97535; 97802; J2997; J7050

== ENCOUNTER → 2023-03-30 | Outpatient (CLI) | payer MEDICARE, MEDICAID, SELFPAY ==
[2023-03-30 09:50] VITALS: BP 135/75; PULSE 86; RESP 16; TEMP 36.4; O2SAT 97; BMI 27.4
== END | disposition home or self-care (01) ==
PROVIDERS: PCP Internal Medicine; Referring Provider Internal Medicine Infectious Disease; Visit Provider Internal Medicine Infectious Disease
DX: T84.83XA Hemorrhage due to internal orthopedic prosthetic devices, implants and grafts, initial encounter (principal)
CPT/HCPCS: 36569

== ENCOUNTER 2023-04-16 21:03 | Inpatient (IN) | payer MEDICARE, MEDICAID, SELFPAY ==
[2023-04-16 21:05] VITALS: BP 126/80; PULSE 72; RESP 16; TEMP 36.6; O2SAT 94
[2023-04-16 21:08] VITALS: BP 126/80; PULSE 74; RESP 16; TEMP 36.6; O2SAT 94
--- NOTE | 2023-04-16 21:29 | RAD_ITS ---
INDICATION: Fell and twisted leg, history of multiple knee surgeries EXAMINATION/TECHNIQUE: X-RAY - RIGHT XR Femur Min 2 Views COMPARISON: Right knee radiographs from 01/26/2023 FINDINGS: Soft tissue swelling. Status post right knee arthroplasty and patellar revision. Fracture at mid femoral diaphysis demonstrates half shaft width displacement, at level of proximal margin of arthroplasty hardware. Adequate alignment at knee and hip. RAD/Femur Min 2 Views IMPRESSION: Partially displaced fracture midshaft right femur. Electronically Signed: Kofi Mclain MD at 22:56 EDT ,
--- NOTE | 2023-04-16 21:30 | ED.VIS.LOWEX ---
HPI History of Present Illness HPI Narrative: 62-year-old male has had bilateral knee replacements. He stood up at home the night kind of pivoted and twisted and had immediate pain to his right femur and collapsed to the ground. Patient states 'I think I broke my thigh. [place] any other injuries. Chief Complaint: Lower Extremity Injury Informant: patient Occured/Mechanism Mechanism/Context: Yes injury Onset/Context/Timing Onset: Today Context: Sudden Onset Timing: Continuous Quality of Pain: Sharp and Stabbing Current Severity: Severe Maximum Severity: Severe Associated Symptoms Associated Symptoms: Negative for Parasthesia or Weakness Narrative Narrative: 62-year-old male vital signs stable afebrile. Brought in by squad. Pretreated with fentanyl. States he stood up at home pivoted and had immediate pain to his right thigh and collapsed to the ground. Recently underwent right knee replacement surgery. Prior similar symptoms: No Recent Illness/Hospitalization: Yes PFSH [facility] Medical History Alcohol use Ambulates with cane Anxiety Arthritis Back pain Borderline type 2 diabetes mellitus Cellulitis Chronic depression Chronic neck and back pain CPAP (continuous positive airway pressure) dependence Depression Dog bite Former smoker GERD (gastroesophageal reflux disease) History of drug abuse History of edema History of methicillin resistant Staphylococcus aureus infection Hypertension Infection caused by Enterobacter cloacae Infection of prosthetic right knee joint Knee pain Leg cramps Marijuana use Neuropathy Open wound of right knee with complication Osteoarthritis Prediabetes Preoperative evaluation to rule out surgical contraindication Restless legs Walker as ambulation aid Wears dentures Wears glasses Home Medications bupropion HCl 150 mg tablet,12 hr sustained-release (Wellbutrin SR) 150 mg PO BID DEPRESSION 01/13/23 [History Last Taken 03/08/23] lisinopril 10 mg tablet 10 mg PO DAILY BP 01/13/23 [History Last Taken 03/08/23] pantoprazole 40 mg tablet,delayed release 40 mg PO DAILY GERD 01/13/23 [History Last Taken 03/08/23] acetaminophen 500 mg tablet 1,000 mg (2 x 500 mg) PO TID PAIN #100 tabs 01/28/23 [Rx Last Taken 03/08/23] meloxicam 7.5 mg tablet 7.5 mg PO BID PAIN 30 days #60 tabs 01/28/23 [Rx Last Taken Unknown] ertapenem 1 gram solution for injection 1 g IM Q24H infection #40 ea 03/07/23 [Rx Last Taken Unknown] arginine 7 gram-glutam 7 gram-CaHMB 1.5 [id number]-min oral pwd pkt (Alvarez (with collagen)) 1 packet PO BIDCM 30 days #60 ea 03/21/23 [Rx Last Taken Unknown] diazepam 5 mg tablet 5 mg PO 4X/DAY PRN PRN Spasms 7 days #28 tabs 03/21/23 [Rx Last Taken Unknown] doxycycline monohydrate 100 mg capsule 100 mg PO 1000,2200 20 days #40 caps 03/21/23 [Rx Last Taken Unknown] ertapenem 1 gram solution for injection 1 g IV DAILY 25 days #25 ea 03/21/23 [Rx Last Taken Unknown] Allergy/AdvReac Type Severity Reaction Status Date / Time adhesive Allergy Rash Verified 04/16/23 21:04 adhesive tape Allergy Rash Verified 04/16/23 21:04 gabapentin [From Neurontin] Allergy Hives Verified 04/16/23 21:04 Family History Other Alcoholism Anxiety and depression Arthritis Diabetes Myocardial infarction Surgical History History of back surgery History of total knee arthroplasty History of total knee arthroplasty Hx of elbow surgery Hx of knee surgery Hx of knee surgery Hx of oral surgery Hx of total knee arthroplasty Hx of total knee arthroplasty Status post revision of total replacement of right knee Social History household members: spouse Smoking Status: Never smoker Smokeless tobacco user: chewing tobacco alcohol intake: current alcohol intake frequency: a few times a week Alcohol type: beer substance use type: marijuana what type of physical activity do you participate in: none ROS ROS ED ROS Narrative Denies recent illness. Review of Systems ROS Unobtainable: Denies due to encephalopathy Constitutional Constitutional ED: Denies chills or fever(s) Eyes Eyes: Denies blurry vision ENT ENT ED: Denies ear pain Cardiovascular Cardiovascular: Denies chest pain Respiratory/Chest Respiratory/Chest: Denies cough or dyspnea Gastrointestinal Gastrointestinal: Denies abdominal pain Genitourinary Genitourinary ED: Denies dysuria or hematuria Musculoskeletal Musculoskeletal: Denies arthralgias or back pain Integumentary Denies abscess or Abrasions Neurologic Neurologic: Denies headache(s) Psychiatric Psychiatric: Denies anxiety Endocrine Endocrinology: Denies polydipsia Hematologic/Lymphatic Hematologic/Lymphatic: Denies easy bleeding or easy bruising Allergic/Immunologic Allergic/Immunologic ED: Denies mouth swelling EXAM Physical Exam Narrative Exam Narrative: 62-year-old male vital signs stable afebrile. H EENT exam unremarkable atraumatic. Neck nontender. Lungs clear to auscultation bilaterally. Heart regular rhythm no murmur rate about 70. Chest wall and ribs nontender. Abdomen soft nontender. Pelvic girdle intact. Both upper extremities are nontender normal curriculum coach strength. Normal range of motion. Left lower extremity is unremarkable. The midportion of her right thigh is tender to palpation. Is an Esequiel wrap over the right knee. Mild edema in the right lower leg. He is able to dorsi and plantarflexion of his right foot. He has normal cap refill and touch sensation. Neurologically is awake alert with no focal motor deficits. Const Vital Signs: 04/16/23 21:05 04/16/23 21:08 Temperature 97.8 F 97.8 F Temperature Source Oral Oral Pulse Rate 72 74 Respiratory Rate 16 16 Blood Pressure 126/80 H 126/80 H Blood Pressure Mean 95 95 Pulse Ox 94 94 Oxygen Delivery Method Room Air Room Air Positive well nourished and well developed; Negative for cachectic, contractures or unkempt General Appearance ED: well developed and NAD; Negative for unkempt, cachectic or contractures Nutritional Appearance: Negative for cachectic HEENT Reports moist mucous membranes normocephalic and atraumatic; Negative for trauma or tenderness Eyes PERRL General Eye ED: Negative for other Neck full ROM and supple Thyroid: Negative for tender Chest Wall inspection of chest normal and palpation of chest normal Chest: Negative for other Resp normal respiratory effort, no retractions and clear to auscultation bilaterally Effort and Inspection: Negative for pain with movement Auscultation: Negative for rales, rhonchi or wheezes Cardio regular rate, regular rhythm, S1 normal heart sound, S2 normal heart sound and no murmurs Rate: Negative for bradycardia or tachycardic Rhythm: Negative for abnormal rhythm Bruits: Negative for other GI non-tender, non-distended and no masses Inspection: Negative for abdominal distention Auscultation: normoactive bowel sounds Palpation: soft; Negative for tender or guarding Back/Spine no CVA tenderness General Back: Negative for CVA tenderness or swelling Cervical Spine: Negative for cervical spine tenderness Thoracic Spine / Upper Back: Negative for thoracic spinal tenderness Lumbar Spine / Lower Back: Negative for lumbar spinal tenderness Extremity normal to inspection and full ROM Extremity Narrative: Midportion of right thigh tender to palpation. Patient does not want to do any range of motion within her movement at all due to pain. The right knee is Esequiel wrapped. There is mild edema in the right lower leg from recent surgery. His right ankle and foot is nontender. Neurovascular intact. Dorsi and plantarflexion. General Extremety ED: Yes edema General Extremity: edema Neuro oriented x3, CN's II-XII intact bilaterally and moves all extremities Sensorium / Orientation: oriented to person, oriented to place and oriented to time; Negative for orientation impaired, confused, lethargic or stuporous Motor Exam: strength 5/5 throughout Psych mental status grossly normal Appearance: Negative for unkempt Speech: No other Mood & Affect: Negative for anxious Skin no wounds Lesions: no lesions Trauma: Negative for abrasion or laceration MDM MDM MDM Narrative Medical decision making narrative: 62-year-old male right side pain prior to falling to the floor. Concern for possible femur fracture. X-ray being obtained. Treated with Dilaudid for pain and Zofran to prevent nausea. Repeat exam patient doing well. I spoke to orthopedics Dr. Ramirez. Patient will be admitted to the hospitalist. We will place a knee immobilizer on the patient. History & Record Review Discussion w/independent historian: Patient Additional record(s) reviewed:: Prior inpatient record, Prior outpatient record, Prior ED visit and Prior labs Radiography Diagnostic Testing: X-ray shows a periprosthetic fracture of the femur on the proximal end of the total knee replacement of the longstem. Multiple views interpreted by myself. Discharge Plan Triage Chief Complaint: Lower Extremity Injury ED Provider: Carlos Manuel Monahan Dx/Rx/DC Orders Clinical Impression: History of knee replacement, Periprosthetic fracture around internal prosthetic knee joint, Closed right femoral fracture Prescriptions: No Action bupropion HCl [Wellbutrin SR] 150 mg tablet sustained-release 12 hr 150 mg PO BID Rx Instructions: Take once daily for the first 3 days then increase to twice daily pantoprazole 40 mg tablet,delayed release (DR/EC) 40 mg PO DAILY lisinopril 10 mg tablet 10 mg PO DAILY acetaminophen 500 mg Tablet 1,000 mg PO TID Qty: 100 0RF Rx Instructions: Do not take more than 3000 mg Tylenol in a 24-hour period. meloxicam 7.5 mg Tablet 7.5 mg PO BID 30 Days Qty: 60 0RF Rx Instructions: Do not take any other nonsteroidal anti-inflammatories while using meloxicam/Mobic. ertapenem 1 gram recon soln 1 g IM Q24H Qty: 40 0RF Rx Instructions: dx: knee PJI. stop date 04/15/23. weekly bmp, cbc, LFT, and ESR. Fax to [phone] doxycycline monohydrate 100 mg Capsule 100 mg PO 1000,2200 20 Days Qty: 40 0RF ertapenem 1 gram recon soln 1 g IV DAILY 25 Days Qty: 25 0RF Rx Instructions: dx: knee PJI. stop date 04/15/23. weekly bmp, cbc, LFT, and ESR. Fax to [phone] diazepam 5 mg Tablet 5 mg PO 4X/DAY PRN PRN (Reason: Spasms) 7 Days Qty: 28 0RF Alvarez (with collagen) 7-7-1.5 gram Powder In Packet 1 packet PO BIDCM 30 Days Qty: 60 0RF Primary Care Provider: Gerri Leary Referrals: Gerri Leary MD [Primary Care Provider] - Disposition Disposition: Acute Care Hospital [facility]
[2023-04-16] MEDS: HYDROmorphone 1 MG/ML Syringe IV (21:51)
[2023-04-16] MEDS: Ondansetron 4 MG/2 ML Vial IV (21:51)
--- NOTE | 2023-04-16 23:07 | HP.PCM.HOS_ITS ---
HPI - General General Date of Admission: 04/16/23 Date of Service: 04/16/23 Chief Complaint: Right femur fracture HPI Narrative ASHLEY HILL, is a 62 M with history of hypertension, depression, OA and recent right knee replacement revision surgery in 01/2023 complicated by prosthetic joint infection s/p polyethylene exchange with Dr. Reilly and skin grafting for coverage with Dr. Parra on 03/04/2023 who presented to [facility] ED on 04/16/2023 after a fall at home. Patient seen at bedside in the ED, present. Patient had just been transferred to a different bed and was having significant right leg pain on my interview. States that prior to the transfer, his pain had been decently well controlled with pain medication in the ED. Patient stated that he was at home and felt like he twisted his leg the wrong way and then fell, and came in because he was concerned that he fractured his femur. Notably had been completing rehab for his recent knee replacement with the prosthetic joint complications as noted in the assessment and plan here. Patient denies any other recent concerns. Denies any chest pain or shortness of breath. Denies any fevers or chills. No other acute concerns. Vitals on admit unremarkable. Labs pending. Right femur x-ray on admit shows a fracture at the mid femoral diaphysis at the level of the proximal margin of arthroplasty hardware along with soft tissue swelling. [facility] Medical History Alcohol use Ambulates with cane Anxiety Arthritis Back pain Borderline type 2 diabetes mellitus Cellulitis Chronic depression Chronic neck and back pain CPAP (continuous positive airway pressure) dependence Depression Dog bite Former smoker GERD (gastroesophageal reflux disease) History of drug abuse History of edema History of methicillin resistant Staphylococcus aureus infection Hypertension Infection caused by Enterobacter cloacae Infection of prosthetic right knee joint Knee pain Leg cramps Marijuana use Neuropathy Open wound of right knee with complication Osteoarthritis Prediabetes Preoperative evaluation to rule out surgical contraindication Restless legs Walker as ambulation aid Wears dentures Wears glasses Home Medications bupropion HCl 150 mg tablet,12 hr sustained-release (Wellbutrin SR) 150 mg PO BID DEPRESSION 01/13/23 [History Last Taken 03/08/23] lisinopril 10 mg tablet 10 mg PO DAILY BP 01/13/23 [History Last Taken 03/08/23] pantoprazole 40 mg tablet,delayed release 40 mg PO DAILY GERD 01/13/23 [History Last Taken 03/08/23] doxycycline monohydrate 100 mg capsule 100 mg PO 1000,2200 infection 20 days #40 caps 03/21/23 [Rx Last Taken Unknown] Allergy/AdvReac Type Severity Reaction Status Date / Time adhesive Allergy Rash Verified 04/16/23 21:04 adhesive tape Allergy Rash Verified 04/16/23 21:04 gabapentin [From Neurontin] Allergy Hives Verified 04/16/23 21:04 Family History Other Alcoholism Anxiety and depression Arthritis Diabetes Myocardial infarction Surgical History History of back surgery History of total knee arthroplasty History of total knee arthroplasty Hx of elbow surgery Hx of knee surgery Hx of knee surgery Hx of oral surgery Hx of total knee arthroplasty Hx of total knee arthroplasty Status post revision of total replacement of right knee Social History household members: spouse Smoking Status: Never smoker Smokeless tobacco user: chewing tobacco alcohol intake: current alcohol intake frequency: a few times a week Alcohol type: beer substance use type: marijuana what type of physical activity do you participate in: none ROS Constitutional Constitutional: Denies change in weight, chills, fatigue or fever(s) Cardiovascular Cardiovascular: Denies chest pain or edema Respiratory/Chest Respiratory/Chest: Denies cough Gastrointestinal Gastrointestinal: Denies abdominal pain Musculoskeletal Musculoskeletal: Reports other Details: Moderate to severe right leg pain. Vital Signs Vital Signs Vital Signs: 04/16/23 21:05 04/16/23 21:08 Temperature 97.8 F 97.8 F Temperature Source Oral Oral Pulse Rate 72 74 Respiratory Rate 16 16 Blood Pressure 126/80 H 126/80 H Blood Pressure Mean 95 95 Pulse Ox 94 94 Oxygen Delivery Method Room Air Room Air Physical Exam Const alert, oriented x3 and average body habitus Constitutional Narrative: Pleasant male lying flat in bed, moderate distress due to significant right leg pain, alert and oriented, conversing normally. General Appearance: cooperative and comfortable HEENT normocephalic, head/scalp atraumatic, hearing grossly normal bilaterally, nasal mucous membranes and turbinates normal and moist oral mucous membranes Eyes PERRL, EOMs intact bilaterally and conjunctivae normal Neck full ROM, no lymphadenopathy and supple Lymph Lymphatic: no lymphadenopathy noted Chest inspection of chest normal Resp normal respiratory effort, normal air movement, no use of accessory muscles and clear to auscultation bilaterally Cardio regular rate, regular rhythm, no murmurs and peripheral pulses 2+ throughout GI normal to inspection, nondistended, normoactive bowel sounds, soft to palpation, non-tender and non-distended Back/Spine normal ROM Extremity Extremity Narrative: Right leg grossly unremarkable, did not have patient attempt any movement. Skin no rashes or lesions noted Psych mental status grossly normal Results Lab / Micro Data 04/17/23 00:01 04/17/23 00:01 Radiology Impression Femur X-Ray 04/16/23 21:29 IMPRESSION: Partially displaced fracture midshaft right femur. Electronically Signed: Kofi Mclain MD at 22:56 EDT , Assessment & Plan Assessment/Plan (1) Closed right femoral fracture: PLAN: Plan Patient is a 62-year-old male with history of hypertension, depression, OA and recent right knee replacement revision surgery in 01/2023 complicated by pros thetic joint infection s/p polyethylene exchange with Dr. Reilly and skin grafting for coverage with Dr. Parra on 03/04/2023 who presented to [facility] ED on 04/16/2023 after a fall at home. 1. Right femur fracture Right femur x-ray on admit shows a fracture at the mid femoral diaphysis at the level of the proximal margin of arthroplasty hardware along with soft tissue swelling. ?Admit under inpatient status to [facility]. ED physician spoke with Dr. Ramirez with orthopedics, planning for surgical revision on Wednesday 04/18. Formal orthopedic consult placed. Pain control with scheduled Tylenol, as needed oxycodone and Dilaudid. N.p.o. at midnight on 04/18. PT/OT/case management consulted. 2. Recent right knee prosthetic joint infection Infectious disease followed on previous admissions. Noted that patient was initially taken to the OR on 01/26/[address] Reilly for revision of right knee. Surgical culture at that time grew Enterobacter, was discharged on ertapenem for 6-week course with stop date of 03/11. However, was readmitted with sinus tract infection and taken to the OR on 03/04/2023 for I&D, poly exchange and skin coverage. Surgical cultures were negative at that time. Revised plan was for 6 weeks of IV ertapenem and p.o. doxycycline with stop date of 04/15. ? Per ID notes, patient completed his 6-week antibiotic course on 04/15. No need for further antibiotics at this time. Monitor. Chronic medical conditions: ? Depression: Continue home bupropion. ? Hypertension: Continue home lisinopril. DVT prophylaxis: Lovenox CODE STATUS: DNR CCA, DO NOT INTUBATE Expected disposition: Home, TBD Total clinical time spent by myself addressing the patient's medical issues, reviewing all the data, and collaborating with patient's care team: 55 minutes. Charges/Coding Visit Charges Inpatient E&M: 55492 Init Hosp L2
[2023-04-17] VITALS (9 sets, daily range): BP systolic 133–169; BP diastolic 65–85; PULSE 68–79; RESP 16–19; TEMP 36.4–37; O2SAT 92–96; BMI 30.7; BMI 28.7
[2023-04-17] MEDS: HYDROmorphone 1 MG/ML Syringe IV (00:10)
[2023-04-17 00:24] LABS: White Blood Count 8.4 K/mm3 (4.4-11.0)
[2023-04-17 00:25] LABS: Hematocrit 36.2 % (40-54); Hemoglobin 11.5 g/dL (13.0-16.5); Mean Corp Hgb Conc 31.8 g/dL (32-36); Mean Corpuscular Hgb 25.8 pg (27.0-32.0); Mean Corpuscular Volume 81.2 fL (80-94); Mean Platelet Vol. 9.6 fl (6.2-12.0); POSITIVE COUNT NO; POSITIVE DIFFERENTIAL NO; POSITIVE MORPHOLOGY NO; Platelet Count 333 K/mm3 (150-450); RBC Distribution Width CV 14.9 % (11.6-14.6); RBC Distribution Width SD 43.8 fl (35.1-43.9); Red Blood Count 4.46 M/mm3 (4.6-6.2)
[2023-04-17 00:26] LABS: Absolute Lymphocyte Count 1.42 X10^3/uL (0.83-4.51); Absolute Neutrophil Count 6.3 X10^3/uL (2.0-7.7); Basophil% 0.4 % (0-1); Eosinophil# 0.12 X10^3/uL; Eosinophils% 1.4 % (0-5); Lymphocyte # 1.42 X10^3/ul (0.83-4.51); Lymphocyte % 16.8 % (19-41); Monocyte# 0.56 X10^3/uL; Monocyte% 6.6 % (0-10); Neutrophil # 6.27 X10^3/uL (2.7-7.7); Neutrophil % 74.4 % (47-70)
[2023-04-17 00:27] LABS: Basophil# 0.03 X10^3/uL; International Normalized Ratio 1.1; Prothrombin Time (Protime)PT. 14.5 SECONDS (11.7-14.9)
[2023-04-17 00:37] LABS: ALB/GLOB Ratio 0.9 RATIO (0.9-2.4); AST(SGOT) 17 U/L (15-37); Alanine Aminotransfer ALT/SGPT 21 U/L (16-61); Albumin, Serum 2.9 g/dL (3.2-5.0); Alkaline Phosphatase 130 U/L (45-117); Anion Gap 4 (5-15); BUN 12 mg/dL (7-18); BUN/Creat Ratio 14.7 RATIO (10-20); Calcium,Total 8.6 mg/dL (8.5-10.1); Chloride 107 mmol/L (98-107); Creatinine, Serum 0.82 mg/dL (0.70-1.30); EST Glomerular Filtration Rate 101 mL/min (>60); Est Glom Filt Rate - Afr Amer 122 mL/min (>60); Estimated Creatinine Clearance 80.21 ml/min; Globulin 3.2 g/dL (2.2-4.2); Glucose 114 mg/dL (74-106); Potassium 4.2 mmol/L (3.5-5.1); Protein, Total 6.1 g/dL (6.4-8.2); Sodium Level 139 mmol/L (136-145)
[2023-04-17] MEDS: oxyCODONE 5 MG Tablet PO ×6 (01:20→21:31)
[2023-04-17] MEDS: Acetaminophen 500 MG Tablet 1000 MG PO ×3 (01:21→15:07)
[2023-04-17] MEDS: HYDROmorphone 0.5 MG/0.5 ML SYRINGE IV (02:39)
[2023-04-17] MEDS: 0.9% Saline Lock 10 ML Syringe IV ×2 (02:41→21:31)
[2023-04-17 04:37] LABS: Hematocrit 34.4 % (40-54); Hemoglobin 10.8 g/dL (13.0-16.5); Mean Corp Hgb Conc 31.4 g/dL (32-36); Mean Corpuscular Hgb 25.8 pg (27.0-32.0); Mean Corpuscular Volume 82.3 fL (80-94); Mean Platelet Vol. 9.9 fl (6.2-12.0); Platelet Count 320 K/mm3 (150-450); RBC Distribution Width CV 14.8 % (11.6-14.6); RBC Distribution Width SD 44.6 fl (35.1-43.9); Red Blood Count 4.18 M/mm3 (4.6-6.2); White Blood Count 7.8 K/mm3 (4.4-11.0)
[2023-04-17 05:54] LABS: Anion Gap 4 (5-15); BUN 11 mg/dL (7-18); BUN/Creat Ratio 13.2 RATIO (10-20); Calcium,Total 8.3 mg/dL (8.5-10.1); Chloride 105 mmol/L (98-107); Creatinine, Serum 0.83 mg/dL (0.70-1.30); EST Glomerular Filtration Rate 99 mL/min (>60); Est Glom Filt Rate - Afr Amer 120 mL/min (>60); Estimated Creatinine Clearance 79.24 ml/min; Glucose 181 mg/dL (74-106); Sodium Level 136 mmol/L (136-145)
--- NOTE | 2023-04-17 08:22 | PN.HOSP_ITS ---
Reason for Visit Reason for Visit: Diagnoses Unspecified fracture of right femur, initial encounter for closed fracture () Subjective Subjective Patient is a 62-year-old gentleman with recent right knee replacement revision on in January 2023 which was complicated by prosthetic joint infection for which patient underwent Right knee irrigation debridement polyethylene exchange once component revision by Dr. Reilly presented following a fall at home imaging studies demonstrated fracture involving the mid femoral diaphysis. Admitted to regular nursing floor with consultation placed to orthopedic surgery Objective Data Objective Data Vital Signs: Vital Signs Temp Pulse Resp BP Pulse Ox O2 Del Method 98.1 F 79 18 135/65 H 96 Room Air 04/17/23 06:26 04/17/23 06:26 04/17/23 06:26 04/17/23 06:26 04/17/23 06:26 04/17/23 06:26 Oxygen Delivery Method Room Air Weight: 78.3 kg Body Mass Index (BMI) 28.7 Intake & Output: Intake and Output for Last 24 Hours 04/15/23 04/16/23 04/17/23 23:59 23:59 23:59 Intake Total 480 / 480 Output Total 250 / 250 Balance 230 / 230 Lab / Micro Data 04/17/23 04:03 04/17/23 04:03 Labs: Laboratory Results - last 24 hr 04/17/23 00:01: WBC 8.4, RBC 4.46 L, Hgb 11.5 L, Hct 36.2 L, MCV 81.2, MCH 25.8 L, MCHC 31.8 L, RDW Std Deviation 43.8, RDW Coeff of Clemente 14.9 H, Plt Count 333, MPV 9.6, Immature Gran % (Auto) 0.400, Neut % (Auto) 74.4 H, Lymph % (Auto) 16.8 L, Sweet Grass % (Auto) 6.6, Eos % (Auto) 1.4, Baso % (Auto) 0.4, Absolute Neuts (auto) 6.3, Absolute Lymphs (auto) 1.42, PT 14.5, INR 1.1, Sodium 139, Potassium 4.2, Chloride 107, Carbon Dioxide 28.0, Anion Gap 4 L, BUN 12, Creatinine 0.82, Estim Creat Clear Calc 80.21, Est GFR (MDRD) Af Amer 122, Est GFR (MDRD) Non-Af 101, BUN/Creatinine Ratio 14.7, Glucose 114 H, Calcium 8.6, Total Bilirubin 0.20, AST 17, ALT 21, Alkaline Phosphatase 130 H, Total Protein 6.1 L, Albumin 2.9 L, Globulin 3.2, Albumin/Globulin Ratio 0.9 04/17/23 04:03: WBC 7.8, RBC 4.18 L, Hgb 10.8 L, Hct 34.4 L, MCV 82.3, MCH 25.8 L, MCHC 31.4 L, RDW Std Deviation 44.6 H, RDW Coeff of Clemente 14.8 H, Plt Count 320, MPV 9.9, Sodium 136, Potassium 4.0, Chloride 105, Carbon Dioxide 27.0, Anion Gap 4 L, BUN 11, Creatinine 0.83, Estim Creat Clear Calc 79.24, Est GFR (MDRD) Af Amer 120, Est GFR (MDRD) Non-Af 99, BUN/Creatinine Ratio 13.2, Glucose 181 H, Calcium 8.3 L Radiography Diagnostic Testing: Radiology Impression Femur X-Ray 04/16/23 21:29 IMPRESSION: Partially displaced fracture midshaft right femur. Electronically Signed: Kofi Mclain MD at 22:56 EDT , Physical Exam Narrative GENERAL: cooperative HEENT: Atraumatic; normocephalic EYES; Anicteric, Normal Conjunctiva NECK; supple, normal thyroid, RESPIRATORY: Diminished to auscultation CARDIOVASCULAR: Regular S1 S2, GI: soft, normoactive bowel sounds, : No Renal angle tenderness; EXTREMITIES: No edema, no clubbing, MUSCULOSKELETAL: Right lower extremity immobilized NEURO: Awake; no lateralizing signs. SKIN: No Rash PSYCH; Flat affect Assessment & Plan Assessment/Plan (1) Closed right femoral fracture: PLAN: Plan Patient is a 62-year-old gentleman with recent right knee replacement revision on in January 2023 which was complicated by prosthetic joint infection for which patient underwent Right knee irrigation debridement polyethylene exchange once component revision by Dr. Reilly presented following a fall at home imaging studies demonstrated fracture involving the mid femoral diaphysis. Admitted to regular nursing floor with consultation placed to orthopedic surgery 1. Right femoral fracture following a fall ? Imaging studies obtained on admission did show partially displaced fracture midshaft right femur. Admitted to regular nursing floor, managed with pain meds, immobilization with consult placed orthopedic surgery 2. Recent right knee prosthetic joint infection -patient underwent Right knee irrigation debridement polyethylene exchange once component revision by Dr. Reilly. Surgical culture at that time grew Enterobacter,, patient completed antibiotic therapy with IV ertapenem and doxycycline on 04/15/2023 3. Hypertension - Blood pressure controlled, home medications continued with dose adjustment as needed 4. GERD ? On PPI 5. Depression ? Patient is on Wellbutrin, home dose continue 6. DVT prophylaxis ? SC Lovenox Time spent in the patient's overall evaluation,decision-making process, review of diagnostic data, adjustment of management, discussion with other providers, nursing nursing and ancillary staff involved in patient's care documentation 50 Minutes Charges/Coding Visit Charges Inpatient E&M: [address] [facility] Hosp L3
[2023-04-17] MEDS: Enoxaparin 40 MG/0.4 ML Syringe SC (10:19)
[2023-04-17] MEDS: buPROPion (SR) 150 MG Tablet.SA PO ×2 (10:19→21:11)
[2023-04-17] MEDS: Pantoprazole Sodium 40 MG Tablet PO (10:19)
[2023-04-17] MEDS: Lisinopril 10 MG Tablet PO (10:19)
--- NOTE | 2023-04-17 12:39 | CON.PCM.OR_ITS ---
HPI Consult Data Date of Consult: 04/17/23 HPI Narrative Reason for Consultation: Right femur periprosthetic fracture about a stemmed right total knee HPI Narrative: ASHLEY HILL, is a 62 M who presents This is a 62-year-old male with past medical history significant for hypertension, depression, osteoarthritis and multiple surgeries to his right knee. Most recently, patient underwent revision right total knee arthroplasty in the setting of prosthetic joint infection with Dr. Reilly and medial gastrocnemius coverage by Dr. Parra on 03/04/2023. He finished his postoperative antibiotics. Patient was recovering well seemingly at home. Patient has been mobilizing with a cane. He states he was getting out of bed and twisted felt a pop in his right thigh and immediately fell. He denies any other associated injuries. He is unable to bear weight after the fall. Patient was brought by EMS to the emergency department last evening. X- rays revealed a periprosthetic fracture of the right femoral shaft. At time my examination, patient reports pain in his right thigh. He denies any other pain. Denies numbness or tingling. Reports some muscle spasm in the right thigh. Denies any fevers, chills, nausea vomiting, chest pain or shortness of breath. [facility] Medical History Alcohol use Ambulates with cane Anxiety Arthritis Back pain Borderline type 2 diabetes mellitus Cellulitis Chronic depression Chronic neck and back pain CPAP (continuous positive airway pressure) dependence Depression Dog bite Former smoker GERD (gastroesophageal reflux disease) History of drug abuse History of edema History of methicillin resistant Staphylococcus aureus infection Hypertension Infection caused by Enterobacter cloacae Infection of prosthetic right knee joint Knee pain Leg cramps Marijuana use Neuropathy Open wound of right knee with complication Osteoarthritis Prediabetes Preoperative evaluation to rule out surgical contraindication Restless legs Walker as ambulation aid Wears dentures Wears glasses Home Medications bupropion HCl 150 mg tablet,12 hr sustained-release (Wellbutrin SR) 150 mg PO BID DEPRESSION 01/13/23 [History Last Taken 03/08/23] lisinopril 10 mg tablet 10 mg PO DAILY BP 01/13/23 [History Last Taken 03/08/23] pantoprazole 40 mg tablet,delayed release 40 mg PO DAILY GERD 01/13/23 [History Last Taken 03/08/23] doxycycline monohydrate 100 mg capsule 100 mg PO 1000,2200 infection 20 days #40 caps 03/21/23 [Rx Last Taken Unknown] Allergy/AdvReac Type Severity Reaction Status Date / Time adhesive Allergy Rash Verified 04/16/23 21:04 adhesive tape Allergy Rash Verified 04/16/23 21:04 gabapentin [From Neurontin] Allergy Hives Verified 04/16/23 21:04 Family History Other Alcoholism Anxiety and depression Arthritis Diabetes Myocardial infarction Surgical History History of back surgery History of total knee arthroplasty History of total knee arthroplasty Hx of elbow surgery Hx of knee surgery Hx of knee surgery Hx of oral surgery Hx of total knee arthroplasty Hx of total knee arthroplasty Status post revision of total replacement of right knee Social History household members: spouse Smoking Status: Never smoker Smokeless tobacco user: chewing tobacco alcohol intake: current alcohol intake frequency: a few times a week Alcohol type: beer substance use type: marijuana what type of physical activity do you participate in: none Vital Signs Vital Signs Vital Signs: 04/16/23 21:05 04/16/23 21:08 04/17/23 00:17 Temperature 97.8 F 97.8 F 97.6 F L Temperature Source Oral Oral Temporal Pulse Rate 72 74 71 Respiratory Rate 16 16 16 Respiratory Effort Respiratory Depth Respiratory Pattern Blood Pressure 126/80 H 126/80 H 166/85 H Blood Pressure Mean 95 95 112 Blood Pressure Source Blood Pressure Position Blood Pressure Location Pulse Ox 94 94 94 Oxygen Delivery Method Room Air Room Air Room Air 04/17/23 00:20 04/17/23 00:35 04/17/23 01:11 Temperature 97.6 F L 97.7 F L Temperature Source Temporal Oral Pulse Rate 68 75 Respiratory Rate 16 19 H Respiratory Effort Respiratory Depth Respiratory Pattern Blood Pressure 166/85 H 169/83 H Blood Pressure Mean 112 111 Blood Pressure Source Monitor Blood Pressure Position Supine Blood Pressure Location Left Arm Pulse Ox 96 93 93 Oxygen Delivery Method Room Air Room Air Room Air 04/17/23 06:26 04/17/23 08:30 04/17/23 09:02 Temperature 98.1 F Temperature Source Oral Pulse Rate 79 Respiratory Rate 18 Respiratory Effort Normal Non-Labored Respiratory Depth Normal Respiratory Pattern Normal Blood Pressure 135/65 H Blood Pressure Mean 88 Blood Pressure Source Monitor Blood Pressure Position Supine Blood Pressure Location Left Arm Pulse Ox 96 95 Oxygen Delivery Method Room Air Room Air Room Air 04/17/23 10:14 Temperature 98.6 F Temperature Source Oral Pulse Rate 78 Respiratory Rate 16 Respiratory Effort Respiratory Depth Respiratory Pattern Blood Pressure 158/73 H Blood Pressure Mean 101 Blood Pressure Source Monitor Blood Pressure Position Supine Blood Pressure Location Right Arm Pulse Ox 92 Oxygen Delivery Method Room Air Weight Weight: 172 lb 9.951 oz Body Mass Index (BMI) 28.7 Physical Exam Narrative General -A&Ox3, NAD, appears stated age. Vital signs stable, afebrile. Respiratory -normal work of breathing, no intercostal retractions. CV -pulses regular, brisk capillary refill ?4 limbs. Abdomen-soft, nontender, nondistended. No guarding, rigidity, rebound tenderness. Musculoskeletal/neurologic -full range of motion nontender throughout bilateral upper extremities, left lower extremity with full sensation and strength in all dermatomes and myotomes. No midline cervical tenderness. Right lower extremity-shortened and externally rotated. Knee immobilizer in place. Midline right knee incision is well-healed. No erythema or drainage. Nontender throughout tibial shaft and right foot/ankle. Brisk capillary refill. Sensation intact light touch L3-S1 dermatomes. DF, PF, EHL intact. DP, PT 2+. Pelvis is stable, nontender. Skin is intact without lacerations, abrasions. No ecchymosis noted. Lab / Micro Data 04/17/23 04:03 04/17/23 04:03 Labs: Laboratory Results - last 24 hr 04/17/23 00:01: WBC 8.4, RBC 4.46 L, Hgb 11.5 L, Hct 36.2 L, MCV 81.2, MCH 25.8 L, MCHC 31.8 L, RDW Std Deviation 43.8, RDW Coeff of Clemente 14.9 H, Plt Count 333, MPV 9.6, Immature Gran % (Auto) 0.400, Neut % (Auto) 74.4 H, Lymph % (Auto) 16.8 L, [place] % (Auto) 6.6, Eos % (Auto) 1.4, Baso % (Auto) 0.4, Absolute Neuts (auto) 6.3, Absolute Lymphs (auto) 1.42, PT 14.5, INR 1.1, Sodium 139, Potassium 4.2, Chloride 107, Carbon Dioxide 28.0, Anion Gap 4 L, BUN 12, Creatinine 0.82, Estim Creat Clear Calc 80.21, Est GFR (MDRD) Af Amer 122, Est GFR (MDRD) Non-Af 101, BUN/Creatinine Ratio 14.7, Glucose 114 H, Calcium 8.6, Total Bilirubin 0.20, AST 17, ALT 21, Alkaline Phosphatase 130 H, Total Protein 6.1 L, Albumin 2.9 L, Globulin 3.2, Albumin/Globulin Ratio 0.9 04/17/23 04:03: WBC 7.8, RBC 4.18 L, Hgb 10.8 L, Hct 34.4 L, MCV 82.3, MCH 25.8 L, MCHC 31.4 L, RDW Std Deviation 44.6 H, RDW Coeff of Clemente 14.8 H, Plt Count 320, MPV 9.9, Sodium 136, Potassium 4.0, Chloride 105, Carbon Dioxide 27.0, Anion Gap 4 L, BUN 11, Creatinine 0.83, Estim Creat Clear Calc 79.24, Est GFR (MDRD) Af Amer 120, Est GFR (MDRD) Non-Af 99, BUN/Creatinine Ratio 13.2, Glucose 181 H, Calcium 8.3 L Radiology Impression Femur X-Ray 04/16/23 21:29 IMPRESSION: Partially displaced fracture midshaft right femur. Electronically Signed: Kofi Mclain MD at 22:56 EDT , Assessment & Plan Assessment/Plan (1) Periprosthetic fracture around internal prosthetic knee joint: PLAN: Patient sustained a spiral fracture about the tip of his stemmed right total knee arthroplasty. No signs of infection. This will require operative stabilization. I discussed the case with Dr. Cash Reilly who wishes to assume care of the patient. I briefly discussed surgery with the patient. I will defer to Dr. Reilly regarding surgical details. ORIF is planned, likely tomorrow. N.p.o. after midnight tonight. Pain control. Bedrest. Maintenance IV fluids.
--- NOTE | 2023-04-17 15:12 | CPS ---
incentive and pep in room. pt asleep
--- NOTE | 2023-04-17 15:14 | CPS ---
incentive not started, pt asleep
--- NOTE | 2023-04-17 20:53 | CPS ---
[1830] Pt. sleeping comfortably at this time.
[2023-04-17] MEDS: cycloBENZAPRine HCl 10 MG Tablet PO (21:11)
[2023-04-18] MEDS: HYDROmorphone 0.5 MG/0.5 ML SYRINGE IV ×2 (00:03→03:34)
[2023-04-18] MEDS: Acetaminophen 500 MG Tablet 1000 MG PO ×4 (00:04→22:53)
[2023-04-18] MEDS: 0.9% Saline Lock 10 ML Syringe IV ×2 (00:04→03:34)
[2023-04-18 03:27] VITALS: BP 114/66; PULSE 84; RESP 18; TEMP 36.9; O2SAT 92
[2023-04-18 03:48] LABS: Hematocrit 32.5 % (40-54); Hemoglobin 10.2 g/dL (13.0-16.5); Mean Corp Hgb Conc 31.4 g/dL (32-36); Mean Corpuscular Hgb 25.8 pg (27.0-32.0); Mean Corpuscular Volume 82.3 fL (80-94); Mean Platelet Vol. 9.4 fl (6.2-12.0); Platelet Count 315 K/mm3 (150-450); RBC Distribution Width CV 14.9 % (11.6-14.6); RBC Distribution Width SD 44.8 fl (35.1-43.9); Red Blood Count 3.95 M/mm3 (4.6-6.2); White Blood Count 7.2 K/mm3 (4.4-11.0)
[2023-04-18 04:00] LABS: International Normalized Ratio 1.1; Prothrombin Time (Protime)PT. 14.5 SECONDS (11.7-14.9)
[2023-04-18 04:01] LABS: Anion Gap 4 (5-15); BUN 11 mg/dL (7-18); Calcium,Total 8.4 mg/dL (8.5-10.1); Chloride 104 mmol/L (98-107); EST Glomerular Filtration Rate 80 mL/min (>60); Est Glom Filt Rate - Afr Amer 97 mL/min (>60); Estimated Creatinine Clearance 65.77 ml/min; Glucose 160 mg/dL (74-106); Sodium Level 137 mmol/L (136-145)
--- NOTE | 2023-04-18 06:34 | CONS.ORTHO ---
HPI Consult Data Date of Consult: 04/18/23 PCP / Referring MD: Dr Maverick Ramirez HPI Narrative Reason for Consultation: Right periprosthetic femur fracture HPI Narrative: ASHLEY HILL, is a 62 M with multiple medical comorbidities and extensive right lower extremity surgery who presents today with right leg pain. Patient has had extensive medical history of the right lower extremity including total knee replacement with subsequent loosening and revision in 2019. Did not have MRSA infection in 2019 and was treated at the [facility]. He presented to me earlier this year with recurrent loosening of the implant and significant bone loss. He was revised on January 26, 2023 with intraoperative cultures 1 of 3 positive for Enterococcus. He was placed on IV antibiotics and managed by infectious disease. However, 4 weeks postoperatively he was noted to have a draining sinus. He was taken back to the operating room where irrigation debridement and polyethylene exchange was performed in addition at that time we noted a failure of the extensor mechanism and attempted a direct repair. Plastics assisted with the closure performing a medial gastroc flap and split-thickness skin graft. Patient has been in transitional care unit recently finishing up his IV antibiotics and being discharged home. He was at home late Tuesday evening, early Tuesday evening when he went to get up and twisted and felt a snap in his right thigh. He was brought to the emergency department was found to have a midshaft periprosthetic femur fracture near the tip of the prosthesis. Currently patient reports severe pain in the right thigh better with immobilization worse with motion. No associated numbness and tingling. He just had the dressing for his split-thickness skin graft and medial gastroc flap discontinued. Denies any current fevers chills or night sweats. [facility] Medical History Alcohol use Ambulates with cane Anxiety Arthritis Back pain Borderline type 2 diabetes mellitus Cellulitis Chronic depression Chronic neck and back pain CPAP (continuous positive airway pressure) dependence Depression Dog bite Former smoker GERD (gastroesophageal reflux disease) History of drug abuse History of edema History of methicillin resistant Staphylococcus aureus infection Hypertension Infection caused by Enterobacter cloacae Infection of prosthetic right knee joint Knee pain Leg cramps Marijuana use Neuropathy Open wound of right knee with complication Osteoarthritis Prediabetes Preoperative evaluation to rule out surgical contraindication Restless legs Walker as ambulation aid Wears dentures Wears glasses Home Medications bupropion HCl 150 mg tablet,12 hr sustained-release (Wellbutrin SR) 150 mg PO BID DEPRESSION 01/13/23 [History Last Taken 03/08/23] lisinopril 10 mg tablet 10 mg PO DAILY BP 01/13/23 [History Last Taken 03/08/23] pantoprazole 40 mg tablet,delayed release 40 mg PO DAILY GERD 01/13/23 [History Last Taken 03/08/23] doxycycline monohydrate 100 mg capsule 100 mg PO 1000,2200 infection 20 days #40 caps 03/21/23 [Rx Last Taken Unknown] Allergy/AdvReac Type Severity Reaction Status Date / Time adhesive Allergy Rash Verified 04/16/23 21:04 adhesive tape Allergy Rash Verified 04/16/23 21:04 gabapentin [From Neurontin] Allergy Hives Verified 04/16/23 21:04 Family History Other Alcoholism Anxiety and depression Arthritis Diabetes Myocardial infarction Surgical History History of back surgery History of total knee arthroplasty History of total knee arthroplasty Hx of elbow surgery Hx of knee surgery Hx of knee surgery Hx of oral surgery Hx of total knee arthroplasty Hx of total knee arthroplasty Status post revision of total replacement of right knee Social History household members: spouse Smoking Status: Never smoker Smokeless tobacco user: chewing tobacco alcohol intake: current alcohol intake frequency: a few times a week Alcohol type: beer substance use type: marijuana what type of physical activity do you participate in: none ROS Gastrointestinal Gastrointestinal: Reports systems reviewed and no addt'l complaints, except as documented Genitourinary Genitourinary: Reports systems reviewed and no addt'l complaints, except as documented Musculoskeletal Musculoskeletal: Reports systems reviewed and no addt'l complaints, except as documented Integumentary Integumentary: Reports as per HPI and other Details: skin graft healing well Neurologic Neurologic: Reports systems reviewed and no addt'l complaints, except as documented Psychiatric Psychiatric: Reports systems reviewed and no addt'l complaints, except as documented Endocrine Endocrinology: Reports systems reviewed and no addt'l complaints, except as documented Hematologic/Lymphatic Hematologic/Lymphatic: Reports systems reviewed and no addt'l complaints, except as documented Allergic/Immunologic Allergic/Immunologic: Reports systems reviewed and no addt'l complaints, except as documented Vital Signs Vital Signs Vital Signs: 04/17/23 08:30 04/17/23 09:02 04/17/23 10:14 Temperature 98.6 F Temperature Source Oral Pulse Rate 78 Respiratory Rate 16 Respiratory Effort Normal Non-Labored Respiratory Depth Normal Respiratory Pattern Normal Blood Pressure 158/73 H Blood Pressure Mean 101 Blood Pressure Source Monitor Blood Pressure Position Supine Blood Pressure Location Right Arm Pulse Ox 95 92 Oxygen Delivery Method Room Air Room Air Room Air 04/17/23 15:18 04/17/23 21:09 04/18/23 03:27 Temperature 98.1 F 98.2 F 98.4 F Temperature Source Oral Oral Oral Pulse Rate 71 76 84 Respiratory Rate 16 18 18 Respiratory Effort Respiratory Depth Respiratory Pattern Blood Pressure 133/78 H 134/67 H 114/66 Blood Pressure Mean 96 89 82 Blood Pressure Source Monitor Monitor Monitor Blood Pressure Position Semi-Fowlers Supine Supine Blood Pressure Location Right Arm Right Arm Right Arm Pulse Ox 92 94 92 Oxygen Delivery Method Room Air Room Air Room Air Weight Weight: 172 lb 9.951 oz Body Mass Index (BMI) 28.7 Physical Exam Const alert and oriented x3 General Appearance: cooperative HEENT normocephalic Eyes PERRL Neck no JVD Resp normal respiratory effort Cardio Cardio Narrative: Regular pulse rate GI non-distended Extremity Extremity Narrative: Right lower extremity: Exam is limited secondary to fracture. Positive dorsiflexion EHL plantarflexion intact. Sensations intact light touch saphenous, sural, saphenous peroneal, deep peroneal and tibial nerve distributions. Recent anterior surgical scars well-healed. There is good healing of the split-thickness skin graft and medial gastroc flap with medial calf incision. Moderate swelling of the thigh. Mild shortening of the limb. Skin Skin Narrative: Split-thickness skin graft and incisions are healing well. Neuro CN's II-XII intact bilaterally Psych affect normal Medical Records Data Attestation: I reviewed the patient's medical records Lab / Micro Data 04/18/23 03:35 04/18/23 03:35 Labs: Laboratory Results - last 24 hr 04/18/23 03:35: WBC 7.2, RBC 3.95 L, Hgb 10.2 L, Hct 32.5 L, MCV 82.3, MCH 25.8 L, MCHC 31.4 L, RDW Std Deviation 44.8 H, RDW Coeff of Clemente 14.9 H, Plt Count 315, MPV 9.4, PT 14.5, INR 1.1, APTT 36.0, Sodium 137, Potassium 4.0, Chloride 104, Carbon Dioxide 29.0, Anion Gap 4 L, BUN 11, Creatinine 1.00, Estim Creat Clear Calc 65.77, Est GFR (MDRD) Af Amer 97, Est GFR (MDRD) Non-Af 80, BUN/Creatinine Ratio 11.0, Glucose 160 H, Calcium 8.4 L X-rays were reviewed of the right femur. Showing a spiral periprosthetic fracture at the proximal aspect of the stem and cement mantle. Previous postoperative x-rays were also reviewed showing stem and cement mantle extend least 2 cortical cortical widths beyond area of previous metaphyseal diaphyseal widening from loosening and bone loss. Assessment & Plan Assessment/Plan (1) Periprosthetic fracture around internal prosthetic knee joint: PLAN: Natural history of the disease process and treatment options were discussed with patient. Patient's previous surgical intervention is caused areas of cortical thinning and likely related stress risers. Despite our attempts to span the fracture patient a spiral periprosthetic fracture at the midshaft. At this point we discussed treatment options include operative versus nonoperative intervention. Nonoperative intervention was not recommended as patient continues to have mobility. Operative intervention include open reduction internal fixation as well as amputation considering surgical history and current concerns for lack of a functional extensor mechanism. Ultimately, based on fracture pattern I do explained that if we are going to continue to attempt to salvage the extremity and its function no reduction internal fixation would be the recommended treatment option. Risks of the surgery include but are not limited to blood loss, DVTs, PEs, neurovascular injury, general risk of anesthesia including loss of life. Patient understands based on his surgical history is a high risk for infection etiology and nonhealing of the wound. Additionally he can have nonunion, malunion and hardware failure. Finally, we also did discuss amputation at length. We had discussions in the past about amputation function of the patient's extremity. Ultimately, amputation would have more predictable outcome would likely more manageable complications however, it entails a loss of the extremity. Based on today's conversation patient thickness appropriate identification. Will not proceed with surgery today. I need to make appropriate arrangements in order to proceed with open reduction internal fixation. Patient will remain in a knee immobilizer. Will I&D today. We will make him n.p.o. after midnight tonight for possible fixation tomorrow. In the interim patient would benefit from Lovenox treatment for DVT prophylaxis as he is currently on bedrest and has been quite immobile throughout this process. Lovenox will need to be stopped 12 hours prior to surgical intervention. Which should have definitive date and time later today. [facility] Office: (2) Hyperlipidemia: PLAN: Per primary service (3) Obstructive sleep apnea: PLAN: Per primary service (4) Cannabis abuse: PLAN: Per primary service (5) Depression: PLAN: Per primary service (6) Anxiety: PLAN: Per primary service (7) Diabetes mellitus: PLAN: Per primary service (8) Essential (primary) hypertension: PLAN: Per primary service (9) Debility: PLAN: Per primary service
[2023-04-18] MEDS: oxyCODONE 5 MG Tablet PO ×4 (06:56→22:53)
[2023-04-18 07:25] VITALS: O2SAT 96
--- NOTE | 2023-04-18 08:49 | PCM.PN.HOSP ---
Reason for Visit Reason for Visit: Diagnoses Type 2 diabetes mellitus without complications (04/16/23) Hyperlipidemia, unspecified (04/16/23) Cannabis abuse, uncomplicated (04/16/23) Major depressive disorder, single episode, unspecified (04/16/23) Anxiety disorder, unspecified (04/16/23) Obstructive sleep apnea (adult) (pediatric) (04/16/23) Essential (primary) hypertension (04/16/23) Periprosthetic fracture around other internal prosthetic joint, initial encounter (04/16/23) Other malaise (04/16/23) Unspecified fracture of right femur, initial encounter for closed fracture (04/16/23) Presence of unspecified artificial knee joint (04/16/23) Subjective Subjective Reports having pain and cramping in his leg today, had no other acute complaints Objective Data Objective Data Vital Signs: Vital Signs Temp Pulse Resp BP Pulse Ox O2 Del Method 98.4 F 84 18 114/66 92 Room Air 04/18/23 03:27 04/18/23 03:27 04/18/23 03:27 04/18/23 03:27 04/18/23 03:27 04/18/23 03:27 Oxygen Delivery Method Room Air Weight: 78.3 kg Body Mass Index (BMI) 28.7 Intake & Output: Intake and Output for Last 24 Hours 04/16/23 04/17/23 04/18/23 23:59 23:59 23:59 Intake Total 720 / 720 Output Total 850 / 850 Balance -130 / -130 Lab / Micro Data 04/18/23 03:35 04/18/23 03:35 Labs: Laboratory Results - last 24 hr 04/18/23 03:35: WBC 7.2, RBC 3.95 L, Hgb 10.2 L, Hct 32.5 L, MCV 82.3, MCH 25.8 L, MCHC 31.4 L, RDW Std Deviation 44.8 H, RDW Coeff of Clemente 14.9 H, Plt Count 315, MPV 9.4, PT 14.5, INR 1.1, APTT 36.0, Sodium 137, Potassium 4.0, Chloride 104, Carbon Dioxide 29.0, Anion Gap 4 L, BUN 11, Creatinine 1.00, Estim Creat Clear Calc 65.77, Est GFR (MDRD) Af Amer 97, Est GFR (MDRD) Non-Af 80, BUN/Creatinine Ratio 11.0, Glucose 160 H, Calcium 8.4 L Physical Exam Narrative General: Resting comfortably in bed, easily arousable HEENT: Atraumatic, normocephalic Eyes: Anicteric, normal conjunctiva, extraocular movements grossly intact Neck: Supple Respiratory: Clear to auscultation bilaterally, normal respiratory effort Cardiovascular: Regular rate and rhythm GI: Soft, nontender, nondistended Extremities: No edema Musculoskeletal: Moving all extremities Neuro: No overt focal neurological deficits Skin: No rashes appreciated Psych: Cooperative Assessment & Plan Assessment/Plan (1) Closed right femoral fracture: PLAN: Plan Patient is a 62-year-old gentleman with recent right knee replacement revision on in January 2023 which was complicated by prosthetic joint infection for which patient underwent Right knee irrigation debridement polyethylene exchange once component revision by Dr. Reilly presented following a fall at home imaging studies demonstrated fracture involving the mid femoral diaphysis. Admitted to regular nursing floor with consultation placed to orthopedic surgery #Right femoral periprosthetic femur fracture status post fall ? Imaging studies obtained on admission did show partially displaced fracture midshaft right femur. Admitted to regular nursing floor, managed with pain meds, immobilization with consult placed orthopedic surgery -04/18: Patient will not proceed with surgery today and will likely have fixation tomorrow, orthopedic surgery recommended making him n.p.o. at midnight and starting Lovenox which will need to be stopped 12 hours prior to surgical intervention. Continue pain control #Recent right knee prosthetic joint infection -patient underwent Right knee irrigation debridement polyethylene exchange once component revision by Dr. Reilly. Surgical culture at that time grew Enterobacter, patient completed antibiotic therapy with IV ertapenem and doxycycline on 04/15/2023 #Hypertension - Blood pressure controlled, home medications continued with dose adjustment as needed #GERD ? On PPI #Depression ? Patient is on Wellbutrin, home dose continue #DVT prophylaxis ? [place] Lovenox Charges/Coding Visit Charges Inpatient E&M: 701[address] [facility] Hosp L1
--- NOTE | 2023-04-18 09:55 | CASEMGMT ---
RN CM Face to Face with patient for initial transition planning/care coordination assessment. RN CM introduced self and role at [facility]. Patient lying in bed, alert and oriented. Patient willing to participate in assessment and is able to answer all questions appropriately. Care providers, pharmacy, and demographics verified. Patient is unsure of disposition at discharge, will monitor course of treatment and progress with therapy. Patient states he has no further needs or concerns at this time. CM to follow for discharge planning needs that may arise. PCP: [facility] Specialists: zina Reilly Pharmacy: [facility] Insurance: [employer] RAEANN CHRISTIANSON Prescription Benefit: yes Living Will/HPOA: none LNOK: Living Arrangements: Patient lives with in a 2 story home. Patient was independent and able to ambulate stairs at home. Transportation: DME/HHC: Patient has shower chair, cane, walker, wheelchair at home. Patient has previously been to TCU. Patient states he had HHC with [facility] in [place]. Disposition Plan: TBD, anticipate HHC vs SNF pending course of treatment and progress with therapy. Saida CONROY, RN, CM
[2023-04-18 10:20] VITALS: BP 114/76; PULSE 80; RESP 16; TEMP 36.2; O2SAT 92
[2023-04-18] MEDS: Pantoprazole Sodium 40 MG Tablet PO (10:24)
[2023-04-18] MEDS: Enoxaparin 40 MG/0.4 ML Syringe SC (10:24)
[2023-04-18] MEDS: Lisinopril 10 MG Tablet PO (10:25)
[2023-04-18] MEDS: buPROPion (SR) 150 MG Tablet.SA PO (10:25)
[2023-04-18 15:07] VITALS: BP 121/73; PULSE 79; RESP 16; TEMP 36.6; O2SAT 94
[2023-04-18] MEDS: cycloBENZAPRine HCl 10 MG Tablet PO (19:57)
[2023-04-18 20:30] VITALS: BP 112/66; PULSE 82; RESP 18; TEMP 36.8; O2SAT 98
[2023-04-19 03:30] VITALS: BP 108/84; PULSE 84; RESP 18; TEMP 36.9; O2SAT 96
[2023-04-19 05:08] LABS: Hematocrit 35.4 % (40-54); Hemoglobin 11.3 g/dL (13.0-16.5); Mean Corp Hgb Conc 31.9 g/dL (32-36); Mean Corpuscular Hgb 25.9 pg (27.0-32.0); Mean Corpuscular Volume 81.2 fL (80-94); Mean Platelet Vol. 9.2 fl (6.2-12.0); Platelet Count 328 K/mm3 (150-450); RBC Distribution Width SD 44.3 fl (35.1-43.9); Red Blood Count 4.36 M/mm3 (4.6-6.2); White Blood Count 7.5 K/mm3 (4.4-11.0)
[2023-04-19 05:23] LABS: Anion Gap 5 (5-15); BUN 11 mg/dL (7-18); BUN/Creat Ratio 14.7 RATIO (10-20); Calcium,Total 8.5 mg/dL (8.5-10.1); Chloride 105 mmol/L (98-107); Creatinine, Serum 0.75 mg/dL (0.70-1.30); EST Glomerular Filtration Rate 112 mL/min (>60); Est Glom Filt Rate - Afr Amer 136 mL/min (>60); Estimated Creatinine Clearance 87.69 ml/min; Glucose 133 mg/dL (74-106); Potassium 4.1 mmol/L (3.5-5.1); Sodium Level 138 mmol/L (136-145)
--- NOTE | 2023-04-19 07:48 | PCM.PN.HOSP ---
Reason for Visit Reason for Visit: Diagnoses Type 2 diabetes mellitus without complications (04/16/23) Hyperlipidemia, unspecified (04/16/23) Cannabis abuse, uncomplicated (04/16/23) Major depressive disorder, single episode, unspecified (04/16/23) Anxiety disorder, unspecified (04/16/23) Obstructive sleep apnea (adult) (pediatric) (04/16/23) Essential (primary) hypertension (04/16/23) Periprosthetic fracture around other internal prosthetic joint, initial encounter (04/16/23) Other malaise (04/16/23) Unspecified fracture of right femur, initial encounter for closed fracture (04/16/23) Presence of unspecified artificial knee joint (04/16/23) Subjective Subjective Patient still hurting in his leg and reports cramping, surgery scheduled for tomorrow, patient denies any other complaints today Objective Data Objective Data Vital Signs: Vital Signs Temp Pulse Resp BP Pulse Ox O2 Del Method 98.4 F 84 18 108/84 H 96 Room Air 04/19/23 03:30 04/19/23 03:30 04/19/23 03:30 04/19/23 03:30 04/19/23 03:30 04/19/23 03:30 Oxygen Delivery Method Room Air Weight: 78.3 kg Body Mass Index (BMI) 28.7 Intake & Output: Intake and Output for Last 24 Hours 04/17/23 04/18/23 04/19/23 23:59 23:59 23:59 Intake Total 720 / 720 840 / 840 Output Total 850 / 850 1150 / 1150 240 / 240 Balance -130 / -130 -310 / -310 -240 / -240 Lab / Micro Data 04/19/23 04:55 04/19/23 04:55 Labs: Laboratory Results - last 24 hr 04/19/23 04:55: WBC 7.5, RBC 4.36 L, Hgb 11.3 L, Hct 35.4 L, MCV 81.2, MCH 25.9 L, MCHC 31.9 L, RDW Std Deviation 44.3 H, RDW Coeff of Clemente 15.0 H, Plt Count 328, MPV 9.2, Sodium 138, Potassium 4.1, Chloride 105, Carbon Dioxide 28.0, Anion Gap 5, BUN 11, Creatinine 0.75, Estim Creat Clear Calc 87.69, Est GFR (MDRD) Af Amer 136, Est GFR (MDRD) Non-Af 112, BUN/Creatinine Ratio 14.7, Glucose 133 H, Calcium 8.5, Blood Type O POSITIVE, Antibody Screen NEGATIVE Physical Exam Narrative General: Resting comfortably in bed, easily arousable HEENT: Atraumatic, normocephalic Eyes: Anicteric, normal conjunctiva, extraocular movements grossly intact Neck: Supple Respiratory: Clear to auscultation bilaterally, normal respiratory effort Cardiovascular: Regular rate and rhythm GI: Soft, nontender, nondistended Extremities: No edema Musculoskeletal: Moving all extremities Neuro: No overt focal neurological deficits Skin: No rashes appreciated Psych: Cooperative Assessment & Plan Assessment/Plan (1) Closed right femoral fracture: PLAN: Plan Patient is a 62-year-old gentleman with recent right knee replacement revision on in January 2023 which was complicated by prosthetic joint infection for which patient underwent Right knee irrigation debridement polyethylene exchange once component revision by Dr. Reilly presented following a fall at home imaging studies demonstrated fracture involving the mid femoral diaphysis. Admitted to regular nursing floor with consultation placed to orthopedic surgery #Right femoral periprosthetic femur fracture status post fall ? Imaging studies obtained on admission did show partially displaced fracture midshaft right femur. Admitted to regular nursing floor, managed with pain meds, immobilization with consult placed orthopedic surgery -04/18: Patient will not proceed with surgery today and will likely have fixation tomorrow, orthopedic surgery recommended making him n.p.o. at midnight and starting Lovenox which will need to be stopped 12 hours prior to surgical intervention. Continue pain control -04/19: Patient for surgery tomorrow, continue pain control, further management per Ortho #Recent right knee prosthetic joint infection -patient underwent Right knee irrigation debridement polyethylene exchange once component revision by Dr. Reilly. Surgical culture at that time grew Enterobacter, patient completed antibiotic therapy with IV ertapenem and doxycycline on 04/15/2023 -04/19: No signs or symptoms of infection #Hypertension - Blood pressure controlled, home medications continued with dose adjustment as needed -04/19: BP 108/84 this a.m., will hold lisinopril perioperatively and can resume afterwards #GERD ? On PPI #Depression ? Patient is on Wellbutrin, home dose continue #DVT prophylaxis ? SC Lovenox now on hold given surgery, will place order for SCDs Time spent in the patient's overall evaluation,decision-making process, review of diagnostic data, adjustment of management, discussion with other providers, nursing nursing and ancillary staff involved in patient's care documentation, 36 minutes Charges/Coding Visit Charges Inpatient E&M: 95732 Subs Hosp L2
[2023-04-19 09:30] VITALS: BP 134/76; PULSE 82; RESP 16; TEMP 36.5; O2SAT 95
[2023-04-19] MEDS: Pantoprazole Sodium 40 MG Tablet PO (09:44)
[2023-04-19] MEDS: oxyCODONE 5 MG Tablet PO ×5 (09:45→22:47)
[2023-04-19] MEDS: buPROPion (SR) 150 MG Tablet.SA PO ×2 (09:45→12:36)
[2023-04-19] MEDS: Acetaminophen 500 MG Tablet 1000 MG PO ×3 (09:47→22:47)
[2023-04-19] MEDS: cycloBENZAPRine HCl 10 MG Tablet PO ×2 (10:41→14:58)
[2023-04-19] MEDS: Enoxaparin 40 MG/0.4 ML Syringe SC (12:35)
[2023-04-19 16:00] VITALS: BP 133/75; PULSE 82; RESP 18; TEMP 36.6; O2SAT 96
[2023-04-19 20:13] VITALS: BP 122/71; PULSE 82; RESP 16; TEMP 36.9; O2SAT 98
[2023-04-20] VITALS (17 sets, daily range): BP systolic 117–174; BP diastolic 72–103; PULSE 74–91; RESP 10–20; TEMP 36.4–36.8; O2SAT 92–100; BMI 28.7
[2023-04-20 05:49] LABS: Hematocrit 34.3 % (40-54); Hemoglobin 11.1 g/dL (13.0-16.5); Mean Corp Hgb Conc 32.4 g/dL (32-36); Mean Corpuscular Hgb 26.1 pg (27.0-32.0); Mean Corpuscular Volume 80.5 fL (80-94); Mean Platelet Vol. 9.3 fl (6.2-12.0); Platelet Count 331 K/mm3 (150-450); RBC Distribution Width CV 15.1 % (11.6-14.6); RBC Distribution Width SD 44.1 fl (35.1-43.9); Red Blood Count 4.26 M/mm3 (4.6-6.2); White Blood Count 7.1 K/mm3 (4.4-11.0)
[2023-04-20 06:12] LABS: Anion Gap 5 (5-15); BUN 19 mg/dL (7-18); BUN/Creat Ratio 21.7 RATIO (10-20); Calcium,Total 8.7 mg/dL (8.5-10.1); Chloride 103 mmol/L (98-107); Creatinine, Serum 0.88 mg/dL (0.70-1.30); EST Glomerular Filtration Rate 93 mL/min (>60); Est Glom Filt Rate - Afr Amer 113 mL/min (>60); Estimated Creatinine Clearance 74.74 ml/min; Glucose 130 mg/dL (74-106); Potassium 4.3 mmol/L (3.5-5.1); Sodium Level 136 mmol/L (136-145)
--- NOTE | 2023-04-20 07:20 | PCM.PN.HOSP ---
Reason for Visit Reason for Visit: Diagnoses Type 2 diabetes mellitus without complications (04/16/23) Hyperlipidemia, unspecified (04/16/23) Cannabis abuse, uncomplicated (04/16/23) Major depressive disorder, single episode, unspecified (04/16/23) Anxiety disorder, unspecified (04/16/23) Obstructive sleep apnea (adult) (pediatric) (04/16/23) Essential (primary) hypertension (04/16/23) Periprosthetic fracture around other internal prosthetic joint, initial encounter (04/16/23) Other malaise (04/16/23) Unspecified fracture of right femur, initial encounter for closed fracture (04/16/23) Presence of unspecified artificial knee joint (04/16/23) Subjective Subjective Still hurting, feeling slightly better after receiving pain medication Objective Data Objective Data Vital Signs: Vital Signs Temp Pulse Resp BP Pulse Ox O2 Del Method 98 F 74 16 117/72 94 Room Air 04/20/23 02:32 04/20/23 02:32 04/20/23 02:32 04/20/23 02:32 04/20/23 02:32 04/20/23 02:32 Oxygen Delivery Method Room Air Weight: 78.3 kg Body Mass Index (BMI) 28.7 Intake & Output: Intake and Output for Last 24 Hours 04/18/23 04/19/23 04/20/23 23:59 23:59 23:59 Intake Total 840 / 840 1480 / 1480 Output Total 1150 / 1150 1240 / 1240 Balance -310 / -310 240 / 240 Lab / Micro Data 04/20/23 05:38 04/20/23 05:38 Labs: Laboratory Results - last 24 hr 04/19/23 04:55: Blood Type O POSITIVE, Antibody Screen NEGATIVE 04/20/23 05:38: WBC 7.1, RBC 4.26 L, Hgb 11.1 L, Hct 34.3 L, MCV 80.5, MCH 26.1 L, MCHC 32.4, RDW Std Deviation 44.1 H, RDW Coeff of Clemente 15.1 H, Plt Count 331, MPV 9.3, Sodium 136, Potassium 4.3, Chloride 103, Carbon Dioxide 28.0, Anion Gap 5, BUN 19 H, Creatinine 0.88, Estim Creat Clear Calc 74.74, Est GFR (MDRD) Af Amer 113, Est GFR (MDRD) Non-Af 93, BUN/Creatinine Ratio 21.7 H, Glucose 130 H, Calcium 8.7 Physical Exam Narrative General: Resting comfortably in bed, easily arousable HEENT: Atraumatic, normocephalic Eyes: Anicteric, normal conjunctiva, extraocular movements grossly intact Neck: Supple Respiratory: Clear to auscultation bilaterally, normal respiratory effort Cardiovascular: Regular rate and rhythm GI: Soft, nontender, nondistended Extremities: No edema Musculoskeletal: Moving all extremities Neuro: No overt focal neurological deficits Skin: No rashes appreciated Psych: Cooperative Assessment & Plan Assessment/Plan (1) Closed right femoral fracture: PLAN: Plan Patient is a 62-year-old gentleman with recent right knee replacement revision on in January 2023 which was complicated by prosthetic joint infection for which patient underwent Right knee irrigation debridement polyethylene exchange once component revision by Dr. Reilly presented following a fall at home imaging studies demonstrated fracture involving the mid femoral diaphysis. Admitted to regular nursing floor with consultation placed to orthopedic surgery #Right femoral periprosthetic femur fracture status post fall ? Imaging studies obtained on admission did show partially displaced fracture midshaft right femur. Admitted to regular nursing floor, managed with pain meds, immobilization with consult placed orthopedic surgery -04/18: Patient will not proceed with surgery today and will likely have fixation tomorrow, orthopedic surgery recommended making him n.p.o. at midnight and starting Lovenox which will need to be stopped 12 hours prior to surgical intervention. Continue pain control -04/19: Patient for surgery tomorrow, continue pain control, further management per Ortho -04/20: Plan for surgery today #Recent right knee prosthetic joint infection -patient underwent Right knee irrigation debridement polyethylene exchange once component revision by Dr. Reilly. Surgical culture at that time grew Enterobacter, patient completed antibiotic therapy with IV ertapenem and doxycycline on 04/15/2023 -04/19: No signs or symptoms of infection #Hypertension - Blood pressure controlled, home medications continued with dose adjustment as needed -04/19: BP 108/84 this a.m., will hold lisinopril perioperatively and can resume afterwards -04/20: Stable, holding JENNIFER perioperatively #GERD ? On PPI #Depression ? Patient is on Wellbutrin, home dose continue #DVT prophylaxis ? SC Lovenox now on hold given surgery, will place order for SCDs Time spent in the patient's overall evaluation,decision-making process, review of diagnostic data, adjustment of management, discussion with other providers, nursing nursing and ancillary staff involved in patient's care documentation, 36 minutes Charges/Coding Visit Charges Inpatient E&M: 63586 Subs Hosp L2
[2023-04-20] MEDS: HYDROmorphone 0.5 MG/0.5 ML SYRINGE IV (07:23)
[2023-04-20] MEDS: buPROPion (SR) 150 MG Tablet.SA PO (09:39)
[2023-04-20] MEDS: Pantoprazole Sodium 40 MG Tablet PO (09:40)
[2023-04-20] MEDS: Lactated Ringers 1,000 ML 15 ML IV (13:35)
[2023-04-20] MEDS: Cefazolin 2 GM in 0.9% Normal Saline (100mL Bag) 100 ML IV (15:47)
--- NOTE | 2023-04-20 15:55 | PN_ITS ---
Assessment & Plan Assessment/Plan (1) Closed right femoral fracture: PLAN: Plan Patient reexamined today. Doing well. Patient has been n.p.o. Patient was given opportunity to ask any further questions prior to proceeding with the procedure. He does wish to proceed with open reduction total fixation. Has mandy iqbal adequately consented. We are going to proceed with surgery today. Antibiotics are ordered on-call to the operating room. [facility] Office:
--- NOTE | 2023-04-20 16:15 | RAD_ITS ---
STUDY: X-RAY - RIGHT FEMUR-fluoroscopic guidance for MRI of surgery. REASON FOR STUDY: Male, 62 years old. FX TECHNIQUE: Fluoroscopic guidance was provided for ORIF procedure. The radiologist was not present in the room. 8 images were obtained during the exam is different stages of the procedure. The total fluoroscopy time is recorded as 11 seconds. COMPARISON: None. FINDINGS: The images reveal status post ORIF surgery of the right femur with fixation plate and angelo along with knee prosthesis. Alignment is anatomical. RAD/Femur Min 2 Views IMPRESSION: Fluoroscopic guidance provided intraoperatively for ORIF procedure as described. For details please see operative report. Electronically Signed: Barbra Ruiz MD at 17:56 EDT ,
--- NOTE | 2023-04-20 17:56 | PCM.OPRPT ---
Report of Operation Date of Procedure: 04/20/23 Pre-Operative Diagnosis: Right periprosthetic femoral shaft fracture Post-Operative Diagnosis: Right periprosthetic femoral shaft fracture Surgery/Procedure Performed:: Open reduction internal fixation right periprosthetic femoral shaft fracture Description of Surgical Findings:: Stable reduction Surgeon: Cash Reilly top lift compresser: Shiv Ponce Type of Anesthesia: General Anesthesiologist: Jonnie Quevedo Special Medications: Ancef Specimen's removed: None Estimated Blood Loss (mL): 500 mL Fluids Replaced: 1000 mL crystalloid Description of Procedure: On the date of the procedure patient was seen and evaluated in the preoperative area. We again discussed the treatment plan and elected to proceed with open reduction internal fixation. Risks and benefits were again established and patient did wish to proceed. No family members were at bedside. Right lower extremity was marked and patient was taken back to the operating room. Patient was anesthetized on the table. Anesthesia assumed control C-spine and airway and remained controlled throughout the remainder the procedure. Patient was then transferred to the bed in the supine position. Patient was then placed in the lateral cubitus position with the system might this and processing assistant. The pegboard was used to secure him in the lateral decubitus position. All bony prominences identified well-padded and patient was then prepped in a sterile fashion while the surgeon scrubbed. Upon reentering the room right lower extremity was draped in the standard orthopedic fashion. Timeout was called. When agreed upon the side, the site, the procedure to be performed, patient's identity and antibiotic given. Lateral incision was marked out for lateral approach of the femur. Incision was taken down through skin. We carefully dissected to its fatty tissues and noted the fascia. Fascia was incised in line with the skin. We then identified the vastus lateralis and lifted anteriorly. Then retractor was placed in proximal distal fragments of the femur fracture identified. Clamps were placed around the proximal distal femur fragments we carefully were able to pull traction externally rotate the femur and reduce the fracture. Once were happy with the fracture reduction live x-ray was used to verify fracture reduction. Once we are able to verify this a 14 hole plate was selected and 3 cables were placed around the fracture. Proximal and distal cable were placed through the eyelet and the plate the middle cables just passed over the plate. They were tightened down and live x-ray was used to verify placement of the plate and cables. Once were happy with this as well as reduction the clamp was removed and our attention was directed proximally to place 3 screws. The first 2 screws were placed using cortical screws and the final screw was placed locking this was the most proximal screw. After this live x-rays to verify final plate and screw placement as well as final reduction of the fracture. Wound was irrigated out with a 3-minute dilute Betadine lavage followed by Irrisept solution followed by copious amounts of normal saline. Finally the wound is closed. We used interrupted #1 Vicryl to help tack the vastus lateralis down posteriorly again. #1 Vicryl was used to run the fascia. 2-0 Vicryl for subcuticular layer and final skin closure was done with celeste. Sterile dressing was placed. Knee immobilizer was placed. Patient was placed back in supine position and awakened by anesthesia. My physician crew truck driver (PE) was a vital part of this case. They were important in appropriate retraction during the case, and protection of soft tissues during drilling. Additionally PA was vital in helping maintain traction to obtain the fracture reduction. Their intimate knowledge of the case and my steps aided in safe and expedient completion of the procedure as well as appropriate position of the leg during the case. They were also vital in assisting with closure under my direct supervision. Postop plan: 1. DVT prophylaxis: Xarelto 10 mg daily for 2 weeks followed by 2 weeks of aspirin 81 mg p.o. twice daily. Patient has limited mobility and will have weightbearing restrictions. 2. Mobility: Toe-touch weightbearing, knee immobilizer for 6 weeks Grafts/Implants Used: Synthes 14 hole plate lateral femoral curved large frag Complications No intraoperative complications Admit VTE Documentation VTE Present on Admission: No VTE Mechan Device Prophylaxis: SCD's and Thigh High RONALD Hose VTE Pharm Prophylaxis ordered?: Yes
--- NOTE | 2023-04-20 19:29 | RAD_ITS ---
STUDY: X-RAY - RIGHT FEMUR REASON FOR STUDY: Male, 62 years old. FRACTURE TECHNIQUE: 2 view(s) of the femur. COMPARISON: None. FINDINGS: The patient is status post recent surgery with fixation plate along the lateral aspect of the right femur, multiple traversing screws and wires through the right femoral shaft and total knee prosthesis in place. Fixation rods through the distal femur demonstrated. Skin celeste along the lateral aspect of the upper thigh with nonspecific swelling consistent with recent surgery. RAD/Femur Min 2 Views IMPRESSION: Postoperative changes as described through the femur with normal alignment. Electronically Signed: Barbra Ruiz MD at 22:03 EDT ,
--- NOTE | 2023-04-20 22:26 | NURSING ---
pt wanted this RN to call and update that surgery went well, attempted to call twice, both went straight to voicemail. This RN let patient know, he described that he and his are not on good terms, and havent been for the past 15 years. Asked pt if there is anyone else we could call and he declined.
[2023-04-20] MEDS: Cefazolin 1 GM/50 ML BAG IV (23:23)
[2023-04-20] MEDS: Acetaminophen 500 MG Tablet 1000 MG PO (23:24)
[2023-04-21] VITALS (10 sets, daily range): BP systolic 104–147; BP diastolic 52–88; PULSE 79–97; RESP 16–20; TEMP 36.6–36.9; O2SAT 85–97; BMI 28.7
[2023-04-21] MEDS: oxyCODONE 5 MG Tablet PO ×7 (01:02→23:23)
[2023-04-21] MEDS: HYDROmorphone 0.5 MG/0.5 ML SYRINGE IV (04:42)
[2023-04-21] MEDS: 0.9% Saline Lock 10 ML Syringe IV ×2 (04:42→09:14)
[2023-04-21 06:10] LABS: Hematocrit 34.6 % (40-54); Mean Corp Hgb Conc 31.8 g/dL (32-36); Mean Corpuscular Hgb 25.4 pg (27.0-32.0); Mean Corpuscular Volume 79.9 fL (80-94); Platelet Count 496 K/mm3 (150-450); RBC Distribution Width CV 14.8 % (11.6-14.6); Red Blood Count 4.33 M/mm3 (4.6-6.2); White Blood Count 12.7 K/mm3 (4.4-11.0)
--- NOTE | 2023-04-21 06:19 | CPS ---
Stopped I.S. order, it was a duplicate, pt already educated and 6 completed.
[2023-04-21] MEDS: Rivaroxaban 10 MG Tablet PO (06:33)
[2023-04-21] MEDS: Acetaminophen 500 MG Tablet 1000 MG PO ×3 (06:33→23:17)
[2023-04-21 06:34] LABS: Anion Gap 10 (5-15); BUN 25 mg/dL (7-18); BUN/Creat Ratio 23.6 RATIO (10-20); Calcium,Total 8.7 mg/dL (8.5-10.1); Chloride 101 mmol/L (98-107); Creatinine, Serum 1.06 mg/dL (0.70-1.30); EST Glomerular Filtration Rate 75 mL/min (>60); Est Glom Filt Rate - Afr Amer 91 mL/min (>60); Estimated Creatinine Clearance 62.05 ml/min; Glucose 202 mg/dL (74-106); Potassium 4.5 mmol/L (3.5-5.1); Sodium Level 134 mmol/L (136-145)
--- NOTE | 2023-04-21 08:31 | PCM.PN.HOSP ---
Reason for Visit Reason for Visit: Diagnoses Type 2 diabetes mellitus without complications (04/16/23) Hyperlipidemia, unspecified (04/16/23) Cannabis abuse, uncomplicated (04/16/23) Major depressive disorder, single episode, unspecified (04/16/23) Anxiety disorder, unspecified (04/16/23) Obstructive sleep apnea (adult) (pediatric) (04/16/23) Essential (primary) hypertension (04/16/23) Periprosthetic fracture around other internal prosthetic joint, initial encounter (04/16/23) Other malaise (04/16/23) Unspecified fracture of right femur, initial encounter for closed fracture (04/16/23) Presence of unspecified artificial knee joint (04/16/23) Subjective Subjective Patient status post surgery and is feeling better, open to considering SNF options if needed but said he cannot guarantee he will ultimately be agreeable Objective Data Objective Data Vital Signs: Vital Signs Temp Pulse Resp BP Pulse Ox O2 Del Method O2 Flow Rate 98.1 F 97 20 H 147/83 H 93 Room Air 2 04/21/23 04:46 04/21/23 04:46 04/21/23 04:46 04/21/23 04:46 04/21/23 06:19 04/21/23 06:19 04/21/23 00:56 Oxygen Flow Rate (L/min) 2 Oxygen Delivery Method Room Air Weight: 78.3 kg Body Mass Index (BMI) 28.7 Intake & Output: Intake and Output for Last 24 Hours 04/19/23 04/20/23 04/21/23 23:59 23:59 23:59 Intake Total 1480 / 1480 1313.5 / 1313.5 Output Total 1240 / 1240 500 / 500 300 / 300 Balance 240 / 240 813.5 / 813.5 -300 / -300 Lab / Micro Data 04/21/23 05:11 04/21/23 05:11 Labs: Laboratory Results - last 24 hr 04/21/23 05:11: WBC 12.7 H, RBC 4.33 L, Hgb 11.0 L, Hct 34.6 L, MCV 79.9 L, MCH 25.4 L, MCHC 31.8 L, RDW Std Deviation 43.0, RDW Coeff of Clemente 14.8 H, Plt Count 496 H, MPV 10.0, Sodium 134 L, Potassium 4.5, Chloride 101, Carbon Dioxide 23.0, Anion Gap 10, BUN 25 H, Creatinine 1.06, Estim Creat Clear Calc 62.05, Est GFR (MDRD) Af Amer 91, Est GFR (MDRD) Non-Af 75, BUN/Creatinine Ratio 23.6 H, Glucose 202 H, Calcium 8.7 Radiography Diagnostic Testing: Radiology Impression Femur X-Ray 04/20/23 16:15 IMPRESSION: Fluoroscopic guidance provided intraoperatively for ORIF procedure as described. For details please see operative report. Electronically Signed: Barbra Ruiz MD at 17:56 EDT Reading Location ID and State: [id number] / [employer] , Service support , Femur X-Ray 04/20/23 19:29 IMPRESSION: Postoperative changes as described through the femur with normal alignment. Electronically Signed: Barbra Ruiz MD at 22:03 EDT , Physical Exam Narrative General: Alert, oriented, no apparent distress HEENT: Atraumatic, normocephalic Eyes: extraocular movements grossly intact Neck: Supple Respiratory: normal respiratory effort Cardiovascular: no edema appreciated GI: nondistended Extremities: Moving all extremities but right side knee immobilizer Neuro: No overt focal neurological deficits Psych: Cooperative Assessment & Plan Assessment/Plan (1) Closed right femoral fracture: PLAN: Plan Patient is a 62-year-old gentleman with recent right knee replacement revision on in January 2023 which was complicated by prosthetic joint infection for which patient underwent Right knee irrigation debridement polyethylene exchange once component revision by Dr. Reilly presented following a fall at home imaging studies demonstrated fracture involving the mid femoral diaphysis. Admitted to regular nursing floor with consultation placed to orthopedic surgery #Right femoral periprosthetic femur fracture status post fall ? Imaging studies obtained on admission did show partially displaced fracture midshaft right femur. Admitted to regular nursing floor, managed with pain meds, immobilization with consult placed orthopedic surgery -04/18: Patient will not proceed with surgery today and will likely have fixation tomorrow, orthopedic surgery recommended making him n.p.o. at midnight and starting Lovenox which will need to be stopped 12 hours prior to surgical intervention. Continue pain control -04/19: Patient for surgery tomorrow, continue pain control, further management per Ortho -04/20: Plan for surgery today -04/21: Underwent successful open reduction internal fixation of right periprosthetic femur shaft fracture. Ortho recommended Xarelto 10 mg daily for 2 weeks followed by 2 weeks of aspirin 81 mg p.o. twice daily. Patient has limited mobility and will have weightbearing restrictions. Mobility: Toe-touch weightbearing, knee immobilizer for 6 weeks. Pain control, PT/OT to evaluate, patient may need placement #Recent right knee prosthetic joint infection -patient underwent Right knee irrigation debridement polyethylene exchange once component revision by Dr. Reilly. Surgical culture at that time grew Enterobacter, patient completed antibiotic therapy with IV ertapenem and doxycycline on 04/15/2023 -04/19: No signs or symptoms of infection #Hypertension - Blood pressure controlled, home medications continued with dose adjustment as needed -04/19: BP 108/84 this a.m., will hold lisinopril perioperatively and can resume afterwards -04/20: Stable, holding JENNIFER perioperatively #GERD ? On PPI #Depression ? Patient is on Wellbutrin, home dose continue #DVT prophylaxis ? Xarelto Time spent in the patient's overall evaluation,decision-making process, review of diagnostic data, adjustment of management, discussion with other providers, nursing nursing and ancillary staff involved in patient's care documentation, 36 minutes Charges/Coding Visit Charges Inpatient E&M: 96119 Subs Hosp L2
[2023-04-21] MEDS: Ensure Surgery 237 ML LIQUID PO ×3 (09:12→18:00)
[2023-04-21] MEDS: buPROPion (SR) 150 MG Tablet.SA PO ×2 (09:13→12:12)
[2023-04-21] MEDS: Pantoprazole Sodium 40 MG Tablet PO (09:13)
[2023-04-21] MEDS: Cefazolin 1 GM/50 ML BAG IV (09:21)
--- NOTE | 2023-04-21 10:19 | CASEMGMT ---
Discharge Planning A list of SNF?providers including quality and resource use data and consistent with the patient's preferred geographic region, medical needs, and insurance network was created in [employer] Guide.? This list was provided to the SW. Kelin Aly, Discharge Planning Asst.
--- NOTE | 2023-04-21 10:23 | PCM.PN.ORT ---
Subjective Subjective The patient was sitting in bed upon examination. Patient denies any chest pain, shortness of breath, dizziness, lightheadedness, nausea or vomiting, or calf pain. Patient does report some spasm in his right thigh. Pain is controlled on medications. No adverse overnight events. Patient is currently toe-touch weightbearing with his knee immobilizer. He does state that he was up with the nursing staff walking this morning. He has not participated in physical therapy yet. Objective Data Objective Data Vital Signs: Vital Signs Temp Pulse Resp BP Pulse Ox O2 Del Method O2 Flow Rate 98.1 F 97 20 H 147/83 H 93 Room Air 2 04/21/23 04:46 04/21/23 04:46 04/21/23 04:46 04/21/23 04:46 04/21/23 06:19 04/21/23 06:19 04/21/23 00:56 Oxygen Flow Rate (L/min) 2 Oxygen Delivery Method Room Air Weight: 78.3 kg Body Mass Index (BMI) 28.7 Intake & Output: Intake and Output for Last 24 Hours 04/19/23 04/20/23 04/21/23 23:59 23:59 23:59 Intake Total 1480 / 1480 1313.5 / 1313.5 Output Total 1240 / 1240 500 / 500 300 / 300 Balance 240 / 240 813.5 / 813.5 -300 / -300 Lab / Micro Data 04/21/23 05:11 04/21/23 05:11 Labs: Laboratory Results - last 24 hr 04/21/23 05:11: WBC 12.7 H, RBC 4.33 L, Hgb 11.0 L, Hct 34.6 L, MCV 79.9 L, MCH 25.4 L, MCHC 31.8 L, RDW Std Deviation 43.0, RDW Coeff of Clemente 14.8 H, Plt Count 496 H, MPV 10.0, Sodium 134 L, Potassium 4.5, Chloride 101, Carbon Dioxide 23.0, Anion Gap 10, BUN 25 H, Creatinine 1.06, Estim Creat Clear Calc 62.05, Est GFR (MDRD) Af Amer 91, Est GFR (MDRD) Non-Af 75, BUN/Creatinine Ratio 23.6 H, Glucose 202 H, Calcium 8.7 Radiography Diagnostic Testing: Radiology Impression Femur X-Ray 04/20/23 16:15 IMPRESSION: Fluoroscopic guidance provided intraoperatively for ORIF procedure as described. For details please see operative report. Electronically Signed: Barbra Ruiz MD at 17:56 EDT , Femur X-Ray 04/20/23 19:29 IMPRESSION: Postoperative changes as described through the femur with normal alignment. Electronically Signed: Barbra Ruiz MD at 22:03 EDT , Physical Exam Narrative Vital signs stable and afebrile. Knee immobilizer in place for right lower extremity. Esequiel wrap also in place. Patient is able to plantarflex and dorsiflex actively. Sensation is intact to light touch to saphenous, sural, superficial and deep peroneal, and tibial distribution. Dressing is clean dry and intact. Negative Homans bilaterally, negative signs and symptoms of DVT. Const alert, oriented x3 and no apparent distress Assessment & Plan Assessment/Plan (1) Closed right femoral fracture: (2) Periprosthetic fracture around internal prosthetic knee joint: (3) History of knee replacement: PLAN: Plan 1. S/P open reduction internal fixation right periprosthetic femoral shaft fracture POD #1 2. Continue Pain Medications: Tylenol and oxycodone 3. DVT Prophylaxis: Xarelto 10 mg daily for 2 weeks followed by 2 weeks of aspirin 81 mg twice daily. Patient has limited mobility and will have weightbearing restrictions 4. PT/OT: Patient will be toe-touch weightbearing with the right lower extremity for a minimum of 6 weeks postoperatively with use of walker. Continue with knee immobilizer at all times and no range of motion of the right knee 5. Labs have been reviewed in chart 6. Continue postoperative medical management per medicine 7. Encouraged Incentive Spirometry 8. Disposition: Patient appears to be stable this morning. Physical therapy will be very important for patient to make sure he is appropriate for discharge and understands and can perform the toe-touch weightbearing. Case management did discuss with patient and will [facility]. Patient will continue with above pain regimen and DVT prophylaxis. He will be toe-touch weightbearing with the right lower extremity for a minimum of 6 weeks postoperatively and no range of motion right knee. He will continue with the knee immobilizer for the first 2 weeks. I did advise the patient to bring his TROM brace to his 2-week follow-up. Patient will require 2-week postoperative follow-up with [facility] for x-rays and staple removal. When patient is medically stable and discharge planning has been established okay from an orthopedic standpoint for discharge. This dictation was created using voice recognition software. Phonetic and/or grammatical errors may exist.
--- NOTE | 2023-04-21 10:28 | CASEMGMT ---
DENISSE SERVIN NOTE: DENISSE SERVIN to room. Pt resting in bed. Awake/alert/oriented. Discussed discharge planning. Pt states he feels it would be best to go somewhere for therapy before returning home to build up his strength. Pt made aware a list of SNF's will be provided and made aware to provide his top 3 preferences to SW so referral process can be initiated. Chantelle CONROY RN, CM
--- NOTE | 2023-04-21 11:48 | CASEMGMT ---
Per RN CM patient is interested in going to a correction facility for rehab. SW went to patient's room. Introduced self and role at [facility]. SW explained to patient that SW was informed he was interested in going to a correction facility for rehab. Patient said he is thinking about it. SW provided patient with a list of correction facility providers including quality and resource use data and consistent with patient?s preferred geographic region, medical needs, and insurance network were provided from the [facility] Guide. SW explained to patient that he just needs to pick a few facilities he would be okay with and SW will check with the facilities on availability. SW asked patient if he would like SW to call his to discuss this. Patient said he will call her and talk with her about it. SW left the list with patient. Elizabeth OWENS
[2023-04-21] MEDS: Senna/Docusate Sodium 1 Tablet 2 TABLET PO (12:12)
[2023-04-21] MEDS: cycloBENZAPRine HCl 10 MG Tablet PO ×2 (14:17→21:17)
--- NOTE | 2023-04-21 15:30 | CASEMGMT ---
SW checked with patient and he has not decided on a SNF. SW explained to patient that SW needs his choices as we will have to get an accepting facility and then his insurance will have to approve which could take a few days. Patient called his and their [facility] for SNF [facility], [facility]. SW sent a referral to [facility]. Elizabeth OWENS
--- NOTE | 2023-04-21 16:25 | CASEMGMT ---
Social Work SW met with pt to discuss advance directives.? Pt denies having completed a living will or health care POA and is requesting to complete documents during this hospitalization. SW will followup with pt as time allows to assist pt prior to discharge. MYA Sanchez
[2023-04-22] VITALS (7 sets, daily range): BP systolic 113–129; BP diastolic 62–74; PULSE 82–86; RESP 16–18; TEMP 36.3–36.8; O2SAT 85–97; BMI 28.7
[2023-04-22 05:16] LABS: Absolute Neutrophil Count 5.4 X10^3/uL (2.0-7.7); Basophil# 0.02 X10^3/uL; Basophil% 0.2 % (0-1); Eosinophil# 0.12 X10^3/uL; Eosinophils% 1.4 % (0-5); Hemoglobin 9.6 g/dL (13.0-16.5); Lymphocyte % 21.2 % (19-41); Mean Corpuscular Hgb 25.1 pg (27.0-32.0); Mean Corpuscular Volume 81.2 fL (80-94); Mean Platelet Vol. 9.5 fl (6.2-12.0); Monocyte# 1.12 X10^3/uL; Monocyte% 13.2 % (0-10); NRBC Flagged by Analyzer 0 % (0-5); Neutrophil # 5.39 X10^3/uL (2.7-7.7); Neutrophil % 63.6 % (47-70); Platelet Count 364 K/mm3 (150-450); RBC Distribution Width CV 15.1 % (11.6-14.6); RBC Distribution Width SD 44.4 fl (35.1-43.9); Red Blood Count 3.82 M/mm3 (4.6-6.2); White Blood Count 8.5 K/mm3 (4.4-11.0)
[2023-04-22 05:43] LABS: Anion Gap 5 (5-15); BUN 17 mg/dL (7-18); Calcium,Total 8.4 mg/dL (8.5-10.1); Chloride 103 mmol/L (98-107); Creatinine, Serum 0.85 mg/dL (0.70-1.30); EST Glomerular Filtration Rate 96 mL/min (>60); Est Glom Filt Rate - Afr Amer 117 mL/min (>60); Estimated Creatinine Clearance 77.38 ml/min; Glucose 131 mg/dL (74-106); Potassium 4.1 mmol/L (3.5-5.1); Sodium Level 137 mmol/L (136-145)
[2023-04-22] MEDS: Acetaminophen 500 MG Tablet 1000 MG PO ×3 (06:42→22:58)
[2023-04-22] MEDS: Rivaroxaban 10 MG Tablet PO (06:42)
--- NOTE | 2023-04-22 07:53 | PN.ORTHO_ITS ---
Subjective Subjective The patient was sitting in bed sleeping upon examination. Patient denies any chest pain, shortness of breath, dizziness, lightheadedness, nausea or vomiting, or calf pain. Pain is controlled on medications. No adverse overnight events. Patient does wish to try to go to the transitional care unit at [facility]. We are waiting on approval. He has been participating with therapy tolerating the restrictions. Patient does complain of thigh pain but the thigh is soft and supple. He has continued to wear the knee immobilizer at all times. Objective Data Objective Data Vital Signs: Vital Signs Temp Pulse Resp BP Pulse Ox O2 Del Method O2 Flow Rate 97.9 F 85 18 120/74 93 Room Air 2 04/22/23 03:30 04/22/23 03:30 04/22/23 03:30 04/22/23 03:30 04/22/23 06:40 04/22/23 06:40 04/22/23 03:40 Oxygen Flow Rate (L/min) 2 Oxygen Delivery Method Room Air Weight: 78.3 kg Body Mass Index (BMI) 28.7 Intake & Output: Intake and Output for Last 24 Hours 04/20/23 04/21/23 04/22/23 23:59 23:59 23:59 Intake Total 1313.5 / 1313.5 1490 / 1490 Output Total 500 / 500 1450 / 1450 400 / 400 Balance 813.5 / 813.5 40 / 40 -400 / -400 Lab / Micro Data 04/22/23 04:15 04/22/23 04:15 Labs: Laboratory Results - last 24 hr 04/22/23 04:15: WBC 8.5, RBC 3.82 L, Hgb 9.6 L, Hct 31.0 L, MCV 81.2, MCH 25.1 L , MCHC 31.0 L, RDW Std Deviation 44.4 H, RDW Coeff of Clemente 15.1 H, Plt Count 364, MPV 9.5, Immature Gran % (Auto) 0.400, Neut % (Auto) 63.6, Lymph % (Auto) 21.2, Mclean % (Auto) 13.2 H, Eos % (Auto) 1.4, Baso % (Auto) 0.2, Absolute Neuts (auto) 5.4, Absolute Lymphs (auto) 1.80, Nucleated RBC % 0, Sodium 137, Potassium 4.1, Chloride 103, Carbon Dioxide 29.0, Anion Gap 5, BUN 17, Creatinine 0.85, Estim Creat Clear Calc 77.38, Est GFR (MDRD) Af Amer 117, Est GFR (MDRD) Non-Af 96, BUN/Creatinine Ratio 20.0, Glucose 131 H, Calcium 8.4 L Physical Exam Narrative Vital signs stable and afebrile. Yesterday evening patient has had some lower blood pressure readings. He is currently stable with his blood pressure. He has breathing on room air. Right thigh is soft and supple. He does have tenderness to palpation right thigh. The Esequiel wrap on the right thigh was removed. He has RONALD hose on the left. I did advise the nurse I would like a knee-high RONALD hose for the right. Knee immobilizer in place Patient is able to plantarflex and dorsiflex actively. Sensation is intact to light touch to saphenous, sural, superficial and deep peroneal, and tibial distribution. Dressing is clean dry and intact. Negative Homans bilaterally, negative signs and symptoms of DVT. Pulses in ankle and foot 2+ Const alert, oriented x3 and no apparent distress General Appearance: cooperative HEENT normocephalic Eyes PERRL Neck no JVD Resp normal respiratory effort Cardio Cardio Narrative: Regular pulse rate GI non-distended Extremity Extremity Narrative: Right lower extremity: Exam is limited secondary to fracture. Positive dorsiflexion EHL plantarflexion intact. Sensations intact light touch saphenous, sural, saphenous peroneal, deep peroneal and tibial nerve distributio ns. Recent anterior surgical scars well-healed. There is good healing of the split-thickness skin graft and medial gastroc flap with medial calf incision. Moderate swelling of the thigh. Mild shortening of the limb. Skin Skin Narrative: Split-thickness skin graft and incisions are healing well. Neuro CN's II-XII intact bilaterally Psych affect normal Assessment & Plan Assessment/Plan (1) Closed right femoral fracture: (2) Periprosthetic fracture around internal prosthetic knee joint: (3) History of knee replacement: PLAN: Plan 1. S/P open reduction internal fixation right periprosthetic femoral shaft fracture POD #2 2. Continue Pain Medications: Tylenol and oxycodone 3. DVT Prophylaxis: Xarelto 10 mg daily for 2 weeks followed by 2 weeks of aspirin 81 mg twice daily. Patient has limited mobility and will have weightbearing restrictions 4. PT/OT: Patient will be toe-touch weightbearing with the right lower extremity for a minimum of 6 weeks postoperatively with use of walker. Continue with knee immobilizer at all times and no range of motion of the right knee 5. Labs have been reviewed in chart 6. Continue postoperative medical management per medicine: Case was discussed with medicine Dr. Maddox 7. Encouraged Incentive Spirometry 8. Disposition: Patient appears to be orthopedically stable at this time. His thigh is soft and supple. He does have tenderness around the fracture site of the right thigh. Esequiel wrap was removed and instructions for knee-high RONALD hose was given to the nursing staff. He will continue with the knee immobilizer at all times with no range of motion of the right knee. He is toe-touch weightbearing on the right lower extremity. Must use walker for ambulation. Continue with pain medications including Tylenol and oxycodone. Recommendations for DVT prophylaxis Xarelto 10 mg daily for 2 weeks followed by 2 weeks aspirin 81 mg twice daily. The Mepilex dressing should only stay on for 1 week postoperatively. After removal may utilize ABD with Esequiel wrap to protect incision from knee immobilizer. Do not place any adhesives on the skin. Patient already has 2-week postoperative follow-up with orthopedics. At this time we will sign off from orthopedic standpoint. Okay for discharge when medically stable and approval to detention facility. Please contact orthopedics with any concerns or questions. Appreciate your care postoperatively with the patient. Patient was also instructed to bring his T ROM brace to his 2-week postoperative follow-up. Upon discharge she will contact our office with any concerns or questions. Patient also asked about switching over from clears to regular diet. From orthopedic standpoint we are okay for patient to have regular diet. This was discussed with nursing and they will check with medicine of why patient is still on clear diet. I have reviewed the [place] Automated Rx Reporting System (OARRS) report for this patient for refill pattern and other prescriber involvement as part of the appropriate surveillance for the provision of acute and chronic controlled medications. The report was requested and reviewed on the date of this entry and was considered in the prescribing process. This dictation was created using voice recognition software. Phonetic and/or grammatical errors may exist.
--- NOTE | 2023-04-22 09:10 | CASEMGMT ---
Discharge Planning Referral sent to [facility] via [facility]. Kelin Aly, Discharge Planning Asst.
[2023-04-22] MEDS: Ensure Surgery 237 ML LIQUID PO ×3 (09:14→16:58)
[2023-04-22] MEDS: buPROPion (SR) 150 MG Tablet.SA PO ×2 (09:15→11:02)
[2023-04-22] MEDS: Pantoprazole Sodium 40 MG Tablet PO (09:15)
--- NOTE | 2023-04-22 09:31 | CASEMGMT ---
TCU is unable to take patient. SW asked Kelin d/c financial planning analyst to please send a referral to [facility], patient's second choice. Elizabeth Baer DIRECTOR OF RECRUITMENT AND ADMISSIONS GRACIELA
--- NOTE | 2023-04-22 10:43 | PCM.PN.HOSP ---
Reason for Visit Reason for Visit: Diagnoses Type 2 diabetes mellitus without complications (04/16/23) Hyperlipidemia, unspecified (04/16/23) Cannabis abuse, uncomplicated (04/16/23) Major depressive disorder, single episode, unspecified (04/16/23) Anxiety disorder, unspecified (04/16/23) Obstructive sleep apnea (adult) (pediatric) (04/16/23) Essential (primary) hypertension (04/16/23) Periprosthetic fracture around other internal prosthetic joint, initial encounter (04/16/23) Other malaise (04/16/23) Unspecified fracture of right femur, initial encounter for closed fracture (04/16/23) Presence of unspecified artificial knee joint (04/16/23) Subjective Subjective And anxious to eat more food, still hurting, agreeable to work with physical therapy later today Objective Data Objective Data Vital Signs: Vital Signs Temp Pulse Resp BP Pulse Ox O2 Del Method O2 Flow Rate 98.3 F 86 16 129/71 H 94 Room Air 2 04/22/23 09:00 04/22/23 09:00 04/22/23 09:00 04/22/23 09:00 04/22/23 09:00 04/22/23 09:03 04/22/23 03:40 Oxygen Flow Rate (L/min) 2 Oxygen Delivery Method Room Air Weight: 78.3 kg Body Mass Index (BMI) 28.7 Intake & Output: Intake and Output for Last 24 Hours 04/20/23 04/21/23 04/22/23 23:59 23:59 23:59 Intake Total 1313.5 / 1313.5 1490 / 1490 Output Total 500 / 500 1450 / 1450 400 / 400 Balance 813.5 / 813.5 40 / 40 -400 / -400 Lab / Micro Data 04/22/23 04:15 04/22/23 04:15 Labs: Laboratory Results - last 24 hr 04/22/23 04:15: WBC 8.5, RBC 3.82 L, Hgb 9.6 L, Hct 31.0 L, MCV 81.2, MCH 25.1 L, MCHC 31.0 L, RDW Std Deviation 44.4 H, RDW Coeff of Clemente 15.1 H, Plt Count 364, MPV 9.5, Immature Gran % (Auto) 0.400, Neut % (Auto) 63.6, Lymph % (Auto) 21.2, Harrison % (Auto) 13.2 H, Eos % (Auto) 1.4, Baso % (Auto) 0.2, Absolute Neuts (auto) 5.4, Absolute Lymphs (auto) 1.80, Nucleated RBC % 0, Sodium 137, Potassium 4.1, Chloride 103, Carbon Dioxide 29.0, Anion Gap 5, BUN 17, Creatinine 0.85, Estim Creat Clear Calc 77.38, Est GFR (MDRD) Af Amer 117, Est GFR (MDRD) Non-Af 96, BUN/Creatinine Ratio 20.0, Glucose 131 H, Calcium 8.4 L Physical Exam Narrative General: Alert, oriented, no apparent distress HEENT: Atraumatic, normocephalic Eyes: extraocular movements grossly intact Neck: Supple Respiratory: normal respiratory effort Cardiovascular: no edema appreciated GI: nondistended Extremities: Moving all extremities but right side knee immobilizer Neuro: No overt focal neurological deficits Psych: Cooperative Assessment & Plan Assessment/Plan (1) Closed right femoral fracture: PLAN: Plan Patient is a 62-year-old gentleman with recent right knee replacement revision on in January 2023 which was complicated by prosthetic joint infection for which patient underwent Right knee irrigation debridement polyethylene exchange once component revision by Dr. Reilly presented following a fall at home imaging studies demonstrated fracture involving the mid femoral diaphysis. Admitted to regular nursing floor with consultation placed to orthopedic surgery #Right femoral periprosthetic femur fracture status post fall ? Imaging studies obtained on admission did show partially displaced fracture midshaft right femur. Admitted to regular nursing floor, managed with pain meds, immobilization with consult placed orthopedic surgery -04/18: Patient will not proceed with surgery today and will likely have fixation tomorrow, orthopedic surgery recommended making him n.p.o. at midnight and starting Lovenox which will need to be stopped 12 hours prior to surgical intervention. Continue pain control -04/19: Patient for surgery tomorrow, continue pain control, further management per Ortho -04/20: Plan for surgery today -04/21: Underwent successful open reduction internal fixation of right periprosthetic femur shaft fracture. Ortho recommended Xarelto 10 mg daily for 2 weeks followed by 2 weeks of aspirin 81 mg p.o. twice daily. Patient has limited mobility and will have weightbearing restrictions. Mobility: Toe-touch weightbearing, knee immobilizer for 6 weeks. Pain control, PT/OT to evaluate, patient may need placement -04/22: Patient did walk with physical therapy yesterday, agreeable to later today. Stressed the importance of this. Patient medically ready to pursue placement. #Recent right knee prosthetic joint infection -patient underwent Right knee irrigation debridement polyethylene exchange once component revision by Dr. Reilly. Surgical culture at that time grew Enterobacter, patient completed antibiotic therapy with IV ertapenem and doxycycline on 04/15/2023 -04/19: No signs or symptoms of infection #Hypertension - Blood pressure controlled, home medications continued with dose adjustment as needed -04/19: BP 108/84 this a.m., will hold lisinopril perioperatively and can resume afterwards -04/20: Stable, holding JENNIFER perioperatively #GERD ? On PPI #Depression ? Patient is on Wellbutrin, home dose continue #DVT prophylaxis ? Xarelto Time spent in the patient's overall evaluation,decision-making process, review of diagnostic data, adjustment of management, discussion with other providers, nursing nursing and ancillary staff involved in patient's care documentation, 36 minutes Charges/Coding Visit Charges Inpatient E&M: 83593 Subs Hosp L2
[2023-04-22] MEDS: oxyCODONE 5 MG Tablet PO ×2 (11:01→15:17)
[2023-04-22] MEDS: Senna/Docusate Sodium 1 Tablet 2 TABLET PO (13:16)
--- NOTE | 2023-04-22 14:05 | CASEMGMT ---
[facility] accepted patient. SW updated. Kelin Aly, Discharge Planning Asst.
--- NOTE | 2023-04-22 14:40 | CASEMGMT ---
JAZ notified patient that [facility] cannot take him, but [facility] can. JAZ explained patient will stay at [facility] until his insurance approves him. Plan: d/c to [facility] pending insurance approval. Elizabeth OWENS
--- NOTE | 2023-04-22 14:51 | CASEMGMT ---
Discharge Planning Patient has accepted by [facility]. [facility]OT evals [facility] via [facility]. Asked for precert to be submitted. Kelin Aly, Discharge Planning Asst.
[2023-04-23] VITALS (9 sets, daily range): BP systolic 109–126; BP diastolic 65–72; PULSE 67–81; RESP 16–18; TEMP 36.3–36.9; O2SAT 91–98
[2023-04-23 06:16] LABS: Absolute Lymphocyte Count 1.66 X10^3/uL (0.83-4.51); Absolute Neutrophil Count 3.6 X10^3/uL (2.0-7.7); Basophil# 0.02 X10^3/uL; Basophil% 0.3 % (0-1); Eosinophil# 0.14 X10^3/uL; Eosinophils% 2.3 % (0-5); Hematocrit 28.2 % (40-54); Hemoglobin 8.8 g/dL (13.0-16.5); Lymphocyte # 1.66 X10^3/ul (0.83-4.51); Mean Corp Hgb Conc 31.2 g/dL (32-36); Mean Corpuscular Hgb 25.4 pg (27.0-32.0); Mean Corpuscular Volume 81.3 fL (80-94); Mean Platelet Vol. 9.9 fl (6.2-12.0); Monocyte# 0.66 X10^3/uL; Monocyte% 10.7 % (0-10); NRBC Flagged by Analyzer 0 % (0-5); Neutrophil # 3.64 X10^3/uL (2.7-7.7); Neutrophil % 59.2 % (47-70); Platelet Count 351 K/mm3 (150-450); RBC Distribution Width CV 15.2 % (11.6-14.6); RBC Distribution Width SD 45.7 fl (35.1-43.9); Red Blood Count 3.47 M/mm3 (4.6-6.2); White Blood Count 6.2 K/mm3 (4.4-11.0)
[2023-04-23] MEDS: Rivaroxaban 10 MG Tablet PO (06:48)
[2023-04-23] MEDS: Acetaminophen 500 MG Tablet 1000 MG PO ×3 (06:49→23:46)
[2023-04-23 06:53] LABS: Anion Gap 3 (5-15); BUN 20 mg/dL (7-18); BUN/Creat Ratio 26.8 RATIO (10-20); Calcium,Total 8.4 mg/dL (8.5-10.1); Chloride 104 mmol/L (98-107); Creatinine, Serum 0.75 mg/dL (0.70-1.30); EST Glomerular Filtration Rate 112 mL/min (>60); Est Glom Filt Rate - Afr Amer 136 mL/min (>60); Estimated Creatinine Clearance 87.69 ml/min; Glucose 118 mg/dL (74-106); Sodium Level 136 mmol/L (136-145)
--- NOTE | 2023-04-23 07:56 | PCM.PN.HOSP ---
Reason for Visit Reason for Visit: Diagnoses Type 2 diabetes mellitus without complications (04/16/23) Hyperlipidemia, unspecified (04/16/23) Cannabis abuse, uncomplicated (04/16/23) Major depressive disorder, single episode, unspecified (04/16/23) Anxiety disorder, unspecified (04/16/23) Obstructive sleep apnea (adult) (pediatric) (04/16/23) Essential (primary) hypertension (04/16/23) Periprosthetic fracture around other internal prosthetic joint, initial encounter (04/16/23) Other malaise (04/16/23) Unspecified fracture of right femur, initial encounter for closed fracture (04/16/23) Presence of unspecified artificial knee joint (04/16/23) Subjective Subjective In some pain at present, overall feeling better than previous Objective Data Objective Data Vital Signs: Vital Signs Temp Pulse Resp BP Pulse Ox O2 Del Method O2 Flow Rate 98.1 F 74 18 121/68 H 93 Room Air 2 04/23/23 03:26 04/23/23 03:26 04/23/23 03:26 04/23/23 03:26 04/23/23 06:54 04/23/23 06:54 04/23/23 03:26 Oxygen Flow Rate (L/min) 2 Oxygen Delivery Method Room Air Weight: 78.3 kg Body Mass Index (BMI) 28.7 Intake & Output: Intake and Output for Last 24 Hours 04/21/23 04/22/23 04/23/23 23:59 23:59 23:59 Intake Total 1490 / 1490 Output Total 1450 / 1450 1150 / 1150 200 / 200 Balance 40 / 40 -1150 / -1150 -200 / -200 Lab / Micro Data 04/23/23 05:21 04/23/23 05:21 Labs: Laboratory Results - last 24 hr 04/23/23 05:21: WBC 6.2, RBC 3.47 L, Hgb 8.8 L, Hct 28.2 L, MCV 81.3, MCH 25.4 L, MCHC 31.2 L, RDW Std Deviation 45.7 H, RDW Coeff of Clemente 15.2 H, Plt Count 351, MPV 9.9, Immature Gran % (Auto) 0.500, Neut % (Auto) 59.2, Lymph % (Auto) 27.0, [place] % (Auto) 10.7 H, Eos % (Auto) 2.3, Baso % (Auto) 0.3, Absolute Neuts (auto) 3.6, Absolute Lymphs (auto) 1.66, Nucleated RBC % 0, Sodium 136, Potassium 4.0, Chloride 104, Carbon Dioxide 29.0, Anion Gap 3 L, BUN 20 H, Creatinine 0.75, Estim Creat Clear Calc 87.69, Est GFR (MDRD) Af Amer 136, Est GFR (MDRD) Non-Af 112, BUN/Creatinine Ratio 26.8 H, Glucose 118 H, Calcium 8.4 L Physical Exam Narrative General: Alert, oriented, no apparent distress HEENT: Atraumatic, normocephalic Eyes: extraocular movements grossly intact Neck: Supple Respiratory: normal respiratory effort Cardiovascular: no edema appreciated GI: nondistended Extremities: Moving all extremities but right side knee immobilizer Neuro: No overt focal neurological deficits Psych: Cooperative Assessment & Plan Assessment/Plan (1) Closed right femoral fracture: PLAN: Plan Patient is a 62-year-old gentleman with recent right knee replacement revision on in January 2023 which was complicated by prosthetic joint infection for which patient underwent Right knee irrigation debridement polyethylene exchange once component revision by Dr. Reilly presented following a fall at home imaging studies demonstrated fracture involving the mid femoral diaphysis. Admitted to regular nursing floor with consultation placed to orthopedic surgery #Right femoral periprosthetic femur fracture status post fall ? Imaging studies obtained on admission did show partially displaced fracture midshaft right femur. Admitted to regular nursing floor, managed with pain meds, immobilization with consult placed orthopedic surgery -04/18: Patient will not proceed with surgery today and will likely have fixation tomorrow, orthopedic surgery recommended making him n.p.o. at midnight and starting Lovenox which will need to be stopped 12 hours prior to surgical intervention. Continue pain control -04/19: Patient for surgery tomorrow, continue pain control, further management per Ortho -04/20: Plan for surgery today -04/21: Underwent successful open reduction internal fixation of right periprosthetic femur shaft fracture. Ortho recommended Xarelto 10 mg daily for 2 weeks followed by 2 weeks of aspirin 81 mg p.o. twice daily. Patient has limited mobility and will have weightbearing restrictions. Mobility: Toe-touch weightbearing, knee immobilizer for 6 weeks. Pain control, PT/OT to evaluate, patient may need placement -04/22: Patient did walk with physical therapy yesterday, agreeable to later today. Stressed the importance of this. Patient medically ready to pursue placement. -04/23: Has worked with physical therapy, patient for placement, referral sent and pre-CERT to be submitted. Adding incentive spirometry #Recent right knee prosthetic joint infection -patient underwent Right knee irrigation debridement polyethylene exchange once component revision by Dr. Reilly. Surgical culture at that time grew Enterobacter, patient completed antibiotic therapy with IV ertapenem and doxycycline on 04/15/2023 -04/19: No signs or symptoms of infection #Hypertension - Blood pressure controlled, home medications continued with dose adjustment as needed -04/19: BP 108/84 this a.m., will hold lisinopril perioperatively and can resume afterwards -04/20: Stable, holding JENNIFER perioperatively -04/23: Fairly well controlled, continue to monitor and adjust as needed #GERD ? On PPI #Depression ? Patient is on Wellbutrin, home dose continue #DVT prophylaxis ? Xarelto Time spent in the patient's overall evaluation,decision-making process, review of diagnostic data, adjustment of management, discussion with other providers, nursing nursing and ancillary staff involved in patient's care documentation, 30 minutes Charges/Coding Visit Charges Inpatient E&M: 16660 [facility] L1
[2023-04-23] MEDS: Pantoprazole Sodium 40 MG Tablet PO ×2 (08:24)
[2023-04-23] MEDS: 0.9% Saline Lock 10 ML Syringe IV ×2 (08:24→10:07)
[2023-04-23] MEDS: HYDROmorphone 0.5 MG/0.5 ML SYRINGE IV ×2 (10:21→19:33)
[2023-04-23] MEDS: buPROPion (SR) 150 MG Tablet.SA PO ×2 (11:07→13:31)
[2023-04-23] MEDS: oxyCODONE 5 MG Tablet PO ×2 (13:38→23:46)
--- NOTE | 2023-04-23 14:27 | CASEMGMT ---
Social Work SW met w/pt, reviewed LW/POA forms w/pt. Pt does not want to complete at this time, did take the forms to complete on his own. SW remains available to assist with this if needed, otherwise pt plans to complete the forms on his own. JUAN DIEGO Garcia
--- NOTE | 2023-04-23 16:58 | NURSING ---
Pt would like to go to [facility] instead of [facility] at discharge.
[2023-04-24] MEDS: HYDROmorphone 0.5 MG/0.5 ML SYRINGE IV (02:09)
[2023-04-24 02:13] VITALS: BP 117/78; PULSE 78; RESP 19; TEMP 36.5; O2SAT 94
[2023-04-24] MEDS: Rivaroxaban 10 MG Tablet PO (05:10)
[2023-04-24 06:17] LABS: Absolute Lymphocyte Count 1.98 X10^3/uL (0.83-4.51); Absolute Neutrophil Count 2.9 X10^3/uL (2.0-7.7); Basophil# 0.02 X10^3/uL; Basophil% 0.4 % (0-1); Eosinophil# 0.26 X10^3/uL; Eosinophils% 4.6 % (0-5); Hematocrit 26.1 % (40-54); Hemoglobin 8.2 g/dL (13.0-16.5); Lymphocyte # 1.98 X10^3/ul (0.83-4.51); Lymphocyte % 34.9 % (19-41); Mean Corp Hgb Conc 31.4 g/dL (32-36); Mean Corpuscular Volume 82.9 fL (80-94); Mean Platelet Vol. 9.5 fl (6.2-12.0); Monocyte# 0.54 X10^3/uL; Monocyte% 9.5 % (0-10); NRBC Flagged by Analyzer 0 % (0-5); Neutrophil # 2.85 X10^3/uL (2.7-7.7); Neutrophil % 50.1 % (47-70); Platelet Count 353 K/mm3 (150-450); RBC Distribution Width CV 15.3 % (11.6-14.6); RBC Distribution Width SD 46.4 fl (35.1-43.9); Red Blood Count 3.15 M/mm3 (4.6-6.2); White Blood Count 5.7 K/mm3 (4.4-11.0)
[2023-04-24 07:00] LABS: Anion Gap 5 (5-15); BUN 20 mg/dL (7-18); BUN/Creat Ratio 26.4 RATIO (10-20); Calcium,Total 8.5 mg/dL (8.5-10.1); Chloride 106 mmol/L (98-107); Creatinine, Serum 0.76 mg/dL (0.70-1.30); EST Glomerular Filtration Rate 110 mL/min (>60); Est Glom Filt Rate - Afr Amer 133 mL/min (>60); Estimated Creatinine Clearance 86.54 ml/min; Glucose 106 mg/dL (74-106); Potassium 4.1 mmol/L (3.5-5.1); Sodium Level 140 mmol/L (136-145)
--- NOTE | 2023-04-24 07:39 | PN.HOSP_ITS ---
Reason for Visit Reason for Visit: Diagnoses Type 2 diabetes mellitus without complications (04/16/23) Hyperlipidemia, unspecified (04/16/23) Cannabis abuse, uncomplicated (04/16/23) Major depressive disorder, single episode, unspecified (04/16/23) Anxiety disorder, unspecified (04/16/23) Obstructive sleep apnea (adult) (pediatric) (04/16/23) Essential (primary) hypertension (04/16/23) Periprosthetic fracture around other internal prosthetic joint, initial encounter (04/16/23) Other malaise (04/16/23) Unspecified fracture of right femur, initial encounter for closed fracture (04/16/23) Presence of unspecified artificial knee joint (04/16/23) Subjective Subjective Patient did not sleep well last night still a bit tired right now, leg hurts more depending what he is doing but overall no acute complaints Objective Data Objective Data Vital Signs: Vital Signs Temp Pulse Resp BP Pulse Ox O2 Del Method O2 Flow Rate 97.7 F L 78 19 H 117/78 94 Room Air 6 04/24/23 02:13 04/24/23 02:13 04/24/23 02:13 04/24/23 02:13 04/24/23 02:13 04/24/23 02:13 04/23/23 15:17 Oxygen Flow Rate (L/min) 6 Oxygen Delivery Method Room Air Weight: 78.3 kg Body Mass Index (BMI) 28.7 Intake & Output: Intake and Output for Last 24 Hours 04/22/23 04/23/23 04/24/23 23:59 23:59 23:59 Intake Total 960 / 960 Output Total 1150 / 1150 1140 / 1140 Balance -1150 / -1150 -180 / -180 Lab / Micro Data 04/24/23 04:45 04/24/23 04:45 Labs: Laboratory Results - last 24 hr 04/24/23 04:45: WBC 5.7, RBC 3.15 L, Hgb 8.2 L, Hct 26.1 L, MCV 82.9, MCH 26.0 L , MCHC 31.4 L, RDW Std Deviation 46.4 H, RDW Coeff of Clemente 15.3 H, Plt Count 353, MPV 9.5, Immature Gran % (Auto) 0.500, Neut % (Auto) 50.1, Lymph % (Auto) 34.9, Sanders % (Auto) 9.5, Eos % (Auto) 4.6, Baso % (Auto) 0.4, Absolute Neuts (auto) 2.9, Absolute Lymphs (auto) 1.98, Nucleated RBC % 0, Sodium 140, Potassium 4.1, Chloride 106, Carbon Dioxide 29.0, Anion Gap 5, BUN 20 H, Creatinine 0.76, Estim Creat Clear Calc 86.54, Est GFR (MDRD) Af Amer 133, Est GFR (MDRD) Non-Af 110, BUN/Creatinine Ratio 26.4 H, Glucose 106, Calcium 8.5 Physical Exam Narrative General: Alert, oriented, no apparent distress HEENT: Atraumatic, normocephalic Eyes: extraocular movements grossly intact Neck: Supple Respiratory: normal respiratory effort Cardiovascular: Regular rate and rhythm GI: nondistended Extremities: Moving all extremities but right side knee immobilizer Neuro: No overt focal neurological deficits Psych: Cooperative Assessment & Plan Assessment/Plan (1) Closed right femoral fracture: PLAN: Plan Patient is a 62-year-old gentleman with recent right knee replacement revision on in January 2023 which was complicated by prosthetic joint infection for which patient underwent Right knee irrigation debridement polyethylene exchange once component revision by Dr. Reilly presented following a fall at home imaging studies demonstrated fracture involving the mid femoral diaphysis. Admitted to regular nursing floor with consultation placed to orthopedic surgery #Right femoral periprosthetic femur fracture status post fall ? Imaging studies obtained on admission did show partially displaced fracture midshaft right femur. Admitted to regular nursing floor, managed with pain meds, immobilization with consult placed orthopedic surgery -04/18: Patient will not proceed with surgery today and will likely have fixation tomorrow, orthopedic surgery recommended making him n.p.o. at midnight and starting Lovenox which will need to be stopped 12 hours prior to surgical intervention. Continue pain control -04/19: Patient for surgery tomorrow, continue pain control, further management per Ortho -04/20: Plan for surgery today -04/21: Underwent successful open reduction internal fixation of right periprosthetic femur shaft fracture. Ortho recommended Xarelto 10 mg daily for 2 weeks followed by 2 weeks of aspirin 81 mg p.o. twice daily. Patient has limited mobility and will have weightbearing restrictions. Mobility: Toe-touch weightbearing, knee immobilizer for 6 weeks. Pain control, PT/OT to evaluate, patient may need placement -04/22: Patient did walk with physical therapy yesterday, agreeable to later today. Stressed the importance of this. Patient medically ready to pursue placement. -04/23: Has worked with physical therapy, patient for placement, referral sent and pre-CERT to be submitted. Adding incentive spirometry -04/24: Awaiting placement, DC IV pain meds and continue oral in preparation for DC #Recent right knee prosthetic joint infection -patient underwent Right knee irrigation debridement polyethylene exchange once component revision by Dr. Reilly. Surgical culture at that time grew E nterobacter, patient completed antibiotic therapy with IV ertapenem and doxycycline on 04/15/2023 -04/19: No signs or symptoms of infection #Hypertension - Blood pressure controlled, home medications continued with dose adjustment as needed -04/19: BP 108/84 this a.m., will hold lisinopril perioperatively and can resume afterwards -04/20: Stable, holding JENNIFER perioperatively -04/23: Fairly well controlled, continue to monitor and adjust as needed #GERD ? On PPI #Depression ? Patient is on Wellbutrin, home dose continue #DVT prophylaxis ? Xarelto Time spent in the patient's overall evaluation,decision-making process, review of diagnostic data, adjustment of management, discussion with other providers, nursing nursing and ancillary staff involved in patient's care documentation, 30 minutes Charges/Coding Visit Charges Inpatient E&M: 57453 [facility] L1
[2023-04-24 07:44] VITALS: BP 136/62; PULSE 73; RESP 16; TEMP 36.1; O2SAT 97
[2023-04-24] MEDS: 0.9% Saline Lock 10 ML Syringe IV (07:46)
[2023-04-24] MEDS: Acetaminophen 500 MG Tablet 1000 MG PO ×3 (07:46→23:07)
[2023-04-24] MEDS: buPROPion (SR) 150 MG Tablet.SA PO ×2 (07:47→11:59)
[2023-04-24] MEDS: oxyCODONE 5 MG Tablet PO ×2 (08:45→20:57)
[2023-04-24 09:21] VITALS: O2SAT 93
[2023-04-24 13:45] VITALS: BP 132/67; PULSE 79; RESP 14; TEMP 36.1; O2SAT 98
[2023-04-24 17:35] VITALS: BP 131/66; PULSE 81; RESP 16; TEMP 36.3; O2SAT 97
[2023-04-24 20:55] VITALS: BP 133/66; PULSE 77; RESP 18; TEMP 36.7; O2SAT 95
[2023-04-25] MEDS: oxyCODONE 5 MG Tablet PO ×4 (02:20→17:33)
[2023-04-25 04:29] VITALS: BP 132/73; PULSE 73; RESP 18; TEMP 36.2; O2SAT 97
[2023-04-25] MEDS: Rivaroxaban 10 MG Tablet PO (06:34)
[2023-04-25] MEDS: 0.9% Saline Lock 10 ML Syringe IV (06:35)
[2023-04-25 07:09] LABS: Absolute Lymphocyte Count 2.01 X10^3/uL (0.83-4.51); Absolute Neutrophil Count 3.6 X10^3/uL (2.0-7.7); Basophil# 0.02 X10^3/uL; Basophil% 0.3 % (0-1); Eosinophil# 0.32 X10^3/uL; Eosinophils% 4.9 % (0-5); Hematocrit 26.5 % (40-54); Hemoglobin 8.2 g/dL (13.0-16.5); Lymphocyte # 2.01 X10^3/ul (0.83-4.51); Lymphocyte % 30.9 % (19-41); Mean Corp Hgb Conc 30.9 g/dL (32-36); Mean Corpuscular Hgb 25.4 pg (27.0-32.0); Mean Platelet Vol. 9.2 fl (6.2-12.0); Monocyte# 0.58 X10^3/uL; Monocyte% 8.9 % (0-10); NRBC Flagged by Analyzer 0 % (0-5); Neutrophil # 3.55 X10^3/uL (2.7-7.7); Neutrophil % 54.7 % (47-70); Platelet Count 364 K/mm3 (150-450); RBC Distribution Width CV 15.5 % (11.6-14.6); RBC Distribution Width SD 46.5 fl (35.1-43.9); Red Blood Count 3.23 M/mm3 (4.6-6.2); White Blood Count 6.5 K/mm3 (4.4-11.0)
[2023-04-25 07:50] LABS: Anion Gap 6 (5-15); BUN 18 mg/dL (7-18); BUN/Creat Ratio 22.9 RATIO (10-20); Calcium,Total 8.5 mg/dL (8.5-10.1); Chloride 108 mmol/L (98-107); Creatinine, Serum 0.79 mg/dL (0.70-1.30); EST Glomerular Filtration Rate 106 mL/min (>60); Est Glom Filt Rate - Afr Amer 128 mL/min (>60); Estimated Creatinine Clearance 83.25 ml/min; Glucose 92 mg/dL (74-106); Sodium Level 141 mmol/L (136-145)
[2023-04-25 08:38] VITALS: O2SAT 96
[2023-04-25 09:01] VITALS: BP 122/84; PULSE 80; RESP 16; TEMP 36.9; O2SAT 97
[2023-04-25] MEDS: Pantoprazole Sodium 40 MG Tablet PO (09:16)
[2023-04-25] MEDS: buPROPion (SR) 150 MG Tablet.SA PO ×2 (09:16→13:08)
--- NOTE | 2023-04-25 10:11 | CASEMGMT ---
Discharge Planning Requested updates for precert sent to [facility] via [employer]. Kelin Aly, Discharge Planning Asst.
--- NOTE | 2023-04-25 12:34 | CASEMGMT ---
JAZ received a message from Debbie at [facility] regarding patient's request for group home facility. Debbie wanted to know if there were barriers to patient going home at discharge as he is doing fairly well with therapy. JAZ received a phone call from patient's Morena. Morena wanted to know where and when patient was going somewhere. JAZ explained that plan is [facility] accepted patient and we are just waiting on insurance to approve him. JAZ did explain to Morena that insurance just called SW and requested a return call. JAZ explained that insurance wants to know if there are barriers to patient returning home. Insurance feels like patient is doing well enough to go home. Morena said there are stairs to go anywhere in their home, they have 4 large dogs, and patient will be alone for part of the day. JAZ explained JAZ will tell this information to the insurance company. JAZ called Debbie at [facility] back and shared above information with her. Debbie said the case is going to the lead medical technologist to review. Debbie will pass along this information to the lead medical technologist. Elizabeth OWENS
--- NOTE | 2023-04-25 14:32 | PN_ITS ---
Subjective Subjective Patient seen and examined. He had no active complaints and had an uneventful night. Review of systems is otherwise negative. Objective Data Objective Data Vital Signs: Vital Signs Temp Pulse Resp BP Pulse Ox O2 Del Method O2 Flow Rate 98.5 F 80 16 122/84 H 97 Room Air 6 04/25/23 09:01 04/25/23 09:01 04/25/23 09:01 04/25/23 09:01 04/25/23 09:01 04/25/23 09:03 04/23/23 15:17 Oxygen Flow Rate (L/min) 6 Oxygen Delivery Method Room Air Weight: 172 lb 9.951 oz Body Mass Index (BMI) 28.7 Intake & Output: Intake and Output for Last 24 Hours 04/23/23 04/24/23 04/25/23 23:59 23:59 23:59 Intake Total 960 / 960 1240 / 1240 500 / 500 Output Total 1140 / 1140 0 / 0 Balance -180 / -180 1240 / 1240 500 / 500 Lab / Micro Data 04/25/23 06:52 04/25/23 06:52 Labs: Laboratory Results - last 24 hr 04/25/23 06:52: WBC 6.5, RBC 3.23 L, Hgb 8.2 L, Hct 26.5 L, MCV 82.0, MCH 25.4 L , MCHC 30.9 L, RDW Std Deviation 46.5 H, RDW Coeff of Clemente 15.5 H, Plt Count 364, MPV 9.2, Immature Gran % (Auto) 0.300, Neut % (Auto) 54.7, Lymph % (Auto) 30.9, [place] % (Auto) 8.9, Eos % (Auto) 4.9, Baso % (Auto) 0.3, Absolute Neuts (auto) 3.6, Absolute Lymphs (auto) 2.01, Nucleated RBC % 0, Sodium 141, Potassium 4.0, Chloride 108 H, Carbon Dioxide 27.0, Anion Gap 6, BUN 18, Creatinine 0.79, Estim Creat Clear Calc 83.25, Est GFR (MDRD) Af Amer 128, Est GFR (MDRD) Non-Af 106, BUN/Creatinine Ratio 22.9 H, Glucose 92, Calcium 8.5 Physical Exam Const alert, oriented x3 and no apparent distress General Appearance: cooperative HEENT normocephalic, head/scalp atraumatic, moist oral mucous membranes and oropharynx normal Lymph Lymphatic: no lymphadenopathy noted and no lymphedema noted Resp normal respiratory effort, normal air movement and clear to auscultation bilaterally Cardio regular rate, regular rhythm, S1 normal heart sound, S2 normal heart sound and no murmurs GI normal to inspection, nondistended, normoactive bowel sounds, soft to palpation, non-tender and non-distended Extremity normal capillary refill, no clubbing, cyanosis or edema and no calf tenderness Extremity Narrative: Right knee brace in place. General Extremity: no tenderness to palpation of joints or extremities Skin General Skin Exam: no breakdown Neuro CN's II-XII intact bilaterally, no focal motor deficits, no sensory deficits noted and deep tendon reflexes 2+ bilaterally Motor Exam: general weakness Psych thought process normal and cooperative Appearance: appropriate Assessment & Plan Assessment/Plan (1) Closed right femoral fracture: PLAN: Plan #RIght femoral periprosthetic femoral fracture due to mechanical fall * had ORIF of right periprosthetic femoral shaft fracture on 04/21/2023. * PT./OT on board. * on oral tylenol and oxycodone for pain as well as IV morphine prn. * fall precautions * #Recent Right knee prosthetic joint infection * had right knee irrigation debridement and polyethylene exchange with component revision by Dr Reilly recently. Surgical cultures grew Enterobacter and he has completed a course of IV antibiotics with IV ertapenem and doxycyline on 04/15/2023. * #Hypertension * on lisinopril * #GERD: on PPI #DepressioN; on wellbutrin. DVT prophylaxis: on xarelto Disposition: awaiting dc to SNF Charges/Coding Visit Charges Inpatient E&M: 98845 Subs Hosp L2
[2023-04-25 15:38] VITALS: BP 114/56; PULSE 80; RESP 16; TEMP 36.5; O2SAT 95
[2023-04-25] MEDS: Acetaminophen 500 MG Tablet 1000 MG PO ×2 (15:50→21:15)
[2023-04-25] MEDS: cycloBENZAPRine HCl 10 MG Tablet PO (15:51)
[2023-04-25 20:12] VITALS: BP 131/78; PULSE 81; RESP 18; TEMP 36.7; O2SAT 100
[2023-04-25] MEDS: HYDROmorphone 1 MG/ML Syringe IV (21:16)
[2023-04-26] VITALS (8 sets, daily range): BP systolic 122–161; BP diastolic 67–73; PULSE 75–79; RESP 16–18; TEMP 36.5–36.8; O2SAT 94–98
[2023-04-26] MEDS: Rivaroxaban 10 MG Tablet PO (05:01)
[2023-04-26] MEDS: oxyCODONE 5 MG Tablet PO ×5 (05:01→21:28)
[2023-04-26 05:55] LABS: Absolute Lymphocyte Count 2.05 X10^3/uL (0.83-4.51); Absolute Neutrophil Count 3.8 X10^3/uL (2.0-7.7); Basophil# 0.03 X10^3/uL; Basophil% 0.4 % (0-1); Eosinophil# 0.39 X10^3/uL; Eosinophils% 5.5 % (0-5); Hematocrit 28.8 % (40-54); Hemoglobin 8.7 g/dL (13.0-16.5); Lymphocyte # 2.05 X10^3/ul (0.83-4.51); Mean Corp Hgb Conc 30.2 g/dL (32-36); Mean Corpuscular Hgb 24.7 pg (27.0-32.0); Mean Corpuscular Volume 81.8 fL (80-94); Mean Platelet Vol. 9.4 fl (6.2-12.0); Monocyte# 0.74 X10^3/uL; Monocyte% 10.5 % (0-10); NRBC Flagged by Analyzer 0 % (0-5); Neutrophil # 3.77 X10^3/uL (2.7-7.7); Neutrophil % 53.5 % (47-70); Platelet Count 443 K/mm3 (150-450); RBC Distribution Width CV 15.7 % (11.6-14.6); RBC Distribution Width SD 46.4 fl (35.1-43.9); Red Blood Count 3.52 M/mm3 (4.6-6.2); White Blood Count 7.1 K/mm3 (4.4-11.0)
[2023-04-26 06:39] LABS: Anion Gap 6 (5-15); BUN 18 mg/dL (7-18); BUN/Creat Ratio 22.1 RATIO (10-20); Calcium,Total 8.7 mg/dL (8.5-10.1); Chloride 107 mmol/L (98-107); Creatinine, Serum 0.82 mg/dL (0.70-1.30); EST Glomerular Filtration Rate 101 mL/min (>60); Est Glom Filt Rate - Afr Amer 123 mL/min (>60); Estimated Creatinine Clearance 80.21 ml/min; Glucose 132 mg/dL (74-106); Potassium 3.9 mmol/L (3.5-5.1); Sodium Level 138 mmol/L (136-145)
[2023-04-26] MEDS: buPROPion (SR) 150 MG Tablet.SA PO ×2 (09:08→12:49)
[2023-04-26] MEDS: Pantoprazole Sodium 40 MG Tablet PO (09:08)
[2023-04-26] MEDS: Acetaminophen 500 MG Tablet 1000 MG PO ×3 (09:09→21:29)
--- NOTE | 2023-04-26 10:12 | CASEMGMT ---
Social Work Sw presented to bedside and assisted patient in completing Living Will and Power of Tig Welder documents. Patient identified his as his POA. Copies provided to patient and put in chart to be scanned into medical record. Janet Gardner MSW, SHIP SCRAPER
--- NOTE | 2023-04-26 11:34 | PN_ITS ---
Subjective Subjective Patient seen and examined. He had no complaints and had an uneventful night. Review of systems is otherwise negative. He has remained hemodynamically stable. He is awaiting placement Objective Data Objective Data Vital Signs: Vital Signs Temp Pulse Resp BP Pulse Ox O2 Del Method O2 Flow Rate 98.0 F 78 18 122/70 H 94 Room Air 6 04/26/23 06:40 04/26/23 06:40 04/26/23 06:40 04/26/23 06:40 04/26/23 07:21 04/26/23 09:14 04/23/23 15:17 Oxygen Flow Rate (L/min) 6 Oxygen Delivery Method Room Air Weight: 172 lb 9.951 oz Body Mass Index (BMI) 28.7 Intake & Output: Intake and Output for Last 24 Hours 04/24/23 04/25/23 04/26/23 23:59 23:59 23:59 Intake Total 1240 / 1240 950 / 1250 300 / 300 Output Total 400 / 700 700 / 700 Balance 1240 / 1240 550 / 550 -400 / -400 Lab / Micro Data 04/26/23 04:46 04/26/23 04:46 Labs: Laboratory Results - last 24 hr 04/26/23 04:46: WBC 7.1, RBC 3.52 L, Hgb 8.7 L, Hct 28.8 L, MCV 81.8, MCH 24.7 L , MCHC 30.2 L, RDW Std Deviation 46.4 H, RDW Coeff of Clemente 15.7 H, Plt Count 443, MPV 9.4, Immature Gran % (Auto) 1.100 H, Neut % (Auto) 53.5, Lymph % (Auto) 29.0, [place] % (Auto) 10.5 H, Eos % (Auto) 5.5 H, Baso % (Auto) 0.4, Absolute Neuts (auto) 3.8, Absolute Lymphs (auto) 2.05, Nucleated RBC % 0, Sodium 138, Potassium 3.9, Chloride 107, Carbon Dioxide 25.0, Anion Gap 6, BUN 18, Creatinine 0.82, Estim Creat Clear Calc 80.21, Est GFR (MDRD) Af Amer 123, Est GFR (MDRD) Non-Af 101, BUN/Creatinine Ratio 22.1 H, Glucose 132 H, Calcium 8.7 Physical Exam Const alert, oriented x3, no apparent distress and average body habitus General Appearance: cooperative and comfortable HEENT normocephalic, head/scalp atraumatic, hearing grossly normal bilaterally, nasal mucous membranes and turbinates normal, moist oral mucous membranes and oropharynx normal Eyes PERRL, EOMs intact bilaterally and conjunctivae normal Neck full ROM, no lymphadenopathy and supple Lymph Lymphatic: no lymphadenopathy noted and no lymphedema noted Chest inspection of chest normal Resp normal respiratory effort, normal air movement, no use of accessory muscles and clear to auscultation bilaterally Cardio regular rate, regular rhythm, S1 normal heart sound, S2 normal heart sound, no murmurs and peripheral pulses 2+ throughout GI normal to inspection, nondistended, normoactive bowel sounds, soft to palpation, non-tender and non-distended Back/Spine normal ROM Extremity normal capillary refill, no clubbing, cyanosis or edema and no calf tenderness Extremity Narrative: Right knee brace in place. General Extremity: no tenderness to palpation of joints or extremities Skin no rashes or lesions noted General Skin Exam: no breakdown Neuro CN's II-XII intact bilaterally, no focal motor deficits, no sensory deficits n oted and deep tendon reflexes 2+ bilaterally Motor Exam: general weakness Psych mental status grossly normal, thought process normal and cooperative Appearance: appropriate Assessment & Plan Assessment/Plan (1) Closed right femoral fracture: PLAN: Plan #RIght femoral periprosthetic femoral fracture due to mechanical fall * had ORIF of right periprosthetic femoral shaft fracture on 04/21/2023. * PT./OT on board. * on oral tylenol and oxycodone for pain as well as IV morphine prn. * fall precautions * #Recent Right knee prosthetic joint infection * had right knee irrigation debridement and polyethylene exchange with component revision by Dr Reilly recently. Surgical cultures grew Enterobacter and he has completed a course of IV antibiotics with IV ertapenem and doxycyline on 04/15/2023. * #Hypertension * on lisinopril * #GERD: on PPI #DepressioN; on wellbutrin. DVT prophylaxis: on xarelto Disposition: still awaiting dc to SNF Charges/Coding Visit Charges Inpatient E&M: 44787 Subs Hosp L2
--- NOTE | 2023-04-26 13:35 | CASEMGMT ---
Patient was denied by insurance to go to [facility] skilled. JAZ notified patient. Patient said he mentioned to someone Tuesday about him going to [facility] instead of [facility]. AJZ told patient JAZ could see if [facility] could take him on his Medicaid. Patient would like JAZ to do this. JAZ asked Kelin d/c strategy planning consultant to send a referral to [facility]. Elizabeth OWENS
--- NOTE | 2023-04-26 14:01 | CASEMGMT ---
Discharge Planning Referral sent to [facility] via [facility]. Kelin Aly, Discharge Planning Asst.
[2023-04-27] VITALS (9 sets, daily range): BP systolic 123–154; BP diastolic 65–88; PULSE 77–85; RESP 16; TEMP 36.2–36.9; O2SAT 93–99
[2023-04-27] MEDS: Rivaroxaban 10 MG Tablet PO (06:21)
[2023-04-27] MEDS: Acetaminophen 500 MG Tablet 1000 MG PO ×2 (06:22→15:31)
[2023-04-27 06:24] LABS: Absolute Lymphocyte Count 2.01 X10^3/uL (0.83-4.51); Basophil# 0.03 X10^3/uL; Basophil% 0.4 % (0-1); Eosinophils% 5.6 % (0-5); Hemoglobin 9.1 g/dL (13.0-16.5); Lymphocyte # 2.01 X10^3/ul (0.83-4.51); Mean Corp Hgb Conc 31.4 g/dL (32-36); Mean Corpuscular Hgb 25.7 pg (27.0-32.0); Mean Corpuscular Volume 81.9 fL (80-94); Mean Platelet Vol. 9.2 fl (6.2-12.0); Monocyte% 9.7 % (0-10); NRBC Flagged by Analyzer 0 % (0-5); Neutrophil # 3.96 X10^3/uL (2.7-7.7); Neutrophil % 55.2 % (47-70); Platelet Count 456 K/mm3 (150-450); RBC Distribution Width CV 15.7 % (11.6-14.6); RBC Distribution Width SD 46.6 fl (35.1-43.9); Red Blood Count 3.54 M/mm3 (4.6-6.2); White Blood Count 7.2 K/mm3 (4.4-11.0)
[2023-04-27 07:11] LABS: Anion Gap 8 (5-15); BUN 17 mg/dL (7-18); BUN/Creat Ratio 21.4 RATIO (10-20); Calcium,Total 8.8 mg/dL (8.5-10.1); Chloride 107 mmol/L (98-107); EST Glomerular Filtration Rate 104 mL/min (>60); Est Glom Filt Rate - Afr Amer 126 mL/min (>60); Estimated Creatinine Clearance 82.21 ml/min; Glucose 107 mg/dL (74-106); Sodium Level 139 mmol/L (136-145)
[2023-04-27] MEDS: oxyCODONE 5 MG Tablet PO ×3 (08:36→18:38)
[2023-04-27] MEDS: Pantoprazole Sodium 40 MG Tablet PO (08:37)
[2023-04-27] MEDS: cycloBENZAPRine HCl 10 MG Tablet PO ×2 (08:37→12:49)
[2023-04-27] MEDS: buPROPion (SR) 150 MG Tablet.SA PO ×2 (08:37→12:49)
[2023-04-27] MEDS: Morphine 2 MG/ML Syringe IV (11:13)
--- NOTE | 2023-04-27 12:44 | PN_ITS ---
Subjective Subjective Patient seen and examined. He has no complaints and had a 94 night. Review of symptoms otherwise negative he is awaiting placement. Objective Data Objective Data Vital Signs: Vital Signs Temp Pulse Resp BP Pulse Ox O2 Del Method O2 Flow Rate 98.1 F 83 16 147/84 H 97 Room Air 6 04/27/23 11:06 04/27/23 11:06 04/27/23 11:06 04/27/23 11:06 04/27/23 11:06 04/27/23 11:06 04/23/23 15:17 Oxygen Flow Rate (L/min) 6 Oxygen Delivery Method Room Air Weight: 172 lb 9.951 oz Body Mass Index (BMI) 28.7 Intake & Output: Intake and Output for Last 24 Hours 04/25/23 04/26/23 04/27/23 23:59 23:59 23:59 Intake Total 950 / 1250 1240 / 1240 Output Total 400 / 700 700 / 700 240 / 240 Balance 550 / 550 540 / 540 -240 / -240 Lab / Micro Data 04/27/23 05:04 04/27/23 05:04 Labs: Laboratory Results - last 24 hr 04/27/23 05:04: WBC 7.2, RBC 3.54 L, Hgb 9.1 L, Hct 29.0 L, MCV 81.9, MCH 25.7 L , MCHC 31.4 L, RDW Std Deviation 46.6 H, RDW Coeff of Clemente 15.7 H, Plt Count 456 H, MPV 9.2, Immature Gran % (Auto) 1.100 H, Neut % (Auto) 55.2, Lymph % (Auto) 28.0, Thomas % (Auto) 9.7, Eos % (Auto) 5.6 H, Baso % (Auto) 0.4, Absolute Neuts (auto) 4.0, Absolute Lymphs (auto) 2.01, Nucleated RBC % 0, Sodium 139, Potassium 4.0, Chloride 107, Carbon Dioxide 24.0, Anion Gap 8, BUN 17, Creatinine 0.80, Estim Creat Clear Calc 82.21, Est GFR (MDRD) Af Amer 126, Est GFR (MDRD) Non-Af 104, BUN/Creatinine Ratio 21.4 H, Glucose 107 H, Calcium 8.8 Physical Exam Const alert, oriented x3, no apparent distress and average body habitus General Appearance: cooperative and comfortable HEENT normocephalic, head/scalp atraumatic, hearing grossly normal bilaterally, nasal mucous membranes and turbinates normal, moist oral mucous membranes and oropharynx normal Eyes PERRL, EOMs intact bilaterally and conjunctivae normal Neck full ROM, no lymphadenopathy and supple Lymph Lymphatic: no lymphadenopathy noted and no lymphedema noted Chest inspection of chest normal Resp normal respiratory effort, normal air movement, no use of accessory muscles and clear to auscultation bilaterally Cardio regular rate, regular rhythm, S1 normal heart sound, S2 normal heart sound, no murmurs and peripheral pulses 2+ throughout GI normal to inspection, nondistended, normoactive bowel sounds, soft to palpation, non-tender and non-distended Back/Spine normal ROM Extremity normal capillary refill, no clubbing, cyanosis or edema and no calf tenderness Extremity Narrative: Right knee brace in place. General Extremity: no tenderness to palpation of joints or extremities Skin no rashes or lesions noted General Skin Exam: no breakdown Neuro CN's II-XII intact bilaterally, no focal motor deficits, no sensory deficits noted and deep tendon reflexes 2+ bilaterally Motor Exam: general weakness Psych mental status grossly normal, thought process normal and cooperative Appearance: appropriate Assessment & Plan Assessment/Plan (1) Closed right femoral fracture: PLAN: Plan #RIght femoral periprosthetic femoral fracture due to mechanical fall * had ORIF of right periprosthetic femoral shaft fracture on 04/21/2023. * PT./OT on board. * on oral tylenol and oxycodone for pain as well as IV morphine prn. * fall precautions * #Recent Right knee prosthetic joint infection * had right knee irrigation debridement and polyethylene exchange with component revision by Dr Reilly recently. Surgical cultures grew Enterobacter and he has completed a course of IV antibiotics with IV ertapenem and doxycyline on 04/15/2023. * #Hypertension * on lisinopril * #GERD: on PPI #DepressioN; on wellbutrin. DVT prophylaxis: on xarelto Disposition: still awaiting dc to SNF Charges/Coding Visit Charges Inpatient E&M: 46321 Subs Hosp L2
[2023-04-27] MEDS: diazePAM 2 MG Tablet PO (15:31)
[2023-04-27 15:43] LABS: Magnesium 2.2 mg/dL (1.6-2.6)
[2023-04-28] MEDS: diazePAM 2 MG Tablet PO (02:36)
[2023-04-28 04:00] VITALS: BP 132/68; PULSE 79; RESP 16; TEMP 36.7; O2SAT 98
[2023-04-28 04:55] LABS: Absolute Lymphocyte Count 1.61 X10^3/uL (0.83-4.51); Absolute Neutrophil Count 4.4 X10^3/uL (2.0-7.7); Basophil# 0.01 X10^3/uL; Basophil% 0.1 % (0-1); Eosinophil# 0.38 X10^3/uL; Eosinophils% 5.3 % (0-5); Hematocrit 29.1 % (40-54); Lymphocyte # 1.61 X10^3/ul (0.83-4.51); Lymphocyte % 22.6 % (19-41); Mean Corp Hgb Conc 30.9 g/dL (32-36); Mean Corpuscular Hgb 25.2 pg (27.0-32.0); Mean Corpuscular Volume 81.5 fL (80-94); Mean Platelet Vol. 8.9 fl (6.2-12.0); Monocyte# 0.68 X10^3/uL; Monocyte% 9.6 % (0-10); NRBC Flagged by Analyzer 0 % (0-5); Neutrophil % 61.8 % (47-70); Platelet Count 454 K/mm3 (150-450); RBC Distribution Width SD 47.6 fl (35.1-43.9); Red Blood Count 3.57 M/mm3 (4.6-6.2); White Blood Count 7.1 K/mm3 (4.4-11.0)
[2023-04-28] MEDS: oxyCODONE 5 MG Tablet PO ×2 (05:11→13:14)
[2023-04-28] MEDS: Rivaroxaban 10 MG Tablet PO (05:12)
[2023-04-28 05:18] VITALS: BP 132/68; PULSE 79; RESP 16; TEMP 36.7; O2SAT 98
[2023-04-28 05:19] LABS: Anion Gap 5 (5-15); BUN 16 mg/dL (7-18); BUN/Creat Ratio 17.7 RATIO (10-20); Calcium,Total 8.7 mg/dL (8.5-10.1); Chloride 107 mmol/L (98-107); EST Glomerular Filtration Rate 90 mL/min (>60); Est Glom Filt Rate - Afr Amer 109 mL/min (>60); Estimated Creatinine Clearance 73.08 ml/min; Glucose 126 mg/dL (74-106); Potassium 4.1 mmol/L (3.5-5.1); Sodium Level 139 mmol/L (136-145)
--- NOTE | 2023-04-28 08:30 | CASEMGMT ---
JAZ spoke with Kenia from [facility] this am. Kenia asked a few questions and asked that SW send updated notes from yesterday. Kenia also told SW to go ahead and start the process for a level of care. JAZ notified physician to complete d/c paperwork. Elizabeth Baer PRESS HAND SUPERVISOR GRACIELA
--- NOTE | 2023-04-28 08:49 | CASEMGMT ---
Discharge Planning Requested updates sent to [facility] via [employer]. Kelin Aly, Discharge Planning Asst.
[2023-04-28] MEDS: buPROPion (SR) 150 MG Tablet.SA PO (09:59)
[2023-04-28] MEDS: Pantoprazole Sodium 40 MG Tablet PO (09:59)
[2023-04-28 10:03] VITALS: BP 159/74; PULSE 78; RESP 18; TEMP 36.6; O2SAT 95
--- NOTE | 2023-04-28 11:28 | DCINST_ITS ---
Discharge Instructions Diet Discharge Diet: Low fat / Low cholesterol Activity Discharge Activity: Return to Normal Activity Weight Bearing Status: Weight bearing as tolerated Dressing / Incision Call your doctor if you observe: Fever of 101 or Higher, Shortness of breath, Dizziness, Swelling in the ankles, Chest pain and Increased palpitations (irregular heartbeat) Follow Up Care Test Results: Test results from this visit will be discussed in further detail at your follow- up appointment, if applicable. Discharge Plan Admission Admit Date/Time: 04/16/23 23:21 Primary Reason for Your Visit: Fall with R femur fracture Attending Provider: Swapna Walsh Primary Care Provider: Gerri Leary Consulting Providers: Cash Reilly; Sang Gibson; Tutu Ruiz; Irina Maddox Instructions Patient Instructions: ED Fall Prevention Additional Instructions / Restrictions: DISCHARGE INSTRUCTIONS PLEASE READ *Please take this with you to your next doctors appointment* -You will need to be on Xarelto 10 mg daily for 2 weeks followed by 2 weeks of aspirin 81 mg twice a day -toe-touch weightbearing with the right lower extremity for a minimum of 6 weeks postoperatively with use of walker. Continue with knee immobilizer at all times and no range of motion of the right knee -continue with the knee immobilizer for the first 2 weeks -Please follow-up with [facility] for x-rays and staple removal in 2 weeks. Please call their office to schedule hospital follow-up appointment upon discharge. -Please call your primary care provider's office upon discharge to schedule a hospital follow up within 1 week. -For any concerning signs or symptoms please call 911 or proceed to the nearest emergency department Discharge Orders/Prescriptions Prescriptions: New bupropion HCl 150 mg Tablet Sustained-Release 12 Hr 150 mg PO BIDBL Qty: 0 0RF oxycodone 5 mg Tablet 5 mg PO Q4H PRN PRN (Reason: Pain Score 4-10) 3 Days Qty: 12 0RF Xarelto 10 mg Tablet 10 mg PO DAILY@0600 Qty: 14 0RF cyclobenzaprine 10 mg tablet 10 mg PO TID PRN (Reason: muscle spasm) Qty: 30 1RF Continued bupropion HCl [Wellbutrin SR] 150 mg tablet sustained-release 12 hr 150 mg PO BID Rx Instructions: Take once daily for the first 3 days then increase to twice daily pantoprazole 40 mg tablet,delayed release (DR/EC) 40 mg PO DAILY lisinopril 10 mg tablet 10 mg PO DAILY Discontinued doxycycline monohydrate 100 mg Capsule 100 mg PO 1000,2200 20 Days Qty: 40 0RF Referrals / Follow Up: Gerri Leary MD [Primary Care Provider] - Shiv Ponce PA-C [Med Staff - [facility]] - 05/05/23 3:15 pm Disposition Disposition (needs filled in before D/C Order can be placed): Intermediate Facility
--- NOTE | 2023-04-28 11:33 | TREXTCAR_ITS ---
Diet Diet Order/Speech Therapy: 04/22/23 10:23 Carb [Diet: Carbohydrate Controlled] Food consistency:: Regular Liquid Consistency:: Regular/Thin Is pt able to select menu?: Yes Routine Orders/Code Status Enema Type: Fleetz Enema Frequency: Daily PRN Suppository Type: Dulcolax 10mg Suppository Frequency: Daily PRN O2 Frequency: PRN Keep PO Greater than or Equal to (%): 90 Wound(s) RLE: Wound Type: Surgical Incision Therapies Weight Bearing: Toe-touch weight bearing Physical Therapy: Eval and Treat Occupational Therapy: Eval and Treat Problem/Diagnosis (1) Closed right femoral fracture: Status: Acute Code(s): S72.91XA - Unspecified fracture of right femur, initial encounter for closed fracture Plan #RIght femoral periprosthetic femoral fracture due to mechanical fall * had ORIF of right periprosthetic femoral shaft fracture on 04/21/2023. * PT./OT on board. * on oral tylenol and oxycodone for pain as well as IV morphine prn. * fall precautions * #Recent Right knee prosthetic joint infection * had right knee irrigation debridement and polyethylene exchange with component revision by Dr Reilly recently. Surgical cultures grew Enterobacter and he has completed a course of IV antibiotics with IV ertapenem and doxycyline on 04/15/2023. * #Hypertension * on lisinopril * #GERD: on PPI #DepressioN; on wellbutrin. DVT prophylaxis: on xarelto Disposition: still awaiting dc to SNF Allergies/Procedures Done in Hospital Allergies adhesive Allergy (Verified 04/16/23 21:04) Rash SURGICAL GLUE adhesive tape Allergy (Verified 04/16/23 21:04) Rash gabapentin [From Neurontin] Allergy (Verified 04/16/23 21:04) Hives Procedures: None Type of Care/Length of Stay Estimated LOS: Convalescent Care Less Than 30 days Type of Care Needed: Skilled Rehab Potential: Good Prognosis: Good Additional Orders/Day of Discharge Day of Discharge: 04/28/23 Dietary and Speech Recommendations Dietitian Recommendations/Changes: Continue carbohydrate-controlled diet as ordered. ONS as needed if PO declines at meals. Consult RD as needed. Discharge Plan Admission Admit Date/Time: 04/16/23 23:21 Primary Reason for Your Visit: Fall with R femur fracture Attending Provider: Swapna Walsh Primary Care Provider: Gerri Leary Consulting Providers: Cash Reilly; Sang Gibson; Tutu Ruiz; Irina Maddox Instructions Patient Instructions: ED Fall Prevention Additional Instructions / Restrictions: DISCHARGE INSTRUCTIONS PLEASE READ *Please take this with you to your next doctors appointment* -You will need to be on Xarelto 10 mg daily for 2 weeks followed by 2 weeks of aspirin 81 mg twice a day -toe-touch weightbearing with the right lower extremity for a minimum of 6 weeks postoperatively with use of walker. Continue with knee immobilizer at all times and no range of motion of the right knee -continue with the knee immobilizer for the first 2 weeks -Please follow-up with [facility] for x-rays and staple removal in 2 weeks. Please call their office to schedule hospital follow-up appointment upon discharge. -Please call your primary care provider's office upon discharge to schedule a hospital follow up within 1 week. -For any concerning signs or symptoms please call 911 or proceed to the nearest emergency department Discharge Orders/Prescriptions Prescriptions: New bupropion HCl 150 mg Tablet Sustained-Release 12 Hr 150 mg PO BIDBL Qty: 0 0RF oxycodone 5 mg Tablet 5 mg PO Q4H PRN PRN (Reason: Pain Score 4-10) 3 Days Qty: 12 0RF Xarelto 10 mg Tablet 10 mg PO DAILY@0600 Qty: 14 0RF cyclobenzaprine 10 mg tablet 10 mg PO TID PRN (Reason: muscle spasm) Qty: 30 1RF Continued bupropion HCl [Wellbutrin SR] 150 mg tablet sustained-release 12 hr 150 mg PO BID Rx Instructions: Take once daily for the first 3 days then increase to twice daily pantoprazole 40 mg tablet,delayed release (DR/EC) 40 mg PO DAILY lisinopril 10 mg tablet 10 mg PO DAILY Discontinued doxycycline monohydrate 100 mg Capsule 100 mg PO 1000,2200 20 Days Qty: 40 0RF Referrals / Follow Up: Gerri Leary MD [Primary Care Provider] - Shiv Ponce PA-C [Med Staff - [facility]] - 05/05/23 3:15 pm Disposition Disposition (needs filled in before D/C Order can be placed): Group Home Facility
--- NOTE | 2023-04-28 11:37 | DS.PCM_ITS ---
Providers Date of Admission: 04/16/23 Date of Discharge: 04/28/23 Primary Care Physician: Dr. Gerri Leary MD Consultations 04/17/23 01:05 Consult: Orthopedics Routine Consulting Provider: Cash Reilly Reason for Consult: Right femur fracture EMERGENT Consult: No MD Notified: Yes Date Notified: 04/17/23 Time Notified: 01:05 Method of Notification: ED Physician Initiated Reason For Visit: RIGHT FEMORAL FRACTURE Diagnosis Discharge Diagnosis (1) Closed right femoral fracture: Status: Acute Code(s): S72.91XA - Unspecified fracture of right femur, initial encounter for closed fracture Plan #RIght femoral periprosthetic femoral fracture due to mechanical fall * had ORIF of right periprosthetic femoral shaft fracture on 04/21/2023. * PT./OT on board. * on oral tylenol and oxycodone for pain as well as IV morphine prn. * fall precautions * #Recent Right knee prosthetic joint infection * had right knee irrigation debridement and polyethylene exchange with component revision by Dr Reilly recently. Surgical cultures grew Enterobacter and he has completed a course of IV antibiotics with IV ertapenem and doxycyline on 04/15/2023. * #Hypertension * on lisinopril * #GERD: on PPI #DepressioN; on wellbutrin. DVT prophylaxis: on xarelto Disposition: still awaiting dc to SNF Medications at Discharge Home Medications bupropion HCl 150 mg tablet,12 hr sustained-release (Wellbutrin SR) 150 mg PO BID DEPRESSION 01/13/23 lisinopril 10 mg tablet 10 mg PO DAILY BP 01/13/23 pantoprazole 40 mg tablet,delayed release 40 mg PO DAILY GERD 01/13/23 bupropion HCl 150 mg tablet,12 hr sustained-release 150 mg PO BIDBL #0 ea 04/22/23 cyclobenzaprine 10 mg tablet 10 mg PO TID PRN muscle spasm #30 tabs 04/28/23 oxycodone 5 mg tablet 5 mg PO Q4H PRN PRN Pain Score 4-10 3 days #12 tabs 12/14 rivaroxaban 10 mg tablet (Xarelto) 10 mg PO DAILY@0600 #14 tabs 04/28/23 Hospital Course Procedures None Summary of Care Provided Minutes Spent on Discharge: 55 Hospital Course: Patient is a 62-year-old male with a past medical history as outlined was a dmitted through the ED with a complaint of mechanical fall. Patient had had a right knee replacement revision surgery in January 2023 and this was complicated by prosthetic joint infection s/p polyethylene exchange and skin graft for coverage. He subsequently had a fall at home on 04/16/2023. On admission imaging done showed right femoral fracture at the mid femoral diaphysis. Orthopedic surgery was consulted and he was admitted and managed for right femoral fracture due to mechanical fall. Orthopedic surgery was consulted. He had open reduction and internal fixation of the right periprosthetic femoral shaft fracture on 04/21/2023. He was placed on Tylenol and oxycodone as well as IV morphine as needed for pain. Postop course was not complicated. He had completed a course of IV ertapenem and doxycycline on 04/15/2023 after surgical cultures for his right prosthetic knee joint infection grew Enterobacter. Patient was with physical therapy and was deemed as needing skilled therapy. He was discharged to halfway home after pre-CERT was obtained on 04/28/2023. He was discharged with a prescription for p.o. oxycodone. He is to follow-up with his primary care doctor and orthopedic surgery within 1 to 2 weeks. Patient seen and examined prior to discharge. He had no active complaints and had an uneventful night. Review of systems otherwise negative. Labs and vitals reviewed. Home medication reviewed and reconciled. He was discharged with a prescription for Xarelto for 2 weeks for DVT prophylaxis. Per orthopedics, he is to go on 2 weeks of Xarelto followed by 2 weeks of aspirin. Patient to follow-up with orthopedics or PCP for prescription for aspirin after he completed the 2-week course of Xarelto for DVT prophylaxis. Physical Exam Const alert, oriented x3, no apparent distress and average body habitus General Appearance: cooperative, comfortable, well kempt and well developed HEENT normocephalic, head/scalp atraumatic, hearing grossly normal bilaterally, nasal mucous membranes and turbinates normal, moist oral mucous membranes and oropharynx normal Mouth: oral and palatal mucosa normal Eyes PERRL, EOMs intact bilaterally and conjunctivae normal Neck full ROM, no lymphadenopathy and supple Lymph Lymphatic: no lymphadenopathy noted and no lymphedema noted Chest inspection of chest normal Resp normal respiratory effort, normal air movement, no use of accessory muscles and clear to auscultation bilaterally Cardio regular rate, regular rhythm, S1 normal heart sound, S2 normal heart sound, no murmurs and peripheral pulses 2+ throughout GI normal to inspection, nondistended, normoactive bowel sounds, soft to palpation, non-tender and non-distended Back/Spine normal ROM Extremity normal to inspection, normal capillary refill, no clubbing, cyanosis or edema and no calf tenderness Extremity Narrative: Right knee brace in place. General Extremity: no tenderness to palpation of joints or extremities Skin no rashes or lesions noted General Skin Exam: no breakdown Neuro CN's II-XII intact bilaterally, no focal motor deficits, no sensory deficits noted and deep tendon reflexes 2+ bilaterally Motor Exam: general weakness Psych mental status grossly normal, thought process normal and cooperative Appearance: appropriate Weight / BMI Weight Weight: 172 lb 9.951 oz Body Mass Index (BMI) 28.7 ABG / Lab / Microbiology Data 04/28/23 04:23 04/28/23 04:23 Laboratory: Laboratory Results - last 24 hr 04/27/23 05:04: Magnesium 2.2 04/28/23 04:23: WBC 7.1, RBC 3.57 L, Hgb 9.0 L, Hct 29.1 L, MCV 81.5, MCH 25.2 L , MCHC 30.9 L, RDW Std Deviation 47.6 H, RDW Coeff of Clemente 16.0 H, Plt Count 454 H, MPV 8.9, Immature Gran % (Auto) 0.600, Neut % (Auto) 61.8, Lymph % (Auto) 22.6, Emmons % (Auto) 9.6, Eos % (Auto) 5.3 H, Baso % (Auto) 0.1, Absolute Neuts (auto) 4.4, Absolute Lymphs (auto) 1.61, Nucleated RBC % 0, Sodium 139, Potassium 4.1, Chloride 107, Carbon Dioxide 27.0, Anion Gap 5, BUN 16, Creatinine 0.90, Estim Creat Clear Calc 73.08, Est GFR (MDRD) Af Amer 109, Est GFR (MDRD) Non-Af 90, BUN/Creatinine Ratio 17.7, Glucose 126 H, Calcium 8.7 D/C Instructions Discharge Diet: Low fat / Low cholesterol Weight Bearing Status: Toe touch weight bearing Call your doctor if you observe: Fever of 101 or Higher, Shortness of breath, Dizziness, Swelling in the ankles, Chest pain and Increased palpitations (irreg ular heartbeat) Meaningful Use Info Meaningful Use Diagnoses (Choose all that apply): None applicable Discharge Plan Admission Admit Date/Time: 04/16/23 23:21 Primary Reason for Your Visit: Fall with R femur fracture Attending Provider: Swapna Walsh Primary Care Provider: Gerri Leary Consulting Providers: Cash Reilly; Sang Gibson; Tutu Ruiz; Irina Maddox Instructions Patient Instructions: ED Fall Prevention Additional Instructions / Restrictions: DISCHARGE INSTRUCTIONS PLEASE READ *Please take this with you to your next doctors appointment* -You will need to be on Xarelto 10 mg daily for 2 weeks followed by 2 weeks of aspirin 81 mg twice a day -toe-touch weightbearing with the right lower extremity for a minimum of 6 weeks postoperatively with use of walker. Continue with knee immobilizer at all times and no range of motion of the right knee -continue with the knee immobilizer for the first 2 weeks -Please follow-up with [facility] for x-rays and staple removal in 2 weeks. Please call their office to schedule hospital follow-up appointment upon discharge. -Please call your primary care provider's office upon discharge to schedule a hospital follow up within 1 week. -For any concerning signs or symptoms please call 911 or proceed to the nearest emergency department Discharge Orders/Prescriptions Prescriptions: New bupropion HCl 150 mg Tablet Sustained-Release 12 Hr 150 mg PO BIDBL Qty: 0 0RF oxycodone 5 mg Tablet 5 mg PO Q4H PRN PRN (Reason: Pain Score 4-10) 3 Days Qty: 12 0RF Xarelto 10 mg Tablet 10 mg PO DAILY@0600 Qty: 14 0RF cyclobenzaprine 10 mg tablet 10 mg PO TID PRN (Reason: muscle spasm) Qty: 30 1RF Continued bupropion HCl [Wellbutrin SR] 150 mg tablet sustained-release 12 hr 150 mg PO BID Rx Instructions: Take once daily for the first 3 days then increase to twice daily pantoprazole 40 mg tablet,delayed release (DR/EC) 40 mg PO DAILY lisinopril 10 mg tablet 10 mg PO DAILY Discontinued doxycycline monohydrate 100 mg Capsule 100 mg PO 1000,2200 20 Days Qty: 40 0RF Referrals / Follow Up: Gerri Leary MD [Primary Care Provider] - Shiv Ponce PA-C [Med Staff - [facility] Practice [facility]] - 05/05/23 3:15 pm Disposition Disposition (needs filled in before D/C Order can be placed): [facility] Charges/Coding Visit Charges Inpatient E&M: 79754 Disch Hosp >30min
--- NOTE | 2023-04-28 12:21 | CASEMGMT ---
[facility] accepted patient. JAZ sent all necessary information to [facility] to obtain a level of care. Elizabeth OWENS
--- NOTE | 2023-04-28 12:41 | PHA.DC_ITS ---
Pharmacy [place] Med Reconciliation Pharmacy Service has performed discharge medication reconciliation for this patient upon transfer to [facility] The patient's discharge medication list was reviewed for discrepancies and discrepancies were resolved. Medications at Discharge Home Medications bupropion HCl 150 mg tablet,12 hr sustained-release (Wellbutrin SR) 150 mg PO BID DEPRESSION 01/13/23 lisinopril 10 mg tablet 10 mg PO DAILY BP 01/13/23 pantoprazole 40 mg tablet,delayed release 40 mg PO DAILY GERD 01/13/23 bupropion HCl 150 mg tablet,12 hr sustained-release 150 mg PO BIDBL #0 ea 04/22/23 cyclobenzaprine 10 mg tablet 10 mg PO TID PRN muscle spasm #30 tabs 04/28/23 oxycodone 5 mg tablet 5 mg PO Q4H PRN PRN Pain Score 4-10 3 days #12 tabs 04/28/23 rivaroxaban 10 mg tablet (Xarelto) 10 mg PO DAILY@0600 #14 tabs 04/28/23
--- NOTE | 2023-04-28 12:48 | CASEMGMT ---
JAZ received a call from patient's and she was upset that neither she or patient know where patient is going or when. JAZ explained that JAZ did notify patient that SW was working on getting him to [email or web address]. JAZ explained [facility] just got back to us today notifying us they will take patient. JAZ explained once JAZ has paperwork SW will arrange for transport to [email or web address] today. Patient's was upset over numerous things so JAZ provided her with the patient advocate's phone number. JAZ told patient's someone will notify her once we have a berry picker time. JAZ went to patient's room to update him, however he was on the phone. Elizabeth Baer MANAGER OF REVENUE GRACIELA
[2023-04-28 13:07] VITALS: BP 136/67; PULSE 82; RESP 18; TEMP 36.6; O2SAT 93
[2023-04-28] MEDS: cycloBENZAPRine HCl 10 MG Tablet PO (13:14)
[2023-04-28] MEDS: 0.9% Saline Lock 10 ML Syringe IV (13:15)
--- NOTE | 2023-04-28 13:30 | CASEMGMT ---
SW received level of care from [facility]. SW went back to patient's room and let him know [facility] just got back to us today and let us know they could take him. SW explained SW was waiting on paperwork and just received it so we will get him to [facility] today. Patient verbalized understanding and agreement. SW apologized to patient if he felt SW was no communicating enough. SW let patient know someone will be in to let him know a pickling grader time. Plan: d/c to [facility] on his Medicaid under intermediate level of care on a PASRR. Patient's [employer] denied him to go to a SNF skilled. Elizabeth Baer CLINICAL FELLOW GRACIELA
--- NOTE | 2023-04-28 13:31 | CASEMGMT ---
Discharge Planning Discharge orders, signed med list, and transport time sent to [facility] via [employer]. [facility] will transport patient by wheelchair at 2p. SW, Nursing, patient, and his updated. Kelin Aly, Discharge Planning Asst.
--- NOTE | 2023-04-28 14:48 | NURSING ---
0930 this am upon assessing pt he stated his pain was at a 6/10. he refused his scheduled tylenol this am and last pm. pt states he does not want anything else for pain at this time. assessment completed. pt instructed to let this nurse know if he needs something for pain. 1300; pt sleeping most of morning and afternoon. a call received for this nurse from dr. koenig office. stating pt called in stating he was not being given pain meds. this nurse went in to talk with pt. he again states his pain is a 6/10 and declining the need for pain meds. at this time this nurse told pt a 6/10 is significant pain and he should take the meds that are ordered for pain. if these are not effective we can talk to the . pt states if you want to give them to me i will take them but my pain is not bad today like it has been the last 2 days. pt took oxycodone 5 mg and flexeril which he states is like taking water and do not help with pain. 1400; upon checking in on pt he states the oxycodone and flexeril did help and he is tired now. pt is to transfer to [facility]. 1450; call placed to [facility] for report. no nurse available to take report at this time. call back number given for when nurse is available to take report.
== END 2023-04-28 14:39 | DRG 481 ==
LOC: ED 22:51 → PCU 04-17 00:33
PROVIDERS: Internal Medicine; Specialist; Admitting Provider Hospitalist; Emergency Provider Emergency Medicine; PCP Internal Medicine; Visit Provider Student in an Organized Health Care Education/Training Program
PROC: (CPT 27514; principal; 2023-04-20 13:35)
DX: S72.91XA Unspecified fracture of right femur, initial encounter for closed fracture (principal); M97.11XA Periprosthetic fracture around internal prosthetic right knee joint, initial encounter; E11.40 Type 2 diabetes mellitus with diabetic neuropathy, unspecified; F32.A Depression, unspecified; I10 Essential (primary) hypertension; F12.10 Cannabis abuse, uncomplicated; K21.9 Gastro-esophageal reflux disease without esophagitis; E78.5 Hyperlipidemia, unspecified; G47.33 Obstructive sleep apnea (adult) (pediatric); W19.XXXA Unspecified fall, initial encounter; Z66 Do not resuscitate; R53.81 Other malaise; Z96.651 Presence of right artificial knee joint; Z96.698 Presence of other orthopedic joint implants
CPT/HCPCS: 36415; 73552; 76000; 80048; 80053; 83735; 85025; 85027; 85610; 85730; 86850; 86900; 86901; 93005; 94640; 94668; 97110; 97116; 97162; 97166; 97530; 97535; 99252; 99285; C1713; J7120; A4216; G0463; J2405